=== PATIENT | female | born 1940 | race Caucasian/White ===

== ENCOUNTER → 2016-12-12 | Outpatient (REF) | payer MEDICARE, BC, OTHER ==
[~2016-12-12] MED LIST: ACET-654 PO; ALPH0.156 OU; ASPI1TAB PO; CARV3.12 PO; CARV6.25 PO; ENTR1TAB PO; FURO1TAB15 PO; FURO40TA2 PO; GLIM1TAB PO; GLIM2TA PO; GUAI20TA PO; GUAI400T6 PO; INSULANT SC; K-TA10TA2 PO; LASI40TA PO; LEVA250T PO; LEVO137T2 PO; METF1000 PO; MILKSUS PO; PARO5TAB PO; POTA10CA PO; SENN1TAB2 PO; SENN8.6T7 PO; SIMV40TA2 PO; SPIR25TA2 PO; TRAD5TAB PO; VITA-121 PO; VITMTA PO; [UNRECOGNIZED DRUG - CODE] PO
[2016-12-12 18:44] LABS: ALBUMIN 3.1 GM/DL (3.2-5.2); ALBUMIN/GLOBULIN RATIO 0.89 (1.00-1.93); BILIRUBIN,TOTAL 1.9 MG/DL (0.2-1.0); CALCIUM LEVEL 9.8 MG/DL (8.8-10.2); CREATININE FOR GFR 2.15 MG/DL (0.55-1.02); GLOMERULAR FILTRATION RATE 23.7 (>39); TOTAL PROTEIN 6.6 GM/DL (6.4-8.2)
[2016-12-12 18:49] LABS: POTASSIUM SERUM 5.2 MEQ/L (3.5-5.1)
== END ==
LOC: M LAB REF 16:42
PROVIDERS: ATTEND Family Medicine
DX: I50.32 Chronic diastolic (congestive) heart failure (principal); R60.0 Localized edema; I10 Essential (primary) hypertension

== ENCOUNTER 2016-12-25 15:04 | Inpatient (IN) | payer MEDICARE, BC, OTHER ==
[~2016-12-25] VITALS: Ht 160 cm; Wt 43.9 kg
--- NOTE | 2016-12-25 16:17 | REP ---
CT BRAIN WITHOUT CONTRAST: 12/25/2016. Clinical history: Altered level of consciousness. Comparison MRI brain 07/30/2009. Findings: The noncontrast brain with soft tissue and bone windows reviewed for each slice level show ventricles midline and symmetric. There are heterogeneous low attenuation white matter changes about the frontal horns of each ventricles, subcortical regions and deep white matter in both hemispheres representing chronic small vessel ischemic changes. Atrophy is noted, mild to moderate throughout and age appropriate. There is no vascular territory infarct, intracranial hemorrhage, mass, mass effect or edema. Brainstem unremarkable. Cerebellum shows diffuse atrophy without mass. Basal cisterns are intact. Mastoids and visualized sinuses were clear. There are atherosclerotic calcifications in the carotid siphons. The skull base and calvarium are without fracture or focal lesion. Impression: 1. Chronic small vessel white matter ischemic changes noted bilaterally without acute infarct, hemorrhage, edema or mass. 2. Some atrophy, age appropriate and no acute finding. 3. Posterior fossa, skull base, calvarium, sinuses and mastoids visualized intact. Signed by Tomy Aguillon MD 12/25/2016 07:38 P
--- NOTE | 2016-12-25 16:23 | REP ---
Portable chest x-ray: AP semi-erect view. History: CVA, greater than 4.5 hours. Comparison chest x-ray November 16, 2016. Findings: Marked cardiomegaly is again observed. A multilead pacemaker remains in place in the right heart via the left side. There is fissural thickening in the minor fissure. Pulmonary vasculature is cephalized and somewhat congested. No free pleural effusion is seen. Today's view is exposed at a lesser inspiratory level. Impression: Marked cardiomegaly. Pulmonary vascular congestion. Fissural thickening consistent with CHF. Relatively low inspiratory level. Pacemaker in place. Signed by Bennie Muñoz MD 12/25/2016 04:48 P
[2016-12-25 16:41] LABS: AMPHETAMINES LEVEL URINE NEGATIVE (NEGATIVE); BENZODIAZEPINES URINE NEGATIVE (NEGATIVE); COCAINE METABOLITE URINE NEGATIVE (NEGATIVE); CONTROL LINE INT CTR LINE PRESENT; METHADONE URINE NEGATIVE (NEGATIVE); OPIATES URINE NEGATIVE (NEGATIVE); TRICYCLIC ANTIDEPRESS URINE NEGATIVE (NEGATIVE)
[2016-12-25 16:46] LABS: BASO # 0.1 K/mm3 (0.0-0.2); BASO % 1.4 % (0.0-1.0); EOS % 0.5 % (0.0-3.0); LARGE UNSTAINED CELL # 0.2 K/mm3 (0.0-0.4); LARGE UNSTAINED CELL % 3.4 % (0.0-4.0); LYMPH # 0.7 K/mm3 (1.5-4.5); MEAN CORPUSCULAR HEMOGLOBIN 29.9 pg (27.0-33.0); MEAN CORPUSCULAR VOLUME 93.5 fl (80.0-96.0); MONO # 0.5 K/mm3 (0.0-0.8); MONO % 8.2 % (0.0-5.0); NEUTROPHILS # 5.2 K/mm3 (1.8-7.7); NEUTROPHILS % 79.5 % (36.0-66.0); PLATELET COUNT, AUTOMATED 115 k/mm3 (150-450); RED CELL DISTRIBUTION WIDTH 21.2 % (11.5-14.5); WHITE BLOOD COUNT 6.5 K/mm3 (4.0-10.0)
[2016-12-25 17:02] LABS: ALBUMIN 3.3 GM/DL (3.2-5.2); ALBUMIN/GLOBULIN RATIO 0.87 (1.00-1.93); ALKALINE PHOSPHATASE 212 U/L (45-117); ALT/SGPT 38 U/L (12-78); ANION GAP 13 MEQ/L (8-16); AST/SGOT 46 U/L (15-37); BILIRUBIN,DIRECT 1.1 MG/DL (0.0-0.2); BILIRUBIN,TOTAL 1.9 MG/DL (0.2-1.0); BLOOD UREA NITROGEN 52 MG/DL (7-18); CALCIUM LEVEL 9.5 MG/DL (8.8-10.2); CARBON DIOXIDE LEVEL 24 MEQ/L (21-32); CHLORIDE LEVEL 100 MEQ/L (98-107); CREATININE FOR GFR 1.91 MG/DL (0.55-1.02); GLOMERULAR FILTRATION RATE 27.2 (>39); GLUCOSE, FASTING 203 MG/DL (83-110); SODIUM LEVEL 137 MEQ/L (136-145); TOTAL PROTEIN 7.1 GM/DL (6.4-8.2)
[2016-12-25] MEDS ORDERED: FUROSEMIDE 20 MG/2 ML VIAL (J1940) As Ordered ONE (17:28)
[2016-12-25 17:41] LABS: POTASSIUM SERUM 6.5 MEQ/L (3.5-5.1)
[2016-12-25] MEDS ORDERED: GLUCAGON FOR INJ 1 MG VIAL (J1610) SC PRN (19:00)
[2016-12-25] MEDS ORDERED: PARoxetine 10MG TABLET PO PRN (19:00)
[2016-12-25] MEDS ORDERED: guaiFENesin 200 MG TAB PO PRN (19:00)
[2016-12-25] MEDS ORDERED: GLUCOSE 4 GM CHEW TABLET PO PRN (19:00)
[2016-12-25] MEDS ORDERED: FURO40TA2 PO (19:12)
[2016-12-25] MEDS ORDERED: TRAD5TAB PO (19:15)
[2016-12-25] MEDS ORDERED: SPIR25TA2 PO (19:15)
[2016-12-25] MEDS ORDERED: INSULANT SC (19:18)
[2016-12-25 20:05] LABS: INR 1.85
[2016-12-25] MEDS: BRIMONIDINE 0.15% OPHTH SOLN 5 ML OU SCH (21:00)
--- NOTE | 2016-12-25 21:58 | EDDOCDS ---
Physician Documentation [facility] Name: Yamini Yen Age: 76 yrs Sex: Female : 1940 Arrival Date: 12/25/2016 Time: 15:04 Bed 8 Private MD: Sujit Bhagat MD Disposition: 12/25/16 17:58 Hospitalization ordered by Denilson Butts for Inpatient Admission. Preliminary diagnosis are Acute combined systolic (congestive) and diastolic (congestive) heart failure, Hyperkalemia. - Bed requested for PCU. - Status is Inpatient Admission. ko2 - Condition is Stable. - Problem is an acute exacerbation. - Symptoms are unchanged. Historical: - Allergies: No known drug Allergies; - Home Meds: 1. furosemide 40 mg Oral tab 1 tab 2 times per day 2. acetaminophen 325 mg Oral cap every 4 hours for pain as needed 3. alphagan eye drops ou twice a day 4. aspirin 81 mg Oral chew once daily 5. aspirin 81 mg Oral tab once daily 6. brimonidine ophthalmic 1 drop each eye twice a day 7. carvedilol 3.125 mg oral tab 1 tab 2 times per day 8. carvedilol 3.125 mg oral tab 2 times per day 9. glimepiride 1 mg Oral tab 1 tab nightly 10. glimepiride 2 mg Oral tab 1 tab once daily 11. guaifenesin 400 mg Oral tab 1 tab twice a day 12. guaifenesin 400 mg Oral tab as needed for cough twice a day 13. Lantus 100 unit/mL Sub-Q soln 10 units daily 14. Lasix 80 mg Oral tab 2 times per day 15. levothyroxine 137 mcg Oral tab 1 tab once daily 16. levothyroxine 137 mcg Oral tab once daily 17. Milk of Magnesia 400 mg/5 mL Oral susp 30 mL once daily prn 18. Milk of Magnesia Oral as needed for constipation 19. multivitamin Oral tab 1 tab daily 20. multivitamin Oral tab daily 21. oxygen 2L/min at bedtime and PRN 22. Paroxetine HCl 5 mg Oral at bedtime as needed for tremors 23. potassium chloride 40 meq Oral TbTQ once daily 24. Potassium Chloride Oral 4 caps once daily 25. senna 8.6 mg oral tab twice a day as needed 26. Senna Plus 8.6-50 mg oral tab 1 tabs twice a day 27. simvastatin 40 mg Oral tab 1 tab nightly 28. Tradjenta 5 mg oral tab once daily 29. Tylenol 325 mg Oral tab as needed 30. Vitamin D Oral 1000 unit daily 31. Vitamin D3 1,000 unit oral tab daily - PMHx: Anemia; Anxiety; ASHD; Cardiomyopathy; CHF; Chronic kidney disease; Diabetes - IDDM: uncontrolled; Hypertension; Hypothyroidism; metabolic encaphalopathy; CO; pleural effusion; tricuspid valve insufficiency; - PSHx: PACEMAKER 10/05; valve replacements; CABG; pacermaker/defibrillator; Hysterectomy; - Social history: Smoking status: Patient states former smoker of tobacco. No barriers to communication noted, The patient speaks fluent Korean. - Family history: Not pertinent. - : The pt / caregiver states he / she is not on anticoagulants. Home medication list is obtained from [employer] import data. - Exposure Risk Screening:: None identified. Vital Signs: 12/25 15:01 BP 151 / 69 (auto/); bcj 15:01 Pulse 72 MON; Pulse Ox 100% ; bcj 15:06 BP 110 / 85; Pulse 108; Resp 20 S; Pulse Ox 74% ; Weight 47.17 kg / 103.99 lbs (R); gr2 Height 5 ft. 3 in. (160.02 cm) (R); Pain 6/10; 15:21 BP 127 / 88 (auto/); bcj 15:22 Pulse 80 MON; Pulse Ox 92% ; bcj 15:23 Temp 97.8(TE); Pulse Ox 100% on 2.0 lpm NC; lr2 15:36 BP 121 / 83 (auto/); bcj 15:36 Pulse 76 MON; Pulse Ox 98% ; bcj 15:51 BP 127 / 71 (auto/); bcj 15:51 Pulse 76 MON; Pulse Ox 98% ; bcj 16:06 BP 117 / 83 (auto/); bcj 16:06 Pulse 72 MON; Pulse Ox 97% ; bcj 16:21 BP 123 / 82 (auto/); bcj 16:21 Pulse 74 MON; bcj 16:36 BP 121 / 69 (auto/); bcj 16:36 Pulse 72 MON; bcj 16:51 BP 121 / 74 (auto/); bcj 16:51 Pulse 72 MON; bcj 17:21 BP 102 / 64 (auto/); bcj 17:21 Pulse 78 MON; bcj 17:36 BP 114 / 77 (auto/); bcj 17:36 Pulse 74 MON; bcj 20:51 BP 121 / 82; Pulse 70; Resp 18; Temp 97.6; Pulse Ox 97% ; Pain 0/10; ko2 15:06 Body Mass Index 18.42 (47.17 kg, 160.02 cm) gr2 15:06 TEMP NEEDS TO BE TAKEN gr2 MDM: 15:42 Pack Master/Pulse Ox/q 15 min VS ordered. ke 15:42 Accucheck ordered. ke 15:42 IV Saline Lock ordered. ke 15:42 Oxygen at 4L/Min NC or Home dosage ordered. ke 15:42 Rhythm Strip to chart ordered. ke 15:42 Straight cath ordered. ke 15:43 Acetaminophen Level Ordered. EDMS 15:43 CBC with Diff Ordered. EDMS 15:43 Cardiac Injury Profile Ordered. EDMS 15:43 Drug Eval Toxicology ED Only Ordered. EDMS 15:43 Liver Profile Ordered. EDMS 15:43 MED Profile Ordered. EDMS 15:43 Salicylate Level Ordered. EDMS 15:43 Thyroid Stimulating Hormone Ordered. EDMS 15:43 Troponin Ordered. EDMS 15:43 Urinalysis Ordered. EDMS 15:43 Urine Culture Ordered. EDMS 15:44 Chest, 1 View Ordered. EDMS 15:44 CT Head Without Contrast Ordered. EDMS 15:44 ECG WITH READING ER PHYS+CARDIAG ordered. EDMS 17:01 CBC with Diff Reviewed. ke 17:01 Urinalysis Reviewed. ke 17:01 Drug Eval Toxicology ED Only Reviewed. ke 17:01 CT Head Without Contrast Reviewed. ke 17:12 Chest, 1 View Reviewed. ke 17:13 Furosemide 60 mg IVP once ordered. ke 17:14 BNP Ordered. EDMS 17:51 Acetaminophen Level Reviewed. ke 17:51 Cardiac Injury Profile Reviewed. ke 17:51 Liver Profile Reviewed. ke 17:51 MED Profile Reviewed. ke 17:51 Salicylate Level Reviewed. ke 17:51 Thyroid Stimulating Hormone Reviewed. ke 17:51 Troponin Reviewed. ke 17:54 BED REQUEST+ADM ordered. EDMS 18:48 POTASSIUM LEVEL Ordered. EDMS 18:56 PROTHROMBIN TIME PROFILE\E\INR Ordered. EDMS 19:20 ARTERIAL BLOOD GAS Ordered. EDMS 19:24 BLOOD CULTURES Ordered. EDMS 19:25 BLOOD CULTURES Ordered. EDMS 19:25 LIVER US Ordered. EDMS 19:30 RENAL PROFILE Ordered. EDMS 19:31 COMPLETE BLOOD COUNT Ordered. EDMS 19:31 COMPLETE COMPHRENSIVE METABOLI Ordered. EDMS 19:42 CARDIAC MARKER PANEL Ordered. EDMS 19:48 CARDIAC MARKER PANEL Ordered. EDMS 19:48 CARDIAC MARKER PANEL Ordered. EDMS 19:48 AMMONIA Ordered. EDMS 19:50 CONSISTENT CARBOHYDRATES ordered. EDMS 19:54 ELECTROCARDIOGRAM ADULT ordered. EDMS 20:04 FREE T4 Ordered. EDMS 20:10 Admission / Observation Status ordered. EDMS 20:16 AMMONIA Ordered. EDMS 20:38 Financial registration complete. gjb 20:52 PREALBUMIN Ordered. EDMS 20:53 MAGNESIUM LEVEL Ordered. EDMS 21:01 [facility] Payment Agreement was scanned into [employer] and attached to record. gjb Administered Medications: 17:39 Drug: Furosemide 60 mg [furosemide 10 mg/mL injection solution (6 mL)] Route: IVP; bcj Site: right forearm; Signatures: Dispatcher [employer] Angelika Mathias, RN RN kcs Akbar Lane, DOOR TO DOOR FUNDRAISING COLLECTOR DOOR TO DOOR FUNDRAISING COLLECTOR Rosana Dunham RN RN ko2 Keo Alonso, BOLIVAR LEAD REFINER Comfort Chairez Bruce RN bcj The chart was reviewed and I authenticate all verbal orders and agree with the evaluation and treatment provided.Corrections: (The following items were deleted from the chart) 19:47 19:43 CARDIAC MARKER PANEL ordered. EDMS EDMS 19:48 19:25 BLOOD CULTURES ordered. EDMS EDMS 19:48 19:25 BLOOD CULTURES ordered. EDMS EDMS 19:48 19:25 BLOOD CULTURES ordered. EDMS EDMS 20:04 18:56 FREE T4 ordered. EDMS EDMS 20:50 20:21 PREALBUMIN ordered. EDMS EDMS 20:52 19:54 MAGNESIUM LEVEL ordered. EDMS EDMS Attachments: 21:01 [facility] Payment Agreement gjb MTDD
--- NOTE | 2016-12-25 21:58 | EDDOCDS ---
Nurse's Notes [facility] Name: Yamini Yen Age: 76 yrs Sex: Female : 1940 Arrival Date: 12/25/2016 Time: 15:04 Bed 8 Private MD: Sujit Bhagat MD Diagnosis: Acute combined systolic (congestive) and diastolic (congestive) heart failure;Hyperkalemia Presentation: 12/25 15:19 Presenting complaint: states: patient discharged from the hospital on kcs 11/19/2016 - end stage renal, CHF - a couple of days ago she injured her back and since has been confused and anxious. did not sleep all night - moaned alot. Adult Sepsis Screening: Patient has new or worsening altered mentation (1 point). Patient has a respiratory rate of greater than or equal to 22 (1 point). Systolic blood pressure is greater than 100. Patient has a qSOFA score of 2. Patient has cough and/or SOB- Positive Sepsis Screen. Suicide/Homicide risk assessment- the patient denies having any suicidal and/or homicidal ideations and does not present with any other emotional, behavioral or mental health complaints. 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 Transition of care: patient was not received from another setting of care. Red Flag criteria, patient assessed and taken directly to a bed. 15:19 Acuity: RICH Level 3 kcs 15:19 Method Of Arrival: Wheelchair kcs Triage Assessment: 15:29 General: Appears ill, slender, well developed, well groomed, Behavior is cooperative, kcs flat. Pain: Denies pain. The patient is triaged at the bedside. See Assessment in Nurses Notes section of ED record. Neurological: Level of Consciousness is awake, alert. Respiratory: Airway is patent Respiratory effort is even, unlabored, Respiratory pattern is regular, symmetrical. Derm: Skin is intact, is healthy with good turgor, Skin is dry, Skin is pale. Historical: - Allergies: No known drug Allergies; - Home Meds: 1. furosemide 40 mg Oral tab 1 tab 2 times per day 2. acetaminophen 325 mg Oral cap every 4 hours for pain as needed 3. alphagan eye drops ou twice a day 4. aspirin 81 mg Oral chew once daily 5. aspirin 81 mg Oral tab once daily 6. brimonidine ophthalmic 1 drop each eye twice a day 7. carvedilol 3.125 mg oral tab 1 tab 2 times per day 8. carvedilol 3.125 mg oral tab 2 times per day 9. glimepiride 1 mg Oral tab 1 tab nightly 10. glimepiride 2 mg Oral tab 1 tab once daily 11. guaifenesin 400 mg Oral tab 1 tab twice a day 12. guaifenesin 400 mg Oral tab as needed for cough twice a day 13. Lantus 100 unit/mL Sub-Q soln 10 units daily 14. Lasix 80 mg Oral tab 2 times per day 15. levothyroxine 137 mcg Oral tab 1 tab once daily 16. levothyroxine 137 mcg Oral tab once daily 17. Milk of Magnesia 400 mg/5 mL Oral susp 30 mL once daily prn 18. Milk of Magnesia Oral as needed for constipation 19. multivitamin Oral tab 1 tab daily 20. multivitamin Oral tab daily 21. oxygen 2L/min at bedtime and PRN 22. Paroxetine HCl 5 mg Oral at bedtime as needed for tremors 23. potassium chloride 40 meq Oral TbTQ once daily 24. Potassium Chloride Oral 4 caps once daily 25. senna 8.6 mg oral tab twice a day as needed 26. Senna Plus 8.6-50 mg oral tab 1 tabs twice a day 27. simvastatin 40 mg Oral tab 1 tab nightly 28. Tradjenta 5 mg oral tab once daily 29. Tylenol 325 mg Oral tab as needed 30. Vitamin D Oral 1000 unit daily 31. Vitamin D3 1,000 unit oral tab daily - PMHx: Anemia; Anxiety; ASHD; Cardiomyopathy; CHF; Chronic kidney disease; Diabetes - IDDM: uncontrolled; Hypertension; Hypothyroidism; metabolic encaphalopathy; AL; pleural effusion; tricuspid valve insufficiency; - PSHx: PACEMAKER 10/05; valve replacements; CABG; pacermaker/defibrillator; Hysterectomy; - Social history: Smoking status: Patient states former smoker of tobacco. No barriers to communication noted, The patient speaks fluent Ukrainian. - Family history: Not pertinent. - : The pt / caregiver states he / she is not on anticoagulants. Home medication list is obtained from [employer] import data. - Exposure Risk Screening:: None identified. Screenin:01 Screening information is obtained from family members. Fall risk: At risk due to gait bcj disturbance, The following interventions are performed due to a positive Fall Risk Screen: Fall Risk is added to Special Handling on the patient Summary Screen. A Fall Risk Bracelet was applied to the patient. Side Rails are placed in the up position. A Call Jordan is given with instruction to call for help when getting out of bed. Fall Alert bracelet is placed on the patient. Assistance ADL's: Requires assistance with medication administration, assistance is provided by family members. Abuse/DV Screen: The patient / caregiver reports he/she is: not in a situation that causes fear, pain or injury. Nutritional screening: No deficits noted. home support is adequate. 21:44 Advance Directives: Currently, there is a health care proxy. ko2 Assessment: 18:23 General: Appears in no apparent distress, comfortable, Behavior is cooperative. Pain: bcj Denies pain. Neurological: Level of Consciousness is awake, alert. Cardiovascular: Rhythm is sinus tachycardia. Respiratory: Airway is patent Respiratory effort is even, unlabored, Respiratory pattern is regular. GI: No deficits noted. Derm: Skin is pale. 19:30 General: Appears ill, Behavior is cooperative. Pain: Denies pain. Neurological: Level ko2 of Consciousness is lethargic. Cardiovascular: Heart tones S1 S2 present Rhythm is ventricular pacer. Respiratory: Airway is patent Respiratory effort is even, unlabored, Respiratory pattern is regular. Derm: Skin is pale. 20:30 General: Appears in no apparent distress, ill, Behavior is cooperative. Pain: Denies ko2 pain. Neurological: Level of Consciousness is awake, lethargic. Respiratory: Airway is patent Respiratory effort is even, unlabored. Derm: Skin is pale. 21:49 General: Appears in no apparent distress, Behavior is cooperative. Pain: Denies pain. ko2 Neurological: Level of Consciousness is lethargic. Respiratory: Airway is patent. Derm: Skin is pale. Vital Signs: 15:01 BP 151 / 69 (auto/); bcj 15:01 Pulse 72 MON; Pulse Ox 100% ; bcj 15:06 BP 110 / 85; Pulse 108; Resp 20 S; Pulse Ox 74% ; Weight 47.17 kg (R); Height 5 ft. 3 gr2 in. (160.02 cm) (R); Pain 6/10; 15:21 BP 127 / 88 (auto/); bcj 15:22 Pulse 80 MON; Pulse Ox 92% ; bcj 15:23 Temp 97.8(TE); Pulse Ox 100% on 2.0 lpm NC; lr2 15:36 BP 121 / 83 (auto/); bcj 15:36 Pulse 76 MON; Pulse Ox 98% ; bcj 15:51 BP 127 / 71 (auto/); bcj 15:51 Pulse 76 MON; Pulse Ox 98% ; bcj 16:06 BP 117 / 83 (auto/); bcj 16:06 Pulse 72 MON; Pulse Ox 97% ; bcj 16:21 BP 123 / 82 (auto/); bcj 16:21 Pulse 74 MON; bcj 16:36 BP 121 / 69 (auto/); bcj 16:36 Pulse 72 MON; bcj 16:51 BP 121 / 74 (auto/); bcj 16:51 Pulse 72 MON; bcj 17:21 BP 102 / 64 (auto/); bcj 17:21 Pulse 78 MON; bcj 17:36 BP 114 / 77 (auto/); bcj 17:36 Pulse 74 MON; bcj 20:51 BP 121 / 82; Pulse 70; Resp 18; Temp 97.6; Pulse Ox 97% ; Pain 0/10; ko2 15:06 Body Mass Index 18.42 (47.17 kg, 160.02 cm) gr2 15:06 TEMP NEEDS TO BE TAKEN gr2 Vitals: 15:06 Log In Time: December 25, 2016 at 15:06. RN notified that patient meets Red Flag gr2 criteria. 18:23 Refer to monitor trend for complete vital signs trends. [facility] ED Course: 15:01 No apparent distress. Resting quietly. Awaiting bed assignment. [facility] 15:01 The patient / caregiver is instructed regarding the plan of care and ED course. j 15:01 IV is intact. bcj 15:06 Patient visited by Mark Roberts. gr2 15:06 Sujit Bhagat is Private Physician. gr2 15:06 Patient moved to Waiting gr2 15:15 Patient visited by Mark Roberts. gr2 15:15 Patient moved to Pre RCE gr2 15:16 Patient moved to 8 bcj 15:22 Triage Initiated kcs 15:23 Accompanied by Family Member, Patient has correct armband on for positive lr2 identification. Placed in gown. Bed in low position. Call light in reach. Side rails up X2. business economist on. Pulse ox on. NIBP on. 15:24 Patient visited by Temi Lan. lr2 15:[address] F[facility]. ke 15:[address] Akbar Lane FNP. ke 15:[address] Akbar Lane FNP. ke 15:31 O2 via nasal cannula \T\ 2L/min. kcs 15:[address] jmb 16:05 Patient moved to 8 srm 16:06 Patient visited by Hannah Perales PCA. ct3 16:06 EKG done. (by ED staff). Reviewed by Akbar CHRISTIANSON. ct3 16:19 CT Head Without Contrast Returned. EDMS 16:28 Acetaminophen Level Sent. jmb 16:28 CBC with Diff Sent. jmb 16:28 Cardiac Injury Profile Sent. jmb 16:28 Liver Profile Sent. jmb 16:28 MED Profile Sent. jmb 16:28 Salicylate Level Sent. jmb 16:28 Thyroid Stimulating Hormone Sent. jmb 16:28 Troponin Sent. jmb 16:28 Inserted saline lock: 20 gauge in right forearm and blood collected. The patient jmb tolerated the procedure well. 16:31 [address] visited by Akbar Lane FNP. ke 17:02 [address] visited by Akbar Lane FNP. ke 17:02 Chest, 1 View Returned. EDMS 17:25 BNP Sent. bcj 17:[address] by Akbar Lane FNP. ke 17:50 Notified nurse practitioner of K+ of 6.5 reported to Martine CHRISTIANSON, non hemolyzed kpj specimen. 17:[address]bar Lane FNP. ke 17:58 Denilson Butts is Hospitalizing Provider. ke 18:27 Patient visited by Musa Max, RN. bcj 19:06 Rosana Saini,RN is Primary Nurse. ko2 19:30 Patient visited by Rosana Saini,URI. ko2 20:04 CT Head Without Contrast Returned. EDMS 21:01 [facility] [place] Agreement was scanned into [employer] and attached to record. gjb 21:42 Patient moved to Ultrasound dmg 21:44 No procedures done that require assistance. ko2 21:56 Patient moved to 8 dmg Administered Medications: 17:39 Drug: Furosemide 60 mg [furosemide 10 mg/mL injection solution (6 mL)] Route: IVP; bcj Site: right forearm; Output: 18:40 Stool: 1 (Formed Stool) ; Total: 0.00ml. lr2 Order Results: Lab Order: Acetaminophen Level; SPEC'M 12/25/16 16:25 Test: ACETAMINOPHEN LEVEL; Value: 5.4; Range: 10.0-30.0; Abnormal: Below low normal; Units: UG/ML; Status: F Lab Order: CBC with Diff; SPEC'M 12/25/16 16:25 Test: WHITE BLOOD COUNT; Value: 6.5; Range: 4.0-10.0; Units: K/mm3; Status: F Test: RED BLOOD COUNT; Value: 4.90; Range: 4.00-5.40; Units: M/mm3; Status: F Test: HEMOGLOBIN; Value: 14.7; Range: 12.0-16.0; Units: g/dl; Status: F Test: HEMATOCRIT; Value: 45.8; Range: 36.0-47.0; Units: %; Status: F Test: MEAN CORPUSCULAR VOLUME; Value: 93.5; Range: 80.0-96.0; Units: fl; Status: F Test: MEAN CORPUSCULAR HEMOGLOBIN; Value: 29.9; Range: 27.0-33.0; Units: pg; Status: F Test: MEAN CORPUSCULAR HGB CONC; Value: 32.0; Range: 32.0-36.5; Units: g/dl; Status: F Test: RED CELL DISTRIBUTION WIDTH; Value: 21.2; Range: 11.5-14.5; Abnormal: Above high normal; Units: %; Status: F Test: PLATELET COUNT, AUTOMATED; Value: 115; Range: 150-450; Abnormal: Below low normal; Units: k/mm3; Status: F Test: NEUTROPHILS %; Value: 79.5; Range: 36.0-66.0; Abnormal: Above high normal; Units: %; Status: F Test: LYMPH %; Value: 7.0; Range: 24.0-44.0; Abnormal: Below low normal; Units: %; Status: F Test: MONO %; Value: 8.2; Range: 0.0-5.0; Abnormal: Above high normal; Units: %; Status: F Test: EOS %; Value: 0.5; Range: 0.0-3.0; Units: %; Status: F Test: BASO %; Value: 1.4; Range: 0.0-1.0; Abnormal: Above high normal; Units: %; Status: F Test: LARGE UNSTAINED CELL %; Value: 3.4; Range: 0.0-4.0; Units: %; Status: F Test: NEUTROPHILS #; Value: 5.2; Range: 1.8-7.7; Units: K/mm3; Status: F Test: LYMPH #; Value: 0.7; Range: 1.5-4.5; Abnormal: Below low normal; Units: K/mm3; Status: F Test: MONO #; Value: 0.5; Range: 0.0-0.8; Units: K/mm3; Status: F Test: EOS #; Value: 0.0; Range: 0.0-0.50; Units: K/mm3; Status: F Test: BASO #; Value: 0.1; Range: 0.0-0.2; Units: K/mm3; Status: F Test: LARGE UNSTAINED CELL #; Value: 0.2; Range: 0.0-0.4; Units: K/mm3; Status: F Lab Order: Cardiac Injury Profile; SPEC'M 12/25/16 16:25 Test: CPK CREATINE PHOSPHOKINASE; Value: 135; Range: 26-192; Units: U/L; Status: F Test: CK-MB VALUE MASS; Value: 8.1; Range: 0.0-3.6; Abnormal: Above high normal; Units: NG/ML; Status: F Test: MB/CK RELATIVE INDEX; Value: 6.00; Range: < OR =4; Abnormal: Above high normal; Status: F Test Note: ; DIAGNOSIS CRITERIA MMB ng/ml Relative Index (RI) NON-AMI < or = 5 N/A PUGH ZONE > 5 < or = 4 AMI > 5 > 4 Lab Order: Drug Eval Toxicology ED Only; SPEC'M 12/25/16 16:20 Test: AMPHETAMINES LEVEL URINE; Value: NEGATIVE; Range: NEGATIVE; Status: F Test: BARBITURATES URINE; Value: NEGATIVE; Range: NEGATIVE; Status: F Test: BENZODIAZEPINES URINE; Value: NEGATIVE; Range: NEGATIVE; Status: F Test: CANNABINOIDS URINE; Value: NEGATIVE; Range: NEGATIVE; Status: F Test: COCAINE METABOLITE URINE; Value: NEGATIVE; Range: NEGATIVE; Status: F Test: METHADONE URINE; Value: NEGATIVE; Range: NEGATIVE; Status: F Test: OPIATES URINE; Value: NEGATIVE; Range: NEGATIVE; Status: F Test: TRICYCLIC ANTIDEPRESS URINE; Value: NEGATIVE; Range: NEGATIVE; Status: F Test Note: ; ALL PRESUMPTIVE POSITIVE FINDINGS ARE UNCONFIRMED NORMAL VALUES THRESHOLD IN NG/ML AMPHETAMINES 1000 METHAMPHETAMINES 1000 BARBITURATES 300 BENZODIAZEPINES 300 CANNABINOIDS (THC) 50 COCAINE METABOLITE 300 METHADONE 300 OPIATES 300 PHENCYCLIDINE 25 TRICYCLIC ANTIDEPRESSANTS 1000 RESULTS ARE FOR MEDICAL PURPOSES ONLY. ALL URINE SPECIMENS WILL BE SAVED FOR 3 DAYS. IF CONFIRMATION OF A PRESUMPTIVE POSTIVE SCREEN RESULT IS DESIRED, CALL CHEMISTRY ([phone]) AND REQUEST URINE TO BE SENT TO REFERENCE LAB. FOR A LIST OF CLOSELY RELATED COMPOUNDS PLEASE CALL THE LAB. Lab Order: Liver Profile; SPEC'M 12/25/16 16:25 Test: AST/SGOT; Value: 46; Range: 15-37; Abnormal: Above high normal; Units: U/L; Status: F Test: ALT/SGPT; Value: 38; Range: 12-78; Units: U/L; Status: F Test: ALKALINE PHOSPHATASE; Value: 212; Range: 45-117; Abnormal: Above high normal; Units: U/L; Status: F Test: BILIRUBIN,TOTAL; Value: 1.9; Range: 0.2-1.0; Abnormal: Above high normal; Units: MG/DL; Status: F Test: BILIRUBIN,DIRECT; Value: 1.1; Range: 0.0-0.2; Abnormal: Above high normal; Units: MG/DL; Status: F Test: TOTAL PROTEIN; Value: 7.1; Range: 6.4-8.2; Units: GM/DL; Status: F Test: ALBUMIN; Value: 3.3; Range: 3.2-5.2; Units: GM/DL; Status: F Test: ALBUMIN/GLOBULIN RATIO; Value: 0.87; Range: 1.00-1.93; Abnormal: Below low normal; Status: F Lab Order: MED Profile; SPEC'12/25/16 16:25 Test: GLUCOSE, FASTING; Value: 203; Range: 83-110; Abnormal: Above high normal; Units: MG/DL; Status: F Test: BLOOD UREA NITROGEN; Value: 52; Range: 7-18; Abnormal: Above high normal; Units: MG/DL; Status: F Test: CREATININE FOR GFR; Value: 1.91; Range: 0.55-1.02; Abnormal: Above high normal; Units: MG/DL; Status: F Test: GLOMERULAR FILTRATION RATE; Value: 27.2; Range: >39; Abnormal: Below low normal; Status: F Test: SODIUM LEVEL; Value: 137; Range: 136-145; Units: MEQ/L; Status: F Test: POTASSIUM SERUM; Value: 6.5; Range: 3.5-5.1; Abnormal: Above upper panic limits; Units: MEQ/L; Status: F Test: CHLORIDE LEVEL; Value: 100; Range: 98-107; Units: MEQ/L; Status: F Test: CARBON DIOXIDE LEVEL; Value: 24; Range: 21-32; Units: MEQ/L; Status: F Test: ANION GAP; Value: 13; Range: 8-16; Units: MEQ/L; Status: F Test: CALCIUM LEVEL; Value: 9.5; Range: 8.8-10.2; Units: MG/DL; Status: F Test Note: ; Units are mL/min/1.73 m2 Chronic Kidney Disease Staging per NKF: Stage I & II GFR >=60 Normal to Mildly Decreased Stage III GFR 30-59 Moderately Decreased Stage IV GFR 15-29 Severely Decreased Stage V GFR <15 Very Little GFR Left ESRD GFR <15 on ASSISTANT BANQUET MANAGER Lab Order: Salicylate Level; SPEC'12/25/16 16:25 Test: SALICYLATE LEVEL; Value: < 1.7; Range: 5.0-30.0; Abnormal: Below low normal; Units: MG/DL; Status: F Lab Order: Thyroid Stimulating Hormone; SPEC'12/25/16 16:25 Test: THYROID STIMULATING HORMONE; Value: 21.000; Range: 0.358-3.740; Abnormal: Above high normal; Units: uIU/ML; Status: F Lab Order: Troponin; SPEC'M 12/25/16 16:25 Test: TROPONIN I; Value: 0.04; Range: < 0.10; Units: NG/ML; Status: F Test Note: ; Troponin I Reference Interval for Siemens Dayhoit LOCI: 99th Percentile= 0.00-0.045 ng/ml Risk Stratification: <= 0.10 ng/ml Decreased Risk for Adverse Clinical Events. 0.10-1.50 ng/ml Increased Risk for Adverse Clinical Events. Evaluation of additional criterion and/or repeat testing in 2-6 hours is suggested to rule out myocardial damage. >= 1.50 ng/ml Indicative of Myocardial Injury. Lab Order: Urinalysis; SPEC'M 12/25/16 16:20 Test: APPEARANCE, URINE; Value: HAZY; Range: CLEAR; Status: F Test: COLOR, URINE; Value: RAO; Range: YELLOW; Status: F Test: PH,URINE; Value: 5.0; Range: 5.0-9.0; Units: UNITS; Status: F Test: SPECIFIC GRAVITY URINE AUTO; Value: 1.017; Range: 1.002-1.035; Status: F Test: PROTEIN, URINE AUTO; Value: 1+; Range: NEGATIVE; Abnormal: Above high normal; Units: mg/dL; Status: F Test: GLUCOSE, URINE (UA) AUTO; Value: NEGATIVE; Range: NEGATIVE; Units: mg/dL; Status: F Test: KETONE, URINE AUTO; Value: NEGATIVE; Range: NEGATIVE; Units: mg/dL; Status: F Test: UROBILINOGEN, URINE AUTO; Value: 0.2; Range: 0.0-2.0; Units: mg/dL; Status: F Test: BILIRUBIN, URINE AUTO; Value: NEGATIVE; Range: NEGATIVE; Status: F Test: NITRITE, URINE AUTO; Value: NEGATIVE; Range: NEGATIVE; Status: F Test: LEUKOCYTE ESTERASE, URINE AUTO; Value: NEGATIVE; Range: NEGATIVE; Status: F Test: BLOOD, URINE BLOOD; Value: NEGATIVE; Range: NEGATIVE; Status: F Test: WBC, URINE AUTO; Value: 7; Range: 0-3; Abnormal: Above high normal; Units: /HPF; Status: F Test: RBC, URINE AUTO; Value: 1; Range: 0-3; Units: /HPF; Status: F Test: BACTERIA, URINE AUTO; Value: 1+; Range: NEGATIVE; Abnormal: Above high normal; Status: F Test: SQUAMOUS EPITHELIAL CELL UR AU; Value: 0; Range: 0-6; Units: /HPF; Status: F Test: MUCUS, URINE; Value: SMALL; Range: NEGATIVE; Status: F Test: HYALINE CAST, URINE AUTO; Value: 36; Range: 0-1; Units: /LPF; Status: F Lab Order: BNP; [facility] 12/25/16 16:25 Test: BRAIN NATRIURETIC PEPTIDE; Value: 3980; Range: <100; Abnormal: Above high normal; Units: PG/ML; Status: F Lab Order: POTASSIUM LEVEL; [facility] 12/25/16 19:12 Test: POTASSIUM SERUM; Value: 5.8; Range: 3.5-5.1; Abnormal: Above high normal; Units: MEQ/L; Status: F Test Note: ; This specimen has an elevated potassium level but there is NO visible hemolysis noted.\T\ PLEASE NOTE ON THIS SPECIMEN IF IT IS HEMOLYZED OR NOT Lab Order: PROTHROMBIN TIME PROFILE\E\INR; [facility] 12/25/16 19:11 Test: PROTHROMBIN TIME; Value: 21.4; Range: 12.3-14.5; Abnormal: Above high normal; Units: SECONDS; Status: F Test: INR; Value: 1.85; Status: F Test Note: ; THERAPUTIC HUMAN INR VALUES INDICATIONS NORMAL RANGES PROPHYLAXIS/TREATMENT OF: VENOUS THROMBOSIS 2.0-3.0 PULMONARY EMBOLISM 2.0-3.0 PREVENTION OF SYSTEMIC EMBOLISM FROM: TISSUE HEART VALVES 2.0-3.0 ACUTE MYOCARDIAL INFARCTION 2.0-3.0 VALVULAR HEART DISEASE 2.0-3.0 ATRIAL FIBRILLATION 2.0-3.0 MECHANICAL VALVES(HIGH RISK) 2.5-3.5 RECURRENT MYOCARDIAL INFARCTION 2.5-3.5 Lab Order: CARDIAC MARKER PANEL; [facility] 12/25/16 19:28 Test: CPK CREATINE PHOSPHOKINASE; Value: 115; Range: 26-192; Units: U/L; Status: F Test: CK-MB VALUE MASS; Value: 7.6; Range: 0.0-3.6; Abnormal: Above high normal; Units: NG/ML; Status: F Test: MB/CK RELATIVE INDEX; Value: 6.60; Range: < OR =4; Abnormal: Above high normal; Status: F Test: TROPONIN I; Value: 0.05; Range: < 0.10; Abnormal: Delta; Units: NG/ML; Status: F Test Note: ; DIAGNOSIS CRITERIA MMB ng/ml Relative Index (RI) NON-AMI < or = 5 N/A PUGH ZONE > 5 < or = 4 AMI > 5 > 4 Lab Order: FREE T4; SPEC'M 12/25/16 16:25 Test: FREE T4; Range: 0.76-1.46; Units: NG/DL; Status: I Radiology Order: CT Head Without Contrast Test: CT Head Without Contrast REASON FOR EXAMINATION: altered loc; CT BRAIN WITHOUT CONTRAST: 12/25/2016.; ; Clinical history: Altered level of consciousness.; ; Comparison MRI brain 07/30/2009.; ; Findings: The noncontrast brain with soft tissue and bone windows reviewed for; each slice level show ventricles midline and symmetric. There are heterogeneous; low attenuation white matter changes about the frontal horns of each ventricles,; subcortical regions and deep white matter in both hemispheres representing; chronic small vessel ischemic changes. Atrophy is noted, mild to moderate; throughout and age appropriate. There is no vascular territory infarct,; intracranial hemorrhage, mass, mass effect or edema. Brainstem unremarkable.; Cerebellum shows diffuse atrophy without mass. Basal cisterns are intact.; Mastoids and visualized sinuses were clear. There are atherosclerotic; calcifications in the carotid siphons. The skull base and calvarium are without; fracture or focal lesion.; ; Impression:; ; 1. Chronic small vessel white matter ischemic changes noted bilaterally without; acute infarct, hemorrhage, edema or mass.; ; 2. Some atrophy, age appropriate and no acute finding.; ; 3. Posterior fossa, skull base, calvarium, sinuses and mastoids visualized; intact.; ; ; Signed by; Tomy Aguillon MD 12/25/2016 07:38 P; Radiology Order: Chest, 1 View Test: Chest, 1 View REASON FOR EXAMINATION: CVA >4.5hrs; Portable chest x-ray: AP semi-erect view.; ; History: CVA, greater than 4.5 hours.; ; Comparison chest x-ray November 16, 2016.; ; Findings: Marked cardiomegaly is again observed. A multilead pacemaker remains; in place in the right heart via the left side. There is fissural thickening in; the minor fissure. Pulmonary vasculature is cephalized and somewhat congested.; No free pleural effusion is seen. Today's view is exposed at a lesser; inspiratory level.; ; Impression:; ; Marked cardiomegaly. Pulmonary vascular congestion. Fissural thickening; consistent with CHF. Relatively low inspiratory level. Pacemaker in place.; ; ; Signed by; Bennie Muñoz MD 12/25/2016 04:48 P; Outcome: 17:58 Decision to Hospitalize by Provider. ke 21:18 Discharge Assessment: Patient awake, alert and oriented x 3. No cognitive and/or ko2 functional deficits noted. Patient verbalized understanding of disposition instructions. patient administered narcotics - no. The following High Risk Discharge criteria are identified: None. Admitted to PCU accompanied by nurse, accompanied by tech, family with patient, via stretcher, on monitor, with chart. Condition: stable. CT Study completed. Admission hand-off: Report Faxed Fax receipt verified by Annie Pastor RN PCU. Property :Personal belongings accompany Pt. 21:57 Patient left the ED. ko2 Signatures: Dispatcher [employer] EDMS Angelika Barrientos RN Catherine Costa, RN Musa Baig, RN Sarah Johnson, RN RN Leigh Woo [facility] [address], PHARMACEUTICAL ENGINEER PHARMACEUTICAL ENGINEER ke Hannah Perales, DIE MAKER STAMPING DIE MAKER STAMPING ct3 Mark Roberts gr2 Mendez Melo RN RN jmb Ogden, Kari, RN RN ko2 Beck, Gabriela gjb Ross, Laura lr2 MTDD
[2016-12-25 22:00] VITALS: BP 116/61
[2016-12-25] MEDS ORDERED: HumuLIN R (REGULAR) INSULIN (NovoLIN R) **100U/ML** PER UNIT IV ONE (22:00)
[2016-12-25] MEDS ORDERED: CALCIUM GLUCONATE 1,000 MG in D5W MINI-BAG PLUS 100 ML IV ONE (22:00)
[2016-12-25 22:11] LABS: FREE T4 1.75 NG/DL (0.76-1.46)
[2016-12-25 22:27] LABS: ABG BASE EXCESS 0.7 (-2.0-2.0); ABG HCO3 24.3 MEQ/L (22.0-26.0); ABG PARTIAL PRESSURE CO2 35.8 mmHg (35.0-45.0); ABG PARTIAL PRESSURE O2 80.9 mmHg (75.0-100.0); ABG STANDARD HCO3 25.1 MEQ/L (22.0-26.0); ABG TOTAL CO2 25.4 MEQ/L (23.0-31.0)
[2016-12-25] MEDS: LACTULOSE 20 GM/30 ML SYRUP UD PO SCH (22:43)
[2016-12-25] MEDS: CARVedilol 3.125 MG TAB PO SCH (22:43)
[2016-12-25] MEDS: SIMVASTATIN 40 MG TAB PO SCH (22:44)
[2016-12-25] MEDS ORDERED: SLF 3 ML SYR IV PRN (22:45)
[2016-12-25 23:55] VITALS: BP 111/60
[2016-12-26] VITALS (7 sets, daily range): BP systolic 90–133; BP diastolic 55–76
[2016-12-26] MEDS: FUROSEMIDE 100 MG/10 ML VIAL (J1940) IV SCH ×3 (00:39→16:08)
[2016-12-26 05:39] LABS: MEAN CORPUSCULAR HEMOGLOBIN 29.6 pg (27.0-33.0); MEAN CORPUSCULAR HGB CONC 32.1 g/dl (32.0-36.5); MEAN CORPUSCULAR VOLUME 92.4 fl (80.0-96.0); RED CELL DISTRIBUTION WIDTH 21.2 % (11.5-14.5); WHITE BLOOD COUNT 7.7 K/mm3 (4.0-10.0)
[2016-12-26] MEDS: LACTULOSE 20 GM/30 ML SYRUP UD PO SCH ×3 (05:45→22:54)
[2016-12-26] MEDS: LEVOTHYROXINE 0.15 MG TAB (150 MCG) PO SCH (05:45)
[2016-12-26] MEDS: SLF 3 ML SYR IV SCH ×3 (05:45→22:54)
[2016-12-26 06:02] LABS: ALBUMIN 3.3 GM/DL (3.2-5.2); ALBUMIN/GLOBULIN RATIO 0.92 (1.00-1.93); CALCIUM LEVEL 9.8 MG/DL (8.8-10.2); CREATININE FOR GFR 1.75 MG/DL (0.55-1.02); GLOMERULAR FILTRATION RATE 30.1 (>39); MAGNESIUM LEVEL 2.1 MG/DL (1.8-2.4); POTASSIUM SERUM 4.6 MEQ/L (3.5-5.1); TOTAL PROTEIN 6.9 GM/DL (6.4-8.2)
[2016-12-26] MEDS: DEXTROSE 50% 50 ML SYRINGE IV PRN (06:38)
[2016-12-26] MEDS: HumaLOG INSULIN (NovoLOG) PER UNIT SC SCH ×4 (07:20→21:00)
[2016-12-26] MEDS: CARVedilol 3.125 MG TAB PO SCH ×2 (07:29→22:54)
[2016-12-26] MEDS: VITAMIN D 1,000 INTERNATIONAL UNITS TABLET PO SCH (07:29)
[2016-12-26] MEDS: ASPIRIN 81 MG ENTERIC TAB PO SCH (07:29)
[2016-12-26] MEDS: BRIMONIDINE 0.15% OPHTH SOLN 5 ML OU SCH ×2 (07:30→21:00)
--- NOTE | 2016-12-26 09:22 | REP ---
RIGHT UPPER QUADRANT SONOGRAPHY: HISTORY: Abdominal pain, elevated transaminase enzymes, question cirrhosis. Comparison right upper quadrant sonography November 04, 2016 showed cholelithiasis and sludge in addition to ascites, right pleural effusion and the right renal atrophy. TODAY'S SONOGRAPHIC FINDINGS: Scanning through right upper quadrant of the abdomen demonstrates marked wall thickening of the gallbladder measuring up to 1.3 cm in thickness. There is intramural edema in the gallbladder wall. There is evidence of a gallstone although this is less well seen than on the comparison study. There is some acoustic shadowing. Common bile duct is normal measuring 0.4 cm in greatest diameter. No focal hepatic lesion is seen. A small quantity of ascites is seen. Limited views of the pancreas show no abnormality. Exam quality is inhibited in general by patient motion and labored breathing. The right kidney measures 9.7 x 3.7 x 4.1 cm. Renal cortical parenchyma is somewhat echogenic consistent with medical renal disease. No hydronephrosis seen. IMPRESSION: Findings consistent with cholecystitis. There is marked gallbladder wall thickening. Cholelithiasis. Normal CBD. Mild ascites. Signed by Bennie Muñoz MD 12/26/2016 12:30 P
[2016-12-26 09:45] LABS: ABG DEVICE NASAL CANN; ABG HCO3 22.7 MEQ/L (22.0-26.0); ABG PARTIAL PRESSURE O2 92.9 mmHg (75.0-100.0); ABG STANDARD HCO3 23.6 MEQ/L (22.0-26.0); ABG TOTAL CO2 23.8 MEQ/L (23.0-31.0)
[2016-12-26] MEDS ORDERED: VANCOMYCIN HCL 1,000 MG, VIAL MATE ADAPTER 1 EACH in D5W 250 ML IV SCH (10:45)
[2016-12-26 11:57] LABS: ALBUMIN 3.1 GM/DL (3.2-5.2); CALCIUM LEVEL 10.1 MG/DL (8.8-10.2); CREATININE FOR GFR 2.06 MG/DL (0.55-1.02); GLOMERULAR FILTRATION RATE 24.9 (>39); PHOSPHORUS LEVEL 5.2 MG/DL (2.5-4.9)
[2016-12-26 11:59] LABS: POTASSIUM SERUM 5.2 MEQ/L (3.5-5.1)
[2016-12-26] MEDS ORDERED: CEFEPIME HCL 2 GM in D5W MINI-BAG PLUS 50 ML IV SCH (12:00)
[2016-12-26] MEDS ORDERED: VANCOMYCIN HCL 750 MG, VIAL MATE ADAPTER 1 EACH in D5W 250 ML IV ONE (13:00)
[2016-12-26 13:36] LABS: ALBUMIN/GLOBULIN RATIO 0.89 (1.00-1.93); BILIRUBIN,DIRECT 1.1 MG/DL (0.0-0.2); BILIRUBIN,TOTAL 2.1 MG/DL (0.2-1.0); TOTAL PROTEIN 6.6 GM/DL (6.4-8.2)
--- NOTE | 2016-12-26 13:43 | PHACANCOPD ---
PHARMACY VANCOMYCIN DOSING Pt Demographics Demographics Patient Age:76 , Weight:46.100 , Gender: female Adjusted Body Weight Date: 12/26/16, Adjusted Body Weight: Kg Events Past 24 Hours Events Past 24 Hours: YES: Pending Diagnostics Vancomycin Vancomycin indication: Empiric mrsa coverage Vancomycin Target Ranges: 15-20 mcg/ml Vancomycin Load Y/N: Yes Load Dose Date Time Vancomycin Load Dose: 750mg Date: 12/26/16 Time: 1300 Vancomycin Dose Date: 12/26/16. Current Vancomycin Dose: [500mg IV Q24H] Intermittent Dosing?: No Labs Labs Item Value Date Time White Blood Count 7.7 K/mm3 12/26/16 0521 White Blood Count 6.5 K/mm3 12/25/16 1625 Creatinine 2.06 MG/DL H 12/26/16 1128 Creatinine 1.75 MG/DL H 12/26/16 0521 Blood Urea Nitrogen 61 MG/DL H 12/26/16 1128 Blood Urea Nitrogen 55 MG/DL H 12/26/16 0521 Micro Microbiology 12/25/16 Blood Culture, Received Pending 12/25/16 Blood Culture, Received Pending 12/25/16 Urine Culture, Received Pending Creatinine Clearance Date:12/26/16. Estimated Creatinine Clearance: ~[19 ml/min]. Assessment and Plan Maintaining Current Dose?: Yes Reason for dose change: No Dose Change Pharmacist Note Pharmacist Note Date: 12/26/16. Pharmacist note: Day #1 empiric meropenem/vancomycin initiated with a 750mg loading dose, followed by a maintenance regimen of 500mg IV Q24H for empiric mrsa coverage - aiming for a goal trough of 15-20 mcg/ml. WBC is currently WNL, and patient is afebrile. Scr was elevated on admit - baseline scr is ~ 1.7. Blood and urine cultures are pending. We will continue to monitor the patient's renal function and schedule a level/make dose adjustments accordingly. RO[facility] Dec 26, 2016 13:43
--- NOTE | 2016-12-26 13:48 | IPN ---
DATE: 12/26/2016 SUBJECTIVE: This is a 76-year-old female who is seen and examined at bedside. Overnight she was admitted for altered mental status. This morning, she continues to be lethargic. Temperature was low this morning and required Michael Hugger. Currently no one is available at bedside from her family. Previously her DO NOT RESUSCITATE/DO NOT INTUBATE was rescinded in July 2016, however, apparently there is a new Medical orders for life sustaining treatment (MOLST) form with DO NOT RESUSCITATE signed but the form is currently not available to us. OBJECTIVE: Vital signs: Blood pressure 116/63, heart rate 66, temperature 93.1 improved to 95.2, pulse ox 98% on 2 liters nasal cannula, respiration rate 16. Intake and output over the last 24 hours 220, 280. She is approximately 110 net negative. General: Patient is lying in bed lethargic, more so today compared to yesterday. Very hard of hearing. Required both verbal and painful stimuli to wake up. Knows her name but did not answer when asked further questions about orientation. Patient was responsive to verbal commands. Upper dentures in place, lower portion with patient's own teeth. No thrush or lesions appreciated. HEENT: Normocephalic, atraumatic. Moist oral mucosa. Pupils equal and reactive to light but somewhat slow. Neck supple. Neck vein is by the jaw. Chest: Symmetric chest rise, no accessory muscle use. Breath sounds are diminished bilateral lung bases. Heart: Regular rate and rhythm. Left chest with pacemaker defibrillator. Abdomen: Soft, nontender, nondistended. Bowel sounds present. No guarding or rebound. Extremities with 2+ pitting bilateral lower extremity pedal pulses but distant due to edematous change. LABORATORY DATA: WBC 7.7, hemoglobin 14.4, hematocrit 44.8, platelets 112 decreased from yesterday 115. Sodium 141, potassium 4.6 improved from yesterday 6.5, chloride 104, carbon dioxide 25, BUN 55, creatinine 1.75 improved from yesterday at 1.91. Glucose 32 but after 1 amp of D50 with orange juice, she did increase to 148. Coagulations ordered last night. PT 21.4, INR 1.85. Blood culture pending. Urine culture pending. Total bilirubin 2. AST 42, ALT 34, alkaline phosphatase 192. Ammonia level 72. Cardiac marker negative. Prealbumin 15.7. IMPRESSION/PLAN: This patient is a 76-year-old female with extensive past medical history including systolic/diastolic heart failure, ejection fraction (EF) of 10-15%, coronary artery disease (CAD) post coronary artery bypass graft (CABG), chronic kidney disease (CKD) who presented with altered mental status. 1. Metabolic encephalopathy. Possible causes include hepatic encephalopathy, infection, cardiac or neurologic. CT on admission was unrevealing. She finally had one bowel movement this morning. Ammonia level is 72 which is increased compared to when she first presented with admission. Her total bilirubin is increasing. The patient will be started on broad spectrum antibiotic coverage for possible infectious etiology which could contribute to an underlying infection, vancomycin and cefepime. Continue to monitor her pressure closely as she is currently being diuresed for her acute congestive heart failure (CHF) exacerbation. Recheck ABG. Her ABG performed last night was unrevealing. 2. Hyperkalemia. Patient is status post calcium gluconate, insulin. Her potassium level is now within normal range. 3. Congestive heart failure exacerbation, systolic and diastolic, decompensated. She so far is negative 410 of urine output. Continue IV diuresis at this time. Monitor renal function and pressure closely. 4. Type 2 diabetes with hypoglycemia. Her fingerstick this morning was 32, contributing to her worsening mentation. Patient is on insulin sliding scale and carbohydrate diet. 5. Coronary artery disease (CAD) status post coronary artery bypass graft (CABG ) on aspirin, beta kelechi and statin. 6. Hypothyroidism. Her home dose levothyroxine 137 is now increased to 150. Her TSH on admission was 22. 7. Vitamin D deficiency. Continue supplementation. 8. Acute on chronic kidney disease. Renal function appears to be improving this morning. On diuresis as mentioned above. 9. Elevated INR. She is not on anticoagulation, yet her INR is 1.8. Likely has underlying cirrhosis. 10. Deep venous thrombosis prophylaxis, Sequential compression devices (SCD) and thromboembolic deterrent stockings (TEDS). No pharmacological intervention secondary to elevated INR. My preceptor for this patient encounter was Dr. Hai Barth. The preceptor was physically present in the building during the encounter and was fully available. As needed, all aspects of the patient interview, examination, medical decision making process, and medical care plan development were reviewed and approved by the preceptor. The preceptor is aware and concurs with the plan as stated in the body of this note and will attest to such by his/her cosignature. CONNOR
[2016-12-26] MEDS ORDERED: D5W MINI IV SCH ×2 (14:00→15:00)
[2016-12-26] MEDS ORDERED: MEROPENEM IV SCH ×2 (14:00→15:00)
--- NOTE | 2016-12-26 14:31 | HPE ---
DATE OF ADMISSION: 12/25/2016 PRIMARY CARE PROVIDER: Dr. Sujit Bhagat CASTING MACHINE OPERATOR: Shea Amin MD CHIEF COMPLAINT: Altered mental status. HISTORY OF PRESENT ILLNESS: Ms. Yen is a 76-year-old female with diastolic systolic heart failure, sick sinus syndrome, status post pacemaker was brought in by family today with complaint of confusion. History is somewhat difficult to obtain as the patient is currently confused and her son, who is currently at bedside, does not live with her and unable to offer reliable history. The patient states that the reason she presented to the hospital was because of back pain. 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 Since then, her son states that she has had difficulty with sleeping, mostly moaning and groaning at night. The patient herself reports shortness of breath but unable to describe the nature of this shortness of breath. Unable to tell if it is worse or better with positional change. No chest pain, palpitations, fevers, or chills. The rest of her history is again difficult to obtain due to her altered mental status. Of note, the patient was recently admitted last month. At that time, was for acute renal failure secondary to overdiuresis. Prior to admission was on Lasix 80 twice a day but because of renal failure from overdiuresis, this was decreased. She also has been on potassium chloride and Spironolactone with decreased Lasix dose. In the emergency department, was given Lasix IV 60 mg times one. PAST MEDICAL HISTORY: Obtained from previous admissions showed: Severe systolic diastolic dysfunction, ejection fraction (EF) of 10-15% from echocardiogram 2016. Sick sinus syndrome, status post pacemaker. Pulmonary hypertension with systolic ventricular pressure back in June 2016 showed pressure in the high 40s. Valvular heart disease with severe tricuspid regurgitation. Coronary artery disease (CAD) with prior myocardial infarction ([place]). Type 2 diabetes. Mitral and aortic valve replacement and repair. Endocarditis 2006. Hyperlipidemia. Chronic anemia. Hypothyroidism. Glaucoma. Chronic malnutrition. Night terrors. Oxygen dependent as needed. Hyperlipidemia. Type 2 diabetes. Vitamin D deficiency. Anxiety. Constipation. PAST SURGICAL HISTORY: Pacemaker defibrillator placement. Mitral and aortic valve replacement. Coronary artery bypass graft (CABG). ALLERGIES: No known drug allergies. HOME MEDICATIONS: - Tylenol 325 mg by mouth daily as needed - aspirin 81 mg by mouth daily - Alphagan one drop OU twice a day - Coreg 3.125 mg by mouth twice a day - vitamin D 1000 units by mouth daily - Lasix 40 mg by mouth twice a day (dose somewhat unclear; it was mentioned that she was on daily as well) - Glimepiride 2 mg by mouth daily - Mucinex 200 mg by mouth twice a day as needed - Lantus 10 units subcutaneous daily - Synthroid 137 mcg by mouth daily - Tradjenta 5 mg by mouth daily - milk of magnesia 30 mL as needed - multivitamin - Zocor 40 mg nightly - spironolactone 25 mg by mouth daily FAMILY HISTORY: Noncontributory due to advanced age. SOCIAL HISTORY: The patient is an ex-smoker. Used to smoke a pack a day for 20 years. No alcohol or drug use. Currently lives at home with her and daughter. No recent travel. 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 No known history of exposure to tuberculosis or asbestos. No pets at home. REVIEW OF SYSTEMS: Unobtainable due to altered mental status. PHYSICAL EXAMINATION: VITAL SIGNS: Blood pressure 110/85, heart rate 108, respiration rate 20. Pulse oximetry initially 74 on room air but increased to 100% on 2 liters nasal cannula. Body mass index (BMI) is 18. GENERAL: The patient is lying in bed. Appears uncomfortable but no acute respiratory or psychiatric distress. She is alert, awake, oriented to person, place, but not time. Thinks the year is 1975, but knows the president is Sergei. Son at bedside. HEENT: Normocephalic, atraumatic. Moist oral mucosa. Extraocular movement intact. Neck supple. Trachea midline. Jugular venous distention (JVD) by the jaw line. CHEST: Symmetric chest rise. No accessory muscle use. Breath sounds were diminished bilateral lung bases with dullness to percussion. Occasional crackles. Palpable pacemaker AICD defibrillator present in left chest. ABDOMEN: Soft but tender to palpation with no guarding. No rebound. No peritoneal sign. Was significantly tender on the right upper quadrant. EXTREMITIES: 2+ pitting edema extending pretibially. No sacral edema. NEUROLOGICAL: As mentioned above. Babinski negative. Positive for asterixis. LABORATORY DATA: WBC 6.5, hemoglobin 14.7, hematocrit 45.8. MCV 93.5, platelets 115. She has had lower platelets before in the 90s range. Sodium 137, potassium 6.5, chloride 100, carbon dioxide 24, BUN 52, creatinine 9.91. Baseline creatinine around 1.7, 1.8. Glucose 203. Calcium 9.5, total bilirubin 1.9, direct bilirubin 1.1. AST 46, ALT 38, alkaline phosphatase 212. CK 135. Troponin, first set is negative. TSH 21. BNP 3980. CT head showed chronic small vessel white matter ischemic changes bilateral without acute infarct, hemorrhage, edema, or mass. Some atrophy, age related, appropriate. No acute findings. Chest x-ray with marked cardiomegaly. Pulmonary vascular congestion. Fissural thickening consistent with CHF. Pacemaker in place. Urine toxicology was negative. Urine showed 1+ protein, WBC 7, 1+ bacteria. EKG showed ventricular paced rhythm 89. T wave appears to be more peaked compared to previous EKG. IMPRESSION: Ms. Yen is a 76-year-old female with history of systolic diastolic heart failure presented with altered mental status. 1. Metabolic encephalopathy. Etiology unclear. Could be secondary to congestive heart failure versus hepatic encephalopathy versus infectious etiology. She has a history of an elevated ammonia level in the past. Will check ammonia level at this time and start lactulose. Check blood culture. Repeat cardiac marker to rule out for other causes such as CAD that could contribute to her encephalopathy. Continue to monitor closely. Unfortunately, the patient cannot have an MRI should her condition continue to deteriorate as she has a pacemaker, automatic implantable cardioverter-defibrillator (AICD). 2. Hyperkalemia. Admission potassium 6.5. Likely secondary to ingestion of potassium and also spironolactone use. Has already received Lasix times one 60 mg IV in the ED. Repeat lab ordered now. Have added calcium gluconate and regular insulin. She also will be started on lactulose for hepatic encephalopathy. Repeat EKG in the morning and repeat labs tonight. 3. Acute on chronic systolic diastolic heart failure, decompensated. Ejection fraction August 2016 was 10-15%. Her decompensation was likely secondary to medication adjustment. For now, continue Lasix 60 mg every 8 hours. She does have moderate pulmonary hypertension and will need to monitor her condition closely to prevent over-diuresis. 4. Moderate pulmonary hypertension. Plan as mentioned above. 5. Hypothyroidism with elevated TSH. Check free T4. Will increase Synthroid dose from 137 to 150. 6. Acute respiratory failure with hypoxia. She was 74% on room air on admission. This is likely to be secondary to decompensation of CHF. Hopefully this will improve with diuresis. Continue supplement of oxygen. 7. Transaminitis. Etiology unclear. It appears that she has had long standing problems. She also had some vague upper abdominal pain. Will check liver profile , liver ultrasound to rule out for underlying cirrhosis. Have added coagulation study to re-evaluate liver function. She does not have a reported history of liver disease that her family is aware of. 8. Chronic kidney disease, stage IV. The patient will be receiving diuresis as mentioned above. 9. Mitral and aortic valve dysfunction, status post replacement. 10. Hyperlipidemia. Continue Zocor 40 mg nightly. However, will need to monitor as she does have transaminitis. 11. Chronic anemia. Hemoglobin, hematocrit currently within normal range. She has a history of transfusion in the past. 12. Protein calorie malnutrition. BMI of 18. Check pre-albumin. 13. Type 2 diabetes. Continue insulin sliding scale. 14. History of coronary artery disease. Continue aspirin 81 mg daily, statin, and Coreg twice a day. 15. Night terrors. Continue as needed Paxil. 16. Deep venous thrombosis (DVT) prophylaxis. Sequential compression devices (SCDs), thromboembolism deterrents (TEDs). Pending coagulation study before starting her on pharmacological intervention to evaluate for possible underlying cirrhosis based on her thrombocytopenia and transaminitis. DISPOSITION: Due to the patient's acute condition, expect her stay to be greater than 2 midnights. My preceptor for this patient encounter was Dr. Denilson Butts MD. The preceptor was physically present in the building during the encounter and was fully available. As needed, all aspects of the patient interview, examination, medical decision making process, and medical care plan development were reviewed and approved by the preceptor. The preceptor is aware and concurs with the plan as stated in the body of this note and will attest to such by his/her cosignature. cc: Dr. Sujit RYAN
--- NOTE | 2016-12-26 15:35 | CR ---
DATE OF CONSULTATION: 12/26/2016 REASON FOR CONSULTATION: Abnormal ultrasound of gallbladder and elevated liver function tests. 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 She has stated that she has pain with any movement. She has some shortness of breath but it is hard to know if this is baseline for her. Her previous admission showed significant thickening of the gallbladder wall with ascites, probably from right-sided heart failure. I am asked to see her after she underwent a repeat ultrasound of the liver for elevated liver function tests which revealed increasing thickness of the gallbladder. She has not had any fevers or chills. No nausea or vomiting. Her alkaline phosphatase has been elevated since last July 2016. Her bilirubin has also been elevated since last August 2016. She has been afebrile during her admissions. Her alanine aminotransferase (ALT) is normal and her aspartate aminotransferase (AST) is slightly elevated. PAST MEDICAL HISTORY: Her past medical history is significant for: 1. History of severe diastolic/systolic heart failure. 2. Sick sinus syndrome. 3. History of pacemaker. 4. History of ejection fraction 10% to 15%. 5. History of severe tricuspid regurgitation. 6. History of coronary artery disease with prior myocardial infarction. 7. History of type 2 diabetes mellitus. 8. History of mitral and aortic valve replacement and repair. 9. History of endocarditis. 10. History of hyperlipidemia. 11. History of chronic anemia. 12. History of hypothyroidism. 13. History of chronic glaucoma. 14. History of chronic malnutrition. 15. History of night terrors. 16. History of oxygen dependent respiratory failure. 17. History of hyperlipidemia. 18. History of vitamin D deficiency. 19. History of anxiety. 20. History of pulmonary hypertension. 21. History of constipation. MEDICATIONS ON ADMISSION: Include: Tylenol, aspirin, Alphagan, Coreg, vitamin D, Lasix, glimepiride, Mucinex, insulin, Synthroid, Tradjenta, milk of magnesia, multivitamin, Zocor, spironolactone. PHYSICAL EXAMINATION: Reveals a cachectic, confused individual who is slow to move in bed. She is alert and oriented. HEENT: Unremarkable. She has significant jugular venous distention (JVD). LUNGS: Reveal crackles bilaterally with diminished bases bilaterally. HEART: Regular with multiple irregular beats and mechanical sounds. ABDOMEN: Soft, nondistended, nontender. I am not appreciating any right upper quadrant tenderness or pain. IMPRESSION AND PLAN: 1. Abnormal liver function tests. The patient has had a chronic elevation of her liver function test for some time now, most likely secondary to her right-sided heart failure/hepatic congestion. I anticipate this is ongoing and persistent. She has had ascites and continues to have some ascites suggesting this right heart failure/hepatic congestion is relatively severe. I do not feel that the liver function tests (LFTs) are elevated secondary to her gallbladder. 2. Abnormal ultrasound of the gallbladder. Previous ultrasound was reviewed and this one, and indeed previously she had significant thickening of her gallbladder wall with even gallbladder wall edema seen on the gallbladder ultrasound last admission. This one is more impressive showing more edema and the question is once again whether this is secondary to hepatic congestion or cholecystitis. Without elevated white count and without tenderness at this time, it seems less likely that this is an acute cholecystitis process. However, I do feel that if she starts to have an elevating white count or fever that it is reasonable to proceed with a hepatobiliary iminodiacetic acid (HIDA) scan. If the HIDA scan shows nonvisualization of the gallbladder then a percutaneous cholecystostomy tube is reasonable. However, she is not an operative candidate, once again not a surgical candidate given all of her comorbidities and in general would not tolerate operative intervention. 3. Pain. The patient's chest wall pain seems to be musculoskeletal in etiology and I do not feel that this is referred pain secondary to her gallbladder. It is most likely musculoskeletal and we will see how she does over the ensuing 24-48 hours. Once again, if she has improvement of her pain, discomfort, she does not have an elevated white count or fever then I would hold off on proceeding with a HIDA scan, mostly because at this point I feel that with the amount of edema that she has in the liver as well as the gallbladder area, she may have some difficulty filling this gallbladder itself and with a poor oral intake also would contribute to a false positive. Thank you for this consulation. I will continue following the patient with you.
[2016-12-26] MEDS: MEROPENEM INJ 500 MG in D5W MINI-BAG PLUS 100 ML IV SCH (16:08)
--- NOTE | 2016-12-26 20:43 | ECGEPIP ---
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
[2016-12-26] MEDS: SIMVASTATIN 40 MG TAB PO SCH (22:54)
[2016-12-27] MEDS: MEROPENEM INJ 500 MG in D5W MINI-BAG PLUS 100 ML IV SCH ×2 (03:28→14:55)
[2016-12-27 03:57] VITALS: BP 105/76
[2016-12-27] MEDS: LACTULOSE 20 GM/30 ML SYRUP UD PO SCH ×3 (06:07→22:01)
[2016-12-27] MEDS: SLF 3 ML SYR IV SCH ×3 (06:07→22:01)
[2016-12-27] MEDS: LEVOTHYROXINE 0.15 MG TAB (150 MCG) PO SCH (06:07)
[2016-12-27 06:10] LABS: MEAN CORPUSCULAR HEMOGLOBIN 29.8 pg (27.0-33.0); MEAN CORPUSCULAR HGB CONC 31.7 g/dl (32.0-36.5); MEAN CORPUSCULAR VOLUME 93.9 fl (80.0-96.0); RED CELL DISTRIBUTION WIDTH 20.2 % (11.5-14.5); WHITE BLOOD COUNT 4.5 K/mm3 (4.0-10.0)
[2016-12-27 06:22] LABS: ALBUMIN 3.2 GM/DL (3.2-5.2); ALBUMIN/GLOBULIN RATIO 0.97 (1.00-1.93); BILIRUBIN,TOTAL 2.3 MG/DL (0.2-1.0); CALCIUM LEVEL 9.8 MG/DL (8.8-10.2); CREATININE FOR GFR 2.27 MG/DL (0.55-1.02); GLOMERULAR FILTRATION RATE 22.3 (>39); MAGNESIUM LEVEL 2.3 MG/DL (1.8-2.4); POTASSIUM SERUM 5.1 MEQ/L (3.5-5.1); TOTAL PROTEIN 6.5 GM/DL (6.4-8.2)
[2016-12-27] MEDS: HumaLOG INSULIN (NovoLOG) PER UNIT SC SCH ×4 (07:30→21:00)
[2016-12-27 07:45] VITALS: BP 100/66
[2016-12-27] MEDS: FUROSEMIDE 100 MG/10 ML VIAL (J1940) IV SCH ×3 (08:53→16:24)
[2016-12-27] MEDS: ASPIRIN 81 MG ENTERIC TAB PO SCH (08:53)
[2016-12-27] MEDS: VITAMIN D 1,000 INTERNATIONAL UNITS TABLET PO SCH (08:53)
[2016-12-27] MEDS: CARVedilol 3.125 MG TAB PO SCH ×2 (08:54→21:00)
[2016-12-27] MEDS: BRIMONIDINE 0.15% OPHTH SOLN 5 ML OU SCH ×2 (11:47→22:01)
[2016-12-27 12:00] VITALS: BP 107/57
[2016-12-27] MEDS: VANCOMYCIN HCL 500 MG in D5W MINI-BAG PLUS 100 ML IV SCH (13:19)
[2016-12-27 16:00] VITALS: BP 126/67
--- NOTE | 2016-12-27 19:14 | IPN ---
DATE: 12/27/2016 SUBJECTIVE: This is a 76-year-old female who is seen and examined at bedside. Yesterday she was evaluated by general surgery due to abnormal ultrasound findings of cholecystitis. She had a lot of bowel movements after given lactulose and per nursing staff, she became more awake and alert. OBJECTIVE: VITAL SIGNS: Blood pressure 100/66, heart rate 93, temperature 96.5, pulse oximetry 96% on two liters nasal cannula. Respiratory rate 24. GENERAL: The patient was lying in bed, comfortable, no acute distress. She is no longer lethargic as she was yesterday. Alert, awake, oriented to person, place. Had difficulty recalling time but knows her age and knows the President. HEENT: Normocephalic, atraumatic. Moist oral mucosa. Upper denture in place. Lower portion with patient's own teeth. NECK: Supple. Trachea midline. Neck veins still distended by the jaw line. CHEST: Symmetric chest rise. No accessory muscle use. Breath sounds were still diminished with crackles in lung bases. HEART: Regular rate and rhythm. S1, S2 present. Left chest with palpable pacemaker and defibrillator. ABDOMEN: Soft, nontender, nondistended. Bowel sounds present. No guarding, no rebound. EXTREMITIES: Still 2+ pitting edema. Also pitting edema in her sacral region. LABORATORY DATA: WBC 4.5, hemoglobin 13.8, hematocrit 43.6, platelets 105. Sodium 139, potassium 5.1, chloride 102, carbon dioxide 24, BUN 62, creatinine 2.27, glucose 85, calcium 9.8, magnesium 2.3, total bilirubin 2.3, AST 46, ALT 40, alkaline phosphatase 187, ammonia level 36. MICROBIOLOGY: Blood culture is negative after 24 hours. Urine culture shows no growth. Ultrasound reports cholecystitis, marked gallbladder wall thickening, cholelithiasis, normal common bile duct, mild ascites. IMPRESSION AND PLAN: Ms. Yen is a 76-year-old female admitted for altered mental status. 1. Metabolic encephalopathy, likely secondary to a combination of hepatic encephalopathy from hepatic congestion, congestive heart failure (CHF) exacerbation, and/or infectious etiology. Her mentation is significantly improved today compared to yesterday. Per documentation, she has had a lot of bowel movements. Yesterday she was empirically started on antibiotic coverage, day two , with meropenem and vancomycin, for possible infectious etiology contributing to her symptoms. 2. Possible cholecystitis on ultrasound. Was evaluated by general surgery. At this time, she is without any other evidence of infection aside from her abnormal ultrasound finding. Therefore, it is recommended that should she have any symptoms suggestive of infection, she will likely benefit from a HIDA scan. She does have an extensive comorbidity including very weak heart with ejection fraction (EF) of 10% to 15%. Greatly appreciate Dr. Reza's assistance. 3. Hyperkalemia, resolved. She is status post calcium gluconate insulin administration, receiving Lasix. 4. Congestive heart failure, systolic, diastolic, ejection fraction of 10% to 15%, decompensated. Overall, she continues to appear in volume overload. She has not made significant urine output since admission. Will continue with diuresis at this time. 5. Type 2 diabetes. Continue insulin sliding scale and carbohydrate diet. No longer has episodes of hypoglycemia. 6. Acute kidney injury on chronic kidney disease. Likely secondary to cardio-renal with decompensated CHF. Her renal function shows some mild worsening today compared to yesterday. Could be due to hypoperfusion as she has not made significant urine output. Has received a total of five doses of Lasix so far since admission. Monitor for now. Repeat labs in the morning. 7. Hypothyroidism. Continue current dose levothyroxine 150 mcg daily. 8. Vitamin D deficiency. Continue supplementation. 9. Supratherapeutic international normalized ratio (INR). Likely secondary to underlying liver disease. 10. Deep venous thrombosis (DVT) prophylaxis. Sequential compression devices (SCDs), thromboembolism deterrent stockings (TEDs). No pharmacological intervention secondary to supratherapeutic INR. 11. Code status: Attempt to discuss Medical Orders for Life-Sustaining Treatment (MOLST) form today with the patient and . The patient initially stated that she wants to be DO NOT RESUSCITATE (DNR)/DO NOT INTUBATE (DNI), but wanted to wait until her came in. However, upon meeting up with the patient and her at a later time, they both stated that filling out the form was "a moot point" and requested that we do not discuss further with them regarding the MOLST form at this time, but will consider it at a later time. My preceptor for this patient encounter was Dr. Hai Barth. The preceptor was physically present in the building during the encounter and was fully available as needed. All aspects of the patient interview, examination, medical decision making process, and medical care plan development were reviewed and approved by the preceptor. The preceptor is aware and concurs with the plan as stated in the body of this note and will attest to such by his/her co-signature. [place]
[2016-12-27 20:00] VITALS: BP 114/70
[2016-12-27] MEDS: SIMVASTATIN 40 MG TAB PO SCH (22:00)
--- NOTE | 2016-12-27 22:58 | EDDOCDS ---
Nurse's Notes [facility] Name: Yamini Yen Age: 76 yrs Sex: Female : 1940 Arrival Date: 12/25/2016 Time: 15:04 Bed 8 Private MD: Sujit Bhagat MD Diagnosis: Acute combined systolic (congestive) and diastolic (congestive) heart failure;Hyperkalemia Presentation: 12/25 15:19 Presenting complaint: states: patient discharged from the hospital on kcs 11/19/2016 - end stage renal, CHF - a couple of days ago she injured her back and since has been confused and anxious. did not sleep all night - moaned alot. Adult Sepsis Screening: Patient has new or worsening altered mentation (1 point). Patient has a respiratory rate of greater than or equal to 22 (1 point). Systolic blood pressure is greater than 100. Patient has a qSOFA score of 2. Patient has cough and/or SOB- Positive Sepsis Screen. Suicide/Homicide risk assessment- the patient denies having any suicidal and/or homicidal ideations and does not present with any other emotional, behavioral or mental health complaints. Status: Patient is not a insurance customer service specialist or dependent. Transition of care: patient was not received from another setting of care. Red Flag criteria, patient assessed and taken directly to a bed. 15:19 Acuity: RICH Level 3 kcs 15:19 Method Of Arrival: Wheelchair kcs Triage Assessment: 15:29 General: Appears ill, slender, well developed, well groomed, Behavior is cooperative, kcs flat. Pain: Denies pain. The patient is triaged at the bedside. See Assessment in Nurses Notes section of ED record. Neurological: Level of Consciousness is awake, alert. Respiratory: Airway is patent Respiratory effort is even, unlabored, Respiratory pattern is regular, symmetrical. Derm: Skin is intact, is healthy with good turgor, Skin is dry, Skin is pale. Historical: - Allergies: No known drug Allergies; - Home Meds: 1. furosemide 40 mg Oral tab 1 tab 2 times per day 2. acetaminophen 325 mg Oral cap every 4 hours for pain as needed 3. alphagan eye drops ou twice a day 4. aspirin 81 mg Oral chew once daily 5. aspirin 81 mg Oral tab once daily 6. brimonidine ophthalmic 1 drop each eye twice a day 7. carvedilol 3.125 mg oral tab 1 tab 2 times per day 8. carvedilol 3.125 mg oral tab 2 times per day 9. glimepiride 1 mg Oral tab 1 tab nightly 10. glimepiride 2 mg Oral tab 1 tab once daily 11. guaifenesin 400 mg Oral tab 1 tab twice a day 12. guaifenesin 400 mg Oral tab as needed for cough twice a day 13. Lantus 100 unit/mL Sub-Q soln 10 units daily 14. Lasix 80 mg Oral tab 2 times per day 15. levothyroxine 137 mcg Oral tab 1 tab once daily 16. levothyroxine 137 mcg Oral tab once daily 17. Milk of Magnesia 400 mg/5 mL Oral susp 30 mL once daily prn 18. Milk of Magnesia Oral as needed for constipation 19. multivitamin Oral tab 1 tab daily 20. multivitamin Oral tab daily 21. oxygen 2L/min at bedtime and PRN 22. Paroxetine HCl 5 mg Oral at bedtime as needed for tremors 23. potassium chloride 40 meq Oral TbTQ once daily 24. Potassium Chloride Oral 4 caps once daily 25. senna 8.6 mg oral tab twice a day as needed 26. Senna Plus 8.6-50 mg oral tab 1 tabs twice a day 27. simvastatin 40 mg Oral tab 1 tab nightly 28. Tradjenta 5 mg oral tab once daily 29. Tylenol 325 mg Oral tab as needed 30. Vitamin D Oral 1000 unit daily 31. Vitamin D3 1,000 unit oral tab daily - PMHx: Anemia; Anxiety; ASHD; Cardiomyopathy; CHF; Chronic kidney disease; Diabetes - IDDM: uncontrolled; Hypertension; Hypothyroidism; metabolic encaphalopathy; MO; pleural effusion; tricuspid valve insufficiency; - PSHx: PACEMAKER 10/05; valve replacements; CABG; pacermaker/defibrillator; Hysterectomy; - Social history: Smoking status: Patient states former smoker of tobacco. No barriers to communication noted, The patient speaks fluent Frisian. - Family history: Not pertinent. - : The pt / caregiver states he / she is not on anticoagulants. Home medication list is obtained from [employer] import data. - Exposure Risk Screening:: None identified. Screenin:01 Screening information is obtained from family members. Fall risk: At risk due to gait bcj disturbance, The following interventions are performed due to a positive Fall Risk Screen: Fall Risk is added to Special Handling on the patient Summary Screen. A Fall Risk Bracelet was applied to the patient. Side Rails are placed in the up position. A Call Jordan is given with instruction to call for help when getting out of bed. Fall Alert bracelet is placed on the patient. Assistance ADL's: Requires assistance with medication administration, assistance is provided by family members. Abuse/DV Screen: The patient / caregiver reports he/she is: not in a situation that causes fear, pain or injury. Nutritional screening: No deficits noted. home support is adequate. 21:44 Advance Directives: Currently, there is a health care proxy. ko2 Assessment: 18:23 General: Appears in no apparent distress, comfortable, Behavior is cooperative. Pain: bcj Denies pain. Neurological: Level of Consciousness is awake, alert. Cardiovascular: Rhythm is sinus tachycardia. Respiratory: Airway is patent Respiratory effort is even, unlabored, Respiratory pattern is regular. GI: No deficits noted. Derm: Skin is pale. 19:30 General: Appears ill, Behavior is cooperative. Pain: Denies pain. Neurological: Level ko2 of Consciousness is lethargic. Cardiovascular: Heart tones S1 S2 present Rhythm is ventricular pacer. Respiratory: Airway is patent Respiratory effort is even, unlabored, Respiratory pattern is regular. Derm: Skin is pale. 20:30 General: Appears in no apparent distress, ill, Behavior is cooperative. Pain: Denies ko2 pain. Neurological: Level of Consciousness is awake, lethargic. Respiratory: Airway is patent Respiratory effort is even, unlabored. Derm: Skin is pale. 21:49 General: Appears in no apparent distress, Behavior is cooperative. Pain: Denies pain. ko2 Neurological: Level of Consciousness is lethargic. Respiratory: Airway is patent. Derm: Skin is pale. Vital Signs: 15:01 BP 151 / 69 (auto/); bcj 15:01 Pulse 72 MON; Pulse Ox 100% ; bcj 15:06 BP 110 / 85; Pulse 108; Resp 20 S; Pulse Ox 74% ; Weight 47.17 kg (R); Height 5 ft. 3 gr2 in. (160.02 cm) (R); Pain 6/10; 15:21 BP 127 / 88 (auto/); bcj 15:22 Pulse 80 MON; Pulse Ox 92% ; bcj 15:23 Temp 97.8(TE); Pulse Ox 100% on 2.0 lpm NC; lr2 15:36 BP 121 / 83 (auto/); bcj 15:36 Pulse 76 MON; Pulse Ox 98% ; bcj 15:51 BP 127 / 71 (auto/); bcj 15:51 Pulse 76 MON; Pulse Ox 98% ; bcj 16:06 BP 117 / 83 (auto/); bcj 16:06 Pulse 72 MON; Pulse Ox 97% ; bcj 16:21 BP 123 / 82 (auto/); bcj 16:21 Pulse 74 MON; bcj 16:36 BP 121 / 69 (auto/); bcj 16:36 Pulse 72 MON; bcj 16:51 BP 121 / 74 (auto/); bcj 16:51 Pulse 72 MON; bcj 17:21 BP 102 / 64 (auto/); bcj 17:21 Pulse 78 MON; bcj 17:36 BP 114 / 77 (auto/); bcj 17:36 Pulse 74 MON; bcj 20:51 BP 121 / 82; Pulse 70; Resp 18; Temp 97.6; Pulse Ox 97% ; Pain 0/10; ko2 15:06 Body Mass Index 18.42 (47.17 kg, 160.02 cm) gr2 15:06 TEMP NEEDS TO BE TAKEN gr2 Vitals: 15:06 Log In Time: December 25, 2016 at 15:06. RN notified that patient meets Red Flag gr2 criteria. 18:23 Refer to monitor trend for complete vital signs trends. [facility] ED Course: 15:01 No apparent distress. Resting quietly. Awaiting bed assignment. [facility] 15:01 The patient / caregiver is instructed regarding the plan of care and ED course. j 15:01 IV is intact. bcj 15:06 Patient visited by Mark Roberts. gr2 15:06 Sujit Bhaagt is Private Physician. gr2 15:06 Patient moved to Waiting gr2 15:15 Patient visited by Mark Roberts. gr2 15:15 Patient moved to Pre RCE gr2 15:16 Patient moved to 8 bcj 15:22 Triage Initiated kcs 15:23 Accompanied by Family Member, Patient has correct armband on for positive lr2 identification. Placed in gown. Bed in low position. Call light in reach. Side rails up X2. lunchroom monitor on. Pulse ox on. NIBP on. 15:24 Patient visited by Temi Lan. lr2 15:[address] F[facility]. ke 15:[address] Akbar Lane FNP. ke 15:[address] Akbar Lane FNP. ke 15:31 O2 via nasal cannula \T\ 2L/min. kcs 15:[address] jmb 16:05 Patient moved to 8 srm 16:06 Patient visited by Hannah Perales PCA. ct3 16:06 EKG done. (by ED staff). Reviewed by Akbar CHRISTIANSON. ct3 16:19 CT Head Without Contrast Returned. EDMS 16:28 Acetaminophen Level Sent. jmb 16:28 CBC with Diff Sent. jmb 16:28 Cardiac Injury Profile Sent. jmb 16:28 Liver Profile Sent. jmb 16:28 MED Profile Sent. jmb 16:28 Salicylate Level Sent. jmb 16:28 Thyroid Stimulating Hormone Sent. jmb 16:28 Troponin Sent. jmb 16:28 Inserted saline lock: 20 gauge in right forearm and blood collected. The patient jmb tolerated the procedure well. 16:[address] by Akbar Lane FNP. ke 17:[address] by Akbar Lane FNP. ke 17:02 Chest, 1 View Returned. EDMS 17:25 BNP Sent. bcj 17:[address] by Akbar Lane FNP. ke 17:50 Notified nurse practitioner of K+ of 6.5 reported to Martine CHRISTIANSON, non hemolyzed kpj specimen. 17:[address] Akbar Lane FNP. ke 17:58 Denilson Butts is Hospitalizing Provider. ke 18:27 Patient visited by Musa Max, RN. bcj 19:06 Rosana Saini,RN is Primary Nurse. ko2 19:30 Patient visited by Rosana Saini,URI. ko2 20:04 CT Head Without Contrast Returned. EDMS 21:01 [facility] [place] [facility] [place] was [place] into [employer] and attached to record. gjb 21:42 Patient moved to Ultrasound dmg 21:44 No procedures done that require assistance. ko2 21:56 Patient moved to 8 dmg 01/31 11:34 T-Sheet-- Draft Copy was scanned into [employer] and attached to record. 11:34 ECG/EKG was scanned into [employer] and attached to record. Administered Medications: 12/25 17:39 Drug: Furosemide 60 mg [furosemide 10 mg/mL injection solution (6 mL)] Route: IVP; bcj Site: right forearm; Output: 18:40 Stool: 1 (Formed Stool) ; Total: 0.00ml. lr2 Order Results: Lab Order: Acetaminophen Level; SPEC'M 12/25/16 16:25 Test: ACETAMINOPHEN LEVEL; Value: 5.4; Range: 10.0-30.0; Abnormal: Below low normal; Units: UG/ML; Status: F Lab Order: CBC with Diff; SPEC'M 12/25/16 16:25 Test: WHITE BLOOD COUNT; Value: 6.5; Range: 4.0-10.0; Units: K/mm3; Status: F Test: RED BLOOD COUNT; Value: 4.90; Range: 4.00-5.40; Units: M/mm3; Status: F Test: HEMOGLOBIN; Value: 14.7; Range: 12.0-16.0; Units: g/dl; Status: F Test: HEMATOCRIT; Value: 45.8; Range: 36.0-47.0; Units: %; Status: F Test: MEAN CORPUSCULAR VOLUME; Value: 93.5; Range: 80.0-96.0; Units: fl; Status: F Test: MEAN CORPUSCULAR HEMOGLOBIN; Value: 29.9; Range: 27.0-33.0; Units: pg; Status: F Test: MEAN CORPUSCULAR HGB CONC; Value: 32.0; Range: 32.0-36.5; Units: g/dl; Status: F Test: RED CELL DISTRIBUTION WIDTH; Value: 21.2; Range: 11.5-14.5; Abnormal: Above high normal; Units: %; Status: F Test: PLATELET COUNT, AUTOMATED; Value: 115; Range: 150-450; Abnormal: Below low normal; Units: k/mm3; Status: F Test: NEUTROPHILS %; Value: 79.5; Range: 36.0-66.0; Abnormal: Above high normal; Units: %; Status: F Test: LYMPH %; Value: 7.0; Range: 24.0-44.0; Abnormal: Below low normal; Units: %; Status: F Test: MONO %; Value: 8.2; Range: 0.0-5.0; Abnormal: Above high normal; Units: %; Status: F Test: EOS %; Value: 0.5; Range: 0.0-3.0; Units: %; Status: F Test: BASO %; Value: 1.4; Range: 0.0-1.0; Abnormal: Above high normal; Units: %; Status: F Test: LARGE UNSTAINED CELL %; Value: 3.4; Range: 0.0-4.0; Units: %; Status: F Test: NEUTROPHILS #; Value: 5.2; Range: 1.8-7.7; Units: K/mm3; Status: F Test: LYMPH #; Value: 0.7; Range: 1.5-4.5; Abnormal: Below low normal; Units: K/mm3; Status: F Test: MONO #; Value: 0.5; Range: 0.0-0.8; Units: K/mm3; Status: F Test: EOS #; Value: 0.0; Range: 0.0-0.50; Units: K/mm3; Status: F Test: BASO #; Value: 0.1; Range: 0.0-0.2; Units: K/mm3; Status: F Test: LARGE UNSTAINED CELL #; Value: 0.2; Range: 0.0-0.4; Units: K/mm3; Status: F Lab Order: Cardiac Injury Profile; SPEC'M 12/25/16 16:25 Test: CPK CREATINE PHOSPHOKINASE; Value: 135; Range: 26-192; Units: U/L; Status: F Test: CK-MB VALUE MASS; Value: 8.1; Range: 0.0-3.6; Abnormal: Above high normal; Units: NG/ML; Status: F Test: MB/CK RELATIVE INDEX; Value: 6.00; Range: < OR =4; Abnormal: Above high normal; Status: F Test Note: ; DIAGNOSIS CRITERIA MMB ng/ml Relative Index (RI) NON-AMI < or = 5 N/A PUGH ZONE > 5 < or = 4 AMI > 5 > 4 Lab Order: Drug Eval Toxicology ED Only; SPEC'M 12/25/16 16:20 Test: AMPHETAMINES LEVEL URINE; Value: NEGATIVE; Range: NEGATIVE; Status: F Test: BARBITURATES URINE; Value: NEGATIVE; Range: NEGATIVE; Status: F Test: BENZODIAZEPINES URINE; Value: NEGATIVE; Range: NEGATIVE; Status: F Test: CANNABINOIDS URINE; Value: NEGATIVE; Range: NEGATIVE; Status: F Test: COCAINE METABOLITE URINE; Value: NEGATIVE; Range: NEGATIVE; Status: F Test: METHADONE URINE; Value: NEGATIVE; Range: NEGATIVE; Status: F Test: OPIATES URINE; Value: NEGATIVE; Range: NEGATIVE; Status: F Test: TRICYCLIC ANTIDEPRESS URINE; Value: NEGATIVE; Range: NEGATIVE; Status: F Test Note: ; ALL PRESUMPTIVE POSITIVE FINDINGS ARE UNCONFIRMED NORMAL VALUES THRESHOLD IN NG/ML AMPHETAMINES 1000 METHAMPHETAMINES 1000 BARBITURATES 300 BENZODIAZEPINES 300 CANNABINOIDS (THC) 50 COCAINE METABOLITE 300 METHADONE 300 OPIATES 300 PHENCYCLIDINE 25 TRICYCLIC ANTIDEPRESSANTS 1000 RESULTS ARE FOR MEDICAL PURPOSES ONLY. ALL URINE SPECIMENS WILL BE SAVED FOR 3 DAYS. IF CONFIRMATION OF A PRESUMPTIVE POSTIVE SCREEN RESULT IS DESIRED, CALL CHEMISTRY ([phone]) AND REQUEST URINE TO BE SENT TO REFERENCE LAB. FOR A LIST OF CLOSELY RELATED COMPOUNDS PLEASE CALL THE LAB. Lab Order: Liver Profile; SPEC'M 12/25/16 16:25 Test: AST/SGOT; Value: 46; Range: 15-37; Abnormal: Above high normal; Units: U/L; Status: F Test: ALT/SGPT; Value: 38; Range: 12-78; Units: U/L; Status: F Test: ALKALINE PHOSPHATASE; Value: 212; Range: 45-117; Abnormal: Above high normal; Units: U/L; Status: F Test: BILIRUBIN,TOTAL; Value: 1.9; Range: 0.2-1.0; Abnormal: Above high normal; Units: MG/DL; Status: F Test: BILIRUBIN,DIRECT; Value: 1.1; Range: 0.0-0.2; Abnormal: Above high normal; Units: MG/DL; Status: F Test: TOTAL PROTEIN; Value: 7.1; Range: 6.4-8.2; Units: GM/DL; Status: F Test: ALBUMIN; Value: 3.3; Range: 3.2-5.2; Units: GM/DL; Status: F Test: ALBUMIN/GLOBULIN RATIO; Value: 0.87; Range: 1.00-1.93; Abnormal: Below low normal; Status: F Lab Order: MED Profile; SPEC'M 12/25/16 16:25 Test: GLUCOSE, FASTING; Value: 203; Range: 83-110; Abnormal: Above high normal; Units: MG/DL; Status: F Test: BLOOD UREA NITROGEN; Value: 52; Range: 7-18; Abnormal: Above high normal; Units: MG/DL; Status: F Test: CREATININE FOR GFR; Value: 1.91; Range: 0.55-1.02; Abnormal: Above high normal; Units: MG/DL; Status: F Test: GLOMERULAR FILTRATION RATE; Value: 27.2; Range: >39; Abnormal: Below low normal; Status: F Test: SODIUM LEVEL; Value: 137; Range: 136-145; Units: MEQ/L; Status: F Test: POTASSIUM SERUM; Value: 6.5; Range: 3.5-5.1; Abnormal: Above upper panic limits; Units: MEQ/L; Status: F Test: CHLORIDE LEVEL; Value: 100; Range: 98-107; Units: MEQ/L; Status: F Test: CARBON DIOXIDE LEVEL; Value: 24; Range: 21-32; Units: MEQ/L; Status: F Test: ANION GAP; Value: 13; Range: 8-16; Units: MEQ/L; Status: F Test: CALCIUM LEVEL; Value: 9.5; Range: 8.8-10.2; Units: MG/DL; Status: F Test Note: ; Units are mL/min/1.73 m2 Chronic Kidney Disease Staging per NKF: Stage I & II GFR >=60 Normal to Mildly Decreased Stage III GFR 30-59 Moderately Decreased Stage IV GFR 15-29 Severely Decreased Stage V GFR <15 Very Little GFR Left ESRD GFR <15 on JUICE SCALEMAN Lab Order: Salicylate Level; SPEC'M 12/25/16 16:25 Test: SALICYLATE LEVEL; Value: < 1.7; Range: 5.0-30.0; Abnormal: Below low normal; Units: MG/DL; Status: F Lab Order: Thyroid Stimulating Hormone; SPEC'M 12/25/16 16:25 Test: THYROID STIMULATING HORMONE; Value: 21.000; Range: 0.358-3.740; Abnormal: Above high normal; Units: uIU/ML; Status: F Lab Order: Troponin; SPEC'M 12/25/16 16:25 Test: TROPONIN I; Value: 0.04; Range: < 0.10; Units: NG/ML; Status: F Test Note: ; Troponin I Reference Interval for Siemens AppUpper - ASO LOCI: 99th Percentile= 0.00-0.045 ng/ml Risk Stratification: <= 0.10 ng/ml Decreased Risk for Adverse Clinical Events. 0.10-1.50 ng/ml Increased Risk for Adverse Clinical Events. Evaluation of additional criterion and/or repeat testing in 2-6 hours is suggested to rule out myocardial damage. >= 1.50 ng/ml Indicative of Myocardial Injury. Lab Order: Urinalysis; SPEC'M 12/25/16 16:20 Test: APPEARANCE, URINE; Value: HAZY; Range: CLEAR; Status: F Test: COLOR, URINE; Value: RAO; Range: YELLOW; Status: F Test: PH,URINE; Value: 5.0; Range: 5.0-9.0; Units: UNITS; Status: F Test: SPECIFIC GRAVITY URINE AUTO; Value: 1.017; Range: 1.002-1.035; Status: F Test: PROTEIN, URINE AUTO; Value: 1+; Range: NEGATIVE; Abnormal: Above high normal; Units: mg/dL; Status: F Test: GLUCOSE, URINE (UA) AUTO; Value: NEGATIVE; Range: NEGATIVE; Units: mg/dL; Status: F Test: KETONE, URINE AUTO; Value: NEGATIVE; Range: NEGATIVE; Units: mg/dL; Status: F Test: UROBILINOGEN, URINE AUTO; Value: 0.2; Range: 0.0-2.0; Units: mg/dL; Status: F Test: BILIRUBIN, URINE AUTO; Value: NEGATIVE; Range: NEGATIVE; Status: F Test: NITRITE, URINE AUTO; Value: NEGATIVE; Range: NEGATIVE; Status: F Test: LEUKOCYTE ESTERASE, URINE AUTO; Value: NEGATIVE; Range: NEGATIVE; Status: F Test: BLOOD, URINE BLOOD; Value: NEGATIVE; Range: NEGATIVE; Status: F Test: WBC, URINE AUTO; Value: 7; Range: 0-3; Abnormal: Above high normal; Units: /HPF; Status: F Test: RBC, URINE AUTO; Value: 1; Range: 0-3; Units: /HPF; Status: F Test: BACTERIA, URINE AUTO; Value: 1+; Range: NEGATIVE; Abnormal: Above high normal; Status: F Test: SQUAMOUS EPITHELIAL CELL UR AU; Value: 0; Range: 0-6; Units: /HPF; Status: F Test: MUCUS, URINE; Value: SMALL; Range: NEGATIVE; Status: F Test: HYALINE CAST, URINE AUTO; Value: 36; Range: 0-1; Units: /LPF; Status: F Lab Order: BNP; [facility] 12/25/16 16:25 Test: BRAIN NATRIURETIC PEPTIDE; Value: 3980; Range: <100; Abnormal: Above high normal; Units: PG/ML; Status: F Lab Order: POTASSIUM LEVEL; [facility] 12/25/16 19:12 Test: POTASSIUM SERUM; Value: 5.8; Range: 3.5-5.1; Abnormal: Above high normal; Units: MEQ/L; Status: F Test Note: ; This specimen has an elevated potassium level but there is NO visible hemolysis noted.\T\ PLEASE NOTE ON THIS SPECIMEN IF IT IS HEMOLYZED OR NOT Lab Order: PROTHROMBIN TIME PROFILE\E\INR; [facility] 12/25/16 19:11 Test: PROTHROMBIN TIME; Value: 21.4; Range: 12.3-14.5; Abnormal: Above high normal; Units: SECONDS; Status: F Test: INR; Value: 1.85; Status: F Test Note: ; THERAPUTIC HUMAN INR VALUES INDICATIONS NORMAL RANGES PROPHYLAXIS/TREATMENT OF: VENOUS THROMBOSIS 2.0-3.0 PULMONARY EMBOLISM 2.0-3.0 PREVENTION OF SYSTEMIC EMBOLISM FROM: TISSUE HEART VALVES 2.0-3.0 ACUTE MYOCARDIAL INFARCTION 2.0-3.0 VALVULAR HEART DISEASE 2.0-3.0 ATRIAL FIBRILLATION 2.0-3.0 MECHANICAL VALVES(HIGH RISK) 2.5-3.5 RECURRENT MYOCARDIAL INFARCTION 2.5-3.5 Lab Order: CARDIAC MARKER PANEL; [facility] 12/25/16 19:28 Test: CPK CREATINE PHOSPHOKINASE; Value: 115; Range: 26-192; Units: U/L; Status: F Test: CK-MB VALUE MASS; Value: 7.6; Range: 0.0-3.6; Abnormal: Above high normal; Units: NG/ML; Status: F Test: MB/CK RELATIVE INDEX; Value: 6.60; Range: < OR =4; Abnormal: Above high normal; Status: F Test: TROPONIN I; Value: 0.05; Range: < 0.10; Abnormal: Delta; Units: NG/ML; Status: F Test Note: ; DIAGNOSIS CRITERIA MMB ng/ml Relative Index (RI) NON-AMI < or = 5 N/A PUGH ZONE > 5 < or = 4 AMI > 5 > 4 Lab Order: FREE T4; SPEC'M 12/25/16 16:25 Test: FREE T4; Range: 0.76-1.46; Units: NG/DL; Status: I Radiology Order: CT Head Without Contrast Test: CT Head Without Contrast REASON FOR EXAMINATION: altered loc; CT BRAIN WITHOUT CONTRAST: 12/25/2016.; ; Clinical history: Altered level of consciousness.; ; Comparison MRI brain 07/30/2009.; ; Findings: The noncontrast brain with soft tissue and bone windows reviewed for; each slice level show ventricles midline and symmetric. There are heterogeneous; low attenuation white matter changes about the frontal horns of each ventricles,; subcortical regions and deep white matter in both hemispheres representing; chronic small vessel ischemic changes. Atrophy is noted, mild to moderate; throughout and age appropriate. There is no vascular territory infarct,; intracranial hemorrhage, mass, mass effect or edema. Brainstem unremarkable.; Cerebellum shows diffuse atrophy without mass. Basal cisterns are intact.; Mastoids and visualized sinuses were clear. There are atherosclerotic; calcifications in the carotid siphons. The skull base and calvarium are without; fracture or focal lesion.; ; Impression:; ; 1. Chronic small vessel white matter ischemic changes noted bilaterally without; acute infarct, hemorrhage, edema or mass.; ; 2. Some atrophy, age appropriate and no acute finding.; ; 3. Posterior fossa, skull base, calvarium, sinuses and mastoids visualized; intact.; ; ; Signed by; Tomy Aguillon MD 12/25/2016 07:38 P; Radiology Order: Chest, 1 View Test: Chest, 1 View REASON FOR EXAMINATION: CVA >4.5hrs; Portable chest x-ray: AP semi-erect view.; ; History: CVA, greater than 4.5 hours.; ; Comparison chest x-ray November 16, 2016.; ; Findings: Marked cardiomegaly is again observed. A multilead pacemaker remains; in place in the right heart via the left side. There is fissural thickening in; the minor fissure. Pulmonary vasculature is cephalized and somewhat congested.; No free pleural effusion is seen. Today's view is exposed at a lesser; inspiratory level.; ; Impression:; ; Marked cardiomegaly. Pulmonary vascular congestion. Fissural thickening; consistent with CHF. Relatively low inspiratory level. Pacemaker in place.; ; ; Signed by; Bennie Muñoz MD 12/25/2016 04:48 P; Outcome: 17:58 Decision to Hospitalize by Provider. ke 21:18 Discharge Assessment: Patient awake, alert and oriented x 3. No cognitive and/or ko2 functional deficits noted. Patient verbalized understanding of disposition instructions. patient administered narcotics - no. The following High Risk Discharge criteria are identified: None. Admitted to PCU accompanied by nurse, accompanied by tech, family with patient, via stretcher, on monitor, with chart. Condition: stable. CT Study completed. Admission hand-off: Report Faxed Fax receipt verified by Annie Pastor RN PCU. Property :Personal belongings accompany Pt. 21:57 Patient left the ED. ko2 Signatures: Dispatcher [employer] EDMS Angelika Barrientos RN RN kcs Jobson, Karen, RN RN kpj Johnson, Bruce RN Sarah Johnson RN RN srm Gunn, Deanne dm Mallorie River, Reg Reg gb Akbar Lane, TAPE MAKING MACHINE OPERATOR TAPE MAKING MACHINE OPERATOR ke Perales, Hannah, ENGAGEMENT EXECUTIVE ENGAGEMENT EXECUTIVE ct3 Mark Roberts gr2 Mendez Melo RN RN jmb Ogden, Kari, RN RN ko2 Beck, Gabriela gjb Ross, Laura lr2 Chart Complete MTDD
--- NOTE | 2016-12-27 22:58 | EDDOCDS ---
Physician Documentation [facility] Name: Yamini Yen Age: 76 yrs Sex: Female : 1940 Arrival Date: 12/25/2016 Time: 15:04 Bed 8 Private MD: Sujit Bhagat MD Disposition: 12/25/16 17:58 Hospitalization ordered by Denilson Butts for Inpatient Admission. Preliminary diagnosis are Acute combined systolic (congestive) and diastolic (congestive) heart failure, Hyperkalemia. - Bed requested for PCU. - Status is Inpatient Admission. ko2 - Condition is Stable. - Problem is an acute exacerbation. - Symptoms are unchanged. Historical: - Allergies: No known drug Allergies; - Home Meds: 1. furosemide 40 mg Oral tab 1 tab 2 times per day 2. acetaminophen 325 mg Oral cap every 4 hours for pain as needed 3. alphagan eye drops ou twice a day 4. aspirin 81 mg Oral chew once daily 5. aspirin 81 mg Oral tab once daily 6. brimonidine ophthalmic 1 drop each eye twice a day 7. carvedilol 3.125 mg oral tab 1 tab 2 times per day 8. carvedilol 3.125 mg oral tab 2 times per day 9. glimepiride 1 mg Oral tab 1 tab nightly 10. glimepiride 2 mg Oral tab 1 tab once daily 11. guaifenesin 400 mg Oral tab 1 tab twice a day 12. guaifenesin 400 mg Oral tab as needed for cough twice a day 13. Lantus 100 unit/mL Sub-Q soln 10 units daily 14. Lasix 80 mg Oral tab 2 times per day 15. levothyroxine 137 mcg Oral tab 1 tab once daily 16. levothyroxine 137 mcg Oral tab once daily 17. Milk of Magnesia 400 mg/5 mL Oral susp 30 mL once daily prn 18. Milk of Magnesia Oral as needed for constipation 19. multivitamin Oral tab 1 tab daily 20. multivitamin Oral tab daily 21. oxygen 2L/min at bedtime and PRN 22. Paroxetine HCl 5 mg Oral at bedtime as needed for tremors 23. potassium chloride 40 meq Oral TbTQ once daily 24. Potassium Chloride Oral 4 caps once daily 25. senna 8.6 mg oral tab twice a day as needed 26. Senna Plus 8.6-50 mg oral tab 1 tabs twice a day 27. simvastatin 40 mg Oral tab 1 tab nightly 28. Tradjenta 5 mg oral tab once daily 29. Tylenol 325 mg Oral tab as needed 30. Vitamin D Oral 1000 unit daily 31. Vitamin D3 1,000 unit oral tab daily - PMHx: Anemia; Anxiety; ASHD; Cardiomyopathy; CHF; Chronic kidney disease; Diabetes - IDDM: uncontrolled; Hypertension; Hypothyroidism; metabolic encaphalopathy; AK; pleural effusion; tricuspid valve insufficiency; - PSHx: PACEMAKER 10/05; valve replacements; CABG; pacermaker/defibrillator; Hysterectomy; - Social history: Smoking status: Patient states former smoker of tobacco. No barriers to communication noted, The patient speaks fluent Lao. - Family history: Not pertinent. - : The pt / caregiver states he / she is not on anticoagulants. Home medication list is obtained from [employer] import data. - Exposure Risk Screening:: None identified. Vital Signs: 12/25 15:01 BP 151 / 69 (auto/); bcj 15:01 Pulse 72 MON; Pulse Ox 100% ; bcj 15:06 BP 110 / 85; Pulse 108; Resp 20 S; Pulse Ox 74% ; Weight 47.17 kg / 103.99 lbs (R); gr2 Height 5 ft. 3 in. (160.02 cm) (R); Pain 6/10; 15:21 BP 127 / 88 (auto/); bcj 15:22 Pulse 80 MON; Pulse Ox 92% ; bcj 15:23 Temp 97.8(TE); Pulse Ox 100% on 2.0 lpm NC; lr2 15:36 BP 121 / 83 (auto/); bcj 15:36 Pulse 76 MON; Pulse Ox 98% ; bcj 15:51 BP 127 / 71 (auto/); bcj 15:51 Pulse 76 MON; Pulse Ox 98% ; bcj 16:06 BP 117 / 83 (auto/); bcj 16:06 Pulse 72 MON; Pulse Ox 97% ; bcj 16:21 BP 123 / 82 (auto/); bcj 16:21 Pulse 74 MON; bcj 16:36 BP 121 / 69 (auto/); bcj 16:36 Pulse 72 MON; bcj 16:51 BP 121 / 74 (auto/); bcj 16:51 Pulse 72 MON; bcj 17:21 BP 102 / 64 (auto/); bcj 17:21 Pulse 78 MON; bcj 17:36 BP 114 / 77 (auto/); bcj 17:36 Pulse 74 MON; bcj 20:51 BP 121 / 82; Pulse 70; Resp 18; Temp 97.6; Pulse Ox 97% ; Pain 0/10; ko2 15:06 Body Mass Index 18.42 (47.17 kg, 160.02 cm) gr2 15:06 TEMP NEEDS TO BE TAKEN gr2 MDM: 15:42 Lens Grinder/Pulse Ox/q 15 min VS ordered. ke 15:42 Accucheck ordered. ke 15:42 IV Saline Lock ordered. ke 15:42 Oxygen at 4L/Min NC or Home dosage ordered. ke 15:42 Rhythm Strip to chart ordered. ke 15:42 Straight cath ordered. ke 15:43 Acetaminophen Level Ordered. EDMS 15:43 CBC with Diff Ordered. EDMS 15:43 Cardiac Injury Profile Ordered. EDMS 15:43 Drug Eval Toxicology ED Only Ordered. EDMS 15:43 Liver Profile Ordered. EDMS 15:43 MED Profile Ordered. EDMS 15:43 Salicylate Level Ordered. EDMS 15:43 Thyroid Stimulating Hormone Ordered. EDMS 15:43 Troponin Ordered. EDMS 15:43 Urinalysis Ordered. EDMS 15:43 Urine Culture Ordered. EDMS 15:44 Chest, 1 View Ordered. EDMS 15:44 CT Head Without Contrast Ordered. EDMS 15:44 ECG WITH READING ER PHYS+CARDIAG ordered. EDMS 17:01 CBC with Diff Reviewed. ke 17:01 Urinalysis Reviewed. ke 17:01 Drug Eval Toxicology ED Only Reviewed. ke 17:01 CT Head Without Contrast Reviewed. ke 17:12 Chest, 1 View Reviewed. ke 17:13 Furosemide 60 mg IVP once ordered. ke 17:14 BNP Ordered. EDMS 17:51 Acetaminophen Level Reviewed. ke 17:51 Cardiac Injury Profile Reviewed. ke 17:51 Liver Profile Reviewed. ke 17:51 MED Profile Reviewed. ke 17:51 Salicylate Level Reviewed. ke 17:51 Thyroid Stimulating Hormone Reviewed. ke 17:51 Troponin Reviewed. ke 17:54 BED REQUEST+ADM ordered. EDMS 18:48 POTASSIUM LEVEL Ordered. EDMS 18:56 PROTHROMBIN TIME PROFILE\E\INR Ordered. EDMS 19:20 ARTERIAL BLOOD GAS Ordered. EDMS 19:24 BLOOD CULTURES Ordered. EDMS 19:25 BLOOD CULTURES Ordered. EDMS 19:25 LIVER US Ordered. EDMS 19:30 RENAL PROFILE Ordered. EDMS 19:31 COMPLETE BLOOD COUNT Ordered. EDMS 19:31 COMPLETE COMPHRENSIVE METABOLI Ordered. EDMS 19:42 CARDIAC MARKER PANEL Ordered. EDMS 19:48 CARDIAC MARKER PANEL Ordered. EDMS 19:48 CARDIAC MARKER PANEL Ordered. EDMS 19:48 AMMONIA Ordered. EDMS 19:50 CONSISTENT CARBOHYDRATES ordered. EDMS 19:54 ELECTROCARDIOGRAM ADULT ordered. EDMS 20:04 FREE T4 Ordered. EDMS 20:10 Admission / Observation Status ordered. EDMS 20:16 AMMONIA Ordered. EDMS 20:38 Financial registration complete. gjb 20:52 PREALBUMIN Ordered. EDMS 20:53 MAGNESIUM LEVEL Ordered. EDMS 21:01 [facility] Payment Agreement was scanned into [employer] and attached to record. [facility] 12/26 11:34 T-Sheet-- Draft Copy was scanned into [employer] and attached to record. gb 11:34 ECG/EKG was scanned into [employer] and attached to record. gb Administered Medications: 12/25 17:39 Drug: Furosemide 60 mg [furosemide 10 mg/mL injection solution (6 mL)] Route: IVP; bcj Site: right forearm; Signatures: Dispatcher [employer] Angelika Mathias, RN RN Mallorie Gibbons, Reg Reg Akbar Kenny, ELECTRICAL APPLIANCE SERVICER ELECTRICAL APPLIANCE SERVICER Rosana Dunham RN RN ko2 Keo Alonso, BOLIVAR DEMOLITION HAMMER OPERATOR Comfort Chairez Bruce RN bcj The chart was reviewed and I authenticate all verbal orders and agree with the evaluation and treatment provided.Corrections: (The following items were deleted from the chart) 19:47 19:43 CARDIAC MARKER PANEL ordered. EDMS EDMS 19:48 19:25 BLOOD CULTURES ordered. EDMS EDMS 19:48 19:25 BLOOD CULTURES ordered. EDMS EDMS 19:48 19:25 BLOOD CULTURES ordered. EDMS EDMS 20:04 18:56 FREE T4 ordered. EDMS EDMS 20:50 20:21 PREALBUMIN ordered. EDMS EDMS 20:52 19:54 MAGNESIUM LEVEL ordered. EDMS EDMS Attachments: 21:01 [facility] Payment Agreement [facility] 12/26 11:34 T-Sheet-- Draft Copy gb 11:34 ECG/EKG gb Chart Complete MTDD
--- NOTE | 2016-12-27 22:58 | EDDOCDS ---
Physician Documentation [facility] Name: Yamini Yen Age: 76 yrs Sex: Female : 1940 Arrival Date: 12/25/2016 Time: 15:04 Bed 8 Private MD: Sujit Bhagat MD Disposition: 12/25/16 17:58 Hospitalization ordered by Denilson Butts for Inpatient Admission. Preliminary diagnosis are Acute combined systolic (congestive) and diastolic (congestive) heart failure, Hyperkalemia. - Bed requested for PCU. - Status is Inpatient Admission. ko2 - Condition is Stable. - Problem is an acute exacerbation. - Symptoms are unchanged. Historical: - Allergies: No known drug Allergies; - Home Meds: 1. furosemide 40 mg Oral tab 1 tab 2 times per day 2. acetaminophen 325 mg Oral cap every 4 hours for pain as needed 3. alphagan eye drops ou twice a day 4. aspirin 81 mg Oral chew once daily 5. aspirin 81 mg Oral tab once daily 6. brimonidine ophthalmic 1 drop each eye twice a day 7. carvedilol 3.125 mg oral tab 1 tab 2 times per day 8. carvedilol 3.125 mg oral tab 2 times per day 9. glimepiride 1 mg Oral tab 1 tab nightly 10. glimepiride 2 mg Oral tab 1 tab once daily 11. guaifenesin 400 mg Oral tab 1 tab twice a day 12. guaifenesin 400 mg Oral tab as needed for cough twice a day 13. Lantus 100 unit/mL Sub-Q soln 10 units daily 14. Lasix 80 mg Oral tab 2 times per day 15. levothyroxine 137 mcg Oral tab 1 tab once daily 16. levothyroxine 137 mcg Oral tab once daily 17. Milk of Magnesia 400 mg/5 mL Oral susp 30 mL once daily prn 18. Milk of Magnesia Oral as needed for constipation 19. multivitamin Oral tab 1 tab daily 20. multivitamin Oral tab daily 21. oxygen 2L/min at bedtime and PRN 22. Paroxetine HCl 5 mg Oral at bedtime as needed for tremors 23. potassium chloride 40 meq Oral TbTQ once daily 24. Potassium Chloride Oral 4 caps once daily 25. senna 8.6 mg oral tab twice a day as needed 26. Senna Plus 8.6-50 mg oral tab 1 tabs twice a day 27. simvastatin 40 mg Oral tab 1 tab nightly 28. Tradjenta 5 mg oral tab once daily 29. Tylenol 325 mg Oral tab as needed 30. Vitamin D Oral 1000 unit daily 31. Vitamin D3 1,000 unit oral tab daily - PMHx: Anemia; Anxiety; ASHD; Cardiomyopathy; CHF; Chronic kidney disease; Diabetes - IDDM: uncontrolled; Hypertension; Hypothyroidism; metabolic encaphalopathy; NM; pleural effusion; tricuspid valve insufficiency; - PSHx: PACEMAKER 10/05; valve replacements; CABG; pacermaker/defibrillator; Hysterectomy; - Social history: Smoking status: Patient states former smoker of tobacco. No barriers to communication noted, The patient speaks fluent Sami. - Family history: Not pertinent. - : The pt / caregiver states he / she is not on anticoagulants. Home medication list is obtained from [employer] import data. - Exposure Risk Screening:: None identified. Vital Signs: 12/25 15:01 BP 151 / 69 (auto/); bcj 15:01 Pulse 72 MON; Pulse Ox 100% ; bcj 15:06 BP 110 / 85; Pulse 108; Resp 20 S; Pulse Ox 74% ; Weight 47.17 kg / 103.99 lbs (R); gr2 Height 5 ft. 3 in. (160.02 cm) (R); Pain 6/10; 15:21 BP 127 / 88 (auto/); bcj 15:22 Pulse 80 MON; Pulse Ox 92% ; bcj 15:23 Temp 97.8(TE); Pulse Ox 100% on 2.0 lpm NC; lr2 15:36 BP 121 / 83 (auto/); bcj 15:36 Pulse 76 MON; Pulse Ox 98% ; bcj 15:51 BP 127 / 71 (auto/); bcj 15:51 Pulse 76 MON; Pulse Ox 98% ; bcj 16:06 BP 117 / 83 (auto/); bcj 16:06 Pulse 72 MON; Pulse Ox 97% ; bcj 16:21 BP 123 / 82 (auto/); bcj 16:21 Pulse 74 MON; bcj 16:36 BP 121 / 69 (auto/); bcj 16:36 Pulse 72 MON; bcj 16:51 BP 121 / 74 (auto/); bcj 16:51 Pulse 72 MON; bcj 17:21 BP 102 / 64 (auto/); bcj 17:21 Pulse 78 MON; bcj 17:36 BP 114 / 77 (auto/); bcj 17:36 Pulse 74 MON; bcj 20:51 BP 121 / 82; Pulse 70; Resp 18; Temp 97.6; Pulse Ox 97% ; Pain 0/10; ko2 15:06 Body Mass Index 18.42 (47.17 kg, 160.02 cm) gr2 15:06 TEMP NEEDS TO BE TAKEN gr2 MDM: 15:42 Fiscal Technician/Pulse Ox/q 15 min VS ordered. ke 15:42 Accucheck ordered. ke 15:42 IV Saline Lock ordered. ke 15:42 Oxygen at 4L/Min NC or Home dosage ordered. ke 15:42 Rhythm Strip to chart ordered. ke 15:42 Straight cath ordered. ke 15:43 Acetaminophen Level Ordered. EDMS 15:43 CBC with Diff Ordered. EDMS 15:43 Cardiac Injury Profile Ordered. EDMS 15:43 Drug Eval Toxicology ED Only Ordered. EDMS 15:43 Liver Profile Ordered. EDMS 15:43 MED Profile Ordered. EDMS 15:43 Salicylate Level Ordered. EDMS 15:43 Thyroid Stimulating Hormone Ordered. EDMS 15:43 Troponin Ordered. EDMS 15:43 Urinalysis Ordered. EDMS 15:43 Urine Culture Ordered. EDMS 15:44 Chest, 1 View Ordered. EDMS 15:44 CT Head Without Contrast Ordered. EDMS 15:44 ECG WITH READING ER PHYS+CARDIAG ordered. EDMS 17:01 CBC with Diff Reviewed. ke 17:01 Urinalysis Reviewed. ke 17:01 Drug Eval Toxicology ED Only Reviewed. ke 17:01 CT Head Without Contrast Reviewed. ke 17:12 Chest, 1 View Reviewed. ke 17:13 Furosemide 60 mg IVP once ordered. ke 17:14 BNP Ordered. EDMS 17:51 Acetaminophen Level Reviewed. ke 17:51 Cardiac Injury Profile Reviewed. ke 17:51 Liver Profile Reviewed. ke 17:51 MED Profile Reviewed. ke 17:51 Salicylate Level Reviewed. ke 17:51 Thyroid Stimulating Hormone Reviewed. ke 17:51 Troponin Reviewed. ke 17:54 BED REQUEST+ADM ordered. EDMS 18:48 POTASSIUM LEVEL Ordered. EDMS 18:56 PROTHROMBIN TIME PROFILE\E\INR Ordered. EDMS 19:20 ARTERIAL BLOOD GAS Ordered. EDMS 19:24 BLOOD CULTURES Ordered. EDMS 19:25 BLOOD CULTURES Ordered. EDMS 19:25 LIVER US Ordered. EDMS 19:30 RENAL PROFILE Ordered. EDMS 19:31 COMPLETE BLOOD COUNT Ordered. EDMS 19:31 COMPLETE COMPHRENSIVE METABOLI Ordered. EDMS 19:42 CARDIAC MARKER PANEL Ordered. EDMS 19:48 CARDIAC MARKER PANEL Ordered. EDMS 19:48 CARDIAC MARKER PANEL Ordered. EDMS 19:48 AMMONIA Ordered. EDMS 19:50 CONSISTENT CARBOHYDRATES ordered. EDMS 19:54 ELECTROCARDIOGRAM ADULT ordered. EDMS 20:04 FREE T4 Ordered. EDMS 20:10 Admission / Observation Status ordered. EDMS 20:16 AMMONIA Ordered. EDMS 20:38 Financial registration complete. gjb 20:52 PREALBUMIN Ordered. EDMS 20:53 MAGNESIUM LEVEL Ordered. EDMS 21:01 [facility] [place] Agreement was scanned into [employer] and attached to record. [facility] 12/26 11:34 T-Sheet-- Draft Copy was scanned into [employer] and attached to record. gb 11:34 ECG/EKG was scanned into [employer] and attached to record. gb Administered Medications: 12/25 17:39 Drug: Furosemide 60 mg [furosemide 10 mg/mL injection solution (6 mL)] Route: IVP; bcj Site: right forearm; Signatures: Dispatcher [employer] Angelika Mathias, RN RN Mallorie Gibbons, Reg Reg Akbar Kenny, LEAD WAREHOUSE ASSOCIATE LEAD WAREHOUSE ASSOCIATE Rosana Dunham RN RN ko2 Keo Alonso, BOLIVAR WEB OFFSET PRESS FEEDER Comfort Chairez Bruce RN bcj The chart was reviewed and I authenticate all verbal orders and agree with the evaluation and treatment provided.Corrections: (The following items were deleted from the chart) 19:47 19:43 CARDIAC MARKER PANEL ordered. EDMS EDMS 19:48 19:25 BLOOD CULTURES ordered. EDMS EDMS 19:48 19:25 BLOOD CULTURES ordered. EDMS EDMS 19:48 19:25 BLOOD CULTURES ordered. EDMS EDMS 20:04 18:56 FREE T4 ordered. EDMS EDMS 20:50 20:21 PREALBUMIN ordered. EDMS EDMS 20:52 19:54 MAGNESIUM LEVEL ordered. EDMS EDMS Attachments: 21:01 [facility] [place] Agreement [facility] 12/26 11:34 T-Sheet-- Draft Copy gb 11:34 ECG/EKG gb Chart Complete MTDD
--- NOTE | 2016-12-27 23:02 | ECGEPIP ---
Stationary ECG Study [facility] Test Date: 2016-12-26 Pat Name: EAN MONTEMAYOR Department: Room: [place] [address] Gender: F Urban Sociologist: JOEL : 1940 Requested By: DEBBI Royal Order Number: [id number] Reading MD: Ellie Matthews Measurements Intervals [place] Rate: 65 P: 171 HI: 240 QRS: -72 QRSD: 184 T: 104 QT: 530 QTc: 554 Interpretive Statements ELECTRONIC ATRIAL PACEMAKER ELECTRONIC VENTRICULAR PACEMAKER ABNORMAL RHYTHM ECG SINCE 12/25/16 SINUS TACHYCARDIA NO LONGER PRESENT Electronically Signed On 12-27-2016 23:01:55 EST by Ellie Matthews
[2016-12-27 23:59] VITALS: BP 136/87
[2016-12-28] MEDS: FUROSEMIDE 100 MG/10 ML VIAL (J1940) IV SCH ×4 (00:21→23:44)
[2016-12-28] MEDS: MEROPENEM INJ 500 MG in D5W MINI-BAG PLUS 100 ML IV SCH ×2 (03:10→15:36)
[2016-12-28 04:00] VITALS: BP 127/90
[2016-12-28] MEDS: LEVOTHYROXINE 0.15 MG TAB (150 MCG) PO SCH (05:08)
[2016-12-28] MEDS: SLF 3 ML SYR IV SCH ×3 (05:08→21:00)
[2016-12-28] MEDS: LACTULOSE 20 GM/30 ML SYRUP UD PO SCH ×2 (05:08→20:55)
[2016-12-28 06:08] LABS: MEAN CORPUSCULAR HEMOGLOBIN 30.2 pg (27.0-33.0); MEAN CORPUSCULAR HGB CONC 32.1 g/dl (32.0-36.5); RED CELL DISTRIBUTION WIDTH 20.2 % (11.5-14.5); WHITE BLOOD COUNT 5.3 K/mm3 (4.0-10.0)
[2016-12-28 06:23] LABS: ALBUMIN 2.9 GM/DL (3.2-5.2); ALBUMIN/GLOBULIN RATIO 0.78 (1.00-1.93); CALCIUM LEVEL 9.4 MG/DL (8.8-10.2); CREATININE FOR GFR 2.35 MG/DL (0.55-1.02); GLOMERULAR FILTRATION RATE 21.4 (>39); MAGNESIUM LEVEL 2.5 MG/DL (1.8-2.4); POTASSIUM SERUM 4.7 MEQ/L (3.5-5.1); TOTAL PROTEIN 6.6 GM/DL (6.4-8.2)
[2016-12-28 07:30] VITALS: BP 127/68
[2016-12-28] MEDS: HumaLOG INSULIN (NovoLOG) PER UNIT SC SCH ×4 (07:56→20:55)
[2016-12-28] MEDS: VITAMIN D 1,000 INTERNATIONAL UNITS TABLET PO SCH (07:56)
[2016-12-28] MEDS: ASPIRIN 81 MG ENTERIC TAB PO SCH (07:56)
[2016-12-28] MEDS: BRIMONIDINE 0.15% OPHTH SOLN 5 ML OU SCH ×2 (07:57→21:00)
[2016-12-28] MEDS: CARVedilol 3.125 MG TAB PO SCH ×2 (07:58→20:54)
[2016-12-28 12:00] VITALS: BP 115/79
--- NOTE | 2016-12-28 13:23 | REP ---
CHEST, SINGLE VIEW: Single AP portable view of the chest is performed and compared to prior study of 12/25/2016. Once again, there is significant cardiomegaly, unchanged. The mediastinal silhouette is unchanged. There are multiple sternal wires and mediastinal clips present. There is a left pacemaker again noted. Vascular congestion is unchanged as are diffuse right sided interstitial infiltrates. Increased atelectasis/infiltrate is seen in the left base with probable small left pleural effusion. IMPRESSION: Increased atelectasis/infiltrate left base with small left effusion. Otherwise no change. Signed by Paresh Vora MD 12/28/2016 02:35 P
--- NOTE | 2016-12-28 13:39 | PHACANCOPD ---
PHARMACY VANCOMYCIN DOSING Pt Demographics Demographics Patient Age:76 , Weight:48.000 , Gender: female Adjusted Body Weight Date: 12/26/16, Adjusted Body Weight: Kg Events Past 24 Hours Events Past 24 Hours: NO: Change in CrCl, Dialysis, Diuretic Therapy, Elevation in WBC, Fever, Other, Pending Diagnostics, Pending Procedures Vancomycin Vancomycin indication: Empiric mrsa coverage Vancomycin Target Ranges: 15-20 mcg/ml Vancomycin Load Y/N: Yes Load Dose Date Time Vancomycin Load Dose: 750mg Date: 12/26/16 Time: 1300 Vancomycin Dose Date: 12/26/16. Current Vancomycin Dose: [500mg IV Q24H] Intermittent Dosing?: No Labs Labs Item Value Date Time Creatinine 2.27 MG/DL H 12/27/16 0543 Creatinine 2.35 MG/DL H 12/28/16 0535 Creatinine 2.06 MG/DL H 12/26/16 1128 Creatinine 1.75 MG/DL H 12/26/16 0521 Micro Microbiology 12/25/16 Blood Culture - Preliminary, Resulted No Growth after 48 hours. All Specime... 12/25/16 Blood Culture - Preliminary, Resulted No Growth after 48 hours. All Specime... 12/25/16 Urine Culture - Final, Complete Creatinine Clearance Date:12/26/16. Estimated Creatinine Clearance: ~[19 ml/min]. Pending Labs 12/30/16 @ 1200 Assessment and Plan Maintaining Current Dose?: Yes Reason for dose change: No Dose Change Pharmacist Note Pharmacist Note Date: 12/28/16. Pharmacist note: Trough was 13.4 after 2 doses of Vanco. Continue current dosing and repeat trough in 2 days. SCr has increased slightly , but at this time is not significant enough to suspect nephrotoxicty from Vanco. Continue to monitor renal function and adjust dose as needed. Date: 12/26/16. Pharmacist note: Day #1 empiric meropenem/vancomycin initiated with a 750mg loading dose, followed by a maintenance regimen of 500mg IV Q24H for empiric mrsa coverage - aiming for a goal trough of 15-20 mcg/ml. WBC is currently WNL, and patient is afebrile. Scr was elevated on admit - baseline scr is ~ 1.7. Blood and urine cultures are pending. We will continue to monitor the patient's renal function and schedule a level/make dose adjustments accordingly. DILMA HERNANDEZ PHARMACY Dec 28, 2016 13:39
[2016-12-28] MEDS: VANCOMYCIN HCL 500 MG in D5W MINI-BAG PLUS 100 ML IV SCH (13:41)
[2016-12-28] MEDS: NITROGLYCERIN 2% OINT 1 GM *U/D* PKT TOP SCH ×3 (13:41→23:44)
--- NOTE | 2016-12-28 14:58 | IPN ---
DATE: 12/28/2016 SUBJECTIVE: This is a 76-year-old female seen in PCU room. She continues to have a lot of bowel movements while on Lactulose. Per nursing staff, has not made a lot of urine output. Mentation continues to be the same as yesterday. Denies any chest pain , fevers, chills, nausea, vomiting. She is somewhat unclear about her shortness of breath, as one time she will deny having any shortness of breath and the next will be stating that she thinks her shortness of breath is the same as yesterday. OBJECTIVE: VITAL SIGNS: Blood pressure 127/68, heart rate 78, temperature 95.5, respiration rate 20, pulse oximetry 100% on 2 liters nasal cannula. Intake and output the last 24 hours: 1300 and 1175. She is positive 325 since admission. GENERAL: The patient is lying in bed comfortable. No acute distress. She is alert, awake, oriented to person. Difficulty recalling the year, thinking it is 1969, which is what she stated when she first got admitted. HEENT: Normocephalic, atraumatic. Moist oral mucosa. Upper dentures in place. Lower with own teeth. NECK: Supple. Trachea midline. CHEST: Symmetric chest rise. No accessory muscle use. Breath sounds more diminished today with crackles in the lung bases. HEART: Irregular. Could not appreciate any murmurs or rubs. It is not tachycardic. Left chest with palpable pacemaker defibrillator. ABDOMEN: Soft, nontender, nondistended. Bowel sounds present. No guarding. No rebound. EXTREMITIES: 1 to 2+ pitting edema. She does have presacral edema. LABORATORY DATA: WBC 5.7, hemoglobin 12.9, hematocrit 40.3, platelets 113. Sodium 136, potassium 4.7, chloride 101, carbon dioxide 20, BUN 68, creatinine 2.35, glucose 141, calcium 9.4, magnesium 2.5, total bilirubin 2, AST 51, ALT 40 , alkaline phosphatase 197. Ammonia level is 30. Blood cultures negative after 48 hours. Direct total bilirubin 2.0, improved from yesterday 2.3. IMPRESSION/PLAN: Ms. Yen is a 76-year-old female who presented with altered mental status and found to have congestive heart failure (CHF) exacerbation. 1. CHF exacerbation, systolic and diastolic, decompensated. Echo from August 2016 showed ejection fraction of 10 to 15%. According to her urine output, she in fact is net positive rather than net negative, however, she is making expected amount of bowel movements at approximately ten bowel movements documented in the last 24 hours. Currently is being diuresed with 60 Lasix every 8 hours. However, her renal function appears to be worsening each day. We have consulted nephrology, Dr. Wood, for further assistance. 2. Acute kidney injury on chronic kidney disease. The patient's baseline creatinine is stage IV. Because of her worsening renal function today, consult nephrology, as mentioned above for further assistance regarding this. 3. Metabolic encephalopathy. Her mentation continues to improve with lactulose. She was also empirically started on meropenem, vancomycin due to concern that infectious etiology was contributing to her symptoms. Day three of meropenem and vancomycin. 4. Abnormal ultrasound of the liver. Report from ultrasound shows possible cholecystitis. Was evaluated by general surgery. She continues to be asymptomatic with this and we will continue to monitor for now. 5. Hyperkalemia, resolved. 6. Type 2 diabetes, continue insulin sliding scale and carbohydrate diet. 7. Hypothyroidism. Continue levothyroxine. 8. Vitamin D deficiency. Continue supplementation. 9. Supratherapeutic INR secondary to underlying liver disease. 10. Underweight. Body Mass Index (BMI) less than 18 secondary to her chronic underlying disease. Encourage oral intake. 11. Deep vein thrombosis (DVT) prophylaxis. Sequential compression device (SCD ) and TEDs. Her INR is supratherapeutic. No pharmacological intervention at this time due to supratherapeutic INR. The patient currently lives at home with her and disabled daughter and will likely require assistance regarding home care. We have consulted patient and family services (PFS). CODE STATUS: DO NOT RESUSCITATE, DO NOT INTUBATE. I have both independently examined this patient as well as reviewed the dictated note. I have discussed in detail with the resident the findings and plan of treatment as documented in the residents note. I will continue to follow the patient and offer further guidance to the patients care as necessary during this hospital stay. CONNOR
[2016-12-28 15:50] VITALS: BP 116/76
--- NOTE | 2016-12-28 18:41 | ECGEPIP ---
Stationary ECG Study [facility] Test Date: 2016-12-28 Pat Name: EAN MONTEMAYOR Department: Room: [place] [address] Gender: F Senior Software Engineer: VERNELL : 1940 Requested By: VERNON Urban Order Number: [id number] Reading MD: Ellie Matthews Measurements Intervals [place] Rate: 85 P: VT: 0 QRS: -67 QRSD: 147 T: 74 QT: 435 QTc: 519 Interpretive Statements SINUS RHYTHM VENTRICULAR PACING SIMILAR 12/26/16 Electronically Signed On 12-28-2016 18:41:27 EST by Ellie Matthews
--- NOTE | 2016-12-28 19:29 | CR.PDOC ---
[facility] Consultation Consultation DATE OF ADMISSION: 12/25/2016 DATE OF CONSULTATION: 12/28/2016 ATTENDING PHYSICIAN: Dr. Hai Barth CONSULTING PHYSICIAN: Dr. Gerald Borges REASON FOR CONSULTATION: Worsening renal function HISTORY OF PRESENT ILLNESS: Ms. Yen is a 76-year-old female with past medical history significant for systolic heart failure, valvular disease, coronary artery disease status post CABG, diabetes, hyperlipidemia, hypothyroidism, chronic anemia, vitamin D deficiency, anxiety, pulmonary hypertension, sick sinus syndrome status post pacemaker who presented to the hospital with altered mentation. She does not appear to be quite at baseline today, but reports that she came to the hospital because she was feeling weak. She also reports shortness of breath, and decreased oral intake. She denies any chest pain, chest pressure, palpitations, lightheadedness, dizziness, nausea, vomiting, diarrhea, abdominal pain, fever, chills. She denies any NSAID use. On admission, she was found to have hyperkalemia with a potassium of 6.5, creatinine 1.91, BUN 52, brain natriuretic peptide of 3980. She was admitted into the hospital with CHF exacerbation and placed on IV Lasix. Her electrolytes have improved, however due to worsening renal function, nephrology consult was requested. PAST MEDICAL HISTORY: 1. Systolic and diastolic heart failure, with EF of 10-15% in August 2016. 2. Coronary artery disease (CAD) with prior myocardial infarction ([place]). 3. Sick sinus syndrome, status post pacemaker. 4. Severe tricuspid regurgitation. 5. Pulmonary hypertension. 6. Type 2 diabetes. 7. Hyperlipidemia. 8. Chronic anemia. 9. Hypothyroidism. 10. History of endocarditis in 2006. 11. Vitamin D deficiency. 12. History of anxiety. 13. History of glaucoma. 14. Chronic malnutrition. PAST SURGICAL HISTORY: 1. Pacemaker/defibrillator placement. 2. Mitral and aortic valve replacement. 3. Coronary artery bypass graft (CABG). ALLERGIES: No known drug allergies HOME MEDICATIONS: Please see below. FAMILY HISTORY: No known family history of anyone with end-stage renal disease, requiring hemodialysis. SOCIAL HISTORY: She is a former smoker, quit in 1989. No alcohol or illicit drug use. She lives with her and daughter. REVIEW OF SYSTEMS: CONSTITUTIONAL: No fevers, chills, night sweats. She does admit to poor oral intake and decreased appetite. HEENT: No headache, lightheadedness or dizziness. No acute changes to vision or hearing. CARDIOVASCULAR: No chest pain, chest pressure or palpitations. She denies orthopnea and paroxysmal nocturnal dyspnea. Positive for shortness of breath with minimal exertion. RESPIRATORY: Positive shortness of breath. No cough. No hemoptysis. GENITOURINARY: No change in urinary frequency. No dysuria or hematuria. MUSCULOSKELETAL: No unusual muscle or joint pains. GASTROINTESTINAL: No nausea, vomiting, diarrhea, constipation, abdominal pain. No hematochezia or melena. SKIN: No unusual rashes or skin lesions. NEUROLOGICAL: No syncope. No paresthesias. ENDOCRINE: Positive history of diabetes. No thyroid disorder. HEMATOLOGIC: No excessive bleeding or bruising. PHYSICAL EXAMINATION: VITAL SIGNS: Temperature 96.0, pulse 69, respiratory rate 22, blood pressure 116 /76, pulse ox 99% on 2 L nasal cannula, height 160.02 cm, weight 48 kg. GENERAL: Patient is alert and oriented 3. She does not appear to be in any acute distress. She does get short of breath with minimal exertion including conversation. HEENT: Normocephalic, atraumatic. Extraocular muscles are intact. Pupils are equally round and reactive to light. No scleral icterus. Dry mucosa. NECK: Supple. Positive for jugular venous distention. No thyromegaly. No cervical lymphadenopathy. HEART: Normal S1, S2. Regular rate and rhythm. Positive for systolic ejection murmur and presence of parasternal heave. LUNGS: Diminished breath sounds with crackles on left. No rhonchi or wheezing appreciated. ABDOMEN: Soft. Nontender, nondistended. Bowel sounds are present. No rebound, guarding or rigidity. EXTREMITIES: +1 lower extremity edema. Positive pedal pulses bilaterally. SKIN: Warm and dry. Good skin turgor. No rashes noted. NEUROLOGIC: No focal deficits. Cranial nerves II through XII are grossly intact. Motor and sensation intact. Asterixis could not be adequately assessed as patient would not keep her arms up. LABORATORY DATA: 12/28/16 05:35 Red Blood Count 4.28, Mean Corpuscular Volume 94.0, Mean Corpuscular Hemoglobin 30.2, Mean Corpuscular Hemoglobin Concent 32.1, Red Cell Distribution Width 20.2 H, Calcium Level 9.4, Aspartate Amino Transf (AST/SGOT) 51H, Alanine Aminotransferase (ALT/SGPT) 40, Alkaline Phosphatase 197H, Total Bilirubin 2.0H , Total Protein 6.6, Albumin 2.9L, Albumin/Globulin Ratio 0.78L, Ammonia 30, Anion Gap 15, Glomerular Filtration Rate 21.4L, Magnesium Level 2.5H Urine toxicology on 12/25 was negative. Urine showed 1+ protein, WBC 7, 1+ bacteria. MICROBIOLOGY: Urine culture shows no growth. Blood cultures show no growth thus far. IMAGING: Head CT on 12/25 revealed chronic small vessel white matter ischemic changes without acute infarct, hemorrhage, edema, or mass. Some age related atrophy, no acute findings. Chest x-ray on 12/25 revealed marked cardiomegaly, pulmonary vascular congestion , fissural thickening consistent with CHF. Pacemaker in place. Liver Ultrasound on 12/25 revealed and is consistent with cholecystitis, gallbladder wall thickening, cholelithiasis, mild ascites. Chest x-ray on 12/28 shows increased atelectasis/infiltrate of the left base with small left effusion, otherwise no change. ASSESSMENT/PLAN: Ms. Yne is a 76-year-old female with past medical history significant for severe systolic heart failure, valvular disease, coronary artery disease status post CABG, diabetes, hyperlipidemia, hypothyroidism, chronic anemia, vitamin D deficiency, anxiety, pulmonary hypertension, sick sinus syndrome status post pacemaker who presented to the hospital with altered mentation found to be in CHF exacerbation with worsening renal function. 1. Acute on chronic renal failure, secondary to CHF exacerbation. Creatinine has been trending up, as she was admitted with a creatinine of 1.9 and it is currently 2.35. Volume status is not well compensated and she still having significant shortness of breath. Therefore, we will not decrease her dose of Lasix at this time. We will monitor her renal function for another 24 hours. If creatinine continues to trend upwards, we will consider decreasing her Lasix tomorrow. Continue to monitor intake and output. Continue with fluid restriction. Avoid nephrotoxic medications. Electrolytes are stable. We will obtain a repeat echocardiogram as the last one in August 2016 revealed an ejection fraction of 10-15%. She has severe systolic and diastolic dysfunction and we would like to see where her heart function is at this time. 2. Acute respiratory failure, secondary to volume overload. She continues to be on supplemental oxygen. Hopefully her respiratory status will improve with further diuresis. 3. Encephalopathy, unclear if this is metabolic versus hepatic verses infectious. We will defer to primary team for further management. Manual level was slightly elevated on admission, however it has normalized. Head CT did not show any acute abnormality. 4. Findings of cholecystitis on liver ultrasound. Patient was evaluated by surgery. She is on antibiotics. 5. History of coronary artery disease, valvular dysfunction and pulmonary hypertension. Continue cardiac meds. Will obtain repeat echocardiogram. 6. History of chronic anemia. Hemoglobin is currently stable at 12.9. No intervention needed at this time. 7. Type 2 diabetes. Insulin sliding scale per protocol. Thank you for the consultation and allowing us to participate in the care of Ms. Yen. We will continue to follow along with you. Allergies Coded Allergies: No Known Allergies (Verified Allergy, Unknown, 11/09/03) Home Medications Scheduled Aspirin (Aspirin 81) 81 Mg Tab 81 MG PO DAILY (Reported) Brimonidine Tartrate 0.15% (Alphagan P) 0.15 % Yvette 1 DROP OU BID (Reported) Carvedilol (Carvedilol) 3.125 Mg Tab 3.125 MG PO BID (Reported) Cholecalciferol (Vitamin D-3) 1,000 Unit Tab 1,000 UNIT PO DAILY (Reported) Furosemide (Furosemide) 40 Mg Tab 40 MG PO BID (Reported) TAKE MORNING AND MID AFTERNOON Glimepiride (Amaryl) 2 Mg Tab 2 MG PO DAILY (Reported) Insulin Glargine (Lantus) 1 Units/0.01 Ml Susp 10 UNITS SC DAILY (Reported) Levothyroxine Sodium (Synthroid) 137 Mcg Tab 137 MCG PO DAILY (Reported) Linagliptin Base (Tradjenta) 5 Mg Tab 5 MG PO DAILY (Reported) Multivitamins *[facility] STOCKED* (Thera M Plus *[facility] STOCKED*) 1 Tab Tab 1 TAB PO DAILY (Reported) Simvastatin - High Dose (Simvastatin) 40 Mg Tab 40 MG PO QHS (Reported) Spironolactone (Spironolactone) 25 Mg Tab 25 MG PO DAILY (Reported) Scheduled PRN Acetaminophen (Acetaminophen) 325 Mg Tab 325 MG PO PRN PAIN (Reported) Guaifenesin (Coughtab) 200 Mg Tab 200 MG PO BID PRN PRN COUGH (Reported) Milk Of Magnesia (Milk of Magnesia) 1,200 Mg/15 Ml Magda 30 ML PO DAILY PRN PRN CONSTIPATION (Reported) GME ATTESTATION GME ATTESTATION My preceptor for this patient encounter was physically present in the building during the encounter and was fully available. As needed, all aspects of the patient interview, examination, medical decision making process, and medical care plan development were reviewed and approved by the preceptor. Preceptor is aware and concurs with the plan as stated in the body of this note and will attest to such by his/her cosignature. ATTENDING NOTE Nephrology: Pt was examined along with the resident during rounds today AM. Decompensated CHF,Hepatic encephalopathy and worsening renal function. Cont Diuresis with Lasix 60 mg IV Q 8hr now. Repeat CXR showed persistent pulm congestion and interstitial infiltrates. Repeat Echo ordered to eval LVEF. I shall re-evaluate the patient in AM for escalation of diuretic regimen if needed. QUOC CLAIRE DO Dec 28, 2016 19:29 GERALD BORGES MD Dec 28, 2016 22:34 QUOC CLAIRE DO Dec 28, 2016 19:29 GERALD BORGES MD Dec 28, 2016 22:34
[2016-12-28 20:00] VITALS: BP 147/71
[2016-12-28] MEDS: SIMVASTATIN 40 MG TAB PO SCH (20:54)
[2016-12-28 23:59] VITALS: BP 114/66
[2016-12-29] VITALS (8 sets, daily range): BP systolic 102–134; BP diastolic 55–77
[2016-12-29] MEDS: NITROGLYCERIN 2% OINT 1 GM *U/D* PKT TOP SCH ×5 (00:10→23:56)
[2016-12-29] MEDS: MEROPENEM INJ 500 MG in D5W MINI-BAG PLUS 100 ML IV SCH ×2 (02:10→15:58)
[2016-12-29] MEDS: LEVOTHYROXINE 0.15 MG TAB (150 MCG) PO SCH (05:43)
[2016-12-29] MEDS: SLF 3 ML SYR IV SCH ×3 (05:44→20:59)
[2016-12-29 05:47] LABS: MEAN CORPUSCULAR HEMOGLOBIN 30.3 pg (27.0-33.0); MEAN CORPUSCULAR HGB CONC 32.4 g/dl (32.0-36.5); MEAN CORPUSCULAR VOLUME 93.6 fl (80.0-96.0); RED CELL DISTRIBUTION WIDTH 20.2 % (11.5-14.5); WHITE BLOOD COUNT 5.9 K/mm3 (4.0-10.0)
[2016-12-29 06:00] LABS: ALBUMIN 2.9 GM/DL (3.2-5.2); ALBUMIN/GLOBULIN RATIO 0.97 (1.00-1.93); CALCIUM LEVEL 8.9 MG/DL (8.8-10.2); CREATININE FOR GFR 1.98 MG/DL (0.55-1.02); GLOMERULAR FILTRATION RATE 26.1 (>39); MAGNESIUM LEVEL 2.2 MG/DL (1.8-2.4); POTASSIUM SERUM 3.8 MEQ/L (3.5-5.1); TOTAL PROTEIN 5.9 GM/DL (6.4-8.2)
[2016-12-29] MEDS: HumaLOG INSULIN (NovoLOG) PER UNIT SC SCH ×4 (07:30→20:59)
[2016-12-29] MEDS: BRIMONIDINE 0.15% OPHTH SOLN 5 ML OU SCH ×2 (08:06→20:59)
[2016-12-29] MEDS: LACTULOSE 20 GM/30 ML SYRUP UD PO SCH ×2 (08:06→20:58)
[2016-12-29] MEDS: FUROSEMIDE 100 MG/10 ML VIAL (J1940) IV SCH ×3 (08:07→23:57)
[2016-12-29] MEDS: ASPIRIN 81 MG ENTERIC TAB PO SCH (08:08)
[2016-12-29] MEDS: VITAMIN D 1,000 INTERNATIONAL UNITS TABLET PO SCH (08:08)
[2016-12-29] MEDS: CARVedilol 3.125 MG TAB PO SCH ×2 (08:09→21:00)
[2016-12-29] MEDS: rifAXIMin 550 MG TAB (XIFAXAN) PO SCH ×2 (10:18→20:59)
[2016-12-29] MEDS ORDERED: metOLazone 5 MG TAB PO ONE (11:30)
--- NOTE | 2016-12-29 11:41 | IPNPDOC ---
Date Seen The patient was seen on 12/29/16. Progress Note DATE OF ENCOUNTER: 12/29/2016 SUBJECTIVE: Ms. Yen was seen this morning at bedside. She reports that she does continue to have some shortness of breath. She is on 2 L supplemental oxygen. No chest pain, palpitations. No nausea, vomiting, diarrhea, abdominal pain. No fevers or chills. No headache or dizziness. She has had a total output of 1425 mL with a positive balance of 25 mL in the previous 24 hours. Ammonia slightly elevated this morning. OBJECTIVE: Vital Signs Date Time Temp Pulse Resp B/P Pulse Ox O2 Delivery O2 Flow Rate FiO2 12/29/16 08:09 77 121/68 12/29/16 07:35 95.5 20 96 Nasal Cannula 2.0 I&O- Last 24 Hours up to 6 AM 12/29/16 06:00 Intake Total 1510 ml Output Total 1775 ml Balance -265 ml GENERAL: Alert and oriented 3, no acute distress. Cachectic appearing. HEENT: Normocephalic, atraumatic. Extraocular muscles are intact. NECK: Supple. Positive for jugular venous distention. No thyromegaly. HEART: Normal S1, S2. Regular rate and rhythm. Positive for systolic ejection murmur and presence of parasternal heave. LUNGS: Diminished breath sounds with crackles on left. No rhonchi or wheezing appreciated. ABDOMEN: Soft. Nontender, nondistended. Bowel sounds are present. No rebound, guarding or rigidity. EXTREMITIES: She has upper extremity edema bilaterally, specifically elbow region. Positive for presacral edema and trace lower extremity edema. Positive pedal pulses bilaterally. SKIN: Warm and dry. Good skin turgor. No rashes noted. NEUROLOGIC: No focal deficits. Motor and sensation intact. LABORATORY DATA: 12/29/16 05:17 Calcium Level 8.9, Aspartate Amino Transf (AST/SGOT) 76 H, Alanine Aminotransferase (ALT/SGPT) 57, Alkaline Phosphatase 220 H, Total Bilirubin 2.0 H, Total Protein 5.9 L, Albumin 2.9 L MICROBIOLOGY: Urine culture shows no growth. Blood cultures show no growth thus far. IMAGING: Head CT on 12/25 revealed chronic small vessel white matter ischemic changes without acute infarct, hemorrhage, edema, or mass. Some age related atrophy, no acute findings. Chest x-ray on 12/25 revealed marked cardiomegaly, pulmonary vascular congestion , fissural thickening consistent with CHF. Pacemaker in place. Liver Ultrasound on 12/25 revealed and is consistent with cholecystitis, gallbladder wall thickening, cholelithiasis, mild ascites. Chest x-ray on 12/28 shows increased atelectasis/infiltrate of the left base with small left effusion, otherwise no change. ASSESSMENT/PLAN: Ms. Yen is a 76-year-old female with past medical history significant for severe systolic heart failure, valvular disease, coronary artery disease status post CABG, diabetes, hyperlipidemia, hypothyroidism, chronic anemia, vitamin D deficiency, anxiety, pulmonary hypertension, sick sinus syndrome status post pacemaker who presented to the hospital with altered mentation found to be in CHF exacerbation with worsening renal function. 1. Acute on chronic renal failure, secondary to CHF exacerbation. Creatinine has improved. However, volume status is not yet compensated and she still having significant shortness of breath. We will keep her on 60 mg of IV Lasix every 8 hours. In addition, one dose of metolazone will be added to help facilitate further diuresis. Continue to monitor intake and output. Continue with fluid restriction. Avoid nephrotoxic medications. Electrolytes are stable. Repeat echocardiogram is pending. Last one in August 2016 revealed an ejection fraction of 10-15%. 2. Acute respiratory failure, secondary to volume overload. She continues to be on supplemental oxygen. Hopefully her respiratory status will improve with further diuresis. 3. Encephalopathy, unclear if this is metabolic versus hepatic. Ammonia level was slightly elevated this morning. She is currently on lactulose. Rifaximin has also been added to her regimen. 4. Findings of cholecystitis on liver ultrasound. Patient was evaluated by surgery and this is thought to be mainly edema. No surgical intervention at this time. She is on antibiotics, that being vancomycin and meropenem. Monitor for toxicity. 5. History of coronary artery disease, valvular dysfunction and pulmonary hypertension. Continue cardiac meds. Repeat echocardiogram pending. 6. History of chronic anemia. Hemoglobin is currently stable at 12.7. No intervention needed at this time. GME ATTESTATION GME ATTESTATION My preceptor for this patient encounter was physically present in the building during the encounter and was fully available. As needed, all aspects of the patient interview, examination, medical decision making process, and medical care plan development were reviewed and approved by the preceptor. Preceptor is aware and concurs with the plan as stated in the body of this note and will attest to such by his/her cosignature. ATTENDING NOTE Nephrology: Pt was examined in the AM. Inadequate response to high dose diuretics. Add metolazone for sequential nephron blockage. Pt might need inotropic support if renal function doesn't improve. QUOC CLAIRE DO Dec 29, 2016 11:41 GERALD BORGES MD Dec 31, 2016 22:01
[2016-12-29] MEDS: VANCOMYCIN HCL 500 MG in D5W MINI-BAG PLUS 100 ML IV SCH (13:42)
[2016-12-29] MEDS: SIMVASTATIN 40 MG TAB PO SCH (20:59)
--- NOTE | 2016-12-29 21:29 | IPN ---
DATE: 12/29/2016 SUBJECTIVE: This is a 76-year-old female who was seen and examined at bedside. Yesterday, she was started on nitrobid. This morning, the patient denies any chest pain, nausea, vomiting, fevers, chills. States that she had a good night of sleep but still very sleepy. Had breakfast. OBJECTIVE: VITAL SIGNS: Blood pressure 121/68, heart rate 77, temperature 95.5, respiration rate 20, pulse oximetry 96% on 2 liters cannula. Intake and output in the last 24 hours 1450 in and 1425 out. Four bowel movements documented. She is net negative 85 since admission. GENERAL: The patient is sitting in bed comfortable, no acute distress; however, she does doze off easily to sleep. Appears easily winded. HEENT: Normocephalic, atraumatic. Very moist oral mucosa. Extraocular movements intact. NECK: Supple. Trachea midline. Neck veins still distended. HEART: Regular sounding. Not tachycardic. Normal S1, S2. She has left palpable AICD pacemaker and defibrillator. Positive for rub. LUNGS: Diminished bilateral lung hermosillo with crackles. ABDOMEN: Soft, nontender, nondistended. Bowel sounds present. No guarding. No rebound. EXTREMITIES: Some improvement in her edema today compared to yesterday; however , persistent. LABORATORY DATA: WBC 5.9, hemoglobin 12.7, hematocrit 39.3, platelets 96. Sodium 139, potassium 3.8, chloride 101, carbon dioxide 26, BUN 66, creatinine 1.93, improved from yesterday 2.35. Glucose 64, total bilirubin 2, AST 76, ALT 57, alkaline phosphatase 220. Ammonia level 39. Vancomycin level 13.4. Effusion in left lung base. IMPRESSION/PLAN: Ms. Yen is a 76-year-old female who presented with altered mental status and congestive heart failure (CHF) exacerbation. Found to have worsening renal function. 1. CHF exacerbation, systolic and diastolic, decompensated. The patient has an echo pending at this time. She still appears clinically volume overload; however, because of her worsening renal function, we had asked nephrology for further assistance. Greatly appreciate Dr. Wood's assistance. She is currently on Lasix every 8 hours, metolazone has been ordered by nephrology team. 2. Metabolic encephalopathy. Her mentation fluctuates but significantly improved compared to admission. Her ammonia level appears to be worsened today. She also appears to be more lethargic. She likely has hepatic encephalopathy combined with congestion due to underlying liver disease. Her INR was supratherapeutic, 1.8, and platelets are low, suggestive of cirrhosis. Based on her lab work, she could have underlying autoimmune condition contributing to underlying cirrhosis. We will check AMA. 2. Abnormal liver ultrasound. Was evaluated by Dr. Reza. At this time, it is recommended to continue to monitor the patient and might benefit from HIDA scan if she develops infectious symptomatology. Her abdominal examination continues to be benign and white count is normal. The patient's had declined offer for further intervention regarding this at this time. 3. Hyperkalemia, resolved. 4. Type 2 diabetes. Continue insulin sliding scale and carbohydrate diet. She had some episodes of hypoglycemia last night, as low as 59, this morning 64. Has not needed a lot of insulin since admission. This is probably secondary to her poor appetite and oral intake secondary to her encephalopathy. 5. Hypothyroidism. Continue levothyroxine. 6. Vitamin D deficiency. She is on supplementation. 7. Supratherapeutic INR secondary to likely underlying liver cirrhosis. 8. Underweight, Body Mass Index (BMI) is less than 18 secondary to malnutrition status. 9. Abnormal liver function tests with supratherapeutic INR. We will check AMA to rule out for possible causes contributing to underlying cirrhosis. 10. Acute kidney injury on chronic kidney disease. Secondary to hypoperfusion from increased volume status. 11. Deep vein thrombosis (DVT) prophylaxis. Sequential compression device (SCD ) and thromboembolic compression stockings (TEDS). No pharmacological intervention secondary to INR supratherapeutic. I have both independently examined this patient as well as reviewed the dictated note. I have discussed in detail with the resident the findings and plan of treatment as documented in the residents note. I will continue to follow the patient and offer further guidance to the patients care as necessary during this hospital stay. CONNOR
[2016-12-30 03:30] VITALS: BP 104/61
[2016-12-30] MEDS: MEROPENEM INJ 500 MG in D5W MINI-BAG PLUS 100 ML IV SCH ×2 (03:41→17:26)
[2016-12-30 05:53] LABS: MEAN CORPUSCULAR HGB CONC 31.7 g/dl (32.0-36.5); MEAN CORPUSCULAR VOLUME 94.7 fl (80.0-96.0); RED CELL DISTRIBUTION WIDTH 20.4 % (11.5-14.5); WHITE BLOOD COUNT 5.7 K/mm3 (4.0-10.0)
[2016-12-30 06:05] LABS: ALBUMIN/GLOBULIN RATIO 0.83 (1.00-1.93); BILIRUBIN,TOTAL 1.8 MG/DL (0.2-1.0); CALCIUM LEVEL 9.1 MG/DL (8.8-10.2); CREATININE FOR GFR 2.04 MG/DL (0.55-1.02); GLOMERULAR FILTRATION RATE 25.2 (>39); MAGNESIUM LEVEL 2.2 MG/DL (1.8-2.4); POTASSIUM SERUM 3.8 MEQ/L (3.5-5.1); TOTAL PROTEIN 6.6 GM/DL (6.4-8.2)
[2016-12-30] MEDS: NITROGLYCERIN 2% OINT 1 GM *U/D* PKT TOP SCH ×3 (06:22→17:32)
[2016-12-30] MEDS: LEVOTHYROXINE 0.15 MG TAB (150 MCG) PO SCH (06:30)
[2016-12-30] MEDS: SLF 3 ML SYR IV SCH ×3 (06:31→21:08)
--- NOTE | 2016-12-30 07:36 | ECHO ---
DATE OF PROCEDURE: 12/29/2016 REFERRING PROVIDER: Dr. Wood REASON FOR ECHOCARDIOGRAM: Heart failure, unspecified. 2D MEASUREMENTS: IVS - 0.6 cm LV - 5.7 cm LVPW - 0.8 cm LA - 4.9 cm Aorta - 2.8 cm IVC - 2.6 cm DOPPLER MEASUREMENTS: Peak velocity across the aortic valve - 1.4 m/s Peak velocity across the LVOT - 0.35 m/s Mitral E - 1.2 Maximum tricuspid valve velocity - 3.2 m/s 2D COMMENTS: 1. Dilated left ventricle with diffuse hypokinesis and a severely depressed global left ventricular systolic function. The estimated LVEF is 10 to 15%. There was severe diffuse hypokinesis and the asia-septum was dyskinetic. 2. Mildly dilated left atrium. The right atrium also was dilated as well as the right ventricle. The right ventricle free wall may be mildly hypokinetic. 3. Possible tiny patent foramen ovale/PFO noted across the atrial septum by color Doppler in limited views. 4. Normal aortic root. 5. No pericardial effusion seen. Pleural effusion was noted. 6. Mildly calcified aortic valve with normal leaflet excursion. Bioprosthetic valve noted in the mitral valve position with normal leaflet motion. Normal tricuspid valve and pulmonic valve. The proximal pulmonary branches appear to be mildly enlarged. 7. The inferior vena cava was dilated, central venous pressure is most likely elevated. DOPPLER: It detects trace aortic regurgitation, moderate mitral regurgitation, severe tricuspid regurgitation, and mild pulmonic regurgitation. The calculated pulmonary artery systolic pressure varies between 50 to 60 mmHg. Assessment of the left ventricular diastolic function was limited. IMPRESSION: 1. Severe global left ventricular systolic dysfunction with diffuse hypokinesis and a dyskinetic inferior septum. Not mentioned above, mild spontaneous echocontrast was noted in the LV in some views. 2. Aortic valve sclerosis with trace aortic regurgitation. 3. 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 There was moderate mitral annulus calcification. 4. Severe tricuspid regurgitation with moderately severe pulmonary hypertension and dilated right heart chambers. 5. There are features consistent with elevated central venous pressure. 6. Pacemaker wire artifact noted in the right heart chambers. Echogenic structures noted on the pacemaker leads from unclear etiology. 7. This was compared the last echocardiogram on 08/28/2016, no remarkable changes. [facility]
[2016-12-30 08:00] VITALS: BP 106/59
[2016-12-30] MEDS: FUROSEMIDE 100 MG/10 ML VIAL (J1940) IV SCH (08:00)
[2016-12-30] MEDS: rifAXIMin 550 MG TAB (XIFAXAN) PO SCH ×2 (08:05→21:07)
[2016-12-30] MEDS: VITAMIN D 1,000 INTERNATIONAL UNITS TABLET PO SCH (08:05)
[2016-12-30] MEDS: LACTULOSE 20 GM/30 ML SYRUP UD PO SCH ×2 (08:05→21:07)
[2016-12-30] MEDS: ASPIRIN 81 MG ENTERIC TAB PO SCH (08:05)
[2016-12-30] MEDS: HumaLOG INSULIN (NovoLOG) PER UNIT SC SCH ×4 (08:06→21:07)
[2016-12-30] MEDS: CARVedilol 3.125 MG TAB PO SCH ×2 (08:06→20:08)
[2016-12-30] MEDS: BRIMONIDINE 0.15% OPHTH SOLN 5 ML OU SCH ×2 (08:06→21:08)
[2016-12-30] MEDS ORDERED: DOBUTamine HCL 500,000 MCG in APPROPRIATE DILUENT 1 EA IV SCH (10:30)
[2016-12-30] MEDS: FUROSEMIDE injection 250 MG in D5W 225 ML IV SCH (11:45)
--- NOTE | 2016-12-30 11:59 | IPNPDOC ---
Date Seen The patient was seen on 12/30/16. Progress Note DATE OF ENCOUNTER: 12/30/2016 SUBJECTIVE: Ms. Yen was seen this morning at bedside. She reports that she had some shortness of breath overnight. She remains on supplemental oxygen. Otherwise, no acute complaints this morning. No chest pain, palpitations. No nausea, vomiting, diarrhea, abdominal pain. No fevers or chills. No headache or dizziness. She has had a total output of 1450 mL with a negative balance of 370mL in the previous 24 hours. Appetite is good. OBJECTIVE: Vital Signs Date Time Temp Pulse Resp B/P Pulse Ox O2 Delivery O2 Flow Rate FiO2 12/30/16 08:06 70 103/58 12/30/16 08:00 96.7 22 99 Nasal Cannula 2.0 I&O- Last 24 Hours up to 6 AM 12/30/16 06:00 Intake Total 1020 ml Output Total 1050 ml Balance -30 ml GENERAL: Alert and oriented 3, no acute distress. Cachectic appearing. HEENT: Normocephalic, atraumatic. Extraocular muscles are intact. Moist mucosa. NECK: Supple. Positive for jugular venous distention. No thyromegaly. HEART: Normal S1, S2. Regular rate and rhythm. Positive for systolic ejection murmur. LUNGS: Diminished breath sounds with bilateral crackles. No rhonchi or wheezing appreciated. ABDOMEN: Soft. Nontender, nondistended. Bowel sounds are present. No rebound, guarding or rigidity. EXTREMITIES: She has upper extremity edema bilaterally, specifically elbow region. Positive for presacral edema and trace lower extremity edema. Positive pedal pulses bilaterally. SKIN: Warm and dry. Good skin turgor. No rashes noted. NEUROLOGIC: No focal deficits. Motor and sensation intact. LABORATORY DATA: 12/30/16 04:59 IMAGING: Head CT on 12/25 revealed chronic small vessel white matter ischemic changes without acute infarct, hemorrhage, edema, or mass. Some age related atrophy, no acute findings. Chest x-ray on 12/25 revealed marked cardiomegaly, pulmonary vascular congestion , fissural thickening consistent with CHF. Pacemaker in place. Liver Ultrasound on 12/25 revealed and is consistent with cholecystitis, gallbladder wall thickening, cholelithiasis, mild ascites. Chest x-ray on 12/28 shows increased atelectasis/infiltrate of the left base with small left effusion, otherwise no change. ASSESSMENT/PLAN: Ms. Yen is a 76-year-old female with past medical history significant for severe systolic heart failure, valvular disease, coronary artery disease status post CABG, diabetes, hyperlipidemia, hypothyroidism, chronic anemia, vitamin D deficiency, anxiety, pulmonary hypertension, sick sinus syndrome status post pacemaker who presented to the hospital with altered mentation found to be in CHF exacerbation with worsening renal function. 1. Acute on chronic renal failure, secondary to CHF exacerbation/volume overload. Creatinine is essentially unchanged. However, volume status is not yet compensated and she still having significant shortness of breath. She was on 60 mg of IV Lasix every 8 hours which is being discontinued. We are initiating her on Lasix drip at a rate of 10mls/hr. She is also being initiated on dobutamine 2.5mcg/kg/min to help with improving her cardiac output. Continue to monitor intake and output. Continue with fluid restriction. Avoid nephrotoxic medications. Electrolytes are stable. Repeat echocardiogram revealed severely depressed ejection fraction of 10-15%, trace aortic regurgitation, moderate mitral regurgitation, severe tricuspid regurgitation, and mild pulmonic regurgitation, moderately severe pulmonary hypertension. This was not significantly changed from the echocardiogram in August 2016. 2. Acute respiratory failure, secondary to volume overload. She continues to be on supplemental oxygen. Hopefully her respiratory status will improve with further diuresis. 3. Encephalopathy, unclear if this is metabolic versus hepatic. This has improved. Ammonia level was slightly elevated yesterday. She is currently on lactulose and rifaximin. 4. Findings of cholecystitis on liver ultrasound. No surgical intervention at this time. She is on antibiotics, that being vancomycin and meropenem. Monitor for toxicity. 5. History of coronary artery disease, valvular dysfunction and pulmonary hypertension. Continue cardiac meds. 6. Thrombocytopenia, likely from liver disease. No signs of active bleeding. GME ATTESTATION GME ATTESTATION My preceptor for this patient encounter was physically present in the building during the encounter and was fully available. As needed, all aspects of the patient interview, examination, medical decision making process, and medical care plan development were reviewed and approved by the preceptor. Preceptor is aware and concurs with the plan as stated in the body of this note and will attest to such by his/her cosignature. QUOC CLAIRE, Dec 30, 2016 11:59
[2016-12-30 12:00] VITALS: BP 128/67
[2016-12-30] MEDS: VANCOMYCIN HCL 500 MG in D5W MINI-BAG PLUS 100 ML IV SCH (13:05)
[2016-12-30 16:00] VITALS: BP 130/71
[2016-12-30] MEDS ORDERED: MORPHINE 2 MG/ML 1ML SYRINGE IV ONE (17:30)
[2016-12-30 19:46] VITALS: BP 134/81
[2016-12-30] MEDS: SIMVASTATIN 40 MG TAB PO SCH (21:07)
[2016-12-30 23:59] VITALS: BP 125/60
--- NOTE | 2016-12-31 02:24 | IPN ---
DATE OF SERVICE: 12/30/2016 SUBJECTIVE: This is a 76-year-old female who was seen and examined at bedside. Overnight, she had no reported acute events. Yesterday, she was started on Xifaxan and metolazone to help with mentation and also with urine output. This morning, thought that her breathing was a lot better; however, upon reevaluation in the afternoon reported her breathing was worse. No chest pain, palpitations, fevers, chills, nausea, vomiting. Her bowel movements are adequate; however, she is on lactulose. OBJECTIVE: VITAL SIGNS: Blood pressure 106/59, heart rate 70, temperature 96.7, respiration rate 20, pulse oximetry 99% on 2 liters nasal cannula. Intake and output 24 hours was 1080 and 1450. She is net negative as of this morning was only 350 since admission. GENERAL: Patient was sitting in chair eating breakfast comfortable, no acute distress. She is alert, awake, oriented times three, which is an improvement as she had difficulty recalling the year in the past. Very thin appearing. at bedside. HEENT: Normocephalic, atraumatic. Moist oral mucosa. NECK: Supple. Trachea midline. Neck vein is still distended. HEART: Regular sounding. S1, S2 normal. LUNGS: Breath sounds were diminished in the lung bases with crackles. There is dullness to percussion up to 1/3 of the diaphragm. ABDOMEN: Soft, nontender, nondistended. Bowel sounds present. No guarding. No rebound. EXTREMITIES: Positive for pedal and sacral edema not significantly changed. Pedal pulses present bilaterally. NEUROLOGICAL: Mentation is a lot improved compared to prior visit. LABORATORY DATA: WBC 5.7, hemoglobin 13, hematocrit 41.2, platelets 101. Sodium 135, potassium 3.8, chloride 96, carbon dioxide 26, BUN 69, creatinine 2.04, glucose 154, magnesium 2.2, total bilirubin 1.8, AST 62, ALT 63, alkaline phosphatase 250. Blood cultures negative after 5 days. No new imaging. Echocardiogram from yesterday showed ejection fraction (EF) of 10-15%, severe diffuse hypokinesis and anterior septum dyskinetic, aortic valve sclerosis with trace aortic regurgitation, bioprosthetic mitral valve with moderate mitral regurgitation, dilated atrium, severe tricuspid regurgitation with moderate severe pulmonary hypertension, dilated right heart chamber, elevated CVP, pacemaker artifact. No remarkable changes compared to 09/10. Pulmonary artery systolic pressure 50-60 mmHg. IMPRESSION AND PLAN: Ms. Yen is a pleasant 76-year-old female with history of systolic, diastolic congestive heart failure, who presented with altered mental status now found to have persistent worsening renal function. 1. CHF exacerbation, systolic, diastolic, decompensated, ejection fraction (EF) of 10-15%. She still continues to be volume overload despite metolazone and intravenous (IV) Lasix schedule. Case was discussed with Dr. Amin today. Currently, there is plan for Lasix drip and dobutamine drip. Greatly appreciate Dr. Amin's assistance. The patient later tonight reported worsening shortness of breath despite after started on Lasix drip and had 400 mL of urine output. The patient and family requested that she be given either morphine or something to help with her breathing. We discussed at length with both the patient and family that the risk of giving any sedating medication including morphine and Xanax will be respiratory depression worsening her hypotension and might even speed her demise; however, they are aware of the risks and would like to have the patient given one time medication to see if it will make her breathing more comfortable. Will continue to monitor her closely. 2. Metabolic encephalopathy. Mentation is improving compared to admission. Will continue lactulose and Xifaxan. 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 She likely will have accumulation of ammonia level due to liver problems. 3. Abnormal liver ultrasound. Was evaluated by Dr. Reza. At this time, it is recommended that the patient be monitored for now. Due to her severe underlying heart disease, patient would not be able to tolerate any sort of procedure. Also per patient's family request, no intervention at this time. The patient will be continued with meropenem. Currently on day five of antibiotics. Will likely require two more days' worth of antibiotics for this. We will discontinue vancomycin today. 4. Hyperkalemia, resolved. 5. Acute kidney injury on chronic kidney disease. Secondary to hypoperfusion from increased volume status. 6. Type 2 diabetes. Continue insulin sliding scale and carbohydrate consistent diet. Her fingersticks have been more reasonable in the last 24 hours now that her appetite has increased. 7. Hypothyroidism. Continue levothyroxine. Dose was increased due to elevated TSH on admission. 8. Vitamin D deficiency. Continue vitamin D supplementation. 9. Supratherapeutic INR likely secondary to underlying liver cirrhosis. Have also ordered for AMA to evaluate further cause for liver cirrhosis. 10. Underweight. Body mass index (BMI) is less than 18 due to malnutrition. Encourage oral intake. 11. Deep vein thrombosis (DVT) prophylaxis. Sequential compression devices (SCDs) and thromboembolic compression stockings (TEDs). No pharmacological intervention secondary to supratherapeutic INR secondary to her underlying liver disease. Patient's condition remains guarded at this time. I have both independently examined this patient as well as reviewed the dictated note. I have discussed in detail with the resident the findings and plan of treatment as documented in the residents note. I will continue to follow the patient and offer further guidance to the patients care as necessary during this hospital stay. CONNOR
[2016-12-31] MEDS: SLF 3 ML SYR IV SCH ×3 (04:24→22:14)
[2016-12-31] MEDS: MEROPENEM INJ 500 MG in D5W MINI-BAG PLUS 100 ML IV SCH ×2 (04:24→16:27)
[2016-12-31 04:35] VITALS: BP 133/63
[2016-12-31 05:28] LABS: MEAN CORPUSCULAR HEMOGLOBIN 30.2 pg (27.0-33.0); MEAN CORPUSCULAR HGB CONC 32.5 g/dl (32.0-36.5); RED CELL DISTRIBUTION WIDTH 21.1 % (11.5-14.5); WHITE BLOOD COUNT 5.7 K/mm3 (4.0-10.0)
[2016-12-31 05:32] LABS: ALBUMIN/GLOBULIN RATIO 0.84 (1.00-1.93); BILIRUBIN,TOTAL 1.3 MG/DL (0.2-1.0); CREATININE FOR GFR 1.47 MG/DL (0.55-1.02); GLOMERULAR FILTRATION RATE 36.8 (>39)
[2016-12-31 05:49] LABS: ALBUMIN 2.1 GM/DL (3.2-5.2); CALCIUM LEVEL 6.8 MG/DL (8.8-10.2); TOTAL PROTEIN 4.6 GM/DL (6.4-8.2)
[2016-12-31 05:50] LABS: POTASSIUM SERUM 2.5 MEQ/L (3.5-5.1)
[2016-12-31] MEDS ORDERED: POTASSIUM CHLORIDE 10 MEQ SR TABLET PO ONE ×2 (06:00→06:15)
[2016-12-31] MEDS: NITROGLYCERIN 2% OINT 1 GM *U/D* PKT TOP SCH ×4 (06:19→17:57)
[2016-12-31] MEDS: KCL 10MEQ IN 100ML SWI (KRUN) 10 MEQ in APPROPRIATE DILUENT 1 EA IV SCH ×4 (06:26→08:02)
[2016-12-31] MEDS: LEVOTHYROXINE 0.15 MG TAB (150 MCG) PO SCH (06:26)
[2016-12-31 08:00] VITALS: BP 138/74
[2016-12-31] MEDS: LACTULOSE 20 GM/30 ML SYRUP UD PO SCH ×2 (08:01→22:13)
[2016-12-31] MEDS: BRIMONIDINE 0.15% OPHTH SOLN 5 ML OU SCH ×2 (08:02→22:14)
[2016-12-31] MEDS: HumaLOG INSULIN (NovoLOG) PER UNIT SC SCH ×4 (08:02→22:07)
[2016-12-31] MEDS: VITAMIN D 1,000 INTERNATIONAL UNITS TABLET PO SCH (08:03)
[2016-12-31] MEDS: ASPIRIN 81 MG ENTERIC TAB PO SCH (08:03)
[2016-12-31] MEDS: CARVedilol 3.125 MG TAB PO SCH ×2 (08:03→22:13)
[2016-12-31] MEDS: rifAXIMin 550 MG TAB (XIFAXAN) PO SCH ×2 (08:03→22:12)
[2016-12-31] MEDS: POTASSIUM CHLORIDE 10 MEQ SR TABLET PO SCH ×3 (08:03→22:13)
--- NOTE | 2016-12-31 09:38 | IPN ---
DATE: 12/31/2016 Ms. Yen says that she is feeling a little bit confused this morning. She is not complaining of any pain or any abdominal pain. No chest pain. She is not feeling particularly short of breath. She is eating breakfast when I arrive. She has had good diuresis with the use of dobutamine and Lasix drips. Temperature 96.3, pulse 73, respiratory rate 22, blood pressure 138/74 and 94% on 2 liters nasal cannula. Fluid status is -1 liter yesterday and is -1800 upon my evaluation with the nurse this morning. 4 bowel movements yesterday. She is awake, appropriately interactive, remembers me. Answering questions appropriately. Following commands. Mucous membranes are moist. Neck supple. Breathing is symmetrically diminished. Heart is distant sounding, normal S1, S2. It is paced on the monitor. Abdomen is soft, nontender to deep palpation. White cell count 5.7, hemoglobin 11.9, and platelets of 86. Sodium 140, potassium 2.5 (replacement has been ordered), BUN 58, creatinine 1.47. Total bilirubin 1.3. Alkaline phosphatase 181. Blood cultures from the 30th are negative after 5 days. ASSESSMENT: This is a 76-year-old with decompensated systolic and diastolic congestive heart failure on dobutamine and Lasix drip who had presented with metabolic encephalopathy related to cirrhosis. PLAN: 1. Patient has congestive heart failure exacerbation with systolic and diastolic dysfunction. Discussed this case in person with Dr. Amin yesterday and he had started a dobutamine and Lasix drip with good effect. The patient had been uncomfortable with her breathing yesterday. We did start morphine with increasing comfort. 2. Patient's metabolic encephalopathy has improved from presentation, but is waxing and waning. 3. Patient has possible cholecystitis. We are pursuing treatment with antibiotics in the form of meropenem currently. She has at least 2 more full days of meropenem and will continue to monitor. There is no role for an intervention at this point. The family has declined any surgical procedure if one was offered anyway. 4. Patient has hypokalemia, which is being replenished. 5. Patient has type 2 diabetes. 6. Patient has hypothyroidism. 7. Patient has vitamin D deficiency. 8. Patient has protein calorie malnutrition. 9. Patient has mechanical deep vein thrombosis (DVT) prophylaxis.
--- NOTE | 2016-12-31 11:48 | IPN ---
DATE: 12/31/2016 Mrs. Yen is seen this morning on her bedside. She was admitted with congestive heart failure and has known history of cardiorenal syndrome with severe left ventricular systolic dysfunction and chronic kidney disease. She has been decompensated and being treated with IV Lasix. However, did not diurese very well on December 29, 2016. Yesterday we had started IV Lasix drip and dobutamine drip. I she diuresed very well since yesterday. This morning's labs showed a potassium level of 2.5. The patient has been given some potassium supplement by the hospitalist already. She is feeling better today and reports that she had good breakfast. She also slept well. She denies any nausea or vomiting. However, did have some discomfort after taking potassium supplement. Her dyspnea has improved and she denies any chest pain. On physical exam, the patient is awake and alert and sitting in the bed with head end elevated at about 45 degrees. Temperature is 96.3 degrees Fahrenheit, heart rate 73 per minute and respiratory rate 22 per minute. Blood pressure 138/74 mmHg and oxygen saturation 94% on 2 liters oxygen. Intake and output records from yesterday showed total intake 1008 and output 2075. Her head is atraumatic. Ears, nose and throat are unremarkable. Neck is supple and neck veins are markedly distended. She has no thyroid enlargement and trachea is midline. Heart: Sounds are regular with a systolic murmur grade 2/6. There is no pericardial friction rub audible. Lungs have bilateral rales and no wheezing. Abdomen: Soft and nontender and without a palpable organomegaly. Mild ascites is present. Bowel sounds are normal. Extremities have no cyanosis or clubbing. There is edema on her arms and minimal edema on the leg feels. Neurologically she is awake, alert and oriented times three. She has no focal neurological deficit. Today's labs show sodium 140, potassium 2.5, chloride 102, CO2 25, BUN 58 and creatinine 1.47. Glucose 225 and calcium 6.8. Total protein is 6.4 and albumin 2.1. Hemoglobin is 11.9 and hematocrit 36.5. PROBLEMS: 1. Acute on chronic systolic congestive heart failure. Patient has severe cardiomyopathy with known ejection fraction of about 10 to 15%. She has responded well to intravenous dobutamine and Lasix drips. We will continue the same for next 24 hours and aim for a negative fluid balance of about 1.5 liters. I am going to cut down her oral fluid restriction to 1200 per day. She has been doing well and her intake in fact has been less than 1500. 2. Severe hypokalemia: This is related to decreased oral intake and aggressive diuresis. The patient has received one dose of 40 mEq by mouth and two doses of intravenous 10 mEq each. We will continue with potassium supplement of 20 mEq three times a day through the day and her electrolytes will be checked again later today and then tomorrow morning. 3. Acute renal failure superimposed on chronic kidney disease: This is cardiorenal syndrome and her acute renal failure is related to decompensated congestive heart failure. She is responding to diuretics and kidney function has started improving. She has no uremic symptoms and reports good appetite this morning. We will continue to monitor her kidney function closely. 4. Anemia: Her anemia is chronic and stable and does not need any intervention at this point.
[2016-12-31] MEDS: FUROSEMIDE injection 250 MG in D5W 225 ML IV SCH (11:49)
[2016-12-31 12:00] VITALS: BP 133/79
[2016-12-31 16:00] VITALS: BP 122/66
[2016-12-31 18:34] LABS: CALCIUM LEVEL 9.1 MG/DL (8.8-10.2); CREATININE FOR GFR 1.64 MG/DL (0.55-1.02); GLOMERULAR FILTRATION RATE 32.4 (>39); POTASSIUM SERUM 3.5 MEQ/L (3.5-5.1)
[2016-12-31 20:40] VITALS: BP 133/79
[2016-12-31] MEDS: SIMVASTATIN 40 MG TAB PO SCH (22:13)
[2017-01-01] VITALS (7 sets, daily range): BP systolic 102–137; BP diastolic 52–87
[2017-01-01] MEDS: NITROGLYCERIN 2% OINT 1 GM *U/D* PKT TOP SCH ×4 (00:16→17:23)
[2017-01-01] MEDS: MEROPENEM INJ 500 MG in D5W MINI-BAG PLUS 100 ML IV SCH ×2 (03:30→15:34)
[2017-01-01 05:31] LABS: MEAN CORPUSCULAR HEMOGLOBIN 30.4 pg (27.0-33.0); MEAN CORPUSCULAR HGB CONC 32.8 g/dl (32.0-36.5); MEAN CORPUSCULAR VOLUME 92.7 fl (80.0-96.0); WHITE BLOOD COUNT 6.2 K/mm3 (4.0-10.0)
[2017-01-01 05:38] LABS: ALBUMIN 2.8 GM/DL (3.2-5.2); ALBUMIN/GLOBULIN RATIO 0.8 (1.00-1.93); CALCIUM LEVEL 8.8 MG/DL (8.8-10.2); CREATININE FOR GFR 1.65 MG/DL (0.55-1.02); GLOMERULAR FILTRATION RATE 32.2 (>39); PHOSPHORUS LEVEL 3.1 MG/DL (2.5-4.9); POTASSIUM SERUM 3.3 MEQ/L (3.5-5.1); TOTAL PROTEIN 6.3 GM/DL (6.4-8.2)
[2017-01-01 05:54] LABS: BILIRUBIN,TOTAL 2.3 MG/DL (0.2-1.0)
[2017-01-01] MEDS: LEVOTHYROXINE 0.15 MG TAB (150 MCG) PO SCH (06:34)
[2017-01-01] MEDS: SLF 3 ML SYR IV SCH ×3 (06:34→20:45)
[2017-01-01] MEDS ORDERED: POTASSIUM CHLORIDE 10 MEQ SR TABLET PO ONE (06:45)
[2017-01-01] MEDS: HumaLOG INSULIN (NovoLOG) PER UNIT SC SCH ×4 (07:52→21:00)
[2017-01-01] MEDS: CARVedilol 3.125 MG TAB PO SCH ×2 (08:54→20:44)
[2017-01-01] MEDS: rifAXIMin 550 MG TAB (XIFAXAN) PO SCH ×2 (08:55→20:43)
[2017-01-01] MEDS: LACTULOSE 20 GM/30 ML SYRUP UD PO SCH ×2 (08:55→20:44)
[2017-01-01] MEDS: VITAMIN D 1,000 INTERNATIONAL UNITS TABLET PO SCH (08:55)
[2017-01-01] MEDS: ASPIRIN 81 MG ENTERIC TAB PO SCH (08:55)
[2017-01-01] MEDS: POTASSIUM CHLORIDE 10 MEQ SR TABLET PO SCH ×3 (08:56→20:43)
[2017-01-01] MEDS: BRIMONIDINE 0.15% OPHTH SOLN 5 ML OU SCH ×2 (08:56→20:44)
[2017-01-01] MEDS: FUROSEMIDE injection 250 MG in D5W 225 ML IV SCH (12:08)
--- NOTE | 2017-01-01 13:04 | IPN ---
DATE OF SERVICE: 01/01/2017 SUBJECTIVE: The patient was seen and examined at the bedside today in the morning. She continues to be on intravenous (IV) dopamine and Lasix infusion. She was sitting in the sofa today. She feels better as compared with yesterday. She had a significant urine output with the Lasix drip, and she is in negative fluid balance at this time. Her renal function is stable as compared with yesterday. REVIEW OF SYSTEMS: The patient continues to be lethargic and sleepy. She denies any fevers, chills, rigors, headache, or chest pain. She still reports persistent mild shortness of breath. She denies any nausea or vomiting, and she reports a decreased appetite. She denies any muscle aches and pains or muscle cramps. Rest of review of systems is negative. OBJECTIVE: VITAL SIGNS: Temperature is 95 degrees Fahrenheit, blood pressure is 114/60, pulse is 69, respiratory rate of 18, saturating 95% on nasal cannula at 2 liters per minute. INTAKE AND OUTPUT: The patient's urine output is 4225 mL yesterday and 1675 mL so far today. She is almost 3 liters negative yesterday and 1.4 liters negative so far today. Weight in the bed scale is 46 kg. PHYSICAL EXAMINATION: GENERAL: The patient is awake, alert, oriented times two, and she is slightly sleepy and drowsy. HEAD AND NECK EXAMINATION: Extraocular muscles intact. Mucous membranes are moist. Pupils equally round and reactive to light. Neck is supple. There is mildly elevated jugular venous distention (JVD). CARDIOVASCULAR: S1, S2, regular rate. She has grade 2/6 systolic murmur. LUNGS: The patient has decreased breath sounds at the bases and mild inspiratory crackles at the bases. ABDOMEN: Soft. Positive bowel sounds. Nontender. Mild ascites. The patient has presacral edema. EXTREMITIES: No clubbing or cyanosis. She has trace edema on the bilateral lower extremities and 1+ edema on the bilateral upper extremities. CENTRAL NERVOUS SYSTEM (SECURITY SYSTEM ANALYST): The patient has positive asterixis, but otherwise she is able to move all four extremities. PSYCHIATRIC: Normal mood and affect. LABORATORY REVIEW: CBC showed a WBC 6.2, hemoglobin 12.5, platelets are 86. BMP showed sodium 132, potassium 3.3, chloride 86, bicarbonate 34, BUN 62, creatinine is 1.6, calcium is 8.8, total bilirubin is 2.3, albumin is 2.8. CURRENT MEDICATIONS: The patient's current medications were all reviewed by me. She continues to be on Lasix 10 mg per hour intravenous (IV) infusion, and she is on dobutamine infusion, as well. She is also on meropenem 500 mg IV every 12 hours. There is no other change in the medications at this time. ASSESSMENT: A 76-year-old female with past medical history of severe systolic congestive heart failure with left ventricle ejection fraction between 10% to 15%, history of cardiorenal syndrome admitted this time with acute and decompensated congestive heart failure, fluid overload, and acute renal failure. PLAN: 1. Acute and chronic systolic congestive heart failure. As mentioned above, the patient's ejection fraction is around 15%. She was started on dobutamine infusion, and she is being diuresed with Lasix at this time. She has significant urine output. However, the patient still has presacral edema, edema in the upper extremities, and trace lower extremity edema. I will continue the Lasix drip today up until 6 p.m. tonight. At that time, dobutamine and Lasix will be stopped. 2. Severe hypokalemia. Hypokalemia is secondary to excessive diuresis. The patient was given potassium 40 mEq by mouth today in the morning, and she continues to be on potassium chloride 20 mEq by mouth three times a day, as well. 3. Acute kidney injury superimposed on chronic kidney disease. The patient has acute kidney injury secondary to cardiorenal syndrome. Continue the aggressive diuresis at this time. Creatinine continues to be stable at 1.6 with a glomerular filtration rate (GFR) of around 32. 4. Metabolic alkalosis. Metabolic alkalosis is secondary to aggressive diuresis and relative intravascular volume depletion. Continue diuresis today up until 6 p.m. Alkalosis would improve after stopping the diuretics. 5. Hepatic encephalopathy. The patient's ammonia level is not acceptable. She is refusing lactulose. Continue the rifaximine at this time. The patient was encouraged to take lactulose, as well. The rest of the management is as per primary team.
--- NOTE | 2017-01-01 19:46 | IPN ---
DATE: 01/01/2017 Ms. Yen is somewhat more awake and interactive this morning. She is not complaining of pain but apparently had been experiencing some discomfort in bed, according to the nursing staff. Still feels weak and tired. Temperature is 95.6, pulse 72, respiratory rate 18, blood pressure 111/64, 97% on 2 liters. Input and output notable for negative fluid balance of -3246. Weight is 46 kg. She is small, thin-appearing. Mucous membranes are intact. The neck is thin, supple. Breathing is symmetrically diminished. Heart is distant sounding. Normal S1, S2. Abdomen is soft, doughy. White cell count is 6.2, hemoglobin 12.5, and platelets of 86. Sodium is 132, potassium 3.3, chloride 86, bicarbonate 34, BUN 62, creatinine 1.65, alkaline phosphatase 250. ASSESSMENT: This is a 76-year-old with decompensated systolic and diastolic congestive heart failure (CHF) on dobutamine and Lasix drip, who presented with metabolic encephalopathy related to cirrhosis and possibly complicated by decompensated heart failure. 2. The patient has congestive heart failure (CHF) exacerbation with systolic and diastolic dysfunction. The patient is having improving diuresis with the use of dobutamine and Lasix. Did discuss this case in person with Dr. Amin yesterday. Continuing with monitoring her fluid and managing her fluid, being guided by the nephrology team. 3. The patient has metabolic encephalopathy, which is waxing and waning. Appears to be somewhat improved at this point. The patient is being treated for possible cystitis and was seen during this hospitalization by Dr. Reza. Continuing with meropenem at this point. The family has declined any surgical procedure if one was offered. 4. The patient has hypokalemia, which was replenished. 5. The patient has type 2 diabetes. 6. The patient has hypothyroidism. 7. The patient has vitamin D deficiency. 8. The patient has protein calorie malnutrition. 9. The patient is on deep vein thrombosis (DVT) prophylaxis and does not like to wear the thromboembolic compression stockings (TEDS) or sequential compression device (SCD).
[2017-01-01] MEDS: SIMVASTATIN 40 MG TAB PO SCH (20:44)
[2017-01-02] MEDS: NITROGLYCERIN 2% OINT 1 GM *U/D* PKT TOP SCH ×5 (01:00→23:56)
[2017-01-02] MEDS: MEROPENEM INJ 500 MG in D5W MINI-BAG PLUS 100 ML IV SCH ×2 (03:03→15:12)
[2017-01-02 04:00] VITALS: BP 98/55
[2017-01-02] MEDS: LEVOTHYROXINE 0.15 MG TAB (150 MCG) PO SCH (06:18)
[2017-01-02] MEDS: SLF 3 ML SYR IV SCH ×3 (06:19→20:49)
[2017-01-02] MEDS: HumaLOG INSULIN (NovoLOG) PER UNIT SC SCH ×4 (06:54→20:46)
--- NOTE | 2017-01-02 07:58 | IPNPDOC ---
Assessment/Plan Date Seen The patient was seen on 01/02/17. Problems Problems: (1) Systolic and diastolic CHF, chronic Status: Chronic Problem Specific Plan: Consult Specialist, Monitor Clinically, Repeat Labs Problem Text: Dobutamine drip discontinued. Lasix drip discontinued. Appears grossly compensated today. Discuss further with nephrology, assistance appreciated. (2) Cholecystitis Status: Acute Response to Treatment: Improving, Progressing Discussed With: Pet Feeder, Patient Problem Specific Plan: Consult Specialist, Monitor Clinically Problem Text: Continue with meropenem. No pain, fevers or leukocytosis. Patient refused choly tube as per documentation. Continue to follow as per surgery, assistance appreciated. (3) Valvular disease Status: Chronic Problem Text: Severe TR. Bio-prosthetic mitral valve. (4) CAD (coronary artery disease) Status: Chronic Discussed With: Patient Problem Specific Plan: Monitor Clinically Problem Text: S/P CO as per documentation. (5) Metabolic encephalopathy Status: Resolved Discussed With: Patient Problem Specific Plan: Monitor Clinically (6) Hypokalemia Status: Resolved Problem Specific Plan: Repeat Labs (7) Hypothyroidism Status: Chronic Discussed With: Patient Problem Specific Plan: Monitor Clinically (8) Glaucoma Status: Chronic (9) Type 2 diabetes mellitus Status: Chronic Discussed With: Patient Problem Specific Plan: Monitor Clinically, Repeat Labs (10) Dyslipidemia Status: Chronic Discussed With: Patient (11) Sick sinus syndrome Status: Chronic Problem Text: s/p PPM (12) Protein calorie malnutrition Status: Chronic Plan / VTE VTE Prophylaxis Ordered?: Yes (mechanical prophylaxis) Plan / Urinary Catheter Reason for insertion/continuin: Critical Pt monitoring Plan Diet: Continue Current Activity: Continue Current Diagnostics: Repeat Labs in AM Subjective Review of Systems CC/HPI The patient is a 76-year-old female admitted with a reason for visit of Hyperkalemia. General: Reports: Malaise, Denies: Chills, Fatigue, Night Sweats, Normal Appetite, Other Symptoms, ROS Unobtainable Constitutional: Reports: Malaise, Denies: Chills, Fatigue, Fever, Lethargy, Night Sweats, Other, Weakness, Weight Loss Eyes: Denies: Conjunctivae inflammation, Eyelid inflammation, Other, Pain, Redness, Vision change ENT: Denies: Dysphagia, Ear Pain, Epistaxis, Head Aches, Other Symptoms, Post Nasal Drip, Sinus Congestion, Sore Throat Skin: Denies: Breakdown, Bruising, Dry, Itching, Jaundice, Lesions, Nail Changes, Other, Rash Pulmonary: Denies: Cough, Dyspnea, Other Symptoms, Pleuritic Chest Pain Cardiovascular: Denies: Chest Pain, Edema, Lt Headedness, Orthopnea, Other Symptoms, Palpitations, Paroxysmal Noc. Dyspnea Gastrointestinal: Denies: Abdominal Pain, Constipation, Diarrhea, Hematochezia , Melena, Nausea, Other Symptoms, Vomiting Objective Physical Examination General Exam: Positive: Alert, Cooperative, No Acute Distress Eye Exam: Positive: Conjunctiva & lids normal, EOMI, PERRLA ENT Exam: Positive: Atraumatic Neck Exam: Positive: Supple Chest Exam: Positive: Clear to auscultation, Normal air movement Heart Exam: Positive: Murmurs, Rate Normal, Regular Rhythm Telemetry: Positive: No significant arrhythmia Abdomen Exam: Positive: Normal bowel sounds, Soft, Negative: Tenderness Extremity Exam: Positive: Edema Vital Signs/I&O Vital Signs Date Time Temp Pulse Resp B/P Pulse Ox O2 Delivery O2 Flow Rate FiO2 01/02/17 05:38 101/68 01/02/17 04:00 95.7 71 18 93 Nasal Cannula 2.0 I&O- Last 24 Hours up to 6 AM 01/02/17 05:59 Intake Total 1808.8 ml Output Total 3350 ml Balance -1541.2 ml Laboratory Data Labs 24H Laboratory Tests 2 01/01/17 11:50: Bedside Glucose (Misc Panel) 270H 01/01/17 16:59: Bedside Glucose (Misc Panel) 261H 01/02/17 06:32: Bedside Glucose (Misc Panel) 89 FSBS Laboratory Tests Test 01/01/17 11:50 01/01/17 16:59 01/02/17 06:32 Range/Units Bedside Glucose (Misc Panel) 270 261 89 83-110 MG/DL Microbiology Microbiology 12/25/16 Blood Culture - Final, Complete NO GROWTH AFTER 5 DAYS 12/25/16 Blood Culture - Final, Complete NO GROWTH AFTER 5 DAYS 12/25/16 Urine Culture - Final, Complete PRIYA TOVAR MD Jan 02, 2017 07:58
[2017-01-02 08:00] VITALS: BP 104/54
[2017-01-02] MEDS: LACTULOSE 20 GM/30 ML SYRUP UD PO SCH ×2 (09:13→20:47)
[2017-01-02] MEDS: ASPIRIN 81 MG ENTERIC TAB PO SCH (09:14)
[2017-01-02] MEDS: rifAXIMin 550 MG TAB (XIFAXAN) PO SCH ×2 (09:14→20:47)
[2017-01-02] MEDS: CARVedilol 3.125 MG TAB PO SCH ×3 (09:14→20:48)
[2017-01-02] MEDS: POTASSIUM CHLORIDE 10 MEQ SR TABLET PO SCH ×2 (09:14→20:47)
[2017-01-02] MEDS: VITAMIN D 1,000 INTERNATIONAL UNITS TABLET PO SCH (09:14)
[2017-01-02] MEDS: BRIMONIDINE 0.15% OPHTH SOLN 5 ML OU SCH ×2 (09:15→20:49)
[2017-01-02 10:50] LABS: ALBUMIN 3.3 GM/DL (3.2-5.2); CALCIUM LEVEL 9.7 MG/DL (8.8-10.2); CREATININE FOR GFR 1.83 MG/DL (0.55-1.02); GLOMERULAR FILTRATION RATE 28.6 (>39); MAGNESIUM LEVEL 2.1 MG/DL (1.8-2.4); PHOSPHORUS LEVEL 3.4 MG/DL (2.5-4.9); POTASSIUM SERUM 4.8 MEQ/L (3.5-5.1)
[2017-01-02 12:00] VITALS: BP 117/79
[2017-01-02] MEDS: TORSEMIDE (DEMADEX) 50 MG PER 1/2 TAB PO SCH ×2 (12:03→17:10)
[2017-01-02] MEDS: metOLazone 2.5 MG TAB PO SCH (12:04)
--- NOTE | 2017-01-02 12:16 | IPN ---
DATE: 01/02/2017 SUBJECTIVE: Patient was seen and examined at bedside. Today morning, she was actually sitting on the sofa. Today she feels better. She ate her breakfast and her neurological status is also better as compared with yesterday. Patient's dobutamine and Lasix tip was clogged last night. Her creatinine is slightly worse today as compared with yesterday. REVIEW OF SYSTEMS: Patient denies any fevers, chills, rigors, headache, nausea, vomiting. She denies any chest pain but she does report some shortness of breath. She is on nasal cannula. She denies any nausea, vomiting. She reports better appetite today. She is having loose stools because of lactulose. Rest of review of system is negative. OBJECTIVE: Vital signs: Temperature 95.2 degrees Fahrenheit, blood pressure 104/54, pulse 79, respiratory rate of 18, saturating 92% on nasal cannula at 2 liters per minute. Intake and output: Patient's urine output was 4.4 liters yesterday, 200 mL so far today since overnight. Weight on the bed scale is 45.3 kg. PHYSICAL EXAMINATION: General: Patient is awake, alert, oriented times two, sitting on the sofa today. Head and neck exam: Extraocular muscles intact. Mucous membranes are moist. Pupils equally round and reactive to light. Neck is supple. There is mildly elevated jugular venous distention (JVD). Cardiovascular: S1, S2, regular rate. Grade 2/6 systolic murmur. Respiratory: Patient has slightly decreased breath sounds at the bases, left worse than right and mild inspiratory crackles of the bases on deep inspiration. Abdomen: Soft, positive bowel sounds, nontender. Mild amount of ascites. She has positive presacral edema. Extremities: No clubbing, cyanosis. She has trace edema of the bilateral lower extremities and 1+ edema in the bilateral upper extremities. Central nervous system: She does not have asterixis today and she has 5/5 power in all four extremities. Psych: Patient has a depressed mood. LAB REVIEW: CBC showed WBC 6.2, hemoglobin 12.5. BMP showed sodium 134, potassium 4.8, chloride 89, bicarbonate 37. BUN 58, creatinine 1.8 which is slightly worse than yesterday. It was 1.65 yesterday. Calcium is 9.7, Phosphorus 3.4. Magnesium is 2.1. CURRENT MEDICATIONS: Patient's current medications were all reviewed by me. Her Lasix and dobutamine drip is on hold. She continues to be on IV meropenem. Her potassium has been changed to 20 mEq twice daily and she has been started on torsemide 50 mg by mouth twice daily and metolazone 1.25 mg by mouth daily. ASSESSMENT: 76-year-old female with past medical history of severe systolic congestive heart failure with left ventricular ejection fraction between 10-15%, history of cardiorenal syndrome, admitted this time with acute decompensated congestive heart failure, fluid overload and acute renal failure along with metabolic encephalopathy. PLAN: 1. Acute on chronic systolic congestive heart failure. Patient was diuresed for 2 days with IV dobutamine and IV Lasix. Since she almost 3 kg negative, her diuretics were held yesterday. I am going to start her on oral torsemide 50 mg by mouth twice daily and metolazone 1.25 mg by mouth daily. Diuretic dose will be adjusted according to her response to the oral diuretics by tomorrow. Continue to monitor daily intake and output. 2. Hypokalemia. Hypokalemia is significantly better today since her IV diuretics have been held. Now I am going to decrease her oral potassium dose to 20 mEq by mouth twice daily. 3. Acute kidney injury superimposed on chronic kidney disease. Patient's creatinine has been fluctuating between 1.6 and 1.8. Her acute kidney injury is secondary to cardiorenal syndrome. Continue the oral diuretics at this time. Her renal function is acceptable at this time. 4. Metabolic alkalosis. Metabolic alkalosis is secondary to aggressive diuretics. IV diuretics have been held. Hopefully her bicarbonate level will improve. 5. Hepatic encephalopathy. Continue current dose of lactulose and rifaximin. Her neurological status is better today as compared with yesterday. MTDD
--- NOTE | 2017-01-02 13:28 | REP ---
PORTABLE CHEST, ONE VIEW: HISTORY: Shortness of breath. COMPARISON: 12/28/2016 Patchy infiltrates are present in the lower lobes and right upper lobe, unchanged compared to the previous study. The cardiac silhouette is enlarged. The pulmonary vasculature is prominent. A cardiac pacemaker is present. IMPRESSION: Bilateral lower lobe and right upper lobe infiltrates, unchanged compared to the previous study. Signed by Justin Sanders MD 01/02/2017 01:59 P
[2017-01-02 16:15] VITALS: BP 110/67
--- NOTE | 2017-01-02 16:15 | ECGEPIP ---
Stationary ECG Study [facility] Test Date: 2017-01-02 Pat Name: EAN MONTEMAYOR Department: Room: [place] [address] Gender: F Analysis Manager: : 1940 Requested By: PRIYA Linares Order Number: [id number] Reading MD: Georgette Ambrocio Measurements Intervals [place] Rate: 79 P: 66 VA: 234 QRS: -60 QRSD: 175 T: 99 QT: 445 QTc: 511 Interpretive Statements ELECTRONIC VENTRICULAR PACEMAKER nsr fIRST dEGREE BLOCK ABNORMAL RHYTHM ECG STABLE C/W 12/28/16 Electronically Signed On 01-02-2017 16:15:00 EST by Georgette Ambrocio
[2017-01-02 20:00] VITALS: BP 123/71
[2017-01-02] MEDS: SIMVASTATIN 40 MG TAB PO SCH (20:47)
[2017-01-02 23:59] VITALS: BP 98/58
[2017-01-03] MEDS: MEROPENEM INJ 500 MG in D5W MINI-BAG PLUS 100 ML IV SCH ×2 (02:24→14:12)
[2017-01-03 04:00] VITALS: BP 110/68
[2017-01-03 04:56] VITALS: BP 100/65
[2017-01-03] MEDS: NITROGLYCERIN 2% OINT 1 GM *U/D* PKT TOP SCH ×3 (04:56→17:57)
[2017-01-03] MEDS: LEVOTHYROXINE 0.15 MG TAB (150 MCG) PO SCH (05:02)
[2017-01-03] MEDS: SLF 3 ML SYR IV SCH ×3 (05:02→21:01)
[2017-01-03 05:27] LABS: MEAN CORPUSCULAR HEMOGLOBIN 30.2 pg (27.0-33.0); MEAN CORPUSCULAR HGB CONC 32.6 g/dl (32.0-36.5); MEAN CORPUSCULAR VOLUME 92.7 fl (80.0-96.0); RED CELL DISTRIBUTION WIDTH 20.4 % (11.5-14.5); WHITE BLOOD COUNT 5.5 K/mm3 (4.0-10.0)
[2017-01-03 05:49] LABS: CALCIUM LEVEL 9.4 MG/DL (8.8-10.2); CREATININE FOR GFR 1.98 MG/DL (0.55-1.02); GLOMERULAR FILTRATION RATE 26.1 (>39); POTASSIUM SERUM 4.7 MEQ/L (3.5-5.1)
[2017-01-03 07:11] LABS: MAGNESIUM LEVEL 2.1 MG/DL (1.8-2.4)
[2017-01-03] MEDS: HumaLOG INSULIN (NovoLOG) PER UNIT SC SCH ×4 (07:30→20:55)
[2017-01-03 08:00] VITALS: BP 103/64
--- NOTE | 2017-01-03 08:06 | IPNPDOC ---
Subjective Subjective Date Seen The patient was seen on 01/03/17. CC/HPI The patient is a 76-year-old female admitted with a reason for visit of Hyperkalemia. Events since last encounter Long runs of symptomatic NSVT yesterday afternoon. Electrolytes within normal limits. Vital signs stable. General: Denies: Chills, Fatigue, Malaise, Night Sweats, Normal Appetite, Other Symptoms, ROS Unobtainable Constitutional: Denies: Chills, Fatigue, Fever, Lethargy, Malaise, Night Sweats , Other, Weakness, Weight Loss Eyes: Denies: Conjunctivae inflammation, Eyelid inflammation, Other, Pain, Redness, Vision change ENT: Denies: Dysphagia, Ear Pain, Epistaxis, Head Aches, Other Symptoms, Post Nasal Drip, Sinus Congestion, Sore Throat Skin: Denies: Breakdown, Bruising, Dry, Itching, Jaundice, Lesions, Nail Changes, Other, Rash Pulmonary: Denies: Cough, Dyspnea, Other Symptoms, Pleuritic Chest Pain Cardiovascular: Denies: Chest Pain, Edema, Lt Headedness, Orthopnea, Other Symptoms, Palpitations, Paroxysmal Noc. Dyspnea Gastrointestinal: Denies: Abdominal Pain, Constipation, Diarrhea, Hematochezia , Melena, Nausea, Other Symptoms, Vomiting Objective Physical Examination General Exam: Positive: Alert, Cooperative, No Acute Distress Eye Exam: Positive: Conjunctiva & lids normal, EOMI, PERRLA ENT Exam: Positive: Atraumatic Neck Exam: Positive: Supple Chest Exam: Positive: Clear to auscultation, Normal air movement Heart Exam: Positive: Murmurs, Rate Normal, Regular Rhythm Telemetry: Positive: No significant arrhythmia Abdomen Exam: Positive: Normal bowel sounds, Soft, Negative: Tenderness Extremity Exam: Positive: Edema Assessment /Plan Problems Problems: (1) Systolic and diastolic CHF, chronic Status: Chronic Problem Specific Plan: Consult Specialist, Monitor Clinically, Repeat Labs Problem Text: Dobutamine drip discontinued. Lasix drip discontinued. Appears grossly compensated today. Discuss further with nephrology, assistance appreciated. Severe systolic failure LVEF 10-15%. AICD/PPM in place. (2) Cholecystitis Status: Acute Response to Treatment: Improving, Progressing Discussed With: Chemical Economist, Patient Problem Specific Plan: Consult Specialist, Monitor Clinically Problem Text: Continue with meropenem. No pain, fevers or leukocytosis. Patient refused choly tube as per documentation. Continue to follow as per surgery, assistance appreciated. 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 (4) CAD (coronary artery disease) Status: Chronic Discussed With: Patient Problem Specific Plan: Monitor Clinically Problem Text: S/P UT with PCI as per documentation. (5) Metabolic encephalopathy Status: Resolved Discussed With: Patient Problem Specific Plan: Monitor Clinically (6) Hypokalemia Status: Resolved Problem Specific Plan: Repeat Labs (7) Hypothyroidism Status: Chronic Discussed With: Patient Problem Specific Plan: Monitor Clinically (8) Glaucoma Status: Chronic (9) Type 2 diabetes mellitus Status: Chronic Discussed With: Patient Problem Specific Plan: Monitor Clinically, Repeat Labs (10) Dyslipidemia Status: Chronic Discussed With: Patient (11) Sick sinus syndrome Status: Chronic Problem Text: s/p PPM (12) Protein calorie malnutrition Status: Chronic Plan/VTE VTE Prophylaxis Ordered?: Yes (mechanical prophylaxis) Plan/Urinary Catheter Reason for insertion/continuin: Critical Pt monitoring Plan Diet: Continue Current Activity: Continue Current Diagnostics: Repeat Labs in AM Anticipated Discharge: Home, Home With Services Advance Directives: DNR VS, I&O, 24H, Fishbone Vital Signs/I&O VS/I&O Vital Sign - Last 24 Hours 01/02/17 01/02/17 01/02/17 01/02/17 08:45 12:00 12:06 13:09 Temp 97.0 Pulse 89 96 Resp 22 B/P 117/79 104/66 142/88 Pulse Ox 95 O2 Delivery Nasal Cannula Nasal Cannula O2 Flow Rate 2.0 2.0 01/02/17 01/02/17 01/02/17 01/02/17 16:15 19:14 20:00 20:00 Temp 97.3 95.3 Pulse 70 82 Resp 16 22 B/P 110/67 104/56 123/71 Pulse Ox 100 100 O2 Delivery Non-Rebreather Nasal Cannula Nasal Cannula O2 Flow Rate 15.0 2.0 2.0 01/02/17 01/02/17 01/02/17 01/03/17 20:48 23:56 23:59 04:00 Temp 95.5 95.4 Pulse 83 64 60 Resp 20 18 B/P 123/71 98/58 98/58 110/68 Pulse Ox 94 95 O2 Delivery Nasal Cannula Nasal Cannula O2 Flow Rate 2.0 2.0 01/03/17 01/03/17 01/03/17 01/03/17 04:00 04:56 04:56 07:45 B/P 100/65 100/65 O2 Delivery Nasal Cannula Nasal Cannula O2 Flow Rate 2.0 2.0 I&O- Last 24 Hours up to 6 AM 01/03/17 05:59 Intake Total 1480 ml Output Total 900 ml Balance 580 ml Laboratory Data 24H LABS Laboratory Tests 2 01/02/17 10:21: Albumin 3.3, Blood Urea Nitrogen 58H, Creatinine 1.83H, Sodium Level 134L, Potassium Level 4.8#, Chloride Level 89L, Carbon Dioxide Level 37H, Anion Gap 8 , Calcium Level 9.7, Glomerular Filtration Rate 28.6L, Magnesium Level 2.1, Phosphorus Level 3.4 01/02/17 11:52: Bedside Glucose (Misc Panel) 334H 01/02/17 12:57: Creatine Kinase MB 2.7, Creatine Kinase MB Relative Index 3.69, Total Creatine Kinase 73, Troponin I 0.03 01/02/17 16:46: Bedside Glucose (Misc Panel) 386H 01/02/17 20:41: Bedside Glucose (Misc Panel) 176H 01/03/17 04:47: Anion Gap 10, Blood Urea Nitrogen 69H, Creatinine 1.98H, Sodium Level 134L, Potassium Level 4.7, Chloride Level 91L, Carbon Dioxide Level 33H, Calcium Level 9.4, Glomerular Filtration Rate 26.1L, Magnesium Level 2.1 CBC/BMP Laboratory Tests 01/02/17 10:21 Anion Gap 8 01/03/17 04:47 Calcium Level 9.4, Red Blood Count 4.43, Mean Corpuscular Volume 92.7, Mean Corpuscular Hemoglobin 30.2, Mean Corpuscular Hemoglobin Concent 32.6, Red Cell Distribution Width 20.4 H FSBS Laboratory Tests Test 01/02/17 11:52 01/02/17 16:46 01/02/17 20:41 Range/Units Bedside Glucose (Misc Panel) 334 386 176 83-110 MG/DL Microbiology Microbiology 12/25/16 Blood Culture - Final, Complete NO GROWTH AFTER 5 DAYS 12/25/16 Blood Culture - Final, Complete NO GROWTH AFTER 5 DAYS 12/25/16 Urine Culture - Final, Complete PRIYA TOVAR MD Jan 03, 2017 08:06
[2017-01-03] MEDS: rifAXIMin 550 MG TAB (XIFAXAN) PO SCH ×2 (08:29→21:00)
[2017-01-03] MEDS: POTASSIUM CHLORIDE 10 MEQ SR TABLET PO SCH ×2 (08:29→21:01)
[2017-01-03] MEDS: VITAMIN D 1,000 INTERNATIONAL UNITS TABLET PO SCH (08:29)
[2017-01-03] MEDS: LACTULOSE 20 GM/30 ML SYRUP UD PO SCH ×2 (08:29→21:00)
[2017-01-03] MEDS: TORSEMIDE (DEMADEX) 50 MG PER 1/2 TAB PO SCH (08:29)
[2017-01-03] MEDS: ASPIRIN 81 MG ENTERIC TAB PO SCH (08:29)
[2017-01-03] MEDS: CARVedilol 3.125 MG TAB PO SCH ×2 (08:30→21:01)
[2017-01-03] MEDS: BRIMONIDINE 0.15% OPHTH SOLN 5 ML OU SCH ×2 (08:31→21:00)
[2017-01-03] MEDS: metOLazone 2.5 MG TAB PO SCH (08:31)
--- NOTE | 2017-01-03 11:06 | IPN ---
DATE: 01/03/2017 SUBJECTIVE: Patient was seen and examined at the bedside today in the morning. She is wearing nasal cannula. She report that her shortness of breath is better at this time. Patient was switched to oral diuretics yesterday. She did not have significant urine output with the oral diuretics. Last 24 hour events were noted. Patient also was noted to have some beats of nonsustained ventricular tachycardia (V-tach). Cardiology evaluation is pending at this time. REVIEW OF SYSTEM: Patient denies any fever, chills, rigors, headache, nausea, vomiting. She denies any chest pain. She does report some shortness of breath, but she is stable on nasal cannula. She reports poor appetite. She denies any nausea, vomiting, pain in abdomen or constipation. Rest of review of system is negative. OBJECTIVE: Vital signs: Temperature 95.2 degrees Fahrenheit, blood pressure 104/54, pulse 79, respiratory rate of 18, saturating 92% on nasal cannula at 2 liters per minute. Intake and output: Patient's urine output was 4.4 liters yesterday, 200 mL so far today since overnight. Weight on the bed scale is 45.3 kg. OBJECTIVE: Vital signs: Temperature is 96.5 degrees Fahrenheit. Blood pressure is 103/64. Pulse is 70. Respiratory rate of 20. Saturating 96% on nasal cannula at 2 liters per minute. Intake and output: Urine output recorded is 900 mL yesterday, 625 mL so far today since overnight. Weight on the bed scale is 45.1 kg, which is stable for the last 3 days. PHYSICAL EXAMINATION: General: Patient is awake, alert, oriented times three, laying in the bed, no apparent distress. Head and neck exam: Extraocular muscles intact. Mucous membranes are moist. Pupils equally round and reactive to light. Neck is supple. There is mildly elevated jugular venous distention (JVD) and engorged neck veins. Cardiovascular: S1, S2. Grade 2/6 systolic murmur. Respiratory: Slightly decreased breath sounds at the bases and mild crepitations on deep inspiration at the bases as well. Abdomen is soft. Positive bowel sounds. Nontender. No ascites. She does have presacral edema. Extremities: No clubbing or cyanosis. She has trace edema on the bilateral lower extremities and trace edema on the bilateral upper extremities, especially in the elbow regions. Central nervous system (LINDERMAN MACHINE OPERATOR): No asterixis at this time. Power is 5/5 in all extremities. Psychiatric: Patient has a depressed mood. LABORATORY REVIEW: CBC showed WBC 5.5, hemoglobin is 13.4, platelets are 96. BMP showed sodium 134, potassium 4.7, chloride 91, bicarbonate 33, BUN 69, creatinine 1.98. Calcium is 9.4. Magnesium is 2.1. CURRENT MEDICATIONS: Patient's medications were all reviewed by me. She continues to be on intravenous (IV) meropenem. Her torsemide has been stopped. She has been started on Bumex 2 mg by mouth twice a day, and she continues to be on metolazone 1.25 mg by mouth daily. Rest of the medications are same as yesterday. ASSESSMENT: 76-year-old female with past medical history of severe systolic congestive heart failure with left ventricular ejection fraction between 10-15%, history of cardiorenal syndrome, admitted this time with acute decompensated congestive heart failure, fluid overload and acute renal failure along with metabolic encephalopathy. PLAN: 1. Acute on chronic systolic congestive heart failure. Patient was diuresed with IV Lasix and IV dobutamine for 2 days. She was switched on oral diuretics yesterday. She did not have very good response to oral torsemide 50 mg by mouth twice a day. I am going to switch her to oral Bumex 2 mg by mouth twice a day for better oral absorption. I will continue the metolazone 1.25 mg by mouth daily as well. If patient does not have a good diuretic response, the metolazone will be increased to 2.5 mg by mouth daily. Continue to monitor daily weight, intake and output. 2. Hyponatremia. Hyponatremia secondary to congestive heart failure (CHF) and volume overload. Sodium is improving to 134 today. Continue the current dose of diuretics at this time. 3. Acute kidney injury superimposed on chronic kidney disease. Patient's acute kidney injury is secondary to cardiorenal syndrome. Her creatinine is fluctuating between 1.6 and 1.9. Continue the diuretics at this time. 4. Metabolic alkalosis. Metabolic alkalosis is secondary to aggressive diuresis and relative intravascular volume depletion. Her serum bicarbonate improved to 33 today. Continue to monitor for now. 5. Hepatic encephalopathy. Continue current dose of lactulose and rifaximin. The plan of care was discussed with the hospitalist team.
[2017-01-03 12:00] VITALS: BP 105/59
[2017-01-03 16:00] VITALS: BP 99/55
[2017-01-03] MEDS: BUMETANIDE 1 MG TAB PO SCH (17:57)
[2017-01-03 19:21] VITALS: BP 115/79
[2017-01-03] MEDS: SIMVASTATIN 40 MG TAB PO SCH (21:00)
[2017-01-04] VITALS (8 sets, daily range): BP systolic 96–126; BP diastolic 57–64
[2017-01-04] MEDS: MEROPENEM INJ 500 MG in D5W MINI-BAG PLUS 100 ML IV SCH (02:50)
[2017-01-04] MEDS: NITROGLYCERIN 2% OINT 1 GM *U/D* PKT TOP SCH ×4 (05:02→17:58)
[2017-01-04 05:28] LABS: MEAN CORPUSCULAR HEMOGLOBIN 30.4 pg (27.0-33.0); MEAN CORPUSCULAR HGB CONC 32.3 g/dl (32.0-36.5); MEAN CORPUSCULAR VOLUME 94.3 fl (80.0-96.0); RED CELL DISTRIBUTION WIDTH 20.1 % (11.5-14.5); WHITE BLOOD COUNT 4.6 K/mm3 (4.0-10.0)
[2017-01-04 05:38] LABS: CALCIUM LEVEL 9.1 MG/DL (8.8-10.2); CREATININE FOR GFR 2.19 MG/DL (0.55-1.02); GLOMERULAR FILTRATION RATE 23.2 (>39); POTASSIUM SERUM 4.5 MEQ/L (3.5-5.1)
[2017-01-04] MEDS: LEVOTHYROXINE 0.15 MG TAB (150 MCG) PO SCH (05:44)
[2017-01-04] MEDS: SLF 3 ML SYR IV SCH ×3 (05:44→22:54)
[2017-01-04] MEDS: rifAXIMin 550 MG TAB (XIFAXAN) PO SCH ×2 (07:50→21:43)
[2017-01-04] MEDS: ASPIRIN 81 MG ENTERIC TAB PO SCH (07:50)
[2017-01-04] MEDS: POTASSIUM CHLORIDE 10 MEQ SR TABLET PO SCH ×2 (07:50→21:25)
[2017-01-04] MEDS: LACTULOSE 20 GM/30 ML SYRUP UD PO SCH ×2 (07:50→21:25)
[2017-01-04] MEDS: CARVedilol 3.125 MG TAB PO SCH ×2 (07:52→21:00)
[2017-01-04] MEDS: VITAMIN D 1,000 INTERNATIONAL UNITS TABLET PO SCH (07:53)
[2017-01-04] MEDS: HumaLOG INSULIN (NovoLOG) PER UNIT SC SCH ×4 (07:53→21:48)
[2017-01-04] MEDS: metOLazone 2.5 MG TAB PO SCH (07:53)
[2017-01-04] MEDS: BUMETANIDE 1 MG TAB PO SCH ×2 (07:54→17:40)
[2017-01-04] MEDS: BRIMONIDINE 0.15% OPHTH SOLN 5 ML OU SCH ×2 (07:54→21:33)
[2017-01-04] MEDS ORDERED: metOLazone 2.5 MG TAB PO ONE (11:00)
--- NOTE | 2017-01-04 11:25 | IPN ---
DATE OF VISIT: 01/04/2017 SUBJECTIVE: The patient was seen and examined at the bedside today in the morning. She did respond better to Bumex tablets orally yesterday. She has made about 800 mL of urine so far since overnight. She does report her shortness of breath is better but she continues to be on nasal cannula at this time. However, her renal function and her sodium levels are slightly worse as compared with yesterday. REVIEW OF SYSTEMS: The patient denies any fever, chills, rigors, headache, nausea, vomiting or chest pain. She does report mild shortness of breath and she still is on nasal cannula. At this time she denies any abdominal pain, constipation, or diarrhea. She continues to have a Rene catheter as well. The rest of the review of systems is negative. OBJECTIVE: VITAL SIGNS: Temperature 95.6 degrees Fahrenheit, blood pressure 104/57, pulse 65, respiratory rate of 20, saturating 97% on nasal cannula at 2 liters per minute. Intake and output of urine: Urine output is 1575 mL yesterday, 875 mL so far today since overnight. She was 665 mL negative yesterday, 215 mL negative so far today since overnight. Weight on the bed scale is 46.2 kg. PHYSICAL EXAMINATION: GENERAL: The patient is awake, alert and oriented times three, laying in the bed, no apparent distress. HEAD/NECK: Extraocular muscles intact. Moist mucous membranes. Pupils equal, round, reactive to light. Neck is supple. There is engorgement of the neck veins and mildly elevated jugular venous distention (JVD). CARDIOVASCULAR: S1, S2, grade 2/6 ejective systolic murmur. RESPIRATORY: Decreased breath sounds at the bases and mild crepitations bilaterally on deep inspiration. ABDOMEN: Soft, positive bowel sounds, nontender, no ascites, no organomegaly. She does have presacral edema. EXTREMITIES: No clubbing or cyanosis. She has trace edema of the bilateral lower extremities and trace edema of the bilateral upper extremities as well, especially around the elbows. CENTRAL NERVOUS SYSTEMS (HOUSING ASSISTANT): No asterixis, power is 5/5 in all extremities. LAB REVIEW: CBC showed a WBC of 4.6, hemoglobin 13, platelets 100. BMP showed sodium 133, potassium 4.5, chloride 89, bicarbonate 35, BUN 72, creatinine 2.1, calcium 9.1. CURRENT MEDICATIONS: The patient's medications are all reviewed by me. - She continues to be on intravenous (IV) meropenem. - Her torsemide was stopped yesterday. - She has been started on Bumex 2 mg by mouth twice a day. - Her dose of metolazone has been increased to 2.5 mg by mouth daily starting today. ASSESSMENT: This is a 76-year-old female with past medical history of severe systolic congestive heart failure with left ventricular ejection fraction between 10-15%, history of cardiorenal syndrome admitted this time with acute decompensated congestive heart failure, fluid overload, and acute renal failure along with metabolic encephalopathy. PLAN: 1. Acute on chronic systolic congestive heart failure. The patient was diuresed for two days with intravenous (IV) Lasix and dobutamine. Her fluid status is improving. She was on oral torsemide and she was not responding well. She was switched to oral Bumex yesterday for better absorption. Her urine output did improve; however, I want her to make at least 2 liters of urine every day. I am going to increase her metolazone dose to 2.5 mg by mouth daily. 2. Hyponatremia. Hyponatremia is secondary to severe congestive heart failure and fluid overload. Sodium is 133 today. I am going to increase her diuretic dose as mentioned above. 3. Metabolic alkalosis. Metabolic alkalosis is secondary to excessive diuresis and relative intravascular volume depletion. The patient's bicarbonate continues to be around 33-35 and bicarbonate keeps on going up, then I would have to switch her to oral acetazolamide. 4. Acute kidney injury superimposed on chronic kidney disease. The patient's creatinine is slightly worse today. It is secondary to cardiorenal syndrome. The diuretic dose has been increased. I am hopeful that her creatinine would improve to her baseline of around 1.7 to 1.9. 5. Metabolic encephalopathy. Continue lactulose and rifaximine. Her mental status is significantly better at this time. The plan of care was discussed with the hospitalist team, Dr. Brown.
--- NOTE | 2017-01-04 11:37 | IPNPDOC ---
Subjective General Date Seen The patient was seen on 01/04/17. Subjective Chief Complaint/HPI The patient is a 76-year-old female admitted with a reason for visit of Hyperkalemia. General: Reports: Malaise, Denies: Chills, Fatigue, Night Sweats, Normal Appetite, Other Symptoms, ROS Unobtainable Constitutional: Reports: Malaise, Denies: Chills, Fatigue, Fever, Lethargy, Night Sweats, Other, Weakness, Weight Loss Eyes: Denies: Conjunctivae inflammation, Eyelid inflammation, Other, Pain, Redness, Vision change ENT: Denies: Dysphagia, Ear Pain, Epistaxis, Head Aches, Other Symptoms, Post Nasal Drip, Sinus Congestion, Sore Throat Skin: Denies: Breakdown, Bruising, Dry, Itching, Jaundice, Lesions, Nail Changes, Other, Rash Pulmonary: Denies: Cough, Dyspnea, Other Symptoms, Pleuritic Chest Pain Cardiovascular: Denies: Chest Pain, Edema, Lt Headedness, Orthopnea, Other Symptoms, Palpitations, Paroxysmal Noc. Dyspnea Gastrointestinal: Denies: Abdominal Pain, Constipation, Diarrhea, Hematochezia , Melena, Nausea, Other Symptoms, Vomiting Objective Physical Examination General Exam: Positive: Alert, Cooperative, No Acute Distress Eye Exam: Positive: Conjunctiva & lids normal, EOMI, PERRLA ENT Exam: Positive: Atraumatic Neck Exam: Positive: Supple Chest Exam: Positive: Clear to auscultation, Normal air movement Heart Exam: Positive: Murmurs, Rate Normal, Regular Rhythm Telemetry: Positive: No significant arrhythmia Abdomen Exam: Positive: Normal bowel sounds, Soft, Negative: Tenderness Extremity Exam: Positive: Edema Assessment /Plan Problems Problems: (1) Systolic and diastolic CHF, chronic Status: Chronic Problem Specific Plan: Consult Specialist, Monitor Clinically, Repeat Labs Problem Text: Appears grossly compensated today. Discussed further with nephrology, assistance appreciated. Severe systolic failure LVEF 10-15%. AICD/PPM in place. Continue Bumex and Metolazone. (2) Cholecystitis Status: Acute Response to Treatment: Improving, Progressing Discussed With: Shoe Stitcher Odd, Patient Problem Specific Plan: Consult Specialist, Monitor Clinically Problem Text: Completed 10 days of Meropenem. Discontinue today. No pain, fevers or leukocytosis. Patient refused choly tube. Continue to follow as per surgery, assistance appreciated. 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 (4) CAD (coronary artery disease) Status: Chronic Discussed With: Patient Problem Specific Plan: Monitor Clinically Problem Text: S/P [place] with PCI as per documentation. (5) Metabolic encephalopathy Status: Resolved Discussed With: Patient Problem Specific Plan: Monitor Clinically (6) Hypokalemia Status: Resolved Problem Specific Plan: Repeat Labs (7) Hypothyroidism Status: Chronic Discussed With: Patient Problem Specific Plan: Monitor Clinically (8) Glaucoma Status: Chronic (9) Type 2 diabetes mellitus Status: Chronic Discussed With: Patient Problem Specific Plan: Monitor Clinically, Repeat Labs (10) Dyslipidemia Status: Chronic Discussed With: Patient (11) Sick sinus syndrome Status: Chronic Problem Text: s/p PPM (12) Protein calorie malnutrition Status: Chronic (13) Depression Status: Chronic Discussed With: Patient Problem Specific Plan: Monitor Clinically Problem Text: Continue paxil. Plan/VTE VTE Prophylaxis Ordered?: Yes (mechanical prophylaxis) Plan/Urinary Catheter Reason for insertion/continuin: Critical Pt monitoring Plan Diet: Continue Current Activity: Continue Current Diagnostics: Repeat Labs in AM Anticipated Discharge: Home, Home With Services Advance Directives: DNR VS, I&O, 24H, [place] Vital Signs/I&O Vital Signs Date Time Temp Pulse Resp B/P Pulse Ox O2 Delivery O2 Flow Rate FiO2 01/04/17 07:52 65 104/67 01/04/17 07:30 95.6 22 97 Nasal Cannula 2.0 I&O- Last 24 Hours up to 6 AM 01/04/17 05:59 Intake Total 1230 ml Output Total 1975 ml Balance -745 ml Laboratory Data 24H LABS Laboratory Tests 2 01/03/17 11:52: Bedside Glucose (Misc Panel) 286H 01/03/17 17:02: Bedside Glucose (Misc Panel) 181H 01/04/17 04:35: Anion Gap 9, Blood Urea Nitrogen 72H, Creatinine 2.19H, Sodium Level 133L, Potassium Level 4.5, Chloride Level 89L, Carbon Dioxide Level 35H, Calcium Level 9.1, Glomerular Filtration Rate 23.2L CBC/BMP Laboratory Tests 01/04/17 04:35 Calcium Level 9.1 01/04/17 04:36 Red Blood Count 4.26, Mean Corpuscular Volume 94.3, Mean Corpuscular Hemoglobin 30.4, Mean Corpuscular Hemoglobin Concent 32.3, Red Cell Distribution Width 20.1 H Microbiology Microbiology 12/25/16 Blood Culture - Final, Complete NO GROWTH AFTER 5 DAYS 12/25/16 Blood Culture - Final, Complete NO GROWTH AFTER 5 DAYS 12/25/16 Urine Culture - Final, Complete PRIYA TOVAR MD Jan 04, 2017 11:37
[2017-01-04] MEDS: SIMVASTATIN 40 MG TAB PO SCH (21:24)
[2017-01-04] MEDS: DEXTROSE 50% 50 ML SYRINGE IV PRN (21:52)
[2017-01-05] VITALS (7 sets, daily range): BP systolic 90–131; BP diastolic 53–66
[2017-01-05] MEDS: NITROGLYCERIN 2% OINT 1 GM *U/D* PKT TOP SCH ×4 (00:25→18:00)
[2017-01-05 06:10] LABS: MEAN CORPUSCULAR HEMOGLOBIN 30.3 pg (27.0-33.0); MEAN CORPUSCULAR HGB CONC 32.6 g/dl (32.0-36.5); RED CELL DISTRIBUTION WIDTH 20.3 % (11.5-14.5); WHITE BLOOD COUNT 4.7 K/mm3 (4.0-10.0)
[2017-01-05 06:18] LABS: CALCIUM LEVEL 9.4 MG/DL (8.8-10.2); CREATININE FOR GFR 1.81 MG/DL (0.55-1.02); GLOMERULAR FILTRATION RATE 28.9 (>39); POTASSIUM SERUM 3.6 MEQ/L (3.5-5.1)
[2017-01-05] MEDS: LEVOTHYROXINE 0.15 MG TAB (150 MCG) PO SCH (06:36)
[2017-01-05] MEDS: SLF 3 ML SYR IV SCH ×3 (06:36→20:43)
--- NOTE | 2017-01-05 08:41 | IPNPDOC ---
Subjective General Date Seen The patient was seen on 01/05/17. Subjective Chief Complaint/HPI The patient is a 76-year-old female admitted with a reason for visit of Hyperkalemia. General: Reports: Fatigue, Denies: Chills, Malaise, Night Sweats, Normal Appetite, Other Symptoms, ROS Unobtainable Constitutional: Reports: Fatigue, Denies: Chills, Fever, Lethargy, Malaise, Night Sweats, Other, Weakness, Weight Loss Eyes: Denies: Conjunctivae inflammation, Eyelid inflammation, Other, Pain, Redness, Vision change ENT: Denies: Dysphagia, Ear Pain, Epistaxis, Head Aches, Other Symptoms, Post Nasal Drip, Sinus Congestion, Sore Throat Skin: Denies: Breakdown, Bruising, Dry, Itching, Jaundice, Lesions, Nail Changes, Other, Rash Pulmonary: Denies: Cough, Dyspnea, Other Symptoms, Pleuritic Chest Pain Cardiovascular: Denies: Chest Pain, Edema, Lt Headedness, Orthopnea, Other Symptoms, Palpitations, Paroxysmal Noc. Dyspnea Gastrointestinal: Denies: Abdominal Pain, Constipation, Diarrhea, Hematochezia , Melena, Nausea, Other Symptoms, Vomiting Objective Physical Examination General Exam: Positive: Alert, Cooperative, No Acute Distress Eye Exam: Positive: Conjunctiva & lids normal, EOMI, PERRLA ENT Exam: Positive: Atraumatic Neck Exam: Positive: Supple Chest Exam: Positive: Clear to auscultation, Normal air movement Heart Exam: Positive: Murmurs, Rate Normal, Regular Rhythm Telemetry: Positive: No significant arrhythmia Abdomen Exam: Positive: Normal bowel sounds, Soft, Negative: Tenderness Extremity Exam: Positive: Edema Assessment /Plan Problems Problems: (1) Systolic and diastolic CHF, chronic Status: Chronic Problem Specific Plan: Consult Specialist, Monitor Clinically, Repeat Labs Problem Text: Appears grossly compensated today. Good output over last 24 hours. Follow as per nephrology, assistance appreciated. Severe systolic failure LVEF 10-15%. AICD/PPM in place. Currently receiving Bumex and Metolazone. (2) Cholecystitis Status: Acute Response to Treatment: Improving, Progressing Discussed With: Commercial Plumber, Patient Problem Specific Plan: Consult Specialist, Monitor Clinically Problem Text: Completed 10 days of Meropenem. No pain, fevers or leukocytosis. Patient refused choly tube. Continue to follow as per surgery, assistance appreciated. 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 (4) CAD (coronary artery disease) Status: Chronic Discussed With: Patient Problem Specific Plan: Monitor Clinically Problem Text: S/P [place] with PCI as per documentation. (5) Metabolic encephalopathy Status: Resolved Discussed With: Patient Problem Specific Plan: Monitor Clinically (6) Hypokalemia Status: Resolved Problem Specific Plan: Repeat Labs (7) Hypothyroidism Status: Chronic Discussed With: Patient Problem Specific Plan: Monitor Clinically (8) Glaucoma Status: Chronic (9) Type 2 diabetes mellitus Status: Chronic Discussed With: Patient Problem Specific Plan: Monitor Clinically, Repeat Labs (10) Dyslipidemia Status: Chronic Discussed With: Patient (11) Sick sinus syndrome Status: Chronic Problem Text: s/p PPM (12) Protein calorie malnutrition Status: Chronic (13) Depression Status: Chronic Discussed With: Patient Problem Specific Plan: Monitor Clinically Problem Text: Continue paxil. Plan/VTE VTE Prophylaxis Ordered?: Yes (mechanical prophylaxis) Plan/Urinary Catheter Reason for insertion/continuin: Critical Pt monitoring (Discuss with nephrology to discontinue, with trial of void.) Plan Diet: Continue Current Activity: Continue Current Diagnostics: Repeat Labs in AM Anticipated Discharge: Home, Home With Services Advance Directives: DNR VS, I&O, 24H, [place] Vital Signs/I&O Vital Signs Date Time Temp Pulse Resp B/P Pulse Ox O2 Delivery O2 Flow Rate FiO2 01/05/17 08:00 96.6 64 18 118/56 95 Nasal Cannula 2.0 I&O- Last 24 Hours up to 6 AM 01/05/17 06:00 Intake Total 840 ml Output Total 2425 ml Balance -1585 ml Laboratory Data 24H LABS Laboratory Tests 2 01/04/17 11:51: Bedside Glucose (Misc Panel) 286H 01/04/17 17:03: Bedside Glucose (Misc Panel) 231H 01/04/17 21:30: Bedside Glucose (Misc Panel) 54L 01/04/17 21:36: Bedside Glucose (Misc Panel) 51L 01/04/17 22:04: Bedside Glucose Confirm (Misc) 301H 01/04/17 22:44: Bedside Glucose (Misc Panel) 115H 01/05/17 05:25: Anion Gap 13, Blood Urea Nitrogen 67H, Creatinine 1.81H, Sodium Level 137, Potassium Level 3.6, Chloride Level 87L, Carbon Dioxide Level 37H, Calcium Level 9.4, Glomerular Filtration Rate 28.9L CBC/BMP Laboratory Tests 01/05/17 05:25 Calcium Level 9.4, Red Blood Count 4.12, Mean Corpuscular Volume 93.0, Mean Corpuscular Hemoglobin 30.3, Mean Corpuscular Hemoglobin Concent 32.6, Red Cell Distribution Width 20.3 H PRIYA TOVAR MD Jan 05, 2017 08:41
[2017-01-05] MEDS: ASPIRIN 81 MG ENTERIC TAB PO SCH (08:50)
[2017-01-05] MEDS: HumaLOG INSULIN (NovoLOG) PER UNIT SC SCH ×4 (08:50→21:00)
[2017-01-05] MEDS: LACTULOSE 20 GM/30 ML SYRUP UD PO SCH ×2 (08:50→21:00)
[2017-01-05] MEDS: POTASSIUM CHLORIDE 10 MEQ SR TABLET PO SCH ×2 (08:50→20:42)
[2017-01-05] MEDS: rifAXIMin 550 MG TAB (XIFAXAN) PO SCH ×2 (08:50→20:42)
[2017-01-05] MEDS: BUMETANIDE 1 MG TAB PO SCH ×2 (08:50→17:32)
[2017-01-05] MEDS: VITAMIN D 1,000 INTERNATIONAL UNITS TABLET PO SCH (08:51)
[2017-01-05] MEDS: CARVedilol 3.125 MG TAB PO SCH ×2 (08:51→20:43)
[2017-01-05] MEDS: BRIMONIDINE 0.15% OPHTH SOLN 5 ML OU SCH ×2 (08:51→20:44)
[2017-01-05] MEDS: metOLazone 2.5 MG TAB PO SCH (08:51)
--- NOTE | 2017-01-05 13:34 | IPN ---
DATE: 01/05/2017 SUBJECTIVE: The patient was seen and examined at the bedside today in the morning. She was sitting in the bed. She feels better today. Her dose of metolazone was increased yesterday. The patient had significant urine output with that and her electrolytes and creatinine also responded well to the diuretic dose. REVIEW OF SYSTEMS: The patient denies any fever, chills, rigors, headache, nausea, vomiting or chest pain. She does report improvement in the shortness of breath and she reports that she probably does not need oxygen at this time. She still reports decreased appetite, but she denies any nausea or vomiting and she has about one to two loose bowel movements a day because of the lactulose that she is on. The rest of review of systems is negative. OBJECTIVE: VITAL SIGNS: Temperature 96.6 degrees Fahrenheit, blood pressure 118/56, pulse is 64, respiratory rate of 18, saturating 95% on nasal cannula. Intake and output of urine: Urine output recorded as 2.6 liter yesterday and 1 liter so far today since overnight. She is 1.5 liter negative yesterday and 700 mL negative so far today. Weight on the bed scale is 44.5 kg today. PHYSICAL EXAMINATION: GENERAL: The patient is awake, alert and oriented times three. She does seem a little drowsy, but she was answering appropriately to my questions. HEAD/NECK EXAM: Extraocular muscles intact. Mucous membranes are moist. Pupils equal, round, reactive to light. Neck is supple. Neck veins are still engorged and there is very minimally elevated jugular venous distention (JVD) at this time. CARDIOVASCULAR: S1, S2, grade 2/6 ejection systolic murmur. RESPIRATORY: Mildly decreased breath sounds at the bases and she has a very minimal amount of crepitations bilaterally on deep inspiration. ABDOMEN: Soft, positive bowel sounds, nontender. No ascites. No organomegaly. Her presacral edema is also significantly better. She still has an indwelling Rene catheter. EXTREMITIES: No clubbing or cyanosis. The patient has trace edema of the bilateral lower extremities and trace edema of the bilateral upper extremities around the elbows. CENTRAL NERVOUS SYSTEMS (CHOCOLATE COATER): No asterixis at this time. Power is 5/5 in all extremities. LAB REVIEW: CBC showed a WBC of 4.7, hemoglobin 12.5, platelets of 98. BMP showed sodium 137, potassium 3.6, chloride 87, bicarbonate 37, BUN 67, creatinine 1.8. GFR is around 29. Calcium is 9.4. CURRENT MEDICATIONS: The patient's medications are all reviewed by me. Her meropenem has been stopped. She continues to be on Bumex 2 mg by mouth twice a day and her metolazone dose was increased to 2.5 mg by mouth daily yesterday. ASSESSMENT: This is a 76-year-old female with past medical history of severe systolic congestive heart failure with left ventricular ejection fraction between 10-15%, history of cardiorenal syndrome admitted this time with decompensated congestive heart failure, fluid overload, and metabolic encephalopathy. PLAN: 1. Acute on chronic systolic congestive heart failure. The patient was aggressively diuresed initially with intravenous Lasix and dobutamine. Now she is being diuresed with oral dobutamine and metalozone. She is responding well to the current combination of oral diuretics. She is also 1.5 liters negative on this regimen. I will continue the current regimen at this time. However, on discharge, the patient will need to go home on Bumex 2 mg by mouth twice a day and metolazone 2.5 mg by mouth on alternate days. 2. Hyponatremia. Hyponatremia was secondary to severe congestive heart failure and fluid overload. Her sodium improved to 137 by increasing the diuretics dose. Continue the current diuretic at this time. 3. Acute kidney injury superimposed on chronic kidney disease. The patient's creatinine improved to 1.8 today, which is around her baseline. She has baseline early chronic kidney disease stage IV and her reason for chronic kidney disease is cardiorenal syndrome. Continue the diuretics at this time. 4. Metabolic alkalosis. Metabolic alkalosis is secondary to aggressive diuresis, but we have to continue her diuretics because she has severe congestive heart failure (CHF). Continue to monitor for now. 5. Metabolic encephalopathy. Continue current dose of lactulose and rifaximin. Her mental status is significantly improving. The plan of care was discussed with the hospitalist team, Dr. Justin Brown. I am going to have the Rene catheter discontinued and intake and output will be monitored every eight hours from now.
[2017-01-05] MEDS: SIMVASTATIN 40 MG TAB PO SCH (20:43)
[2017-01-06 04:00] VITALS: BP 105/65
[2017-01-06] MEDS: NITROGLYCERIN 2% OINT 1 GM *U/D* PKT TOP SCH ×5 (05:00→23:59)
[2017-01-06] MEDS: LEVOTHYROXINE 0.15 MG TAB (150 MCG) PO SCH (05:32)
[2017-01-06] MEDS: SLF 3 ML SYR IV SCH ×3 (05:33→21:28)
[2017-01-06 05:47] LABS: CALCIUM LEVEL 9.4 MG/DL (8.8-10.2); CREATININE FOR GFR 1.7 MG/DL (0.55-1.02); GLOMERULAR FILTRATION RATE 31.1 (>39); POTASSIUM SERUM 3.4 MEQ/L (3.5-5.1)
[2017-01-06 06:14] LABS: MEAN CORPUSCULAR HEMOGLOBIN 30.4 pg (27.0-33.0); MEAN CORPUSCULAR HGB CONC 32.2 g/dl (32.0-36.5); MEAN CORPUSCULAR VOLUME 94.3 fl (80.0-96.0); RED CELL DISTRIBUTION WIDTH 19.9 % (11.5-14.5)
[2017-01-06 07:30] VITALS: BP 101/62
[2017-01-06] MEDS: LACTULOSE 20 GM/30 ML SYRUP UD PO SCH ×2 (08:13→21:00)
[2017-01-06] MEDS: CARVedilol 3.125 MG TAB PO SCH ×3 (08:13→21:27)
[2017-01-06] MEDS: VITAMIN D 1,000 INTERNATIONAL UNITS TABLET PO SCH (08:27)
[2017-01-06] MEDS: rifAXIMin 550 MG TAB (XIFAXAN) PO SCH ×2 (08:27→21:27)
[2017-01-06] MEDS: metOLazone 2.5 MG TAB PO SCH (08:27)
[2017-01-06] MEDS: BUMETANIDE 1 MG TAB PO SCH ×2 (08:27→17:27)
[2017-01-06] MEDS: HumaLOG INSULIN (NovoLOG) PER UNIT SC SCH ×4 (08:27→21:00)
[2017-01-06] MEDS: ASPIRIN 81 MG ENTERIC TAB PO SCH (08:27)
[2017-01-06] MEDS: BRIMONIDINE 0.15% OPHTH SOLN 5 ML OU SCH ×2 (08:28→21:28)
[2017-01-06] MEDS: POTASSIUM CHLORIDE 10 MEQ SR TABLET PO SCH ×2 (08:28→21:27)
--- NOTE | 2017-01-06 08:34 | IPNPDOC ---
Subjective General Date Seen The patient was seen on 01/06/17. Subjective Chief Complaint/HPI The patient is a 76-year-old female admitted with a reason for visit of Hyperkalemia. General: Denies: Chills, Fatigue, Malaise, Night Sweats, Normal Appetite, Other Symptoms, ROS Unobtainable Constitutional: Denies: Chills, Fatigue, Fever, Lethargy, Malaise, Night Sweats , Other, Weakness, Weight Loss Eyes: Denies: Conjunctivae inflammation, Eyelid inflammation, Other, Pain, Redness, Vision change ENT: Denies: Dysphagia, Ear Pain, Epistaxis, Head Aches, Other Symptoms, Post Nasal Drip, Sinus Congestion, Sore Throat Skin: Denies: Breakdown, Bruising, Dry, Itching, Jaundice, Lesions, Nail Changes, Other, Rash Pulmonary: Denies: Cough, Dyspnea, Other Symptoms, Pleuritic Chest Pain Cardiovascular: Denies: Chest Pain, Edema, Lt Headedness, Orthopnea, Other Symptoms, Palpitations, Paroxysmal Noc. Dyspnea Gastrointestinal: Denies: Abdominal Pain, Constipation, Diarrhea, Hematochezia , Melena, Nausea, Other Symptoms, Vomiting Genitourinary: Denies: Dysuria, Frequency, Hematuria, Incontinence, Other Symptoms, Retention Objective Physical Examination General Exam: Positive: Alert, Cooperative, No Acute Distress Eye Exam: Positive: Conjunctiva & lids normal, EOMI, PERRLA ENT Exam: Positive: Atraumatic Neck Exam: Positive: Supple Chest Exam: Positive: Clear to auscultation, Normal air movement Heart Exam: Positive: Murmurs, Rate Normal, Regular Rhythm Telemetry: Positive: Bradycardia, No significant arrhythmia Abdomen Exam: Positive: Normal bowel sounds, Soft, Negative: Tenderness Assessment /Plan Problems Problems: (1) Systolic and diastolic CHF, chronic Status: Chronic Problem Specific Plan: Consult Specialist, Monitor Clinically, Repeat Labs Problem Text: Grossly compensated. Good output over last 24 hours. Follow as per nephrology, assistance appreciated. Severe systolic failure LVEF 10-15%. AICD/PPM in place. Currently receiving Bumex and Metolazone. Cardiology consultation pending. (2) Cholecystitis Status: Acute Response to Treatment: Improving, Progressing Discussed With: Film Touch Up Inspector, Patient Problem Specific Plan: Consult Specialist, Monitor Clinically Problem Text: Completed 10 days of Meropenem. No pain, fevers or leukocytosis. Patient refused choly tube. Continue to follow as per surgery, assistance appreciated. 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 (4) CAD (coronary artery disease) Status: Chronic Discussed With: Patient Problem Specific Plan: Monitor Clinically Problem Text: S/P [place] with PCI as per documentation. (5) Metabolic encephalopathy Status: Resolved Discussed With: Patient Problem Specific Plan: Monitor Clinically (6) Hypokalemia Status: Resolved Problem Specific Plan: Repeat Labs (7) Hypothyroidism Status: Chronic Discussed With: Patient Problem Specific Plan: Monitor Clinically (8) Glaucoma Status: Chronic (9) Type 2 diabetes mellitus Status: Chronic Discussed With: Patient Problem Specific Plan: Monitor Clinically, Repeat Labs (10) Dyslipidemia Status: Chronic Discussed With: Patient (11) Sick sinus syndrome Status: Chronic Problem Text: s/p PPM (12) Protein calorie malnutrition Status: Chronic (13) Depression Status: Chronic Discussed With: Patient Problem Specific Plan: Monitor Clinically Problem Text: Continue paxil. Plan/VTE VTE Prophylaxis Ordered?: Yes (mechanical prophylaxis) Plan/Urinary Catheter Urinary Catheter: D/C Rene (Completed trial of voiding.) Plan Diet: Continue Current Activity: Continue Current Pt and Family Services: Home Care Diagnostics: Repeat Labs in AM Anticipated Discharge: Home, Home With Services Advance Directives: DNR VS, I&O, 24H, [place] Vital Signs/I&O Vital Signs Date Time Temp Pulse Resp B/P Pulse Ox O2 Delivery O2 Flow Rate FiO2 01/06/17 08:13 80 101/62 01/06/17 07:30 95.0 18 96 Room Air 01/06/17 04:00 2.0 I&O- Last 24 Hours up to 6 AM 01/06/17 06:00 Intake Total 800 ml Output Total 2250 ml Balance -1450 ml Laboratory Data 24H LABS Laboratory Tests 2 01/05/17 08:55: Bedside Glucose (Misc Panel) 290H 01/05/17 16:29: Bedside Glucose (Misc Panel) 228H 01/05/17 20:13: Bedside Glucose (Misc Panel) 133H 01/06/17 04:35: Anion Gap 9, Blood Urea Nitrogen 72H, Creatinine 1.70H, Sodium Level 135L, Potassium Level 3.4L, Chloride Level 89L, Carbon Dioxide Level 37H, Calcium Level 9.4, Glomerular Filtration Rate 31.1L CBC/BMP Laboratory Tests 01/06/17 04:35 Calcium Level 9.4, Red Blood Count 4.33, Mean Corpuscular Volume 94.3, Mean Corpuscular Hemoglobin 30.4, Mean Corpuscular Hemoglobin Concent 32.2, Red Cell Distribution Width 19.9 H PRIYA TOVAR MD Jan 06, 2017 08:34
[2017-01-06 11:35] VITALS: BP 111/66
[2017-01-06 16:00] VITALS: BP 106/64
[2017-01-06 20:00] VITALS: BP 125/59
[2017-01-06] MEDS: SIMVASTATIN 40 MG TAB PO SCH (21:27)
[2017-01-06 23:59] VITALS: BP 102/52
[2017-01-07 04:00] VITALS: BP 110/61
[2017-01-07 05:20] LABS: MEAN CORPUSCULAR HGB CONC 31.9 g/dl (32.0-36.5); MEAN CORPUSCULAR VOLUME 94.2 fl (80.0-96.0); RED CELL DISTRIBUTION WIDTH 19.7 % (11.5-14.5); WHITE BLOOD COUNT 4.8 K/mm3 (4.0-10.0)
[2017-01-07] MEDS: LEVOTHYROXINE 0.15 MG TAB (150 MCG) PO SCH (05:27)
[2017-01-07] MEDS: NITROGLYCERIN 2% OINT 1 GM *U/D* PKT TOP SCH ×4 (05:28→23:55)
[2017-01-07] MEDS: SLF 3 ML SYR IV SCH ×3 (05:28→21:35)
[2017-01-07 05:34] LABS: CALCIUM LEVEL 9.3 MG/DL (8.8-10.2); CREATININE FOR GFR 1.97 MG/DL (0.55-1.02); GLOMERULAR FILTRATION RATE 26.2 (>39); POTASSIUM SERUM 3.5 MEQ/L (3.5-5.1)
[2017-01-07] MEDS: HumaLOG INSULIN (NovoLOG) PER UNIT SC SCH ×4 (07:37→21:00)
[2017-01-07 08:00] VITALS: BP 108/62
--- NOTE | 2017-01-07 08:04 | IPN ---
DATE: 01/06/2017 SUBJECTIVE: The patient was seen and examined at the bedside today in the morning. Her was also present at the bedside. Patient feels better. She continues to have around 2 liter of urine output a day. Her renal function is slowly getting better, and her volume status is well optimized at this time. REVIEW OF SYSTEM: Patient denies any fever, chills, rigors, headache, nausea, vomiting or chest pain. She does report that her shortness of breath is better and she probably does not need oxygen at this time. She denies any nausea or vomiting. She does report decreased appetite and she has been refusing to take lactulose, but she reports that she has been having bowel movements every day. The rest of review of system is negative. OBJECTIVE: VITAL SIGNS: Temperature 95 degrees Fahrenheit, blood pressure is 101/62, pulse is 80, respiratory rate of 18, saturating 96% on room air. INTAKE AND OUTPUT: Urine output recorded as 1825 mL yesterday, 600 mL so far today since overnight. Weight on the bed scale is 43.3 kg. PHYSICAL EXAMINATION: GENERAL: Patient is awake, alert, oriented times three. Slightly slow to respond but otherwise, she is able to communicate. She is sitting in the bed. No apparent distress. HEAD AND NECK EXAMINATION: Extraocular muscles intact. Mucous membranes are moist. Pupils equal, round, reactive to light. Neck is supple. Engorged neck veins but very mildly elevated jugular venous distention (JVD). CARDIOVASCULAR: S1, S2. Grade 2/6 ejection systolic murmur. RESPIRATORY: Decreased breath sounds at the bases with very mild crepitations on deep inspiration. ABDOMEN: Is soft, positive bowel sounds, nontender. No ascites. No organomegaly. Her Rene catheter has been removed. EXTREMITIES: No clubbing or cyanosis. She has trace edema of the bilateral lower extremities and trace edema of the bilateral upper extremities as well. CENTRAL NERVOUS SYSTEMS (TELESALES ADVISOR): No asterixis. Power is 5/5 in all extremities. LABORATORY REVIEW: CBC showed a WBC 5, hemoglobin 13.2, platelets are 118. BMP showed sodium 135, potassium 3.4, chloride 89, bicarbonate 37, BUN 72, creatinine is 1.7, which is better than yesterday, it is was 1.8 yesterday. Calcium is 9.4. CURRENT MEDICATIONS: Patient's medications are all reviewed by me. There is no change in the medications today as compared with yesterday. ASSESSMENT: 76-year-old female with past medical history of severe systolic congestive heart failure, left ventricular ejection fraction (LVEF) around 10-15%, history of cardiorenal syndrome, admitted this time with decompensated congestive heart failure, fluid overload and metabolic encephalopathy. PLAN: 1. Acute on chronic systolic congestive heart failure. Patient did have a very good response to intravenous (IV) diuretics and oral diuretics. She continues to be on Bumex 2 mg by mouth twice a day and metolazone 2 mg by mouth daily. However, once the patient is discharged, she should be on Bumex 2 mg by mouth twice a day and metolazone 2.5 mg by mouth on alternate days. 2. Hyponatremia. Hyponatremia is secondary to decompensated congestive heart failure and fluid overload. Her sodium is fluctuating between 135-137, which is acceptable at this time. 3. Hypokalemia. Patient's potassium is 3.4 today. She is already on potassium chloride 20 mEq by mouth twice a day. I am going to give her an additional of potassium at this time. 4. Acute kidney injury superimposed on chronic kidney disease. Patient's baseline creatinine is around 1.7 to 1.8. Her creatinine has improved to 1.7 now, which is her baseline. Her chronic kidney disease and recurrent bouts of acute kidney injury (TERESE) are secondary to cardiorenal syndrome because of very low ejection fraction. Continue aggressive diuresis at this time. 5. Metabolic alkalosis. Patient's serum bicarbonate level is between 35-37. It is secondary to diuresis at this time. Acceptable level of bicarbonate at this time because patient needs diuresis because of severe congestive heart failure. 6. Metabolic encephalopathy. Continue to encourage oral lactulose intake and continue rifaximin. Her mental status is improving at this time. The plan of care was discussed with the hospitalist team, Dr. Justin Brown.
[2017-01-07] MEDS: LACTULOSE 20 GM/30 ML SYRUP UD PO SCH ×2 (09:28→21:35)
[2017-01-07] MEDS: BUMETANIDE 1 MG TAB PO SCH ×2 (09:29→17:03)
[2017-01-07] MEDS: ASPIRIN 81 MG ENTERIC TAB PO SCH (09:29)
[2017-01-07] MEDS: VITAMIN D 1,000 INTERNATIONAL UNITS TABLET PO SCH (09:29)
[2017-01-07] MEDS: rifAXIMin 550 MG TAB (XIFAXAN) PO SCH ×2 (09:29→21:35)
[2017-01-07] MEDS: CARVedilol 3.125 MG TAB PO SCH ×2 (09:29→21:35)
[2017-01-07] MEDS: POTASSIUM CHLORIDE 10 MEQ SR TABLET PO SCH ×2 (09:30→21:35)
[2017-01-07] MEDS: BRIMONIDINE 0.15% OPHTH SOLN 5 ML OU SCH ×2 (09:30→21:34)
[2017-01-07 12:00] VITALS: BP 113/65
[2017-01-07 16:00] VITALS: BP 94/51
[2017-01-07 19:15] VITALS: BP 111/57
[2017-01-07] MEDS: SIMVASTATIN 40 MG TAB PO SCH (21:35)
[2017-01-07 23:59] VITALS: BP 100/57
--- NOTE | 2017-01-08 02:11 | IPN ---
DATE: 01/07/2017 SUBJECTIVE: The patient was seen and examined at the bedside today in the morning. She was actually sitting on the sofa. She feels much better. Her volume status is well-optimized; however, her creatinine is slightly worse today from 1.7 to 1.9, which I think is secondary to aggressive diuresis. REVIEW OF SYSTEMS: Patient denies any fever, chills, rigors, or chest pain. Her shortness of breath is significantly better. Her oxygen has been stopped now. She denies any nausea or vomiting, pain in the abdomen, constipation, or diarrhea. The rest of review of systems are negative. OBJECTIVE: VITAL SIGNS: Temperature is 95.6 degrees Fahrenheit, blood pressure is 108/62, pulse is 70, respiratory rate of 18, saturating 97% on room air. Intake and output: Urine output recorded as 2.4 liters yesterday, 1400 mL so far today since overnight. GENERAL: Patient is awake, alert, oriented times three, sitting on the sofa, in no apparent distress. HEAD AND NECK EXAMINATION: Extraocular muscles intact. Pupils equally round and reactive to light. Mucous membranes are moist. Neck is supple. She has slightly engorged neck veins, but there is no jugular venous distention (JVD) at this time. CARDIOVASCULAR: S1, S2. Grade 2/6 ejection systolic murmur. RESPIRATORY: Clear to auscultation bilaterally. Bilateral equal air entry. No rales or rhonchi. ABDOMEN: Is soft, positive bowel sounds, nontender. No ascites. No organomegaly. EXTREMITIES: No clubbing or cyanosis, and no edema of the bilateral lower extremities. CENTRAL NERVOUS SYSTEMS: No focal neurological deficit. Power is 5/5 in all extremities. LABORATORY REVIEW: CBC showed a WBC 4.8, hemoglobin 12.6, platelets of 138. BMP showed sodium 135, potassium 3.5, chloride 88, bicarbonate 37, BUN is 80, creatinine is 1.97, calcium is 9.3. CURRENT MEDICATIONS: Patient's medications were all reviewed by me. She continues to be on Bumex 2 mg by mouth twice a day. I will change her metolazone to 2.5 mg by mouth every 48 hours. ASSESSMENT: 76-year-old female with past medical history of severe systolic congestive heart failure, left ventricular ejection fraction around 10-15%, history of cardiorenal syndrome, admitted this time with decompensated congestive heart failure, acute kidney injury, fluid overload and metabolic encephalopathy. PLAN: 1. [id number] systolic congestive heart failure. Patient's volume status has been well-optimized. She should be discharged home on Bumex 2 mg by mouth twice a day and metolazone 2.5 mg by mouth every 48 hours. 2. Hyponatremia. Hyponatremia is secondary to decompensated congestive heart failure and fluid overload. Patient's sodium stayed stable between 135-137. I will continue to diurese the patient at this time with the above mentioned dose of metolazone and Bumex. 3. Hypokalemia. Patient's potassium is 3.5 today. She continues to be on potassium chloride 20 mEq by mouth twice a day. Continue current dose. 4. Acute kidney injury superimposed on chronic kidney disease. Patient's creatinine continues to fluctuate between 1.7 to 1.8, which is her baseline. Continue current dose of diuretics. Acute kidney injury secondary to cardiorenal syndrome. 5. Metabolic alkalosis. Patient's bicarbonate is stable at 37. It is secondary to aggressive diuresis. Continue to monitor for now. 6. Metabolic encephalopathy. Patient's mental status is a lot better. Continue lactulose for at least 1-2 loose bowel movements per day and continue rifaximin 550 mg by mouth twice a day. The plan of care was discussed with the hospitalist team, Dr. Justin Brown. Patient is well-optimized today from nephrology standpoint. If her labs and volume status stays stable by tomorrow morning, then she should be discharged home and follow with nephrology service within 1-2 weeks after discharge.
[2017-01-08 04:45] VITALS: BP 97/57
[2017-01-08] MEDS: NITROGLYCERIN 2% OINT 1 GM *U/D* PKT TOP SCH (05:12)
[2017-01-08] MEDS: SLF 3 ML SYR IV SCH (05:27)
[2017-01-08] MEDS: LEVOTHYROXINE 0.15 MG TAB (150 MCG) PO SCH (05:27)
[2017-01-08 05:51] LABS: CREATININE FOR GFR 1.99 MG/DL (0.55-1.02); GLOMERULAR FILTRATION RATE 25.9 (>39)
[2017-01-08 06:12] LABS: MEAN CORPUSCULAR HEMOGLOBIN 30.5 pg (27.0-33.0); MEAN CORPUSCULAR VOLUME 94.3 fl (80.0-96.0); WHITE BLOOD COUNT 5.5 K/mm3 (4.0-10.0)
[2017-01-08 06:13] LABS: MEAN CORPUSCULAR HGB CONC 32.3 g/dl (32.0-36.5)
[2017-01-08] MEDS ORDERED: POTASSIUM CHLORIDE 10 MEQ SR TABLET PO ONE (07:00)
[2017-01-08 08:00] VITALS: BP 89/57
[2017-01-08] MEDS ORDERED: BUME1TA PO (08:11)
[2017-01-08] MEDS ORDERED: METO25TA PO (08:11)
[2017-01-08] MEDS ORDERED: POTA10CA PO ×2 (08:11→10:01)
[2017-01-08] MEDS ORDERED: LACT20EL PO (08:12)
[2017-01-08] MEDS ORDERED: XIFA550T PO (08:12)
[2017-01-08] MEDS ORDERED: POTASSIUM CHLORIDE 10 MEQ SR TABLET PO SCH ×2 (09:00→16:00)
[2017-01-08] MEDS: ASPIRIN 81 MG ENTERIC TAB PO SCH (10:02)
[2017-01-08] MEDS: BUMETANIDE 1 MG TAB PO SCH (10:02)
[2017-01-08] MEDS: rifAXIMin 550 MG TAB (XIFAXAN) PO SCH (10:02)
[2017-01-08 10:03] VITALS: BP 89/57
[2017-01-08] MEDS: HumaLOG INSULIN (NovoLOG) PER UNIT SC SCH (10:03)
[2017-01-08] MEDS: CARVedilol 3.125 MG TAB PO SCH (10:03)
[2017-01-08] MEDS: VITAMIN D 1,000 INTERNATIONAL UNITS TABLET PO SCH (10:03)
[2017-01-08] MEDS: LACTULOSE 20 GM/30 ML SYRUP UD PO SCH (10:03)
[2017-01-08] MEDS: BRIMONIDINE 0.15% OPHTH SOLN 5 ML OU SCH (10:04)
--- NOTE | 2017-01-08 13:19 | IPN ---
DATE: 01/08/2017 Mrs. Yen is seen this morning on her bedside. Her is present in the room. The patient reports that she was excited through the night about going home and could not sleep well. She is feeling much better today and reports that she ate everything on her breakfast tray. She denies any nausea or vomiting. Her dyspnea and peripheral edema has completely resolved. She is able to ambulate without any difficulty in the room. PHYSICAL EXAMINATION: VITAL SIGNS: Temperature is 96.2 degrees Fahrenheit, heart rate 57 per minute and respiratory rate 20 per minute. Blood pressure 89/57 mmHg and oxygen saturation 93% on room air. She weighed 43.9 kg today. Her head is atraumatic. Eyes, ears, nose and throat are unremarkable. Pupils are equal and reactive to light and sclera is anicteric. She has no oral thrush or ulcers. Neck veins are still about 5-6 cm above sternal angle. There is no thyroid enlargement. Heart sounds are regular with systolic murmur, grade 2/6. Lungs clear bilaterally. Abdomen is soft and nontender and without hepatosplenomegaly. Bowel sounds are normal. Skin has no rash or ulcers. Neurologically, she is awake, alert and oriented times three. Today's labs show WBC count 5.5, hemoglobin 13.2 and hematocrit 40.9. Platelets 147. Sodium 136 and potassium 3.0. BUN is 78 and creatinine 1.99. Chloride is 88 and CO2 40. Magnesium level is 2.0 today. PROBLEMS: 1. Acute on chronic congestive heart failure. The patient has known severe systolic congestive heart failure and was admitted with decompensated acute congestive heart failure. Her volume status has improved immensely and she is very close to her dry weight. We will continue with current diuretics, Bumex 2 mg twice a day and metolazone 2.5 mg every 48 hours. 2. Hypokalemia. This is diuretic induced and her potassium is being replaced. She will be given an extra dose of 20 mEq this morning and her regular dose is being increased to 20 mEq three times a day. She will follow up in the office and 1 week and get her electrolytes rechecked. 3. Hyponatremia. Her hyponatremia has improved and sodium level is 135, which is stable. Does not need any further intervention. 4. Acute renal failure superimposed on chronic kidney disease. Her kidney function is slightly worse than baseline and is likely to level off as her congestive heart failure has now improved. 5. Metabolic alkalosis. This is chronic and related to aggressive diuretic use. Her metolazone dose has already been decreased and her alkalosis is likely to gradually improve. No intervention is indicated at this point. 6. Metabolic encephalopathy. Related to acute renal failure and congestive heart failure. She is now back to her baseline mentation. She is able to ambulate and having normal conversation. DISPOSITION: From a renal standpoint, Mrs. Yen can be discharged to home today. She will follow up with Dr. Wood in 1 week.
[2017-01-09] MEDS ORDERED: metOLazone 2.5 MG TAB PO SCH (09:00)
--- NOTE | 2017-01-17 14:23 | DS.PDOC ---
Discharge Summary General Date of Admission Dec 25, 2016 at 20:08 Date of Discharge Jan 08, 2017 at 12:00 Primary Care Physician: Sujit Bhagat MD Specialist/Consultants Involve: Shea Amin MD Specialist/Consultants Involve CARDIOLOGY, DR. [facility], Dr. Reza Discharge Summary PROCEDURES PERFORMED DURING STAY: [None.] COMPLICATIONS/CHIEF COMPLAINT: Hyperkalemia ADMISSION DIAGNOSES: 1. Severe systolic failure (10-15%) s/p AICD/PPM 2. SSS, s/p AICD/PPM 3. Pulmonary hypertension 4. Valvular heart disease - Mitral and Aortic replacement and repair 5. CAD/DC/CABG 6. DM 7. hyperlipidemia 8. chronic anemia 9. hypothyroidism 10. Glaucoma 11. Anxiety 12. Malnutrition 13. Hyperkalemia 14. Altered mental status 15. Decompensated heart failure DISCHARGE DIAGNOSES: 1. Severe systolic failure (10-15%) s/p AICD/PPM 2. SSS, s/p AICD/PPM 3. Pulmonary hypertension 4. Valvular heart disease - Mitral and Aortic replacement and repair 5. CAD/DC/CABG 6. DM 7. hyperlipidemia 8. chronic anemia 9. hypothyroidism 10. Glaucoma 11. Anxiety 12. Malnutrition 13. Hyperkalemia 14. Metabolic encephalopathy 15. Decompensated heart failure - systolic and diastolic dysfunction 16. Cholecystitis - completed adequate course antimicrobial 17. Acute on chronic kidney disease 18. Electrolyte abnormalities 19. Acid/base disturbance HISTORY OF PRESENT ILLNESS: Patient is a 76-year-old female presenting for altered mental status. HOSPITAL COURSE: Patient was admitted for altered mental status, noted to have elevated ammonia level, transaminitis and respiratory distress. Differential on admission included hepatic vs infectious encephalopathy. Also found to be hyperkalemic. Patient also noted to be in respiratory distress, requiring supplemental oxygen, deemed to be secondary to decompensated heart failure. She was also found to have cholecystitis, but was not a surgical candidate. Her cholecystitis was treated with antibiotics, with further evaluation by general surgery. Nephrology was consulted to address her fluid overload. Maintaining euvolemia was difficult, but eventually accomplished with bumex and metolazone. Patient ultimately discharged home in stable condition with guarded prognosis, and instructions as indicated. DISCHARGE MEDICATIONS: Please see below. ALLERGIES: Please see below. PHYSICAL EXAMINATION ON DISCHARGE: VITAL SIGNS: Please see below. GENERAL: NAD, elderly, frail HEENT: NC/AT, EOMI, PERRL NECK: supple CARDIOVASCULAR EXAMINATION: +S1S2, RRR, systolic murmur RESPIRATORY EXAMINATION: CTA B/L ABDOMINAL EXAMINATION: soft, NT, +BS EXTREMITIES: no edema SKIN: no rashes NEUROLOGICAL EXAMINATION: no gross focal deficits PSYCHIATRIC EXAMINATION: AAOx3 LABORATORY DATA: Please see below. DISCHARGE CONDITION: Stable, guarded prognosis DISPOSITION: Discharge home with services. ACTIVITY: As tolerated. DIET: 2 gram sodium, carb consistent, low fat low cholesterol DISCHARGE PLAN AND INSTRUCTIONS: 1. Follow up nephrology as scheduled. 2. Follow up primary care provider as scheduled. 3. Follow up cardiology as scheduled. TIME SPENT ON DISCHARGE: Greater than 30 minutes. Medications Scheduled Aspirin (Aspirin 81) 81 Mg Tab 81 MG PO DAILY Brimonidine Tartrate 0.15% (Alphagan P) 0.15 % Yvette 1 DROP OU BID Bumetanide (Bumetanide) 1 Mg Tab 2 MG PO BID@,17 Carvedilol (Carvedilol) 3.125 Mg Tab 3.125 MG PO BID Cholecalciferol (Vitamin D-3) 1,000 Unit Tab 1,000 UNIT PO DAILY Glimepiride (Amaryl) 2 Mg Tab 2 MG PO DAILY Insulin Glargine (Lantus) 1 Units/0.01 Ml Susp 10 UNITS SC DAILY Lactulose (Lactulose) 10 Gm/15 Ml Yvette 30 ML PO BID Levothyroxine Sodium (Synthroid) 137 Mcg Tab 137 MCG PO DAILY Linagliptin Base (Tradjenta) 5 Mg Tab 5 MG PO DAILY Metolazone (Metolazone) 2.5 Mg Tab 2.5 MG PO Q48H Multivitamins *[facility] STOCKED* (Thera M Plus *[facility] STOCKED*) 1 Tab Tab 1 TAB PO DAILY Potassium Chloride (Klor-Con M10) 10 Meq Tabcr 20 MEQ PO TID Rifaximin (Xifaxan) 550 Mg Tab 550 MG PO BID Simvastatin - High Dose (Simvastatin) 40 Mg Tab 40 MG PO QHS Scheduled PRN Acetaminophen (Acetaminophen) 325 Mg Tab 325 MG PO PRN PAIN Guaifenesin (Coughtab) 200 Mg Tab 200 MG PO BID PRN PRN COUGH Milk Of Magnesia (Milk of Magnesia) 1,200 Mg/15 Ml Magda 30 ML PO DAILY PRN PRN CONSTIPATION Allergies Coded Allergies: No Known Allergies (Verified Allergy, Unknown, 11/09/03) PRIYA TOVAR MD Jan 17, 2017 14:23
== END 2017-01-08 12:00 | disposition home health service (06) | DRG 70 ==
LOC: M ED 15:04 → M ED INP 20:08 → M PCU 22:00 → M ED INP 01-08 06:44 → M PCU 01-08 06:45
PROVIDERS: ADMIT Internal Medicine; ATTEND Internal Medicine
DX: G93.41 Metabolic encephalopathy (principal); I50.43 Acute on chronic combined systolic (congestive) and diastolic (congestive) heart failure; J96.01 Acute respiratory failure with hypoxia; K81.0 Acute cholecystitis; Z68.1 Body mass index [BMI] 19.9 or less, adult; E46 Unspecified protein-calorie malnutrition; N17.9 Acute kidney failure, unspecified; N18.4 Chronic kidney disease, stage 4 (severe); E87.1 Hypo-osmolality and hyponatremia; E87.3 Alkalosis; Z66 Do not resuscitate; E78.5 Hyperlipidemia, unspecified; I27.2 Other secondary pulmonary hypertension; E11.649 Type 2 diabetes mellitus with hypoglycemia without coma; R79.1 Abnormal coagulation profile; I36.1 Nonrheumatic tricuspid (valve) insufficiency; R94.5 Abnormal results of liver function studies; F32.9 Major depressive disorder, single episode, unspecified; K72.90 Hepatic failure, unspecified without coma; I49.5 Sick sinus syndrome; E55.9 Vitamin D deficiency, unspecified; E87.6 Hypokalemia; I25.10 Atherosclerotic heart disease of native coronary artery without angina pectoris; I25.2 Old myocardial infarction; E03.9 Hypothyroidism, unspecified; F41.9 Anxiety disorder, unspecified; D64.9 Anemia, unspecified; H40.9 Unspecified glaucoma; E87.5 Hyperkalemia; Z98.61 Coronary angioplasty status; Z95.2 Presence of prosthetic heart valve; Z95.810 Presence of automatic (implantable) cardiac defibrillator; Z79.82 Long term (current) use of aspirin; Z79.84 Long term (current) use of oral hypoglycemic drugs; Z79.899 Other long term (current) drug therapy; Z87.891 Personal history of nicotine dependence

== ENCOUNTER 2017-01-23 18:17 | Inpatient (IN) | payer MEDICARE, BC, OTHER ==
[~2017-01-23] VITALS: Ht 160 cm; Wt 40.7 kg
[2017-01-23] MEDS: rifAXIMin 550 MG TAB (XIFAXAN) PO SCH (01:41)
[~2017-01-23 18:17] MED LIST changes: +BUME1TA PO; +LACT20EL PO; +METO25TA PO; +XIFA550T PO
[2017-01-23 20:19] LABS: BASO % 0.3 % (0.0-1.0); EOS % 0.2 % (0.0-3.0); LARGE UNSTAINED CELL # 0.1 K/mm3 (0.0-0.4); LARGE UNSTAINED CELL % 1.8 % (0.0-4.0); LYMPH # 0.6 K/mm3 (1.5-4.5); MEAN CORPUSCULAR HEMOGLOBIN 31.3 pg (27.0-33.0); MEAN CORPUSCULAR HGB CONC 33.1 g/dl (32.0-36.5); MEAN CORPUSCULAR VOLUME 94.4 fl (80.0-96.0); MONO # 0.7 K/mm3 (0.0-0.8); MONO % 9.8 % (0.0-5.0); NEUTROPHILS # 5.4 K/mm3 (1.8-7.7); PLATELET COUNT, AUTOMATED 152 k/mm3 (150-450); RED CELL DISTRIBUTION WIDTH 18.1 % (11.5-14.5); WHITE BLOOD COUNT 6.6 K/mm3 (4.0-10.0)
[2017-01-23 20:25] LABS: VENOUS BASE EXCESS -0.9 (-2.0-2.0); VENOUS O2 SATURATION 74.9 % (60.0-80.0); VENOUS PARTIAL PRESSURE CO2 34.9 mmHg (38.0-50.0); VENOUS PARTIAL PRESSURE O2 43.5 mmHg (30.0-50.0); VENOUS STANDARD HCO3 23.1 MEQ/L; VENOUS TOTAL CO2 23.8 MEQ/L (24.0-28.0)
[2017-01-23 20:53] LABS: ALBUMIN 3.1 GM/DL (3.2-5.2); ALBUMIN/GLOBULIN RATIO 0.91 (1.00-1.93); ALKALINE PHOSPHATASE 276 U/L (45-117); ALT/SGPT 63 U/L (12-78); ANION GAP 12 MEQ/L (8-16); AST/SGOT 107 U/L (15-37); BILIRUBIN,DIRECT 1.6 MG/DL (0.0-0.2); BILIRUBIN,TOTAL 2.9 MG/DL (0.2-1.0); BLOOD UREA NITROGEN 75 MG/DL (7-18); CALCIUM LEVEL 8.9 MG/DL (8.8-10.2); CARBON DIOXIDE LEVEL 25 MEQ/L (21-32); CHLORIDE LEVEL 94 MEQ/L (98-107); CREATININE FOR GFR 2.95 MG/DL (0.55-1.02); GLOMERULAR FILTRATION RATE 16.5 (>39); GLUCOSE, FASTING 159 MG/DL (83-110); SODIUM LEVEL 131 MEQ/L (136-145); TOTAL PROTEIN 6.5 GM/DL (6.4-8.2)
[2017-01-23] MEDS ORDERED: SIMVASTATIN 40 MG TAB PO SCH (21:00)
[2017-01-23] MEDS: BRIMONIDINE 0.15% OPHTH SOLN 5 ML OU SCH (21:00)
--- NOTE | 2017-01-23 21:00 | REPUSA ---
CT of the head Clinical history: altered mental status. Comparison: 12/25/2016. Protocol: Multiple axial CT images obtained with 5 mm slice thickness were obtained through the head without administration of contrast. Findings: The ventricles and sulci are symmetric but prominent in size bilaterally. There are periven tricular areas of low attenuation throughout the deep white matter. There is no evidence of acute hem orrhage or infarct. There is no midline shift, mass effect, or extra-axial fluid collection. The osse ous structures are unremarkable. The visualized paranasal sinuses and mastoid air cells are clear. Impression: No acute hemorrhage or infarct. Findings are consistent with mild age-related atrophy and chronic small vessel ischemic disease.
[2017-01-23 21:03] LABS: POTASSIUM SERUM 6.6 MEQ/L (3.5-5.1)
[2017-01-23] MEDS ORDERED: ALBUTEROL SULFATE 2.5 MG/0.5 ML INH NEB SOLN INH ONE (21:45)
[2017-01-23] MEDS ORDERED: NS 500 ML IV ONE (22:00)
[2017-01-23] MEDS ORDERED: BUME2TAB PO (22:31)
[2017-01-23] MEDS ORDERED: LACT20EL PO (22:31)
[2017-01-23] MEDS ORDERED: METO25TA PO (22:31)
[2017-01-23] MEDS ORDERED: XIFA550T PO (22:31)
[2017-01-23] MEDS ORDERED: POTA10CA PO (22:31)
[2017-01-24] VITALS (7 sets, daily range): BP systolic 82–158; BP diastolic 49–98
[2017-01-24] MEDS: LACTULOSE 20 GM/30 ML SYRUP UD PO SCH ×3 (01:30→20:46)
[2017-01-24 01:37] LABS: CREATININE FOR GFR 3.16 MG/DL (0.55-1.02); GLOMERULAR FILTRATION RATE 15.2 (>39)
[2017-01-24 01:38] LABS: POTASSIUM SERUM 6.8 MEQ/L (3.5-5.1)
[2017-01-24] MEDS ORDERED: CALCIUM GLUCONATE 1,000 MG in D5W MINI-BAG PLUS 100 ML IV ONE (02:00)
[2017-01-24] MEDS ORDERED: GLUCAGON FOR INJ 1 MG VIAL (J1610) SC PRN (03:00)
[2017-01-24] MEDS ORDERED: DEXTROSE 50% 50 ML SYRINGE IV PRN (03:00)
[2017-01-24] MEDS ORDERED: GLUCOSE 4 GM CHEW TABLET PO PRN (03:00)
--- NOTE | 2017-01-24 03:07 | HPEPDOC ---
General Date of Admission Jan 23, 2017 at 22:30 Primary Care Physician: Sujit Bhagat MD Attending Physician: BRENDA BUSH DO Chief Complaint The patient is a 76-year-old female admitted with a reason for visit of Metabolic Encephalopathy. History of Present Illness This is a 76-year-old female with a past medical history significant for systolic heart failure, sick sinus syndrome status post AICD, pulmonary hypertension, valvular heart disease status post mitral and aortic valve replacement, coronary artery disease and diabetes. She presents to the emergency department today with her son and grandson. They report her having altered mental status which had onset today. The patient was baseline 2 days ago. Her grandson reports that she was talking, ambulating, and was going to the grocery store. One day prior to admission, she was increasingly lethargic. This morning, she had decreased mental status, did not get out of bed. She did not sleep well over the previous night, was restless throughout the night. She drank 1 drink of ensure today and had not eaten since. She did eat a light meal the previous day. At this time, patient denies any fevers, shortness of breath, chest pain, abdominal pain, dysuria. The patient was evaluated in the emergency department. Her laboratory studies showed hyperkalemia, hyponatremia, lactic acidosis, hyperammonemia, and poor kidney function. Nephrology, Dr. Amin, was notified on the patient. He discussed stabilizing the patient today and nephrology will be consulted and will round on patient in the morning. Home Medications Scheduled Aspirin (Aspirin 81) 81 Mg Tab 81 MG PO DAILY (Reported) Brimonidine Tartrate 0.15% (Alphagan P) 0.15 % Yvette 1 DROP OU BID (Reported) Bumetanide (Bumetanide) 2 Mg Tab 2 MG PO DAILY (Reported) Carvedilol (Carvedilol) 3.125 Mg Tab 3.125 MG PO BID (Reported) Cholecalciferol (Vitamin D-3) 1,000 Unit Tab 1,000 UNIT PO DAILY (Reported) Glimepiride (Amaryl) 2 Mg Tab 2 MG PO DAILY (Reported) Lactulose (Lactulose) 10 Gm/15 Ml Yvette 30 GM PO DAILY (Reported) Levothyroxine Sodium (Synthroid) 137 Mcg Tab 137 MCG PO DAILY (Reported) Linagliptin Base (Tradjenta) 5 Mg Tab 5 MG PO DAILY (Reported) Metolazone (Metolazone) 2.5 Mg Tab 2.5 MG PO Q2D (Reported) Multivitamins *[facility] STOCKED* (Thera M Plus *[facility] STOCKED*) 1 Tab Tab 1 TAB PO DAILY (Reported) Potassium Chloride (Klor-Con M10) 10 Meq Tabcr 20 MEQ PO TID (Reported) Rifaximin (Xifaxan) 550 Mg Tab 550 MG PO BID (Reported) Simvastatin - High Dose (Simvastatin) 40 Mg Tab 40 MG PO QHS (Reported) Scheduled PRN Acetaminophen (Acetaminophen) 325 Mg Tab 650 MG PO Q4H PRN PRN PAIN (Reported) Guaifenesin (Coughtab) 200 Mg Tab 400 MG PO BID PRN PRN COUGH (Reported) Milk Of Magnesia (Milk of Magnesia) 1,200 Mg/15 Ml Magda 30 ML PO DAILY PRN PRN CONSTIPATION (Reported) Allergies Coded Allergies: No Known Allergies (Verified , 11/09/03) Past Medical History Medical History Severe systolic heart failure (EF 10-15%) status post AICD/PPM Sick sinus syndrome Pulmonary hypertension Valvular heart disease status post mitral and aortic valve replacement Coronary artery disease status post CABG Diabetes mellitus Hyperlipidemia Chronic anemia Hypothyroidism Glaucoma Anxiety Malnutrition Hyperkalemia metabolic encephalopathy Acute on chronic kidney disease Surgical History AICD Mitral and aortic valve replacement CABG Hysterectomy Family History Mother with coronary artery disease Social History * Smoker: former Smoker (20 pack year history) Alcohol: denies Drugs: denies Recent Travel/Sick Contacts: Denies: Recent travel Lives at home with her and daughter. No recent travels. 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 No pets at home. Review of Symptoms Constitutional: Denies: Chills, Fever, Night Sweats ENT: Denies: Head Aches Pulmonary: Denies: Cough, Dyspnea Cardiovascular: Denies: Chest Pain, Lt Headedness, Orthopnea, Palpitations, Paroxysmal Noc. Dyspnea Gastrointestinal: Denies: Abdominal Pain, Diarrhea, Hematochezia, Nausea, Vomiting Genitourinary: Denies: Dysuria, Frequency, Hematuria, Incontinence, Retention Other systems Review of systems limited secondary to lethargy and current mental status Physical Examination General Exam: Positive: Cooperative, Negative: Alert (patient was somnolent), No Acute Distress Chest Exam: Positive: Clear to auscultation, Normal air movement Heart Exam: Positive: Normal S1, Normal S2, Rate Normal, Regular Rhythm Abdomen Exam: Positive: Normal bowel sounds, Soft, Negative: Hepatospenomegaly, Tenderness Extremity Exam: Positive: Normal pulses, Negative: Clubbing, Cyanosis, Edema Skin Exam: Positive: Other skin issue (skin was warm and dry, numerous bruising appreciated on the upper extremities) Vital Signs Blood pressure 108/63 Heart rate 72 Respirations 16 93% on room air Laboratory Data Labs 24H Laboratory Tests 2 01/23/17 20:05: Acetaminophen Level < 2.0L, Aspartate Amino Transf (AST/SGOT) 107H, Alanine Aminotransferase (ALT/SGPT) 63, Alkaline Phosphatase 276H, Total Bilirubin 2.9H , Direct Bilirubin 1.6H, Albumin 3.1L, Albumin/Globulin Ratio 0.91L, Ammonia 75H , Anion Gap 12, White Blood Count 6.6, Red Blood Count 4.69, Hemoglobin 14.7, Hematocrit 44.3, Mean Corpuscular Volume 94.4, Mean Corpuscular Hemoglobin 31.3 , Mean Corpuscular Hemoglobin Concent 33.1, Red Cell Distribution Width 18.1H, Platelet Count 152, Neutrophils (%) (Auto) 81.0H, Lymphocytes (%) (Auto) 7.0L, Monocytes (%) (Auto) 9.8H, Eosinophils (%) (Auto) 0.2, Basophils (%) (Auto) 0.3 , Neutrophils # (Auto) 5.4, Lymphocytes # (Auto) 0.6L, Monocytes # (Auto) 0.7, Eosinophils # (Auto) 0.0, Basophils # (Auto) 0.0, Blood Gas Bicarbonate Standard 23.1, Calcium Level 8.9, Creatine Kinase MB 2.0, Creatine Kinase MB Relative Index 2.59, Ethyl Alcohol Level < 0.003, Glomerular Filtration Rate 16.5L, Lactic Acid (Sepsis) 4.7*H, Large Unclassified Cells # 0.1, Large Unclassified Cells % 1.8, Thyroid Stimulating Hormone (TSH) 12.300H, Total Creatine Kinase 77, Total Protein 6.5, Troponin I 0.05, Venous Blood Base Excess -0.9, Venous Blood pH 7.431H, Venous Blood Partial Pressure CO2 34.9L, Venous Blood Partial Pressure O2 43.5, Venous Blood Total Carbon Dioxide 23.8L, Venous Blood HCO3 22.7L, Venous Blood Oxygen Saturation 74.9 01/23/17 20:12: Bedside Glucose (Misc Panel) 157H 01/23/17 21:47: Urine Amorphous Sediment SMALLH, Urine Appearance CLOUDYH, Urine Color RAO, Urine pH 5.0, Urine Specific [place] 1.012, Urine Protein 1+H, Urine Glucose (UA ) NEGATIVE, Urine Ketones NEGATIVE, Urine Urobilinogen 0.2, Urine Bilirubin NEGATIVE, Urine Leukocyte Esterase 1+H, Urine Bacteria (Auto) 1+H, Urine Blood NEGATIVE, Urine Calcium Carbonate Cryst(Auto) , Urine Calcium Oxalate Cryst ( Auto) , Urine Calcium Phosphate Darya (Auto) , Urine Cellular Casts , Urine Cystine Crystals , Urine Granular Casts (Auto) , Urine Hyaline Casts (Auto) 6, Urine Leucine Crystals , Urine Mucus (Auto) SMALL, Urine Nitrite NEGATIVE, Urine Oval Fat Bodies (Auto) , Urine RBC (Auto) 2, Urine Renal Epithelial Cells , Urine Sperm (Auto) , Urine Squamous Epithelial Cells 7, Urine Transitional Epithelial Cells , Urine Trichomonas (Auto) , Urine Triple Phosphate Cryst (Auto ) , Urine Tyrosine Crystals , Urine Uric Acid Crystals (Auto) , Urine WBC (Auto ) 13H, Urine Waxy Casts (Auto) , Urine Yeast-Like Cells (Auto) CBC/BMP Laboratory Tests 01/23/17 20:05 Red Blood Count 4.69, Mean Corpuscular Volume 94.4, Mean Corpuscular Hemoglobin 31.3, Mean Corpuscular Hemoglobin Concent 33.1, Red Cell Distribution Width 18.1 H, Neutrophils (%) (Auto) 81.0 H, Lymphocytes (%) (Auto) 7.0 L, Monocytes ( %) (Auto) 9.8 H, Eosinophils (%) (Auto) 0.2, Basophils (%) (Auto) 0.3, Neutrophils # (Auto) 5.4, Lymphocytes # (Auto) 0.6 L, Monocytes # (Auto) 0.7, Eosinophils # (Auto) 0.0, Basophils # (Auto) 0.0 Microbiology Microbiology 01/23/17 Blood Culture, Received Pending 01/23/17 Urine Culture, Received Pending RAD Interpretation STUDY: Head CT Rad Actions: Report Reviewed RAD Interpretation: Other Result Comments: (A head CT was performed on 01/23 which showed no acute hemorrhage or infarct. Findings were consistent with mild age-related atrophy and chronic small vessel ischemic disease) Problems (1) Metabolic encephalopathy Status: Acute Problem Text: Secondary to hyperammonemia vs uremia. Case was discussed with nephrology. We will stabilize her overnight and nephrology will evaluate her tomorrow morning. At this time, patient was given bolus of normal saline. We will continue to monitor her electrolyte levels. When I evaluated her, patient was lethargic, although she did answer questions appropriately. We will continue to monitor her mental status. (2) Hyperkalemia Status: Acute Problem Text: We will continue to trend her potassium levels. Patient given calcium gluconate. (3) Hyperammonemia Status: Acute Problem Text: We will continue Lactulose at this time. (4) Hypernatremia Status: Acute Problem Text: 500 mL bolus of normal saline administered in the emergency department. We will monitor her sodium levels closely as to prevent osmotic demyelination syndrome. Recommended correction: 6-8 mEq/liter in 24 hour period. (5) Lactic acidosis Status: Acute Problem Text: We will continue to monitor the patient's lactic acid levels. Blood cx were ordered. (6) Type 2 diabetes mellitus Status: Chronic Problem Text: Home Diabetic regimen held at this time. Patient was started on sliding scale (7) CAD (coronary artery disease) Status: Chronic Problem Text: Continue patient on aspirin 81 mg daily. Blood pressure medications held as patient was having low blood pressure in the ER. Plan / VTE VTE Prophylaxis Ordered?: Yes GME ATTESTATION GME ATTESTATION My preceptor for this patient encounter was physically present in the building during the encounter and was fully available. As needed, all aspects of the patient interview, examination, medical decision making process, and medical care plan development were reviewed and approved by the preceptor. Preceptor is aware and concurs with the plan as stated in the body of this note and will attest to such by his/her cosignature. JUSTICE CHURCHILL DO Jan 24, 2017 00:13
[2017-01-24] MEDS ORDERED: SLF 3 ML SYR IV PRN (03:30)
[2017-01-24 05:27] LABS: MEAN CORPUSCULAR HEMOGLOBIN 30.4 pg (27.0-33.0); MEAN CORPUSCULAR HGB CONC 32.6 g/dl (32.0-36.5); MEAN CORPUSCULAR VOLUME 93.2 fl (80.0-96.0); WHITE BLOOD COUNT 7.1 K/mm3 (4.0-10.0)
[2017-01-24 05:41] LABS: ALBUMIN 2.9 GM/DL (3.2-5.2); ALBUMIN/GLOBULIN RATIO 0.78 (1.00-1.93); CALCIUM LEVEL 9.6 MG/DL (8.8-10.2); CREATININE FOR GFR 3.3 MG/DL (0.55-1.02); GLOMERULAR FILTRATION RATE 14.5 (>39); TOTAL PROTEIN 6.6 GM/DL (6.4-8.2)
[2017-01-24 05:44] LABS: POTASSIUM SERUM 6.4 MEQ/L (3.5-5.1)
[2017-01-24] MEDS: LEVOTHYROXINE 0.137 MG TAB (137MCG) PO SCH (06:00)
[2017-01-24] MEDS: SLF 3 ML SYR IV SCH ×3 (06:00→20:55)
[2017-01-24] MEDS: HumaLOG INSULIN (NovoLOG) PER UNIT SC SCH ×4 (07:41→20:57)
--- NOTE | 2017-01-24 09:01 | REP ---
PORTABLE CHEST: AP portable view of the chest is performed and compared to prior studies, most recent of which is 01/02/2017. There is moderate cardiomegaly again noted. There is mild pulmonary venous hypertension and bibasilar fibroatelectatic change. No consolidation seen. Mediastinal silhouette is unchanged. Multiple sternal wires and mediastinal clips are present as well as a left pacemaker. IMPRESSION: Moderate cardiomegaly. Mild chronic findings without evidence of acute infiltrate. Signed by Paresh Vora MD 01/24/2017 05:15 P
[2017-01-24] MEDS: BRIMONIDINE 0.15% OPHTH SOLN 5 ML OU SCH ×2 (10:05→20:55)
[2017-01-24] MEDS: VITAMIN D 1,000 INTERNATIONAL UNITS TABLET PO SCH (10:08)
[2017-01-24] MEDS: ASPIRIN 81 MG ENTERIC TAB PO SCH (10:08)
[2017-01-24] MEDS: rifAXIMin 550 MG TAB (XIFAXAN) PO SCH ×2 (10:08→20:46)
--- NOTE | 2017-01-24 10:45 | ECGEPIP ---
Stationary ECG Study [facility] [place] - ED Test Date: 2017-01-23 Pat Name: EAN MONTEMAYOR Department: Room: [place] [address] Gender: F Lieutenant General: raiza : 1940 Requested By: LAINA Patel Order Number: [id number] Reading MD: Enmanuel Veliz Measurements Intervals [place] Rate: 65 P: 79 IN: 259 QRS: -76 QRSD: 204 T: 86 QT: 496 QTc: 516 Interpretive Statements ELECTRONIC VENTRICULAR PACEMAKER ABNORMAL RHYTHM ECG SIMILAR TO 01/02/17 Electronically Signed On 01-24-2017 10:44:53 EST by Enmanuel Veliz
[2017-01-24] MEDS ORDERED: FUROSEMIDE 100 MG/10 ML VIAL (J1940) IV ONE ×2 (12:00→15:00)
[2017-01-24] MEDS: cefTRIAXone SOD 1 GM in D5W MINI-BAG PLUS 50 ML IV SCH (12:10)
--- NOTE | 2017-01-24 18:08 | IPN ---
DATE: 01/24/2017 SUBJECTIVE: Patient is seen and examined in the room today. Patient's is also present during the encounter. Patient is unable to maintain prolonged alertness and stay awake, unable to assess mentation, patient barely follows commands. OBJECTIVE: VITAL SIGNS: Temperature 97.5, pulse 74, respiration rate 18, blood pressure 118/62, pulse oximetry 98% in room air. GENERAL: Patient is lethargic and unable to stay awake for a long duration, unable to assess mentation. HEENT: Positive jugular venous distention (JVD). Otherwise normocephalic, atraumatic. CARDIOVASCULAR: Positive S1, S2, regular rate. LUNGS: Bilateral crackles. No wheezes appreciated. ABDOMEN: Soft, nontender, nondistended. No suprapubic tenderness. EXTREMITIES: No edema, no sign of cyanosis. LABORATORY DATA: WBC 7.1, hemoglobin 13.8, hematocrit 42.4, platelet count 159. Sodium 133, potassium 6.4, chloride 97, carbon dioxide 25, BUN 83, creatinine 3.3, GFR 14.4, fasting glucose 66, lactic acid 4.1, calcium 9.6, total bilirubin 3, AST 92, ALT 62, alkaline phosphatase 276, total protein 6.6, albumin 2.9. Chest xray shows moderate cardiomegaly, mild chronic findings without evidence of acute infiltrate. ASSESSMENT AND PLAN: 1. Severe hypokalemia. Around the time of admission, patient had a potassium of 6.8. Calcium gluconate was given through intravenous (IV). This only had mild improvement of the potassium level. [employer], Dr. Amin, has been consulted and we appreciate his assistance. 2. Lactic acidosis. Patient has lactic acid level of 5, possibly due to fluid overload. After discussion with Dr. Amin, patient will receive Lasix diuresis. 3. Acute on chronic renal failure secondary to fluid overload. Patient will receive Lasix diuresis. 4. Severe systolic heart failure with ejection fraction (EF) of 10-15% status post automatic implantable cardioverter defibrillator (AICD) and pacemaker. Currently patient has signs of fluid overload with elevated jugular venous distention (JVD). Patient will have diuresis. 5. Sick sinus syndrome with automatic implantable cardioverter defibrillator (AICD)/pacemaker. 6. History of pulmonary hypertension. 7. Valvular heart disease status post mitral aortic valve placement. 8. History of coronary artery disease status post coronary artery bypass graft (CABG). 9. Patient will be on sliding scale and the patient will be on consistent carbohydrate diet if patient can tolerate oral intake. 10. Metabolic encephalopathy, possibly due to electrolyte abnormality versus urinary tract infection (UTI). Patient has a history of a urinary tract infection (UTI) and cultures have grown Escherichia (E) coli, Enterococcus faecalis, and Klebsiella. Empirically patient was started on Rocephin. 11. Urinary tract infection (UTI). On Rocephin. 12. History of hypothyroidism. On Synthroid. 13. Chronic anemia. 14. Hyperlipidemia. 15. Glaucoma. 16. Anxiety. 17. Deep venous thrombosis (DVT) prophylaxis. Patient is on thromboembolism deterrents (TEDs) and sequential compression device.
--- NOTE | 2017-01-24 19:00 | CR ---
DATE OF CONSULTATION: 01/24/2017 REQUESTING PHYSICIAN: Dr. Leslie Brannon DO. REASON FOR CONSULTATION: Altered mentation, hyperkalemia and generalized weakness. HISTORY OF PRESENT ILLNESS: Mrs. Yen is a 76-year-old female who is well known to nephrology service. She has been admitted to [facility] multiple times due to decompensated congestive heart failure, acute and chronic kidney disease and electrolyte abnormalities. She was admitted to [facility] last evening due to metabolic encephalopathy and hyperkalemia. She also had slightly worsening kidney function. A nephrology consultation was requested and the patient is seen this morning. PAST MEDICAL AND SURGICAL HISTORY: Significant for: 1. History of severe systolic congestive heart failure with ejection fraction about 10-15%. 2. History of sick sinus syndrome, status post automatic implantable cardioverter defibrillator (AICD) placement. 3. History of pulmonary hypertension. 4. History of valvular heart disease, status post mitral and aortic valve replacement. 5. History of coronary artery disease. 6. Diabetes. 7. 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 8. Anemia. 9. Hypothyroidism. 10. Hyperlipidemia. 11 Prior history of acute renal failure. Past surgical history is significant for hysterectomy, coronary artery bypass graft (CABG), mitral and aortic valve replacement and AICD placement. MEDICATIONS: Home medications include: - aspirin 81 mg daily - Bumex 2 mg daily - carvedilol 3.125 mg twice a day - vitamin D 1000 units daily - Amaryl 2 mg daily - lactulose 30 grams daily - levothyroxine 137 mcg daily - metolazone 2.5 mg every two days - multivitamin one tablet daily - potassium chloride 20 mEq three times a day - Xifaxan 550 mg twice a day - simvastatin 40 mg daily ALLERGIES: The patient has no known drug allergies. PERSONAL AND SOCIAL HISTORY: The patient is and lives with her family. She does not smoke or drink. FAMILY HISTORY: Is negative for genetic kidney disease. There is no relevant other medical family history. REVIEW OF SYSTEMS: The patient's is present in the room who provided most of the information as the patient herself is still encephalopathic and not able to provide reliable information. She did open her eyes and answer a couple of questions with yes or no. She did not have any fever or chills. She felt very weak yesterday and did not eat much according to her . There is no reported history of nausea, vomiting, diarrhea, rectal bleeding or black-colored stools. She has been just very weak and sleepy. There is no history of fall at home and no history of other trauma. The patient could not provide any further information. PHYSICAL EXAMINATION: GENERAL: Very weak, emaciated lady lying in the bed. VITAL SIGNS: Temperature is 99 degrees Fahrenheit, heart rate 76 per minute and respiratory rate 20 per minute. Blood pressure 96/55 mmHg and oxygen saturation 95% on room air. HEENT: Head is atraumatic. Pupils are equal and reactive to light and sclerae are anicteric. Neck veins are about 12 cm above sternal angle. Neck is supple and without any thyroid enlargement. Ears, nose and throat are unremarkable. CARDIAC: Heart exam reveals a systolic and diastolic murmur. There is no pericardial friction rub. LUNGS: Have diminished breath sounds at bases with few basilar rales. ABDOMEN: Soft and nontender and without a palpable organomegaly. Bowel sounds are normal. EXTREMITIES: Have no cyanosis or clubbing. SKIN: Has no rash or ulcers. NEUROLOGIC: She is arousable but confused and not able to answer any questions appropriately. LABORATORY DATA: WBC count 7.1, hemoglobin 13.8 and hematocrit 42.4. Platelets 159. Potassium was 6.8 last evening and sodium 135. This morning her sodium was 133 and potassium 6.4. BUN 83 and creatinine 3.3. Glucose 66, lactic acid level 4.1 while it was up to 5.0 last evening. AST 92, ALT 62 and alkaline phosphatase 276. Total protein 6.6 and albumin 2.9. IMAGING: Chest x-ray done in the emergency room was reviewed independently. She has significant cardiomegaly and mild chronic changes without any evidence of acute infiltrate or effusion. PROBLEMS: 1. Acute renal failure superimposed on chronic kidney disease. Most likely this is related to decompensated congestive heart failure. At present we will going to try to diurese her and then see how she responds. The patient is not a candidate for dialysis due to her frail condition and multiorgan problems. She has an ejection fraction of only 10-15% and not likely to tolerate dialysis. 2. Acute congestive heart failure superimposed on chronic systolic congestive heart failure. The patient is currently decompensated. We are going to give her Lasix 18 mg intravenously and will monitor urine output for next several hours. I will consider to give her another dose of Lasix later this afternoon if needed. 3. Hyperkalemia most likely related to worsening kidney function with acute renal failure and potassium supplement. Her potassium supplement has already been stopped. We will give her a dose of diuretic and try to diurese her which will as also help with correction of hyperkalemia. She is not eating or drinking much at this time. 4. Metabolic encephalopathy. I do not feel that this is uremic encephalopathy. I suspect that she may have a urinary tract infection leading to encephalopathy. At present, we will start with broad-spectrum antibiotics pending urine culture results. Again, she is not a candidate for dialysis. 5. Hyperkalemia. This is related to acute renal failure and potassium supplement. We are going to diurese her and monitor her electrolytes. I thank you for involving me in the care of Mrs. Yen. I will follow her along with you.
[2017-01-24 21:03] LABS: CALCIUM LEVEL 9.7 MG/DL (8.8-10.2); CREATININE FOR GFR 3.9 MG/DL (0.55-1.02); GLOMERULAR FILTRATION RATE 11.9 (>39)
[2017-01-24 21:12] LABS: POTASSIUM SERUM 6.8 MEQ/L (3.5-5.1)
[2017-01-25] VITALS: BP 100/53
[2017-01-25 04:00] VITALS: BP 102/60
[2017-01-25 05:44] LABS: MEAN CORPUSCULAR HEMOGLOBIN 30.9 pg (27.0-33.0); MEAN CORPUSCULAR HGB CONC 33.1 g/dl (32.0-36.5); MEAN CORPUSCULAR VOLUME 93.6 fl (80.0-96.0); RED CELL DISTRIBUTION WIDTH 17.9 % (11.5-14.5); WHITE BLOOD COUNT 6.8 K/mm3 (4.0-10.0)
[2017-01-25 05:49] LABS: ALBUMIN/GLOBULIN RATIO 0.86 (1.00-1.93); BILIRUBIN,TOTAL 2.1 MG/DL (0.2-1.0); CALCIUM LEVEL 9.4 MG/DL (8.8-10.2); CREATININE FOR GFR 3.93 MG/DL (0.55-1.02); GLOMERULAR FILTRATION RATE 11.8 (>39); TOTAL PROTEIN 6.5 GM/DL (6.4-8.2)
[2017-01-25] MEDS: LEVOTHYROXINE 0.137 MG TAB (137MCG) PO SCH (06:55)
[2017-01-25] MEDS: SLF 3 ML SYR IV SCH ×3 (06:56→21:06)
[2017-01-25] MEDS: rifAXIMin 550 MG TAB (XIFAXAN) PO SCH ×2 (07:54→21:05)
[2017-01-25] MEDS: LACTULOSE 20 GM/30 ML SYRUP UD PO SCH (07:54)
[2017-01-25] MEDS: HumaLOG INSULIN (NovoLOG) PER UNIT SC SCH ×4 (07:55→21:05)
[2017-01-25] MEDS: VITAMIN D 1,000 INTERNATIONAL UNITS TABLET PO SCH (07:55)
[2017-01-25] MEDS: BRIMONIDINE 0.15% OPHTH SOLN 5 ML OU SCH ×2 (07:55→21:06)
[2017-01-25] MEDS: ASPIRIN 81 MG ENTERIC TAB PO SCH (07:55)
[2017-01-25 08:00] VITALS: BP 114/58
[2017-01-25] MEDS ORDERED: FUROSEMIDE injection 250 MG in D5W 225 ML IV SCH (11:00)
[2017-01-25] MEDS: DOBUTamine HCL 500,000 MCG in APPROPRIATE DILUENT 1 EA IV SCH (11:54)
[2017-01-25 12:00] VITALS: BP 110/52
[2017-01-25] MEDS: cefTRIAXone SOD 1 GM in D5W MINI-BAG PLUS 50 ML IV SCH (12:44)
--- NOTE | 2017-01-25 13:22 | IPN ---
DATE: 01/25/2017 Mrs. Yen is seen this morning on her bedside. She is more alert today and was able to answer simple questions. She denies any nausea or vomiting. She remains very weak and still not fully oriented. Yesterday two doses of intravenous Lasix 80 mg were given and she had minimal urine output. She has been incontinent so urine was not recorded. PHYSICAL EXAMINATION: Temperature 95.3 degrees Fahrenheit, heart rate 66 per minute and respiratory rate 22 per minute. Blood pressure 114/58 mmHg and oxygen saturation 93% on room air. Neck veins are still markedly distended. Head is atraumatic. Ears, nose and throat are unremarkable. Neck is supple and without thyroid enlargement. Jugular venous distention (JVD) is at least 10 to 11 cm above sternal angle. Heart sounds are regular with systolic murmur grade 2/6 and no pericardial friction rub. Lungs with diminished breath sounds and bibasilar rales. Abdomen is soft and nontender and without a palpable organomegaly. Extremities without any cyanosis or clubbing. Skin has no rash or ulcers. Neurologically, she is awake, more alert but still not fully oriented. Today's labs show sodium level 131, potassium 6.0, BUN 98 and creatinine 3.93. Glucose 215 and calcium 9.4. A lactic acid level is 4.1. Hemoglobin A1c is 9.2. Total bilirubin 2.1, AST 97 and alkaline phosphatase 250. ALT is 74. Total protein 6.5 and albumin 3.0. PROBLEMS: 1. Acute renal failure superimposed on chronic kidney disease. Most likely related to cardiorenal syndrome as the patient is known to have severely reduced left ventricular systolic function. She is not a dialysis candidate and we will continue our efforts to optimize her cardiac status, which is likely to help with improvement in kidney function. 2. Hyperkalemia. This is again related to acute renal failure superimposed on chronic kidney disease. She is not receiving any potassium supplement. We are going to try to diurese her, which will help with her hyperkalemia. 3. Hyponatremia. This is also related to acute renal failure and congestive heart failure. With diuresis, sodium level is likely to improve. 4. Acute on chronic systolic congestive heart failure. The patient is quite decompensated and has poor cardiac function. The patient is being started on intravenous dobutamine drip and Lasix drip. In the past, this combination has worked for her. We will give it a try and see how she responds. The patient will get a central line placed and also a Rene catheter placed for accurate urine output. 5. Metabolic encephalopathy. Most likely related to urinary tract infection or worsening renal function. She is unfortunately not a suitable candidate for dialysis due to frail condition and poor cardiac function. Her prognosis remains guarded. She is on Rocephin for possible urinary tract infection (UTI), and we will continue to manage her other comorbid conditions. Her mentation is slightly improved today.
--- NOTE | 2017-01-25 15:36 | REP ---
Procedure: PICC line insertion with Gavin The procedure was performed under the direct supervision of Dr. Muñoz. The risks and benefits of the procedure were explained and informed consent was obtained by the health care proxy. The right basilic vein was localized using ultrasound guidance. The skin was prepped and draped in a sterile fashion. 2% lidocaine was used as a local anesthetic. Using ultrasound guidance the basilic vein was cannulated and a 0.018 guidewire was inserted and advanced to the SVC using fluoroscopic guidance. The needle was removed and a 5.5 Moroccan dilator and peel-away sheath was inserted over the guide wire. A 5.5 Moroccan dual lumen catheter was cut to length of 35 cm. The dilator was removed and the catheter was inserted over the guide wire with the tip ending in the SVC. The peel-away sheath was removed and the catheter was flushed with heparinized saline as per Hospital protocol. The catheter was affixed to the skin and a sterile dressing was applied. The the patient tolerated the procedure well and there were no immediate complications. 0.1 minutes of fluoro time was utilized for this procedure. Reviewed by CARLOS Curry 01/25/2017 03:20 PSigned by Bennie Muñoz MD 01/25/2017 03:29 P
[2017-01-25 16:00] VITALS: BP 123/58
[2017-01-25] MEDS: SODIUM CHLORIDE 0.9% INJ 10 ML SYR IV SCH (16:41)
[2017-01-25 19:45] VITALS: BP 120/65
--- NOTE | 2017-01-25 20:10 | IPN ---
DATE: 01/25/2017 SUBJECTIVE: The patient seen in the room multiple times today. The patient continued to have fluctuation of her mentation, sometimes she was answer to some questions and follow commands, and she demonstrated sign of disorientation and there are a few multiple incidents that she has difficulty maintaining alertness and awakeness. I had the chance to talk to the patient's health proxy, her with regard to the medical order of life-sustaining treatment (MOLST) form. The patient stayed DO NOT RESUSCITATE (DNR), DO NOT RESUSCITATE (DNR), however, the patient's proxy wanted the patient to have the capacity to receive antibiotics and use of feeding tube if she needs it. The new MOLST form is updated. OBJECTIVE: VITAL SIGNS: Temperature is 95.3, pulse 66, respirations 22, blood pressure is 114/58, pulse oximetry is 93% on room air. GENERAL: The patient is not alert or awake. The patient is not oriented. HEENT: Positive jugular venous distention (JVD). Otherwise, normocephalic, atraumatic. Extraocular movements grossly intact. CARDIOVASCULAR: Positive S1, S2. Regular rate. LUNGS: Clear to auscultation bilaterally. No wheezes. ABDOMEN: Soft, nontender, nondistended. Bowel sounds present. No rebound. No guarding. EXTREMITIES: No edema. No sign of cyanosis. LABORATORY DATA: WBC 6.8, hemoglobin 13.3, hematocrit 40.1, platelet count is 138. Sodium is 131, potassium 6, chloride 95, carbon dioxide 25, BUN 98, creatinine 3.93. GFR is 11.8. Fasting glucose 215. A1c is 9.2, calcium is 9.4. Total bilirubin is 2.1, AST is 97, ALT is 74, alkaline phosphatase 250. Ammonia level is 16, total protein is 6.5. Albumin 3, free T4 is 1.14. ASSESSMENT AND PLAN: 1. Severe hyperkalemia. The patient had a trial of IV Lasix yesterday, however, unable to show some significant improvement. The patient will start on Lasix drip. Continue to follow with the human resources technician's recommendation. 2. Lactic acidosis. Still has elevated lactic level due to fluid overload. Will attempt more aggressive diuresis today. 3. Acute on chronic renal failure secondary to fluid overload. Diuresis. 4. Metabolic encephalopathy due to electrolyte abnormalities versus elevated ammonia level. The patient had lactulose yesterday. Ammonia level shows significant improvement. This morning ammonia level is returned to baseline, however, the patient still has some altered mental status. Will attempt diuresis today. The patient also may have a possible urinary tract infection. The patient's UA is positive, waiting for urine cultures. In the past, the patient has urinary tract infection (UTI) from E. Coli, Enterococcus faecalis and Klebsiella. The patient is empirically placed on Rocephin. Continue to monitor. 5. Severe systolic heart failure with ejection fraction of 10 to 15%, status post automatic implantable cardioverter-defibrillator (AICD) and pacemaker. The patient is currently fluid overloaded. 6. Sick sinus syndrome with AICD/pacemaker. 7. History of pulmonary hypertension. 8. Valvular heart disease, status post valvular heart disease, status post mitral and aortic valve placement. 9. History of coronary artery disease, status post coronary artery bypass graft (CABG). 10. Diabetes. The patient is on insulin sliding scale. The patient will be on consistent carbohydrate diet if patient can tolerate oral intake. 11. Chronic anemia. 12. Hyperlipidemia. 13. Glaucoma. 14. Anxiety. 15. Deep venous thrombosis (DVT) prophylaxis. On thromboembolism deterrents (TEDs) and sequential compression devices.
[2017-01-26 00:01] VITALS: BP 100/50
[2017-01-26 04:00] VITALS: BP 104/56
[2017-01-26 05:36] LABS: MEAN CORPUSCULAR HEMOGLOBIN 30.4 pg (27.0-33.0); MEAN CORPUSCULAR HGB CONC 32.3 g/dl (32.0-36.5); MEAN CORPUSCULAR VOLUME 94.2 fl (80.0-96.0); RED CELL DISTRIBUTION WIDTH 17.9 % (11.5-14.5); WHITE BLOOD COUNT 7.8 K/mm3 (4.0-10.0)
[2017-01-26 05:57] LABS: ALBUMIN 2.7 GM/DL (3.2-5.2); ALBUMIN/GLOBULIN RATIO 0.82 (1.00-1.93); BILIRUBIN,TOTAL 1.4 MG/DL (0.2-1.0); CALCIUM LEVEL 9.1 MG/DL (8.8-10.2); CREATININE FOR GFR 3.05 MG/DL (0.55-1.02); GLOMERULAR FILTRATION RATE 15.8 (>39)
[2017-01-26] MEDS: SLF 3 ML SYR IV SCH ×3 (06:00→22:11)
[2017-01-26] MEDS: SODIUM CHLORIDE 0.9% INJ 10 ML SYR IV SCH ×2 (06:00→17:21)
[2017-01-26 06:09] LABS: POTASSIUM SERUM 3.2 MEQ/L (3.5-5.1)
[2017-01-26] MEDS: LEVOTHYROXINE 0.137 MG TAB (137MCG) PO SCH (07:10)
[2017-01-26 08:00] VITALS: BP 115/54
[2017-01-26] MEDS: BRIMONIDINE 0.15% OPHTH SOLN 5 ML OU SCH ×2 (09:02→22:11)
[2017-01-26] MEDS: VITAMIN D 1,000 INTERNATIONAL UNITS TABLET PO SCH (09:03)
[2017-01-26] MEDS: POTASSIUM CHLORIDE 10 MEQ SR TABLET PO SCH ×3 (09:03→22:11)
[2017-01-26] MEDS: ASPIRIN 81 MG ENTERIC TAB PO SCH (09:03)
[2017-01-26] MEDS: rifAXIMin 550 MG TAB (XIFAXAN) PO SCH ×2 (09:03→22:10)
[2017-01-26] MEDS: HumaLOG INSULIN (NovoLOG) PER UNIT SC SCH ×4 (09:03→21:00)
[2017-01-26] MEDS ORDERED: BUMETANIDE 1 MG TAB PO ONE (10:30)
[2017-01-26] MEDS ORDERED: metOLazone 2.5 MG TAB PO ONE (10:30)
[2017-01-26] MEDS: cefTRIAXone SOD 1 GM in D5W MINI-BAG PLUS 50 ML IV SCH (11:15)
[2017-01-26] MEDS: DOBUTamine HCL 500,000 MCG in APPROPRIATE DILUENT 1 EA IV SCH (11:16)
[2017-01-26 12:00] VITALS: BP 118/62
[2017-01-26 16:00] VITALS: BP 120/69
--- NOTE | 2017-01-26 18:26 | IPN ---
DATE: 01/26/2017 SUBJECTIVE: The patient is seen and examined in the room today. The patient has continued to show improvement of her alertness and awakeness and orientation. Yesterday the patient was not able to answer question or follow command, and this morning the patient actually knows she is in [facility], followed commands, but she is not fully oriented to the time and not oriented to the month and the year. The patient is able to tolerate oral intake. No overnight events are reported. OBJECTIVE: VITAL SIGNS: Temperature is 96.5, pulse is 62, respirations 18, blood pressure is 115/54, pulse oximetry is 94% on room air. GENERAL: No sign of acute distress. The patient is alert and awake, oriented to the place, not oriented to time and not fully oriented to situation. HEENT: Positive jugular venous distention (JVD). Normocephalic, atraumatic. Extraocular motor grossly intact. CARDIOVASCULAR: Positive S1, S2. Regular rate. LUNGS: Clear to auscultation bilaterally. No wheezes or rhonchi. ABDOMEN: Soft, nontender, nondistended. Bowel sounds present. No rebound, no guarding. EXTREMITIES: No edema, no sign of cyanosis. LABORATORY DATA: WBC is 7.8, hemoglobin 11.4, hematocrit 35.4, platelet count 128. Sodium is 135, potassium 3.2, chloride 91, carbon dioxide 34, BUN 89, creatinine 3.05, GFR is 15.8, fasting glucose 217, calcium 9.1. Total bilirubin is 1.4, AST 124, ALT 93, alkaline phosphatase 245. Total protein 6, albumin 2.7. ASSESSMENT AND PLAN: 1. Severe hyperkalemia. The patient has started on Lasix drip. The patient is continued to be monitored on telemetry. The patient's potassium actually improved from 6 to 3.2. At the time of admission, the patient had a potassium of 6.8. We appreciate Dr. Amin's assistance. 2. Lactic acidosis secondary to fluid overload. Patient is being diuresed with Lasix diuresis. 3. Metabolic encephalopathy secondary to electrolyte abnormalities and elevated ammonia level. With correction of patient's electrolytes, the patient's mentation showed significant improvement, and patient also had lactulose to fix her ammonia level. Yesterday the patient had ammonia of 16 which is within normal range. The patient's mentation continues to improve since admission. 4. Severe systolic heart failure with ejection fraction of 10-15%. The patient has automatic implantable cardioverter defibrillator (AICD)/pacemaker. Currently patient is being treated for her overload. 5. Sick sinus syndrome with AICD/pacemaker. 6. History of pulmonary hypertension. 7. Valvular heart disease status post mitral and aortic valve replacements. 8. History of coronary artery disease status post coronary artery bypass graft (CABG). 9. Diabetes on sliding scale and consistent carbohydrate diet. 10. Chronic anemia. 11. Hyperlipidemia. 12. Gout. 14. Anxiety. 15. Deep venous thrombosis (DVT) prophylaxis. The patient has thromboembolism deterrent stockings (TEDs), sequential compression devices. MTDD
[2017-01-26 20:55] VITALS: BP 122/63
[2017-01-27] VITALS (8 sets, daily range): BP systolic 98–123; BP diastolic 54–79; PULSE 91
--- NOTE | 2017-01-27 01:42 | IPN ---
DATE: 01/26/2017 Mrs. Yen is seen this morning on her bedside. She is much more awake and alert and sitting in the chair at the time of my visit. She has been talking normal and did eat her breakfast. She denies any nausea or vomiting. She has no dyspnea or chest pain. She was put on IV dobutamine drip and IV Lasix drip yesterday with good results and she has at least one liter of urine in the Rene catheter bag. PHYSICAL EXAMINATION: The patient is awake and alert today at about her baseline mentation. Temperature is 96.5 degrees Fahrenheit, heart rate is 62 per minute and respiratory rate 18 per minute. Blood pressure 115/54 mmHg and oxygen saturation 94% on room air. Intake and output records from yesterday showed total intake 1957 and output 2026 mL, though I am not sure if her intake is recorded accurately as yesterday she was not eating or drinking much. Anyway, today she already has more than a liter of urine output. Her neck veins are now only mildly distended while she is sitting upright. Head is atraumatic. Ears, nose and throat are unremarkable. She has no thrush or ulcers. Heart: Sounds are regular with systolic murmur which is unchanged. Lungs have only slightly diminished breath sounds at bases. Abdomen: Soft and nontender and extremities have no cyanosis or clubbing. She has no peripheral edema. Today's labs show WBC count 7.8, hemoglobin 11.4 and hematocrit 35.4. Sodium 135 and potassium 3.2. Chloride 91 and CO2 34. BUN 89 and creatinine 3.05. Glucose 217 and calcium 9.1. Total protein 6.0 and albumin 2.7. PROBLEMS: 1. Acute renal failure superimposed on chronic kidney disease. The patient has improvement in her kidney function with good urine output since yesterday. No uremic symptoms. The patient is not a candidate for dialysis. 2. Acute on chronic systolic congestive heart failure. The patient was quite decompensated and did not respond to IV bolus Lasix doses given. She has responded well to IV dobutamine and IV Lasix drip. She has diuresed pretty good and I am going to stop her IV Lasix drip and continue with dobutamine for another 24 hours. She is being placed on her regular oral diuretic with Bumex 2 mg daily with first dose today and metolazone 1.25 mg daily. She will be given metolazone 2.5 mg first dose today. We will continue to monitor her intake and output and try to keep her in a gentle negative fluid balance. 3. Hypokalemia. Yesterday, she had hyperkalemia related to acute renal failure. Now with good urine output. Her potassium level has already come down. She will be given potassium supplement with 20 mEq three times a day. 4. Anemia. Anemia is only mild and most likely related to her congestive heart failure. At this point, no intervention is indicated. 5. Abnormal LFTs. Most likely these are related to passive hepatic congestion. Her bilirubin was 2.1 yesterday which has come down to 1.4. AST is 124 and ALT 93. Alkaline phosphatase is unchanged at 245. Her ammonia level has come down to 16. We will continue to monitor her and we anticipate further improvement as her hepatic congestion is improving. 6. Metabolic encephalopathy. Most likely related to UTI and acute renal failure. She remains on Rocephin. The patient also had possible hepatic encephalopathy as her ammonia level was elevated. That has also improved now and her mentation has returned to almost baseline.
[2017-01-27] MEDS: SLF 3 ML SYR IV SCH ×3 (05:29→20:39)
[2017-01-27] MEDS: SODIUM CHLORIDE 0.9% INJ 10 ML SYR IV SCH ×2 (05:30→17:12)
[2017-01-27] MEDS: LEVOTHYROXINE 0.137 MG TAB (137MCG) PO SCH (05:30)
[2017-01-27 06:02] LABS: MEAN CORPUSCULAR HGB CONC 32.9 g/dl (32.0-36.5); MEAN CORPUSCULAR VOLUME 94.1 fl (80.0-96.0); RED CELL DISTRIBUTION WIDTH 18.1 % (11.5-14.5); WHITE BLOOD COUNT 5.7 K/mm3 (4.0-10.0)
[2017-01-27 06:24] LABS: ALBUMIN 2.6 GM/DL (3.2-5.2); ALBUMIN/GLOBULIN RATIO 0.72 (1.00-1.93); BILIRUBIN,TOTAL 1.5 MG/DL (0.2-1.0); CALCIUM LEVEL 8.9 MG/DL (8.8-10.2); CREATININE FOR GFR 1.92 MG/DL (0.55-1.02); TOTAL PROTEIN 6.2 GM/DL (6.4-8.2)
[2017-01-27 06:46] LABS: POTASSIUM SERUM 2.9 MEQ/L (3.5-5.1)
[2017-01-27] MEDS: metOLazone 2.5 MG TAB PO SCH (08:52)
[2017-01-27] MEDS: ASPIRIN 81 MG ENTERIC TAB PO SCH (08:52)
[2017-01-27] MEDS: HumaLOG INSULIN (NovoLOG) PER UNIT SC SCH ×4 (08:52→20:39)
[2017-01-27] MEDS: rifAXIMin 550 MG TAB (XIFAXAN) PO SCH ×2 (08:52→20:38)
[2017-01-27] MEDS: BUMETANIDE 1 MG TAB PO SCH (08:53)
[2017-01-27] MEDS: POTASSIUM CHLORIDE 10 MEQ SR TABLET PO SCH ×3 (08:53→20:38)
[2017-01-27] MEDS: VITAMIN D 1,000 INTERNATIONAL UNITS TABLET PO SCH (08:53)
[2017-01-27] MEDS: BRIMONIDINE 0.15% OPHTH SOLN 5 ML OU SCH ×2 (08:54→20:38)
[2017-01-27] MEDS ORDERED: POTASSIUM CHLORIDE 10% LIQ 20 MEQ/15 ML UDC PO ONE (10:00)
[2017-01-27] MEDS: cefTRIAXone SOD 1 GM in D5W MINI-BAG PLUS 50 ML IV SCH (12:38)
--- NOTE | 2017-01-27 20:50 | IPN ---
DATE: 01/27/2017 SUBJECTIVE: The patient is seen and examined in the room today. The patient continues to have increased alertness and awakeness. The patient is also more oriented. The patient knows her name and the name of the hospital. The patient knows this year is 2016 , but she does not remember the month. No overnight events reported. OBJECTIVE: VITAL SIGNS: Temperature is 96.1, pulse is 75, respirations 18, blood pressure 107/58, pulse oximetry 95% on room air. GENERAL: No sign of acute distress. Alert, awake, not fully oriented. HEENT: No more jugular venous distention (JVD). Normocephalic, atraumatic. Extraocular motor grossly intact. CARDIOVASCULAR: Positive S1, S2. Regular rate. LUNGS: Clear to auscultation bilaterally. No wheezes or rhonchi. ABDOMEN: Soft, nontender, nondistended. Bowel sounds present. No rebound, no guarding. EXTREMITIES: No edema, no cyanosis. LABORATORY DATA: WBC is 5.7, hemoglobin 10.4, hemoglobin 31.7, platelet count is 113. Sodium is 135, potassium 2.9, chloride is 88, carbon dioxide 39, BUN 74, creatinine 1.92, GFR is 27, fasting glucose 175, calcium 8.9. Total bilirubin 1.5, AST 85, ALT 81, alkaline phosphatase 259. Total protein 6.2, albumin 2.6. ASSESSMENT AND PLAN: 1. Severe hyperkalemia. The patient was on lasix drip. The patient currently has hypokalemia due to over correction. Lasix drip has been discontinued. The patient has been receiving potassium supplement for the past two days. Appreciate nephrology's assistance. The patient also had mental status change secondary to electrolyte abnormalities and elevated ammonia level. Ammonia level has been corrected with lactulose. Electrolyte abnormalities have been improvement. The patient's mentation continues to improve. 2. Lactic acidosis secondary to fluid overload. The patient's fluid status has been corrected. We appreciate nephrology's assistance. 3. Severe systolic heart failure with an ejection fraction (EF) of 10-15%. The patient has automatic implantable cardioverter defibrillator (AICD)/pacemaker. The patient currently does not show sign of fluid overload. 4. Patient has sick sinus syndrome with AICD/pacemaker. 5. History of pulmonary hypertension. 6. Valvular heart disease, status post mitral and aortic valve replacement. 7. History of coronary artery disease status post coronary artery bypass graft (CABG). 8. Diabetes on sliding scale insulin and consistent carbohydrate diet. 9. Chronic anemia. 10. Hyperlipidemia. 11. Gout. 12. Anxiety. 13. Deep venous thrombosis prophylaxis on thromboembolism deterrent stockings (TEDs), sequential compression devices. MTDD
--- NOTE | 2017-01-27 21:07 | IPN ---
DATE: 01/27/2017 SUBJECTIVE: The patient was seen and examined at the bedside today in the morning. She feels much better. She continues to be on intravenous (IV) dobutamine infusion. Her urine output is significantly better. Her kidney function is also improving. However, she persistently has multiple electrolyte abnormalities at this time. REVIEW OF SYSTEMS: The patient denies any fevers, chills, rigors, headaches, nausea, vomiting. She denies any chest pain. She reports shortness of breath is significantly better. She denies any nausea, vomiting, pain abdomen, constipation, or diarrhea. Rest of review of systems is negative. OBJECTIVE: VITAL SIGNS: Temperature is 95.5, degrees Fahrenheit, blood pressure is 113/59, pulse is 68, respiratory rate of 18, saturating 94% on room air. INTAKE AND OUTPUT: Urine output recorded is 4.7 liters yesterday, 1500 mL so far today since overnight. Weight in the bed scale is 41 kg. PHYSICAL EXAMINATION: GENERAL: The patient is awake, alert, and oriented times three, lying in the bed, in no apparent distress. HEAD/NECK: Extraocular muscles intact. Pupils equal, round, and reactive to light. Mucous membranes are moist. Neck is supple. There is mildly elevated jugular venous distention (JVD). CARDIOVASCULAR: S1, S2. Rhythm is slightly irregular. There is no murmur, rub, or gallop. RESPIRATORY: Chest is clear to auscultation bilaterally, bilateral equal air entry. No rales or rhonchi. ABDOMEN: Soft, positive bowel sounds. Her liver is palpable. Nontender. EXTREMITIES: The patient does have cyanosis of the fingers and toes. She has trace edema of the bilateral lower extremities. CENTRAL NERVOUS SYSTEM (SPECIAL INVESTIGATOR): No focal neurological deficit. Power is 5/5 in all extremities. PSYCHIATRIC: The patient has a depressed mood. SKIN: No rashes or ulcers. LABORATORY DATA: CBC showed a WBC 5.7, hemoglobin 10.4, platelets 113. BMP showed sodium 135, potassium 2.9, chloride 88, bicarbonate 39, BUN 74, creatinine 1.92. Total bilirubin is 1.5, AST 85, ALT 81, alkaline phosphatase 259. Albumin is 2.6. MICROBIOLOGY: Blood cultures are negative so far. Urine culture is negative. CURRENT MEDICATIONS: The patient's medications were all reviewed by me. She continues to be on intravenous (IV) Rocephin and IV dobutamine drip. She is currently on potassium chloride 20 mEq by mouth three times a day. She was given additional dose of potassium 40 mEq by mouth times one dose. There is no other change in the medications at this time. ASSESSMENT: A 76-year-old female with past medical history of chronic kidney disease stage III, admitted this time because of acute renal failure superimposed on chronic kidney disease secondary to acute decompensated congestive heart failure. PLAN: 1. Acute kidney injury superimposed on chronic kidney disease. It is cardiorenal in nature. The patient has been started on dobutamine, changed this morning back to the oral dose of Bumex and metolazone. Continue current dose. 2. Acute on chronic systolic congestive heart failure. The patient has a very low ejection fraction of around 10%. She has been optimized multiple times with IV Lasix and IV dobutamine, but every time she is discharged from the hospital, she comes back after a few weeks. The patient has very little cardiac reserve left. She is not a candidate for transplantation or IV milrinone infusion as outpatient. However, we have been trying hard to optimize her with the medications and keep her out of the hospital. I would continue the current dose of Bumex 2 mg by mouth daily and metolazone 1.25 mg daily. Continue current dose of potassium chloride 20 mEq by mouth three times a day. 3. Hypokalemia. Hypokalemia is secondary to aggressive diuresis. Her potassium is 2.9 today. I would continue the current dose of 20 mEq of potassium three times a day, and I have given her an additional dose of 40 mEq of potassium. 4. Anemia in chronic kidney disease. Hemoglobin is 10.4, acceptable at this time. No need of Aranesp at this time. 5. 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 Her liver function tests (LFTs) are elevated at this time. The patient's encephalopathy and ammonia also improves with improvement in the cardiac function. Continue current dose of rifaximine 550 mg by mouth twice a day for hepatic encephalopathy. The patient can take lactulose as needed to have at least one soft bowel movement a day. 6. Metabolic encephalopathy. It is most likely secondary to decompensation of liver secondary to heart failure. Continue rifaximine. Her ammonia level was 16. The patient's mental status is significantly improved after improvement in the hemodynamic status and cardiac output. The plan of care was discussed with the patient's at the bedside today.
[2017-01-28] VITALS (8 sets, daily range): BP systolic 104–115; BP diastolic 55–64; PULSE 75–79
[2017-01-28] MEDS: SODIUM CHLORIDE 0.9% INJ 10 ML SYR IV SCH ×2 (05:05→17:58)
[2017-01-28] MEDS: LEVOTHYROXINE 0.137 MG TAB (137MCG) PO SCH (05:05)
[2017-01-28] MEDS: SLF 3 ML SYR IV SCH ×3 (05:06→20:44)
[2017-01-28 05:29] LABS: MEAN CORPUSCULAR HEMOGLOBIN 30.9 pg (27.0-33.0); MEAN CORPUSCULAR HGB CONC 33.4 g/dl (32.0-36.5); MEAN CORPUSCULAR VOLUME 92.5 fl (80.0-96.0); RED CELL DISTRIBUTION WIDTH 18.1 % (11.5-14.5); WHITE BLOOD COUNT 5.1 K/mm3 (4.0-10.0)
[2017-01-28 05:56] LABS: ALBUMIN 2.6 GM/DL (3.2-5.2); ALBUMIN/GLOBULIN RATIO 0.81 (1.00-1.93); BILIRUBIN,TOTAL 1.4 MG/DL (0.2-1.0); CALCIUM LEVEL 8.5 MG/DL (8.8-10.2); CREATININE FOR GFR 1.56 MG/DL (0.55-1.02); GLOMERULAR FILTRATION RATE 34.4 (>39); POTASSIUM SERUM 3.2 MEQ/L (3.5-5.1); TOTAL PROTEIN 5.8 GM/DL (6.4-8.2)
[2017-01-28] MEDS: BRIMONIDINE 0.15% OPHTH SOLN 5 ML OU SCH ×2 (08:44→20:44)
[2017-01-28] MEDS: BUMETANIDE 1 MG TAB PO SCH (08:45)
[2017-01-28] MEDS: rifAXIMin 550 MG TAB (XIFAXAN) PO SCH ×2 (08:45→20:43)
[2017-01-28] MEDS: HumaLOG INSULIN (NovoLOG) PER UNIT SC SCH ×4 (08:45→20:49)
[2017-01-28] MEDS: VITAMIN D 1,000 INTERNATIONAL UNITS TABLET PO SCH (08:46)
[2017-01-28] MEDS: metOLazone 2.5 MG TAB PO SCH (08:46)
[2017-01-28] MEDS: ASPIRIN 81 MG ENTERIC TAB PO SCH (08:46)
[2017-01-28] MEDS: POTASSIUM CHLORIDE 10 MEQ SR TABLET PO SCH ×3 (08:46→20:43)
[2017-01-28] MEDS ORDERED: POTASSIUM CHLORIDE 10% LIQ 20 MEQ/15 ML UDC PO ONE (11:00)
[2017-01-28] MEDS: SODIUM CHLORIDE 0.9% INJ 10 ML SYR IV PRN (13:00)
--- NOTE | 2017-01-28 16:39 | IPN ---
DATE: 01/28/2017 SUBJECTIVE: The patient is seen and examined in the room today. The patient continues to have increased orientation. The patient's alertness is also improved. The patient knows the name of the place, her birthday, the month, the year, which she could not answer most of the questions yesterday. After discussing with the patient, the patient understands that her condition is rather complicated. The patient understands that she may need monitoring or environment such as a long term. The patient wished to be placed, however, she discussed the situation with the ; however, the family refused the proposal. He feels that he can take care of the patient and the patient's son, who also requires long term level of care. OBJECTIVE: VITAL SIGNS: Temperature is 98.1, pulse is 81, respirations 18, blood pressure 107/55, pulse oximetry 95% on room air. GENERAL: No sign of acute distress. Alert, awake, not fully oriented. HEENT: Normocephalic, atraumatic. Extraocular motor grossly intact. No jugular venous distention (JVD). CARDIOVASCULAR: Positive S1, S2. Distant heart sounds. LUNGS: Clear to auscultation bilaterally. No wheezes. ABDOMEN: Soft, nontender, nondistended. Bowel sounds present. No rebound, no guarding. EXTREMITIES: No edema. No cyanosis. LABORATORY DATA: WBC is 5.1, hemoglobin 12.3, hemoglobin 36.8, platelet count is 136. Sodium is 135, potassium 3.2, chloride is 86, carbon dioxide 40, BUN 54, creatinine 1.56, GFR is 30.4, fasting glucose 221, calcium 8.5. Total bilirubin 1.4, AST 71, ALT 78, alkaline phosphatase 249. Total protein 5.9, albumin 2.6. ASSESSMENT AND PLAN: 1. Severe hyperkalemia. The patient was on Lasix drip. The patient's high potassium level improved and now nephrology has been assisting and correcting the overcorrection. 2. Lactic acidosis secondary to fluid overload. The patient's fluid status has been corrected. No more jugular venous distention (JVD). Appreciate nephrology's assistance. 3. Severe systolic heart failure with an ejection fraction (EF) of 10-15%. The patient has automatic implantable cardioverter defibrillator (AICD)/pacemaker. No sign of fluid overload at this moment. 4. Altered mental status secondary to multiple contributing factors. The patient with electrolyte correction and fluid status adjustment. The patient's mentation is almost returned to baseline. 5. Sick sinus syndrome with AICD/pacemaker. 6. History of pulmonary hypertension. 7. Valvular heart disease, status post mitral and aortic valve replacement. 8. History of coronary artery disease status post coronary artery bypass graft (CABG). 9. Diabetes on sliding scale and consistent carbohydrate diet. 10. Chronic anemia. 11. Hyperlipidemia. 12. Gout. 13. Anxiety. 14. Chronic deconditioning with multiple severe medical conditions. We will contact social work job titles to assist on disposition. 15. Deep venous thrombosis prophylaxis on thromboembolism deterrent stockings (TEDs), sequential compression devices.
[2017-01-29] VITALS: BP 98/58; PULSE 73
[2017-01-29 04:00] VITALS: BP 92/50; PULSE 76
[2017-01-29] MEDS: LEVOTHYROXINE 0.137 MG TAB (137MCG) PO SCH (05:41)
[2017-01-29] MEDS: SODIUM CHLORIDE 0.9% INJ 10 ML SYR IV SCH ×2 (05:42→17:04)
[2017-01-29] MEDS: SLF 3 ML SYR IV SCH ×3 (05:43→20:36)
[2017-01-29 06:06] LABS: MEAN CORPUSCULAR HEMOGLOBIN 31.4 pg (27.0-33.0); MEAN CORPUSCULAR HGB CONC 33.9 g/dl (32.0-36.5); MEAN CORPUSCULAR VOLUME 92.8 fl (80.0-96.0); RED CELL DISTRIBUTION WIDTH 18.2 % (11.5-14.5); WHITE BLOOD COUNT 5.3 K/mm3 (4.0-10.0)
[2017-01-29 06:30] LABS: ALBUMIN 2.6 GM/DL (3.2-5.2); ALBUMIN/GLOBULIN RATIO 0.84 (1.00-1.93); BILIRUBIN,TOTAL 1.6 MG/DL (0.2-1.0); CALCIUM LEVEL 8.1 MG/DL (8.8-10.2); CREATININE FOR GFR 1.5 MG/DL (0.55-1.02); GLOMERULAR FILTRATION RATE 35.9 (>39); POTASSIUM SERUM 3.8 MEQ/L (3.5-5.1); TOTAL PROTEIN 5.7 GM/DL (6.4-8.2)
[2017-01-29] MEDS: HumaLOG INSULIN (NovoLOG) PER UNIT SC SCH ×4 (07:58→20:35)
[2017-01-29 08:00] VITALS: BP 106/54
[2017-01-29] MEDS: ASPIRIN 81 MG ENTERIC TAB PO SCH (09:59)
[2017-01-29] MEDS: BUMETANIDE 1 MG TAB PO SCH (09:59)
[2017-01-29] MEDS: rifAXIMin 550 MG TAB (XIFAXAN) PO SCH ×2 (09:59→20:35)
[2017-01-29] MEDS: metOLazone 2.5 MG TAB PO SCH (10:00)
[2017-01-29] MEDS: VITAMIN D 1,000 INTERNATIONAL UNITS TABLET PO SCH (10:00)
[2017-01-29] MEDS: POTASSIUM CHLORIDE 10 MEQ SR TABLET PO SCH ×3 (10:00→20:35)
[2017-01-29] MEDS: BRIMONIDINE 0.15% OPHTH SOLN 5 ML OU SCH ×2 (10:00→20:35)
[2017-01-29 11:55] VITALS: BP 115/56
[2017-01-29 15:30] VITALS: BP 120/62
--- NOTE | 2017-01-29 19:21 | IPN ---
DATE: 01/29/2017 SUBJECTIVE: The patient is seen and examined in the room today. The patient's mentation has returned to her baseline. The patient is able to answer the time, location, and the name of the President. Her trend of thought is also intact and rational. The patient did discuss her situation with her . She expressed interest in being placed in a nursing facility; however, the is adamant about bringing her home, and he feels he can provide sufficient care for the patient. I discussed the patient's case with the manufacturing teacher, Dr. Wood. He is satisfied with the patient's recovery; however, he is currently actively adjusting the diuretic. He does not feel the patient is ready to discharge home at this moment OBJECTIVE: VITAL SIGNS: Temperature is 96, pulse 70, respirations 18, blood pressure 106/54. Pulse oximetry 95% on room air. GENERAL: No sign of acute distress. Alert and oriented times three. HEENT: Normocephalic, atraumatic. Extraocular motor grossly intact. No jugular venous distention (JVD). CARDIOVASCULAR: Positive S1, S2. Irregularly irregular. LUNGS: Clear to auscultation bilaterally. No wheezes. ABDOMEN: Soft, nontender, nondistended. Bowel sounds present. No rebound, no guarding. EXTREMITIES: No edema, no cyanosis. LABORATORY DATA: WBC is 5.3, hemoglobin 12.4, hematocrit 36.7, platelet count 147. Sodium is 132, potassium 3.8, chloride 85, carbon dioxide 39, BUN 50, creatinine 1.5, GFR is 35.9, fasting glucose 249. Calcium is 8.1. Total bilirubin is 1.6, AST 59, ALT 67, alkaline phosphatase 264. Total protein 5.7, albumin 2.6. ASSESSMENT AND PLAN: 1. Severe hyperkalemia. The patient was on a Lasix drip at it was discontinued. Currently the patient is on active Lasix dosage adjustment by manufacturing teacher. The patient's potassium level just returned to the normal range. However, the patient's Lasix regimen is not finalized at this moment. 2. Lactic acidosis secondary to fluid overload. No JVD at this moment. The patient's fluid status has been corrected. We appreciate nephrology's assistance. 3. Severe sytolic heart failure with ejection fraction (EF) of 10-15%. The patient has automatic implantable cardioverter defibrillator (AICD) and pacemaker. Currently no sign of fluid overload. 4. Altered mental status secondary to multiple contributing factors. The patient's electrolytes have been corrected. Fluid status is being adjusted. The patient's mentation is back to baseline at this moment. 5. Sick sinus syndrome with AICD/pacemaker. 6. History of pulmonary hypertension. 7. Valvular heart disease status post mitral and aortic valve replacement. 8. History of coronary artery disease status post coronary artery bypass graft (CABG). 9. Diabetes, on sliding scale and consistent carbohydrate diet. The patient's A1c is greater than nine. The patient's diabetes is not well controlled at home. 10. Chronic anemia. 11. Hyperlipidemia. 12. Gout. 13. Anxiety. 14. Chronic deconditioning with multiple, severe medical conditions. The patient will benefit from residential facility; however, the patient could not reach agreement with the patient's . 15. Deep venous thrombosis (DVT) prophylaxis on thromboembolism deterrent stockings (TEDs) and sequential compression devices.
[2017-01-29 20:00] VITALS: BP 109/64
[2017-01-30] VITALS: BP 110/65
[2017-01-30 04:00] VITALS: BP 118/71
[2017-01-30] MEDS: SODIUM CHLORIDE 0.9% INJ 10 ML SYR IV SCH ×2 (05:10→17:22)
[2017-01-30] MEDS: SLF 3 ML SYR IV SCH ×3 (05:10→21:40)
[2017-01-30] MEDS: LEVOTHYROXINE 0.137 MG TAB (137MCG) PO SCH (05:10)
[2017-01-30 05:19] LABS: MEAN CORPUSCULAR HEMOGLOBIN 30.9 pg (27.0-33.0); MEAN CORPUSCULAR HGB CONC 33.3 g/dl (32.0-36.5); MEAN CORPUSCULAR VOLUME 92.9 fl (80.0-96.0); RED CELL DISTRIBUTION WIDTH 18.1 % (11.5-14.5); WHITE BLOOD COUNT 5.6 K/mm3 (4.0-10.0)
[2017-01-30 05:42] LABS: ALBUMIN 2.6 GM/DL (3.2-5.2); ALBUMIN/GLOBULIN RATIO 0.72 (1.00-1.93); BILIRUBIN,TOTAL 1.5 MG/DL (0.2-1.0); CALCIUM LEVEL 8.4 MG/DL (8.8-10.2); CREATININE FOR GFR 1.48 MG/DL (0.55-1.02); GLOMERULAR FILTRATION RATE 36.5 (>39); POTASSIUM SERUM 3.4 MEQ/L (3.5-5.1); TOTAL PROTEIN 6.2 GM/DL (6.4-8.2)
--- NOTE | 2017-01-30 06:30 | IPN ---
DATE OF VISIT: 01/28/2017 SUBJECTIVE: The patient was seen and examined at the bedside this morning. She feels much better. Her shortness of breath is improving. Her mental status is also getting better. Her renal function continues to improve; however, she does have multiple electrolyte abnormalities because of the aggressive diuresis. REVIEW OF SYSTEMS: The patient denies any fever, chills, rigors, headache, nausea or vomiting, chest pain. She does report mild shortness of breath. She denies any pain in the abdomen, constipation or diarrhea. The rest of the review of systems is negative. OBJECTIVE: VITAL SIGNS: Temperature 96.1 degrees Fahrenheit, blood pressure 107/55, pulse 81, respiratory rate of 18, saturating 95% on room air. Intake and output: Urine output recorded as 3.4 liters yesterday, 2.1 liters so far today since overnight. PHYSICAL EXAMINATION: GENERAL: The patient is awake, alert and oriented times three. She is cachectic, laying in bed in no apparent distress. HEAD/NECK: Extraocular muscles intact. Pupils equal, round, reactive to light. Moist mucous membranes. Neck is supple. There is mildly elevated jugular venous distention (JVD). CARDIOVASCULAR: S1, S2. Slightly irregular rhythm. No murmurs, rubs, gallops. RESPIRATORY: Chest is clear to auscultation bilaterally. Bilateral equal air entry. No rales or rhonchi. ABDOMEN: Soft, positive bowel sounds. Liver is nontender but is palpable. EXTREMITIES: The patient does have cyanosis of the fingers and toes and she has trace edema of the bilateral lower extremities. CENTRAL NERVOUS SYSTEM (DINKER): No focal neurological deficits. Power is 5/5 in all extremities. PSYCHIATRIC: The patient has a depressed mood. LAB REVIEW: CBC showed a WBC of 5.1, hemoglobin 12.3, platelets 136. BMP shows sodium of 135, potassium 3.2, chloride 86, bicarbonate 40, BUN 54, creatinine 1.56 it was 1.92 yesterday. Total bilirubin 1.4, albumin 2.6. MICROBIOLOGY: Blood cultures are negative so far. Urine culture is negative. CURRENT MEDICATIONS: The patient's medications were all reviewed by me. I stopped her ceftriaxone, her dobutamine drip was also stopped by me this morning. She continues to be on Bumex and metolazone. There is no other change in the medications today. ASSESSMENT: 76-year-old female with past medical history of chronic kidney disease stage III to early stage IV admitted this time because of acute renal failure superimposed on chronic kidney disease secondary to acute decompensated congestive heart failure. PLAN: 1. Acute kidney injury superimposed on chronic kidney disease. This is secondary to cardiorenal syndrome. The patient responded very well to intravenous dobutamine and oral diuretics. She continues to be in negative fluid balance. I have stopped the dobutamine today. Continue the diuretics at this time. 2. Acute on chronic congestive systolic heart failure. The patient's ejection fraction (EF) is very low, it is around 10%. Continue the daily dose of Bumex 2 mg daily and metolazone 1.25 mg by mouth daily. Dobutamine has been stopped. The patient is hemodynamically stable at this time. 3. Hypokalemia. Hypokalemia is secondary to aggressive diuresis. Continue the current dose of potassium chloride 20 mEq by mouth twice a day, an additional dose of potassium was given today in the morning. 4. Anemia and chronic kidney disease. The patient's hemoglobin has improved to 12.3. No need for Aranesp at this time. 5. 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 The patient's liver function tests are still elevated. She gets hepatic encephalopathy when she gets decompensated heart failure. Her ammonia levels are improved. Mental status is better. Continue the current dose of Rifaximin. The plan of care was discussed with the patient's at the bedside.
[2017-01-30] MEDS: HumaLOG INSULIN (NovoLOG) PER UNIT SC SCH ×4 (07:15→21:00)
[2017-01-30 07:30] VITALS: BP 108/58
[2017-01-30] MEDS ORDERED: POTASSIUM CHLORIDE 10 MEQ SR TABLET PO ONE (07:30)
[2017-01-30] MEDS: VITAMIN D 1,000 INTERNATIONAL UNITS TABLET PO SCH (08:04)
[2017-01-30] MEDS: ASPIRIN 81 MG ENTERIC TAB PO SCH (08:04)
[2017-01-30] MEDS: rifAXIMin 550 MG TAB (XIFAXAN) PO SCH ×2 (08:04→21:39)
[2017-01-30] MEDS: POTASSIUM CHLORIDE 10 MEQ SR TABLET PO SCH ×3 (08:04→21:39)
[2017-01-30] MEDS: BUMETANIDE 1 MG TAB PO SCH (08:05)
[2017-01-30] MEDS: metOLazone 2.5 MG TAB PO SCH (08:05)
[2017-01-30] MEDS: BRIMONIDINE 0.15% OPHTH SOLN 5 ML OU SCH ×2 (08:05→21:39)
--- NOTE | 2017-01-30 08:53 | IPN ---
DATE: 01/29/2017 SUBJECTIVE: This is a 76-year-old female who is seen and examined at bedside. Overnight slept well and feels better. No chest pain, shortness of breath, palpitations, nausea, vomiting. Had three episodes of urination though documentation is not entirely accurate from last night. REVIEW OF SYSTEMS: Denies any fevers, chills, rigors, headaches, nausea, vomiting, or chest pain. Has a regular bowel movement every day. Still feels tired. The rest of the review of systems is otherwise negative. OBJECTIVE: Vital signs: Blood pressure 106/54, heart rate 70, temperature 96, respiration rate 18, pulse oximetry 95% on room air. Intake and output down from 1592 and 2450, net negative of 855. Weight is 39.5, yesterday it was documented 41.2 kg. Since admission, she is net negative of 4.785 liters. General: Patient is sitting in chair comfortable, in no acute distress. Alert, awake, oriented times three, pleasant, cooperative. HEENT: Normocephalic, atraumatic. Extraocular movement intact. Pupils equal, round, reactive to light. Moist oral mucosa. Upper dentures in place. Lower portion with patient's own teeth. Neck: Supple. Trachea midline. Neck veins approximately 5 cm above the sternal angle. Chest: Symmetric chest rise. No accessory muscle use. Breath sounds were diminished but clear sounding. Heart: Regular sounding, normal S1, S2. Could not appreciate murmur, rub or gallop. Abdomen: Soft, nontender, nondistended. Bowel sounds present. No guarding, no rebound. Extremity: She is less cyanotic to her fingers today compared to previous visits. Still has trace edema bilateral lower extremity. LABORATORY DATA: WBC 5.3, hemoglobin 12.4, hematocrit 36.7, platelets 147, some improvement compared to 136 yesterday in platelet. Sodium 132 decreased from yesterday 135, potassium 3.8, chloride 85, carbon dioxide 38, BUN 50, creatinine 1.5 decreased from yesterday 54 and 1.56. Glucose 249. Calcium 8.1. Total bilirubin 1.6, AST 59, ALT 67, alkaline phosphatase 264. Blood cultures negative after 5 days. Urine culture from 01/23 showed no growth. CURRENT MEDICATIONS: - Bumex 2.5 mg daily started on 01/27 - metolazone 1.5 mg by mouth daily - potassium chloride 20 mEq three times daily - aspirin 81 mg by mouth daily - vitamin D 1000 units by mouth daily - insulin sliding scale - Synthroid 0.137 mg daily - Xifaxan 550 mg by mouth twice daily Has not been on lactulose since 01/25/2017. Dobutamine was discontinued yesterday morning. IMPRESSION AND PLAN: Ms. Yen is a 76-year-old female with history of baseline chronic kidney disease (CKD) stage III admitted again for acute kidney injury (TERESE) on chronic kidney disease, metabolic encephalopathy and decompensation of her systolic/diastolic heart failure. 1. Acute renal kidney injury superimposed on chronic kidney disease secondary to cardiorenal. Tolerated dobutamine well and since yesterday has been off dobutamine. Will continue Bumex and metolazone. Monitor her at least for another day while on this combination. 2. Acute on chronic systolic heart failure. Unfortunately because of her poor ejection fraction (EF), she is somewhat fragile whenever she gets discharged home. She does improve whenever she gets admitted with dobutamine and Lasix IV. Will continue Bumex and metolazone as mentioned above. 3. Hypokalemia. Believed to be secondary to previous diuresis with IV Lasix. Her potassium level is improved. She is currently on potassium supplementation. 4. Anemia of chronic disease. Hemoglobin is improved today compared to 2 days ago. No evidence of bleeding. No need for Aranesp at this time. 5. Chronic congestive hepatopathy secondary to congestive heart failure (CHF). She is no longer encephalopathic. Continue Xifaxan. She has been off lactulose for a few days. She continues to have bowel movements, per patient, though this is not reported in EMR. 6. Metabolic encephalopathy. Secondary to decompensation of liver from her underlying heart failure. Her mentation as mentioned is significantly improved. Case was discussed with Dr. Brannon. If she continues to do well, hopefully she might be able to be discharged within next 24 hours. Apparently offer for nursing was discussed with family but they declined this at this time. My preceptor for this patient encounter was Dr. Wood. The preceptor was physically present in the building during the encounter and was fully available. As needed, all aspects of the patient interview, examination, medical decision making process, and medical care plan development were reviewed and approved by the preceptor. The preceptor is aware and concurs with the plan as stated in the body of this note and will attest to such by his/her cosignature. CONNOR
[2017-01-30 09:13] LABS: MAGNESIUM LEVEL 1.8 MG/DL (1.8-2.4); PHOSPHORUS LEVEL 2.3 MG/DL (2.5-4.9)
[2017-01-30 12:00] VITALS: BP 101/58
[2017-01-30 14:00] VITALS: BP 128/59
--- NOTE | 2017-01-30 14:12 | IPN ---
DATE: 01/30/2017 The patient is seen and examined at the bedside. Chart has been reviewed. The patient this morning states that she is a little bit anxious, worried that she might pick something up from the hospital, "People around me are coughing." "I just want to go home." She denies any shortness of breath, chest pain, pressure or tightness, fevers, chills, nausea, vomiting. Tolerating her diet well. She has not ambulated. Complains of generalized weakness. Confusion has improved. 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 The patient woke up in the hospital unsure of what happened at home that brought her to the hospital. Currently, she is awake, alert, oriented to person, place. Answers questions appropriately. She has no complaints of chest pain, pressure, tightness, nausea , vomiting, abdominal pain, diarrhea, changes in vision, diplopia. PHYSICAL EXAMINATION: VITAL SIGNS: Temperature 96.3, pulse 78, respiratory rate 22, blood pressure 108/58, 98% on room air. GENERAL: The patient is awake, alert, oriented to person and place. Answering questions appropriately. No respiratory distress. Input and output overnight: Input 1160, output 1450, negative 290. Current weight is 26.5 kg from admission weight of 42.1 and peak weight of 43 kg. LUNGS: Diminished breath sounds but clear to auscultation. HEART: S1, S2. Irregularly irregular. ABDOMEN: Soft, nontender, nondistended. Palpable liver. EXTREMITIES: Trace edema in bilateral lower extremities. LABORATORY DATA: White count 5.6, hemoglobin 13, hematocrit 39, platelet count 165. Sodium 132, potassium 3.4, chloride 86, bicarbonate 39, BUN 52, creatinine 1.48, glucose of 255, total bilirubin of 1.5. ASSESSMENT AND PLAN: This is a 76-year-old female with history of sick sinus syndrome, echo [address] Matthews, ejection fraction of 10 to 15% with systolic and diastolic dysfunction, bioprosthetic aortic valve, severe tricuspid regurgitation, moderate pulmonary hypertension, small patent foramen ovale, small to moderate pericardial effusion, no signs of cardiac compression, left pleural effusion, AICD placement, hyperkalemia, diabetes, chronic anemia, hypothyroidism , glaucoma, anxiety, malnutrition, metabolic encephalopathy, acute on chronic renal failure, coronary artery disease, coronary artery bypass graft (CABG), hyperlipidemia was brought in due to significant acute encephalopathy and hyperkalemia. CURRENT ISSUES: 1. Acute kidney injury on chronic kidney disease secondary to cardiorenal syndrome. Responded well to IV dobutamine, oral diuretics, currently Bumex. 2. Acute on chronic congestive heart failure (CHF), systolic and diastolic dysfunction, ejection fraction of 10%. Currently on Bumex 2 daily, metolazone 1.25 daily. Dobutamine has been discontinued. Currently medically stable at this time. 3. Low potassium. Currently on potassium replacement. 4. Anemia secondary to chronic kidney disease. Hemoglobin is stable at 12. No indication for Aranesp. 5. Chronic congestive hepatopathy secondary to congestive heart failure (CHF) with chronic elevated liver profile. Previous ammonia level was 16 on 01/25/2017. 6. Lactic acidosis secondary to fluid overload. Appreciate nephrology's management of current issues. 7. Sick sinus syndrome with pacemaker. Ejection fraction of 10%. Status post AICD. 8. History of moderate pulmonary hypertension, chronic. 9. History of valvular heart disease, status post aortic valve replacement with bioprosthesis. 10. History of decompensated liver cirrhosis on chronic rifaximin for prophylaxis. 11. Hyperlipidemia. 12. Gout. 13. Chronic anemia. No acute indication for red blood cell transfusion. 14. Anxiety, chronic. 15. Chronic deconditioning. Awaiting physical therapy (PT) clearance. The patient states that she has home care. DISPOSITION: May transfer to medical/surgical floor. Await physical therapy (PT) clearance and discharge home if okay with nephrology and stable. MTDD
--- NOTE | 2017-01-30 21:25 | IPN ---
DATE: 01/30/2017 SUBJECTIVE: This is a 76-year-old female who is seen and examined in progressive care unit (PCU) room. There were no reported acute events overnight, though she had problems sleeping due to a loud noises overnight from other patients causing her to be restless and unable to sleep. REVIEW OF SYSTEMS: No chest pain, shortness of breath, nausea, vomiting, diarrhea, fevers, chills. Had three bowel movements yesterday with formed stool. Has not had a bowel movement yet this morning. OBJECTIVE: VITAL SIGNS: Blood pressure 108/58, heart rate 78, temperature 96.3, respiration rate 22, pulse oximetry 98% on room air. Intake and output last 24 hours: 1160 and 1450. One bowel movement documented. Weight this morning documented at 26.5 kg, question accuracy, because yesterday it was 39.5 kg. PHYSICAL EXAMINATION: GENERAL: Patient is sitting in bed comfortable. No acute distress. Alert, awake, oriented times three. Pleasant and cooperative. at bedside. Very cachectic appearing but appears stated age. HEENT: Normocephalic, atraumatic. Moist oral mucosa. NECK: Supple. Trachea midline. Neck veins approximately 5 cm above the sternal angle. CARDIOVASCULAR: Irregular but not tachycardic. Variable S1, S2. Systolic murmur in the right 2nd intercostal border, 2/6, without radiation to carotids. Left chest with palpable defibrillator. PULMONARY: No accessory muscle use. Breath sounds diminished, bilateral lung bases with occasional expiratory rhonchi. ABDOMEN: Soft. Bowel sounds present, thin, nontender, nondistended. EXTREMITIES: Trace pedal edema. NEUROLOGIC: Alert, awake, oriented times three. Mentation is intact. PSYCHIATRIC: Cooperative, normal affect. LABORATORY DATA: WBC 5.6, hemoglobin 13, hematocrit 39, platelets 165. Sodium 132, potassium 3.4, chloride 86, carbon dioxide 39, BUN 52, creatinine 1.48, glucose 255, calcium 8.4, phosphorus 2.3, magnesium 1.8. Total bilirubin 1.5, AST 46, ALT 56, alkaline phosphatase 242, total protein 6.2. MEDICATION LIST: - aspirin - eyedrops - vitamin D daily 1000 - Synthroid - Xifaxan 550 twice a day - insulin sliding scale - potassium chloride 20 three times a day - Bumex 2 mg daily, started on January 27 - metolazone 1.25 IMPRESSION AND PLAN: Ms. Yen is a pleasant 76-year-old female with past history of chronic kidney disease, stage III to early IV, presented with acute renal failure secondary to acute decompensated congestive heart failure (CHF). PLAN: 1. Acute kidney injury superimposed on chronic kidney disease (CKD), stage III-IV, secondary to cardiorenal syndrome. Her ejection fraction (EF) in December of this year was 10%. She responded really well previously with intravenous (IV) dobutamine and Lasix. These were later changed to Bumex and metolazone. She is net negative of 5 liters since admission. Recommend continuing Bumex, metolazone , and potassium supplementation. 2. Acute on chronic systolic heart failure. She has ejection fraction (EF) around 10-15%. Does have an AICD in place. The patient reportedly sees cardiology in [place], but because of distance and also multiple hospitalizations recently, has not been able to follow with them outpatient, and at this time they would like to be seen by a rag grader here in [place] to prevent long distance traveling. We have discussed with primary team to consult with cardiology for further assistance regarding this, as she is at risk for recurrent decompensation due to her very poor EF. 3. Hypokalemia. Potassium was repleted this morning, one-time dose. Continue with potassium maintenance three times a day. 4. Anemia of chronic disease. Hemoglobin is in the normal range. No need for Aranesp at this time. 5. 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 When she does become acutely decompensated, she also becomes hepatic encephalopathic. She is currently on Xifaxan. Responded well to lactulose in the past but has not been on this medication for a few days. She may off lactulose provided that she is able to have one to two bowel movements a day. Case discussed with patient, , and Dr. Abarca. My preceptor for this patient encounter was Rayna Wood. The preceptor was physically present in the building during the encounter and was fully available as needed. All aspects of the patient interview, examination, medical decision making process, and medical care plan development were reviewed and approved by the preceptor. The preceptor is aware and concurs with the plan as stated in the body of this note and will attest to such by his/her co-signature. CONNOR
[2017-01-30] MEDS: SODIUM CHLORIDE 0.9% INJ 10 ML SYR IV PRN (21:40)
[2017-01-30 22:00] VITALS: BP 118/72
[2017-01-30] MEDS ORDERED: ACETAMINOPHEN 325 MG TAB PO ONE (23:30)
[2017-01-31] MEDS: SLF 3 ML SYR IV SCH (05:37)
[2017-01-31] MEDS: LEVOTHYROXINE 0.137 MG TAB (137MCG) PO SCH (05:37)
[2017-01-31] MEDS: SODIUM CHLORIDE 0.9% INJ 10 ML SYR IV SCH (05:37)
[2017-01-31 06:00] VITALS: BP 110/61
[2017-01-31 08:24] LABS: MEAN CORPUSCULAR HEMOGLOBIN 31.4 pg (27.0-33.0); MEAN CORPUSCULAR HGB CONC 33.1 g/dl (32.0-36.5); MEAN CORPUSCULAR VOLUME 94.9 fl (80.0-96.0); RED CELL DISTRIBUTION WIDTH 18.2 % (11.5-14.5); WHITE BLOOD COUNT 4.6 K/mm3 (4.0-10.0)
[2017-01-31 08:42] LABS: ALBUMIN 2.7 GM/DL (3.2-5.2); CALCIUM LEVEL 8.5 MG/DL (8.8-10.2); CREATININE FOR GFR 1.46 MG/DL (0.55-1.02); GLOMERULAR FILTRATION RATE 37.1 (>39); PHOSPHORUS LEVEL 2.5 MG/DL (2.5-4.9); POTASSIUM SERUM 3.5 MEQ/L (3.5-5.1)
[2017-01-31] MEDS: VITAMIN D 1,000 INTERNATIONAL UNITS TABLET PO SCH (09:45)
[2017-01-31] MEDS: ASPIRIN 81 MG ENTERIC TAB PO SCH (09:45)
[2017-01-31] MEDS: rifAXIMin 550 MG TAB (XIFAXAN) PO SCH (09:45)
[2017-01-31] MEDS: HumaLOG INSULIN (NovoLOG) PER UNIT SC SCH ×2 (09:46→12:43)
[2017-01-31] MEDS: BUMETANIDE 1 MG TAB PO SCH (09:46)
[2017-01-31] MEDS: POTASSIUM CHLORIDE 10 MEQ SR TABLET PO SCH (09:46)
[2017-01-31] MEDS: metOLazone 2.5 MG TAB PO SCH (09:47)
[2017-01-31] MEDS: BRIMONIDINE 0.15% OPHTH SOLN 5 ML OU SCH (09:47)
[2017-01-31] MEDS ORDERED: METO25TA PO (10:06)
[2017-01-31] MEDS ORDERED: INSULANT SC (12:33)
--- NOTE | 2017-01-31 12:40 | CR ---
DATE OF CONSULTATION: 01/31/2017 REFERRING PHYSICIAN: Dr. Abarca. INDICATION: Congestive heart failure. BRIEF HISTORY: Mrs. Yen is a rather unfortunate 76-year-old female who has extensive cardiac history. There is a remote history of coronary artery bypass grafting followed by several coronary interventions. Unfortunately, I do not have any details available. 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 She has been coming to [facility] since August 2016 with severe congestive heart failure combined with typically acute on chronic renal failure. She had an echocardiogram on two separate occasions, the latest one was on December 28, 2016 , and it revealed severe left ventricular systolic dysfunction with ejection fraction of 10-15%, moderate insufficiency of mitral bioprosthesis, severe tricuspid insufficiency and probably severe pulmonary hypertension. I was asked to see her principally to establish care. She has been followed by [facility], but because she is progressively more and more ill, it has been difficult to get care in [place] in any meaningful way. Apparently, she has not been seen for several months already. At this point, she was admitted with again acute on chronic congestive heart failure, hyperkalemia and acute on chronic renal failure and she was managed principally by hospitalist team and nephrology and she improved. When I saw her last night she was looking actually good and she says that she feels better than in a long time, but her condition is always very tenuous and both her mental status and respiratory status and level of consciousness can change sometimes in the matter of a few hours. PAST MEDICAL HISTORY: 1. Coronary artery disease and congestive heart failure as above. 2. History of aortic and mitral valve replacement with bioprosthesis in 2006. 3. Known biventricular defibrillator. 4. Chronic renal insufficiency. 5. Type 2 diabetes. 6. Hypothyroidism. 7. Anemia. 8. Glaucoma. 9. Hypercholesterolemia. PAST SURGICAL HISTORY: Positive for coronary artery bypass graft (CABG), AVR and MVR, ICD placement, and hysterectomy. SOCIAL HISTORY: The patient is and lives with her and her disabled daughter. There is another son who is heavily involved in her care. 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 She smoked in remote past for approximately 20 years. There is no significant history of alcohol use. FAMILY HISTORY: No longer relevant but of interest her son has atrial fibrillation. REVIEW OF SYSTEMS: On the review of systems, she denies any recent fever, chills, nausea or vomiting. She denies any chest pain. She does have [place] Heart Association class III dyspnea, even on a so called good day, frequently short of breath at rest. No orthopnea or paroxysmal nocturnal dyspnea lately. She has had intermittent peripheral edema, during her hospitalization in August 2016 she lost approximately 50 pounds of fluid weight. She also noticed progressive weight loss over the last about half a year and has been complaining about anorexia. No diarrhea. No genitourinary symptoms. No skin lesions. The rest of review of system is negative. PHYSICAL EXAMINATION: Blood pressure 128/59, heart rate in 70s and 80s, sinus rhythm, afebrile. Saturation 96% on room air. She was alert and oriented and appropriate. Her jugular venous pressure was about 4 or 5 cm above clavicle in sitting position. Lungs were surprisingly reasonably clear to auscultation. Heart examination revealed very displaced precordial impulse. There is a murmur at the axilla that is about 3/6 intensity blowing, likely of mitral regurgitation, and there is also similar murmur but less loud that is in left parasternal area and likely represents tricuspid insufficiency. Closing pulmonary sound is loud. There is an ICD in the left subclavian pocket. Abdomen is soft, nontender. I do not appreciate any organomegaly. There is only trace edema. Peripheral pulses are palpable. Neurologically, she appears weak and cachectic, but I do not appreciate any focal weakness and her thoughts are certainly intact. LABORATORY DATA As of this morning, hemoglobin 12.6, hematocrit 38, platelet count 156,000, WBC count 4.6. Basic metabolic panel: Potassium is 3.5, sodium 135, BUN 46, creatinine 1.4 for a GFR 37, calcium 8.5 and albumin 2.7. Her urine was negative for glucose and ketones. ECG reveals sinus rhythm with ventricular pacing even though none was obtained in the last few days. Her current medications are: - Bumex 2 mg a day - Zaroxolyn 1.5 mg a day - potassium chloride 20 mEq three times a day - Deep vein thrombosis (DVT) prophylactic dose of sodium - insulin as directed - aspirin 81 mg a day - vitamin D - levothyroxine 0.137 mg a day - Rifaximin 550 mg twice a day ASSESSMENT AND PLAN: Mrs. Yen is certainly a very ill lady. It appears that she has end-stage ischemic cardiomyopathy with concomitant valvular disease. She was told during her last visit with her outside medical sales representative that there was nothing else that could have been interventionally. I am going to obtain the records from [facility] and will bring her to my office for long-term care. Unfortunately, even though I am seeing her for the first time, she has a lot of markers that are harbingers of very poor prognosis. She has frequent exacerbations, she has severe pulmonary hypertension, she has severe LV systolic dysfunction, she has concomitant renal disease and she has cachexia of CHF. Consequently, I am afraid that her prognosis is very poor. We spoke about this with her and her son and especially her son expressed understanding. I am not quite ready to recommend hospice care as yet because this is the first time that I am seeing the patient. From purely medical perspective, I will leave the diuretic dosing to nephrology service that have been handling this for several months. She does not take any JANNA inhibitors and it is probably not realistic to expect that she would tolerate them. She also does not take any beta blockers and the blood pressure seems to be sufficient. I would recommend that she gets discharged on minimal dose of Coreg 3.125 mg twice a day. I will arrange for outpatient followup within 10 days. Thank you for this consultation. CONNOR
--- NOTE | 2017-02-01 07:22 | IPN ---
DATE: 01/31/2017 SUBJECTIVE: This is a 76-year-old female who is seen and examined in medical/surgical floor. Overnight she was transferred from the progressive care unit (PCU) to medicine/surgery. No reported events noted. Had a better night sleeping because she was given a one-time dose of Tylenol. No chest pain, shortness of breath, nausea, vomiting. Had a total of two bowel movements in the last 24 hours. She was ambulating in the hallway yesterday without any complaints. REVIEW OF SYSTEMS: No chest pain, shortness of breath, palpitations, nausea, vomiting, diarrhea, fevers, chills, cough. Less tired this morning because she was able to sleep well last night. Anxious to go home. OBJECTIVE: VITAL SIGNS: Blood pressure 110/61, heart rate 68, temperature 97, respiratory rate 18, pulse oximetry 96% on room air. Weight is 40.7 kg. It appears that her weight fluctuates anywhere from 39.5 to 41, and she does deteriorate whenever there is a change from this. Intake and output in the last 24 hours: 1200 and 950. Since admission, she is net negative of 4.8 liters. Two bowel movements documented last night. GENERAL: The patient was lying in bed comfortable in no acute distress. She is alert, awake and oriented times three. Pleasant and cooperative. at bedside. Continues to appear cachectic looking, but comfortable without respiratory distress. HEENT: Normocephalic, atraumatic. Moist oral mucosa. Dentures in place. NECK: Supple. Trachea midline. Neck veins approximately 3 cm above the sternal angle. CARDIOVASCULAR: Irregular but not tachycardic. Variable S1, S2. Systolic murmur in the second intercostal border 2/6 without radiation. PULMONARY: Diminished breath sounds but clear sounding compared to yesterday. No accessory muscle use. ABDOMEN: Soft, thin, nontender, nondistended. Bowel sounds present. No guarding. No rebound. EXTREMITIES: No pedal edema. Pedal pulses present bilaterally. NEUROLOGIC: She is alert, awake oriented times three. Mentation is intact. PSYCHIATRIC: Pleasant, cooperative, normal affect. LABORATORY DATA: WBC 4.6, hemoglobin 12.6, hematocrit 38, platelets 156. Sodium 135 improved from yesterday 132, potassium 3.5, chloride 91, carbon dioxide 36, BUN 46, creatinine 1.46; yesterday were 52 and 1.48. Glucose 255. Calcium 8.5, phosphorus 2.5, albumin 2.7. IMPRESSION: Ms. Yen is a pleasant 76-year-old female with history of chronic kidney disease (CKD) stage III-IV, systolic/diastolic heart failure with ejection fraction (EF) of 10, who presented for acute decompensation of heart failure. 1. Acute kidney injury superimposed on chronic kidney disease. Her baseline stage is stage III-IV. Her decompensation of kidney failure was secondary to cardiorenal syndrome. Unfortunately, she has a very weak heart with EF of 10% only from echocardiogram in December of this year. Any fluctuation in her weight or fluid status, if 500 mL change, then she will likely become either dehydrated or fluid congestion. She currently is doing well with current dose of Bumex and metolazone. Since admission, has net negative of 4.8 liters. Recommend continue patient's Bumex, metolazone and potassium supplementation at discharge. She also had recurrent admissions for hyperkalemia and we will have to monitor this closely. She will require followup with nephrology office at discharge. 2. Acute on chronic systolic heart failure. Was seen by Dr. Matthews last night who has agreed to continue following her outpatient as well because her previous cardiology was in [place] and it is too far for her to travel considering her fragile health. Case discussed with Dr. Matthews today. Unfortunately, because of her poor cardiac function, her prognosis is guarded. 3. Hypokalemia. Potassium is currently reasonable. She received potassium supplementation 20 mEq three times a day. Monitor her potassium level as she does have recurrent either hyper or hypokalemia. 4. Anemia of chronic disease. Hemoglobin in reasonable range. No need for Aranesp or transfusion at this time. 5. 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 She continues to be on Xifaxan twice a day. Does have lactulose as needed at home, but has not needed it here because she has been having good bowel movements. As long as she is having 1-2 bowel movements a day, we can continue holding the lactulose. Case discussed with Dr. Matthews. My preceptor for this patient encounter was Dr. Wood. The preceptor was physically present in the building during the encounter and was fully available as needed. All aspects of the patient interview, examination, medical decision making process, and medical care plan development were reviewed and approved by the preceptor. The preceptor is aware and concurs with the plan as stated in the body of this note and will attest to such by his/her co-signature. CONNOR
--- NOTE | 2017-02-01 10:28 | DSES ---
DATE OF ADMISSION: 01/23/2017 DATE OF DISCHARGE: 01/31/2017 CONSULTANTS DURING ADMISSION: Nephrology: Dr. Amin and Dr. Wood. Cardiology: Dr. Matthews. PRIMARY DISCHARGE DIAGNOSES: 1. Acute on chronic systolic and diastolic congestive heart failure exacerbation, ejection fraction of 10-15%. 2. Acute kidney injury superimposed on chronic kidney disease, stage III-IV secondary to cardiorenal syndrome. 3. Low potassium secondary to diuresis. 4. Anemia of chronic disease. 5. 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 6. History of hepatic encephalopathy. 7. Lactic acidosis secondary to fluid overload and decreased perfusion. 8. Sick sinus syndrome with pacemaker, ejection fraction of 10% status post automatic implantable cardio converter-defibrillator (AICD). 9. History of moderate pulmonary hypertension. 10. History of valvular disease status post aortic valve replacement with bioprosthesis. 11. History of decompensated liver cirrhosis on chronic Rifaximin for prophylaxis. 12. Hyperlipidemia. 13. Chronic anemia. 14. Chronic anxiety. 15. Chronic deconditioning. DISCHARGE MEDICATIONS: - metolazone 1.25 mg daily - acetaminophen 650 every 4 hours - aspirin 81 mg daily - brimonidine one drop both eyes twice a day - Bumex 2 mg daily - vitamin D 1000 units daily - guaifenesin 400 twice a day - lactulose 30 mg daily - Synthroid 137 mcg daily - Tradjenta 5 mg daily - Milk of Magnesia 30 mL daily - multivitamin 1 tablet daily - potassium chloride 20 mEq by mouth three times a day - Xifaxan 550 twice a day - simvastatin 40 mg nightly Due to renal failure the patient was unable to be given an jean claude inhibitor and angiotensin receptor kelechi. HOSPITAL COURSE: This is a 76-year-old female with history of sick sinus syndrome status post pacemaker, congestive heart failure, systolic/diastolic dysfunction with ejection fraction of 10-15%, follows with Dr. Pike in [place], cardiology. Bioprosthetic aortic valve. Severe tricuspid regurgitation with moderate pulmonary hypertension, small patent foramen ovale, small to moderate pericardial effusion with no signs of cardiac decompensation, left sided pleural effusion, automatic implantable cardio converter-defibrillator (AICD) , diabetes, chronic anemia, chronic kidney disease stage III-IV, hypothyroidism, glaucoma, anxiety, malnutrition, coronary artery bypass grafting (CABG), hepatic encephalopathy secondary to congestive stage, hyperlipidemia presents to the emergency room with worsening confusion, shortness of breath. The patient was found to be severe decompensated with significant metabolic encephalopathy and hyperkalemia. Nephrology was consulted due to low blood pressure 96/55, potassium level of 6.4. The patient was not a good candidate for dialysis due to low blood pressure. In light of the decompensated heart failure the patient was given 80 mg of Lasix and placed on a dobutamine drip for better diuresis. At this time the patient's admission weight was 42.1 kg with a peak weight of 43.2 kg and discharge weight of 40.7 kg. Creatinine peaked at 3.93 and discharge creatinine of 1.46. The patient's hyperkalemia resolved from 6.8 to 3.5. The patient's vital signs remained stable with systolic pressure improving from 82 to 110 with proper diuresis and fluid management. During this admission due to the complicated nature and severe hypotension, a peripherally inserted center catheter (PICC) line was placed on 01/25/2017 and was kept until 01/31/2017. Dobutamine drip was discontinued 48 hours after starting on 01/25/2017, had been stable with her diuresis then. Dr. Matthews was consulted as the patient's family were requesting transferring her care from Dr. Pike in [place] to Dr. Matthews in [place] due to inability to be transported and due to several missed appointment due to increment weather. The patient had symptomatic improvement of her altered mental status, shortness of breath and kidney dysfunction and now at baseline, creatinine of 1.46. OUTPATIENT INSTRUCTIONS AT DISCHARGE: Cardiac rehabilitation. Fluid restriction of 1.8 liters. Strict intake and output, daily weights. Call Dr. Matthews's office if greater than 2 pound weight gain. Have patient followup with Dr. Amin and Dr. Wood regarding the chronic kidney disease. DISCHARGE LAB DATA: White count 4.6, hemoglobin 12, hematocrit 38, platelet count 156. Sodium 135, potassium 3.5, chloride 91, bicarbonate 36, BUN 46, creatinine 1.46, glucose of 255. Microbiology: Two sets of blood culture, one on 01/23 no growth, 01/24 no growth. Urine culture on 01/23 no growth. IMAGING STUDIES: CT of the head on 01/23 no acute hemorrhage or infarct. Mild age related atrophy, chronic small vessel ischemic disease. Chest x-ray on 01/23: Mild chronic findings without evidence for acute infiltrate, moderate cardiomegaly. TIME SPENT ON DISCHARGE: 30 minutes.
== END 2017-01-31 13:10 | disposition home or self-care (01) | DRG 291 ==
LOC: EDBD 18:17 → M ED 20:54 → M ED INP 22:30 → M PCU 01-24 00:24 → M MSPAV 01-30 11:39
PROVIDERS: ADMIT Internal Medicine; ATTEND General Practice
PROC: 02HV33Z Insertion of Infusion Device into Superior Vena Cava, Percutaneous Approach (ICD-10-PCS; principal; 2017-01-25)
DX: I13.0 Hypertensive heart and chronic kidney disease with heart failure and stage 1 through stage 4 chronic kidney disease, or unspecified chronic kidney disease (principal); G93.41 Metabolic encephalopathy; I50.23 Acute on chronic systolic (congestive) heart failure; E72.20 Disorder of urea cycle metabolism, unspecified; E87.2 Acidosis; N17.9 Acute kidney failure, unspecified; N18.4 Chronic kidney disease, stage 4 (severe); E87.0 Hyperosmolality and hypernatremia; N39.0 Urinary tract infection, site not specified; F41.9 Anxiety disorder, unspecified; D63.1 Anemia in chronic kidney disease; E78.5 Hyperlipidemia, unspecified; Z95.810 Presence of automatic (implantable) cardiac defibrillator; K74.60 Unspecified cirrhosis of liver; Z79.82 Long term (current) use of aspirin; Z79.899 Other long term (current) drug therapy; I36.0 Nonrheumatic tricuspid (valve) stenosis; E03.9 Hypothyroidism, unspecified; I49.5 Sick sinus syndrome; I27.2 Other secondary pulmonary hypertension; E87.5 Hyperkalemia; H40.9 Unspecified glaucoma; M10.9 Gout, unspecified; E87.6 Hypokalemia

== ENCOUNTER 2017-02-24 01:51 | Inpatient (IN) | payer MEDICARE, BC, OTHER ==
[~2017-02-24] VITALS: Ht 157.5 cm; Wt 47.7 kg
[2017-02-24] VITALS (13 sets, daily range): BP systolic 93–119; BP diastolic 51–73
[~2017-02-24 01:51] MED LIST changes: +BUME2TAB PO
[2017-02-24] MEDS ORDERED: ONDANSETRON 4MG/2ML VIAL (J2405) IV ONE (02:30)
[2017-02-24 02:55] LABS: VENOUS BASE EXCESS -10.7 (-2.0-2.0); VENOUS O2 SATURATION 52.2 % (60.0-80.0); VENOUS PARTIAL PRESSURE CO2 32.9 mmHg (38.0-50.0); VENOUS PARTIAL PRESSURE O2 36.1 mmHg (30.0-50.0); VENOUS STANDARD HCO3 15.2 MEQ/L; VENOUS TOTAL CO2 15.9 MEQ/L (24.0-28.0)
[2017-02-24 03:02] LABS: BASO % 0.1 % (0.0-1.0); EOS % 0.1 % (0.0-3.0); LARGE UNSTAINED CELL # 0.1 K/mm3 (0.0-0.4); LARGE UNSTAINED CELL % 1.5 % (0.0-4.0); LYMPH # 0.5 K/mm3 (1.5-4.5); LYMPH % 5.8 % (24.0-44.0); MEAN CORPUSCULAR HEMOGLOBIN 30.8 pg (27.0-33.0); MEAN CORPUSCULAR HGB CONC 30.7 g/dl (32.0-36.5); MEAN CORPUSCULAR VOLUME 100.1 fl (80.0-96.0); MONO # 0.5 K/mm3 (0.0-0.8); MONO % 7.8 % (0.0-5.0); NEUTROPHILS # 5.4 K/mm3 (1.8-7.7); NEUTROPHILS % 84.7 % (36.0-66.0); PLATELET COUNT, AUTOMATED 152 k/mm3 (150-450); RED CELL DISTRIBUTION WIDTH 17.3 % (11.5-14.5); WHITE BLOOD COUNT 6.4 K/mm3 (4.0-10.0)
[2017-02-24 03:08] LABS: INR 2.33
[2017-02-24 03:26] LABS: ALBUMIN 3.6 GM/DL (3.2-5.2); BILIRUBIN,TOTAL 3.4 MG/DL (0.2-1.0); CALCIUM LEVEL 9.7 MG/DL (8.8-10.2); CREATININE FOR GFR 2.65 MG/DL (0.55-1.02); GLOMERULAR FILTRATION RATE 18.6 (>39); TOTAL PROTEIN 7.2 GM/DL (6.4-8.2)
--- NOTE | 2017-02-24 03:30 | REPUSA ---
CLINICAL HISTORY: Abdominal pain. TECHNIQUE: Multiple axial, sagittal and coronal CT images were obtained through the abdomen and pelvi s without administration of oral or IV contrast material. COMMENTS: The liver is of uniform attenuation without mass or defect. There is no intra or extrahepatic biliary ductal dilatation. The spleen is normal. The gallbladder contains a gallstone. The pancreas is of no rmal contour and attenuation characteristics. There is no evidence of adrenal mass. The kidneys are normal in size, shape and configuration. No renal or ureteral calculi are identified. There is no hydroureter or hydronephrosis. There is no evidence for appendicitis. There is diffuse thickening of the liver the small bowels. Dif fuse thickening of the wall of the ascending colon. No evidence for small or large bowel obstruction. There is no evidence of intrinsic or extrinsic bladder mass. There is mild ascites. Moderate cardiomegaly. Small right pleural effusion. Passive atelectatic airspace disease in the lowe r lobes. Pacemaker wires are in good position. Images of the lung bases show no evidence of pleural or parenchymal mass. There are no pleural effusi ons. The bony structures are free of lytic or blastic lesions. Multilevel degenerative changes are seen in volving the thoracolumbar spine. Scattered calcifications are seen involving the aorta and major branches compatible with atherosclero sis. IMPRESSION: Congestive heart failure. Small right pleural effusion. Enterocolitis. Mild ascites. Cholelithiasis. Cystitis. Thank you for your kind referral of this patient.
[2017-02-24 03:38] LABS: POTASSIUM SERUM 5.5 MEQ/L (3.5-5.1)
[2017-02-24] MEDS ORDERED: INSULANT SC (03:45)
[2017-02-24] MEDS ORDERED: K-TA10TA2 PO (03:45)
[2017-02-24] MEDS ORDERED: NS 1,000 ML IV SCH ×2 (04:00→07:20)
[2017-02-24] MEDS ORDERED: METO25TA PO (04:39)
[2017-02-24] MEDS ORDERED: BUSP5TA PO (04:40)
[2017-02-24] MEDS ORDERED: CELE10TA PO (04:40)
[2017-02-24 04:54] LABS: MAGNESIUM LEVEL 2.4 MG/DL (1.8-2.4)
[2017-02-24] MEDS ORDERED: ACETAMINOPHEN TAB 650MG DOSE (2X325MG) PO PRN (05:15)
[2017-02-24] MEDS ORDERED: busPIRone 5 MG TAB PO PRN (05:15)
[2017-02-24] MEDS ORDERED: GLUCAGON FOR INJ 1 MG VIAL (J1610) SC PRN (05:15)
[2017-02-24] MEDS ORDERED: ONDANSETRON 4MG/2ML VIAL (J2405) IV PRN (05:15)
[2017-02-24] MEDS ORDERED: DEXTROSE 50% 50 ML SYRINGE IV PRN (05:15)
[2017-02-24] MEDS ORDERED: GLUCOSE 4 GM CHEW TABLET PO PRN (05:15)
[2017-02-24] MEDS ORDERED: HumaLOG INSULIN (NovoLOG) PER UNIT SC SCH ×4 (06:00→21:00)
[2017-02-24] MEDS ORDERED: VANCOMYCIN ORAL SOL 250MG/5ML ORAL SYRINGE PO SCH (06:00)
[2017-02-24] MEDS ORDERED: PANTOPRAZOLE 40MG INJ (PROTONIX) (C9113) IV ONE (06:15)
[2017-02-24] MEDS: LEVOTHYROXINE 0.137 MG TAB (137MCG) PO SCH (06:50)
--- NOTE | 2017-02-24 07:26 | HPE ---
DATE OF ADMISSION: 02/24/2017 Time patient was seen was at 0430 hours. PRIMARY CARE PROVIDER: Sujit Bhagat DO HEEL GOUGER: Ellie Matthews MD CHOP SAW OPERATOR: Shea Amin MD CHIEF COMPLAINT: Nausea and diarrhea, generalized weakness. HISTORY OF PRESENT ILLNESS: 76-year-old female with past medical history of chronic kidney disease stage IV, severe systolic heart failure with an ejection fraction of 10%, sick sinus syndrome status post pacemaker placement, pulmonary hypertension, valvular heart disease with severe tricuspid regurgitation, history of hepatic encephalopathy with elevated ammonia, coronary artery disease with prior myocardial infarction, insulin dependent type 2 diabetes, cardiomyopathy status post bioprosthetic mitral and aortic valve replacement, history of endocarditis in 2006, hyperlipidemia, chronic anemia, hypothyroidism, glaucoma, chronic malnutrition, night terrors and anxiety, oxygen as needed throughout the day, vitamin D deficiency, and chronic constipation, who presented with nausea, unable to tolerate by mouth intake and also diarrhea for the past several days. She stated that today she had diarrhea more than four times which was light brown initially and then turned black later one. She also admits to chills, which started a few days ago as well. Also generalized weakness. She stated that a few days ago she was able to do physical therapy, however over the past two days especially she was having trouble walking and her upper arm also feels weak. However, she denies any vomiting; however, she does feel like she is going to vomit. She also stated over the past few days she angry and anxious. Otherwise , she denies any chest pain, any abdominal pain or any problems with urination. Denies any rash. She states her lower extremity swelling is about the same as before and she also uses oxygen as needed at home. Denies any recent traveling or sick contacts, however she was recently in the hospital on January 23 and was discharged on January 31 for acute on chronic systolic and diastolic congestive heart failure (CHF) exacerbation and also acute kidney injury superimposed on chronic kidney disease. ALLERGIES: No known drug allergies. HOME MEDICATIONS: Include: - acetaminophen 650 mg one tablet by mouth every 4 hours as needed - aspirin 81 mg one tablet by mouth daily - Alphagan one drop in each eye twice a day - bumetanide 2 mg by mouth daily - buspirone 5 mg one tablet by mouth three times a day - vitamin D3 1000 units one tablet by mouth daily - Celexa 10 mg one tablet by mouth at bedtime - Lantus 15 units subcutaneously daily - lactulose 30 mL by mouth daily - Synthroid 137 mcg by mouth every morning - metolazone 1.25 mg one tablet by mouth daily - Milk of Magnesia 30 mL by mouth daily as needed - multivitamin one tablet by mouth daily - potassium chloride 20 mEq by mouth three times a day - rifaximine 550 mg by mouth twice a day PAST MEDICAL HISTORY: 1. Severe systolic and diastolic heart failure with ejection fraction of 10%. Follows with Dr. Matthews. 2. Chronic kidney disease stage IV. Follows with Dr. Amin. 3. Sick sinus syndrome status post pacemaker. 4. Valvular heart disease with severe tricuspid regurgitation. Also mitral and aortic bioprosthetic replacement. 5. History of endocarditis in 2006. 6. Pulmonary hypertension. 7. Coronary artery disease with prior myocardial infarction. 8. History of hepatic encephalopathy with elevated ammonia. 9. Insulin dependent type 2 diabetes. 10. Hyperlipidemia. 11. Chronic anemia. 12. Hypothyroidism. 13. Glaucoma. 14. Chronic malnutrition. 15. Night terrors and anxiety. 16. On as needed oxygen at home, 2 liters. 17. Vitamin D deficiency. 18. Chronic constipation. PAST SURGICAL HISTORY: 1. Pacemaker/defibrillator placement for sick sinus syndrome. 2. Mitral and aortic bioprosthetic valve replacement. 3. Coronary artery bypass grafting (CABG). SOCIAL HISTORY: The patient lives at home with her . She has her son come to visit her regularly. She denies any smoking. Used to smoke more than 20 years ago for 20 years. Denies any drinking or recreational drug use. The patient is able to take care of herself at home at baseline per patient. She is able to cook some meals and wash herself. Sleeps with two pillows at night. FAMILY HISTORY: Noncontributory. REVIEW OF SYSTEMS: GENERAL: Patient denies any recent traveling, any sick contacts. Admits to recent hospitalization back in early January. Denies any weight changes for the past three weeks. Admits to chills. Denies any fevers. HEENT: Denies any changes with her vision, smell, hearing or taste. Denies any sore throat or any cough. CARDIOVASCULAR: Denies any chest pain. Admits to chronic shortness of breath. The patient does have severe diastolic and systolic heart failure with ejection fraction of 10. PULMONARY: Admits to chronic shortness of breath on as needed oxygen 2 liters nasal cannula at home. GASTROINTESTINAL (GI): Admits to nausea. Denies any vomiting. Admits to diarrhea at least four times today. Initially it was light brown and turned dark. GENITOURINARY (): Denies any problems with urination. Denies any dysuria, any blood in the urine. MUSCULOSKELETAL: Denies any pain anywhere. ENDOCRINE: The patient does have insulin dependent type 2 diabetes. Denies any heat intolerance. Admits to feeling chilled. HEMATOLOGY/ONCOLOGY: Denies any ease of bruising, any bleeding anywhere; however , she does have dark looking liquid stool, which started today. SKIN: Denies any rash, ulcerations, lumps or bumps. Admits to swelling in the lower extremities chronically; however, it has not changed over the past few days. NEUROLOGICAL: Denies any weakness on any one side of her body. Admits to generalized weakness compared to a few days ago. PSYCH: Admits to anxiety. Admits to feeling angry for the past few days. PHYSICAL EXAMINATION: VITAL SIGNS: Temperature 97.7, pulse 98, respirations 22, blood pressure 118/73 , oxygen was satting at 93% on room air. GENERAL: Patient is a cachectic looking elderly female who was alert, awake and oriented times three. Appears to be mildly distressed with head elevated at a 45 degree angle. HEENT: Normocephalic, atraumatic. Extraocular motors intact. Mucous moist. NECK: Supple. No neck lymphadenopathy. The patient however does have jugular venous distention (JVD) extending to the earlobes. CARDIOVASCULAR: Paced rhythm with at least a 3/6 systolic heart murmur. LUNGS: Clear to auscultation bilaterally. However there were coarse breath sounds. ABDOMEN: Positive bowel sounds. Soft, nontender, nondistended. No peritoneal signs. EXTREMITIES: 1+ pitting edema in the lower extremities below the knee. SKIN: Warm and dry. NEURO: Cranial nerves II through XII intact. No focal neurologic deficits. LABORATORIES: WBC 6.4, hemoglobin 13.9, hematocrit 45.3 with a platelet count of 152 and MCV of 100.1. Sodium 136, potassium 5.5, chloride 94, bicarb 20, anion gap was 22, BUN 60, creatinine 2.52, GFR 18.6, fasting glucose 197, lactic acid elevated at 11, calcium 9.7, magnesium 2.4, total bilirubin was 3.4, direct bilirubin was 2, AST 45, ALT 33, alkaline phosphatase 250, ammonia level was 15, CRP 3.64, BNP level is 2300. Protein 7.2, albumin 3.6, lipase 73. PT 25.6, INR 2.33, PTT 37.6. The patient's ABG shows a pH of 7.27, pCO2 of 32.9, pO2 of 36.1, oxygen saturation venous was 52.2% with a base excess of -10.7. GI panel shows the patient has C. difficile colitis A/B, consistency known. The patient's blood cultures times two are pending. The patient had a CT of the abdomen and pelvis without contrast in the emergency room this morning at 2:28 which shows congestive heart failure (CHF), small right pleural effusion, enterocolitis, mild ascites, cholelithiasis, cystitis. Urinalysis and urine culture are pending. ASSESSMENT/PLAN: 76-year-old female with multiple comorbidities, most significantly recent hospitalization in early January, also severe systolic heart failure that is both diastolic and systolic, with an ejection fraction of 10%, chronic kidney disease stage IV, sick sinus syndrome status post pacemaker, valvulopathy with mitral and aortic bioprosthetic valve replacement, severe tricuspid regurgitation, coronary artery disease with a prior myocardial infarction and CABG, insulin dependent type 2 diabetes, history of endocarditis, history of hepatic encephalopathy with hyperammonemia who presented with: 1. Nausea and diarrhea, likely secondary to C. difficile colitis. The patient' s CT of the abdomen and pelvis shows enterocolitis. Also, GI panel shows C. difficile colitis A and B. The patient has been started on vancomycin 125 mg one tablet by mouth every 6 hours. The patient did receive gentle fluid hydration in the emergency room with normal saline at a rate of 75 mL per hour. Due to the patient's severe systolic and diastolic heart failure with ejection fraction of only 10, we will adjust the patient's fluid closely. The patient also does have an elevated BNP of 2300. Will continue to monitor the patient's intake and output and keep the patient nothing by mouth for now due to severe nausea and place the patient on aspiration precautions. Upon reviewing her chart, she did receive Rocephin from January 24 [address] 2[address] findings of cystitis. Urinalysis and urine culture are pending. Will followup. 3. Lactic acidosis with a lactic acid of 11. Likely 2ndary to sepsis and hypoperfusion from severe systolic HF. Will followup lactic acid again in 4 hours and continue to monitor the patient. Continue gentle hydration and close monitoring of intake and output. 4. Elevated INR, which was 2.33 today. Back on December 25, 2016 her INR was 1.85. 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 The patient was also on lactulose and rifaximine at home. Will only continue rifaximin for now due to the patient's severe diarrhea and continue to monitor the patient's ammonia level every two days. 5. Elevated alkaline phosphatase, which was 250. The patient also has elevated bilirubin. Total bilirubin was 3.4, direct bilirubin was 2. Will obtain a liver ultrasound to check for possible choledocholithiasis or intrahepatic etiologies. 6. Anion gap metabolic acidosis with anion gap of 22. The Delta Delta ratio was calculated to be 2. The patient likely has a concomitant metabolic acidosis as well. Will continue to monitor. 7. Dark brown diarrhea. Possible GI bleed. Patient is on Protonix IV twice a day. Will check for fecal occult blood and will trend the patient's hemoglobin and hematocrit. Will hold any chemical deep vein thrombosis (DVT) prophylaxis for now, due to both possible GI bleed and elevated INR. 8. Possible acute on chronic kidney disease, stage IV. The patient's GFR baseline is roughly 20-30%. Today GFR is 18.6. Will continue the patient on gentle hydration. Due to the patient's severe systolic heart failure, the patient's fluid management is complicated. Therefore will consult nephrology in the morning and we appreciate their help. 9. Hyperkalemia with potassium of 5.5. Will continue gentle hydration and will continue IV fluid for a few hours and will continue to monitor the patient's fluid status and adjust accordingly. 10. Severe systolic and diastolic congestive heart failure (CHF) with an ejection fraction of 10% on echocardiogram from December 28, 2016. Also shows the patient has aortic valve sclerosis with trace aortic regurg, bioprosthetic mitral valve with moderate mitral regurgitation, dilated left atrium, moderate mitral annular calcification, severe tricuspid regurgitation with moderate severe pulmonary hypertension and dilated right heart chambers. At this point, due to C. difficile colitis and diarrhea, will start the patient on gentle hydration. Due to the complicated case of severe systolic heart failure, will continue the patient's metolazone and Bumex and continue to monitor the patient's intake and output and adjust fluid accordingly. 11. Sick sinus syndrome status post pacemaker. Appears to be stable. Continue to monitor. 12. Pulmonary hypertension. The patient denies any increased trouble breathing at this point, stable. Continue to monitor. 13. Valvular heart disease with severe tricuspid regurgitation and mitral and aortic bioprosthetic replacement, stable. Continue to monitor. 14. History of hepatic encephalopathy and hyperammonemia. Ammonia level is not elevated. Continue to trend ammonia every two days. Continue to monitor. Will continue only rifaximin and hold lactulose due to diarrhea. 15. Coronary artery disease status post prior TX and CABG. Will obtain cardiac enzymes. EKG did not show any new findings. 16. Insulin dependent type 2 diabetes. Will hold home basal insulin for now due to the patient is nothing by mouth and continue the patient on insulin sliding scale and fingerstick. 17. History of endocarditis in 2006. Continue to monitor. Currently stable. 18. Hyperlipidemia. Continue home medications. 19. Chronic anemia. Continue to monitor for possible GI bleed. 20. Hypothyroidism. Stable. Continue to monitor. 21. History of glaucoma. Continue to monitor. 22. Chronic malnutrition. Albumin today is 3.6, stable. Continue to monitor. 23. History of night terrors and anxiety. Will continue to monitor and start the patient on medication as needed. 24. History of oxygen dependence as needed at home. Will place the patient on titrated oxygen, above 90% in the hospital. 25. Vitamin D deficiency. Continue to monitor. 26. History of constipation. Will hold any constipation medications due to severe diarrhea. Deep vein thrombosis (DVT) prophylaxis on sequential compression devices (SCD). No chemical prophylaxis due to elevated INR and also possible gastrointestinal (GI) bleed. DISPOSITION: The patient has multiple comorbidities, most significantly severe diastolic and systolic heart failure with ejection fraction of 10%, which complicates management. The patient does have a C. difficile colitis show on a GI panel and on CT of abdomen and pelvis. Will continue by mouth vancomycin and monitor the patient's intake and output closely. The patient would like DO NOT RESUSCITATE, DO NOT INTUBATE. Medical Order for Life-Sustaining Treatment (MOLST) form filled out. Patient has been discussed with attending doctor, Dr. Brannon. My preceptor for this patient encounter was Dr. Leslie Brannon. The preceptor was physically present in the building during the encounter and was fully available. As needed, all aspects of the patient interview, examination, medical decision making process, and medical care plan development were reviewed and approved by the preceptor. The preceptor is aware and concurs with the plan as stated in the body of this note and will attest to such by his/her cosignature. CONNOR
[2017-02-24 08:01] LABS: BASO % 0.2 % (0.0-1.0); EOS % 0.2 % (0.0-3.0); LARGE UNSTAINED CELL # 0.1 K/mm3 (0.0-0.4); LARGE UNSTAINED CELL % 1.5 % (0.0-4.0); LYMPH # 0.5 K/mm3 (1.5-4.5); LYMPH % 4.8 % (24.0-44.0); MEAN CORPUSCULAR HEMOGLOBIN 30.4 pg (27.0-33.0); MEAN CORPUSCULAR HGB CONC 30.2 g/dl (32.0-36.5); MEAN CORPUSCULAR VOLUME 100.8 fl (80.0-96.0); MONO # 0.6 K/mm3 (0.0-0.8); MONO % 7.6 % (0.0-5.0); NEUTROPHILS % 85.7 % (36.0-66.0); PLATELET COUNT, AUTOMATED 136 k/mm3 (150-450); RED CELL DISTRIBUTION WIDTH 17.4 % (11.5-14.5); WHITE BLOOD COUNT 8.2 K/mm3 (4.0-10.0)
[2017-02-24 08:08] LABS: ALBUMIN 3.4 GM/DL (3.2-5.2); ALBUMIN/GLOBULIN RATIO 0.89 (1.00-1.93); BILIRUBIN,TOTAL 3.3 MG/DL (0.2-1.0); CALCIUM LEVEL 9.5 MG/DL (8.8-10.2); CREATININE FOR GFR 2.72 MG/DL (0.55-1.02); GLOMERULAR FILTRATION RATE 18.1 (>39); TOTAL PROTEIN 7.2 GM/DL (6.4-8.2)
[2017-02-24 08:11] LABS: POTASSIUM SERUM 5.8 MEQ/L (3.5-5.1)
--- NOTE | 2017-02-24 08:35 | ECGEPIP ---
Stationary ECG Study [facility] - ED Test Date: 2017-02-24 Pat Name: EAN MONTEMAYOR Department: Room: [place] [address] Gender: F Ripening Room Hand: alyssa : 1940 Requested By: LAINA Patel Order Number: [id number] Reading MD: Enmanuel Veliz Measurements Intervals Starr Rate: 101 P: -57 DC: 253 QRS: -83 QRSD: 211 T: 86 QT: 472 QTc: 615 Interpretive Statements ELECTRONIC VENTRICULAR PACEMAKER ABNORMAL RHYTHM ECG Electronically Signed On 02-24-2017 8:35:26 EDT by Enmanuel Veliz
--- NOTE | 2017-02-24 09:32 | REP ---
Clinical: Elevated bilirubin and liver function tests. Comparison: 12/25/2016. Findings: The liver demonstrates a diffuse coarsened echotexture without focal hepatic lesion and underlying hepatocellular disease is suggested. The gallbladder demonstrates chronic wall thickening and cholelithiasis without sonographic Alejandro's sign. No biliary ductal dilatation is appreciated and the common bile duct measures 2 mm diameter. The right kidney is normal in reniform shape without hydronephrosis and measures 9.5 x 4.1 x 3.7 cm. Moderate ascites noted. Impression: 1. Findings to suggest hepatocellular disease including moderate ascites suggesting cirrhosis. 2. Chronic gallbladder wall thickening with gallstones. No sonographic Alejandro's sign and no biliary ductal dilatation is appreciated. Signed by Raad Mcmahan MD 02/24/2017 09:24 A
[2017-02-24 10:29] LABS: ABG BASE EXCESS -12.6 (-2.0-2.0); ABG HCO3 11.8 MEQ/L (22.0-26.0); ABG PARTIAL PRESSURE CO2 24.5 mmHg (35.0-45.0); ABG PARTIAL PRESSURE O2 69.7 mmHg (75.0-100.0); ABG STANDARD HCO3 14.7 MEQ/L (22.0-26.0); ABG TOTAL CO2 12.6 MEQ/L (23.0-31.0); ABG pH (ARTERIAL) 7.301 UNITS (7.350-7.450)
[2017-02-24] MEDS: HumaLOG INSULIN (NovoLOG) PER UNIT SC SCH ×3 (10:29→17:25)
[2017-02-24] MEDS: rifAXIMin 550 MG TAB (XIFAXAN) PO SCH ×2 (10:30→21:19)
[2017-02-24] MEDS: BRIMONIDINE 0.15% OPHTH SOLN 5 ML OU SCH ×2 (10:30→21:19)
[2017-02-24] MEDS: ASPIRIN 81 MG ENTERIC TAB PO SCH (10:30)
[2017-02-24] MEDS: BUMETANIDE 1 MG TAB PO SCH (10:30)
[2017-02-24] MEDS: LACTOBACILLUS ACIDOPHILUS CAP (BACID) PO SCH ×3 (10:31→21:19)
[2017-02-24] MEDS: VITAMIN D 1,000 INTERNATIONAL UNITS TABLET PO SCH (10:31)
[2017-02-24] MEDS: metOLazone 2.5 MG TAB PO SCH (10:31)
[2017-02-24] MEDS: MULTIVITAMINS/MINERALS THERAP 1 TAB PO SCH (10:31)
[2017-02-24] MEDS ORDERED: DOBUTamine HCL 500,000 MCG in APPROPRIATE DILUENT 1 EA IV SCH (10:45)
--- NOTE | 2017-02-24 12:14 | REP ---
Clinical: Central line placement. Comparison: 01/23/2017. Findings: Right IJ line with tip in the SVC. Mediastinum and cardiac silhouette are stable with cardiomegaly and evidence for prior sternotomy and CABG. Pacemaker in stable position. The lung hermosillo are clear without acute focal consolidation, effusion, or pneumothorax. Skeletal structures intact. Impression: Chronic stable cardiomegaly. No acute pleuroparenchymal process appreciated. Right IJ line with tip in the SVC. No pneumothorax. Signed by Raad Mcmahan MD 02/24/2017 12:06 P
[2017-02-24] MEDS: VANCOMYCIN ORAL SOL 250MG/5ML ORAL SYRINGE PO SCH ×2 (12:39→17:14)
--- NOTE | 2017-02-24 13:08 | CR ---
DATE OF CONSULTATION: 02/24/2017 REQUESTING PHYSICIAN: Dr. Mili Patel CONSULTING PHYSICIAN: Rayna Wood MD REASON FOR CONSULTATION: Management of acute kidney injury superimposed on chronic kidney disease and hyperkalemia. CHIEF COMPLAINT: The patient presented to emergency room last night because of nausea, diarrhea, and generalized weakness. HISTORY OF PRESENT ILLNESS: Ms. Yamini Yen is a 76-year-old female with past medical history of chronic systolic congestive heart failure with a left ventricular ejection fraction of around 10% to 15%, history of chronic kidney disease late stage III to early stage IV, with a past baseline creatinine of around 1.5 as of 01/29/2017. She also has multiple other comorbidities that are mentioned below. The patient was currently medically optimized with diuretics as outpatient, but she presented to the emergency room last night because of nausea, decreased appetite, diarrhea, generalized weakness; and she had about 3-4 episodes of loose stools that were brown in color. She denies any blood in the stools. She also had associated chills. The patient was found to have positive Clostridium (C) difficile. She was also in acute renal failure with a creatinine of 2.6 and potassium of 5.5 on arrival. The patient was gently hydrated with intravenous (IV) fluids. She is currently getting normal saline at 75 mL an hour. Nephrology service was called for further management of acute kidney injury superimposed on chronic kidney disease and hyperkalemia. PAST MEDICAL HISTORY: The patient has a past medical history of severe systolic congestive heart failure with a left ventricular ejection fraction of 10% to 15%, chronic kidney disease stage IV with a baseline creatinine of around 1.5, sick sinus syndrome status post pacemaker, history of mitral and aortic valve disease status post bioprosthetic replacement, history of endocarditis in 2017, pulmonary hypertension, coronary artery disease, history of myocardial infarction (ME) in the past, history of chronic congestive hepatopathy with associated hepatic encephalopathy and chronic cholecystitis, diabetes mellitus type 2, hypothyroidism, protein-calorie malnutrition, history of anxiety and night terrors. PAST SURGICAL HISTORY: Past surgical history of defibrillator and pacemaker placement for sick sinus syndrome, history of mitral and aortic valve bioprosthetic valve replacements, history of coronary artery bypass grafting. ALLERGIES: No known drug allergies. HOME MEDICATIONS: The patient's home medications include: Home medication: - Tylenol as needed - aspirin 81 mg by mouth daily - Bumex 2 mg by mouth daily - buspirone 5 mg one tablet three times a day - vitamin D 1000 units by mouth daily - Celexa 10 mg at bedtime - Lantus 15 units subcutaneous daily - lactulose 30 mL by mouth daily - levothyroxine 137 mcg daily - metolazone 1.25 mg by mouth daily but the patient was unable to break the pill so she was taking 2.5 mg on alternate days - milk of magnesia as needed - multivitamin daily - potassium chloride 20 mEq three times a day - rifaximin 550 mg by mouth twice a day FAMILY HISTORY: No significant family history of end-stage renal disease requiring hemodialysis. SOCIAL HISTORY: The patient lives at home with her . She denies any smoking, drug abuse, or alcohol abuse. She quit smoking more than 20 years ago. REVIEW OF SYSTEMS: CONSTITUTIONAL: The patient reported weakness, difficulty walking, and some chills. EYES: She denies any blurry vision or double vision. EARS, NOSE, AND THROAT (ENT): She denies any dysphagia or odynophagia or any ear discharge. CARDIOVASCULAR: She reports history of congestive heart failure, multiple admissions to the hospital with congestive heart failure (CHF). PULMONARY: She denies any cough, wheezing, or shortness of breath at this time. GASTROINTESTINAL (GI): The patient reported nausea and diarrhea and was found to have C. Difficile. GENITOURINARY: She denies any dysuria, hematuria, or urinary retention. MUSCULOSKELETAL: She denies any muscles aches and pains. ENDOCRINE: The patient history of hypothyroidism and diabetes. HEMATOLOGICAL AND ONCOLOGICAL: She denies any easy bruising. No history of malignancy in the past. SKIN: She denies any rashes or ulcers. CENTRAL NERVOUS SYSTEM ([employer] FURNISH[employer] SALESPERSON): She denies any history of strokes or seizures, but she does report history of hepatic encephalopathy. PSYCHIATRIC: The patient is anxious and depressed because of her chronic illness. All other review of systems was found to be negative. PHYSICAL EXAMINATION: GENERAL: The patient is fatigued and tired, laying in the bed. Otherwise, oriented times three. No apparent distress at this time. VITAL SIGNS: Temperature is 99 degrees Fahrenheit, blood pressure is 102/62, pulse is 66, respiratory rate of 18, saturating 93% on room air. INTAKE AND OUTPUT: Is not recorded yet. Weight on the bed scale is 40.8 kg. HEAD AND NECK EXAMINATION: Extraocular muscles intact. Pupils equally round and reactive to light. Mucous membranes are moist. Neck is supple. There is significantly elevated jugular venous distention (JVD) with engorged neck veins. CARDIOVASCULAR: S1, S2 with gallop rhythm because of the congestive heart failure (CHF) and bioprosthetic valves. RESPIRATORY: Chest is clear to auscultation bilaterally. Bilateral equal air entry. No rales or rhonchi. ABDOMEN: Is soft. Positive bowel sounds. Nontender. Mild amount of ascites. Liver is palpable. EXTREMITIES: The patient has cyanosis of fingers or both hands. She has cold extremities. There is very trace edema of the bilateral lower extremities. Pulses are 2+. CENTRAL NERVOUS SYSTEM ([employer] SALESPERSON): No focal neurological deficits. Power is 5/5 in all extremities at this time. SKIN: No rashes or ulcers. Positive cyanosis of the extremities, as mentioned above. PSYCHIATRIC: The patient has a depressed mood at this time. LYMPH NODES: No significant cervical, axillary, or inguinal lymphadenopathy. LABORATORY REVIEW: CBC showed a WBC 8.2, hemoglobin is 13.4, platelets of 136. Arterial blood gas (ABG) done today morning showed a pH of 7.3, PCO2 is 24.5, pO2 is 69.7, bicarbonate is 11.8, oxygen (O2) saturation is 91%. INR is 1.35. BMP done today morning showed a sodium 134, potassium 5.8, chloride 96, bicarbonate 16, BUN 61, creatinine is 2.7, lactic acid is 11.3, total bilirubin is 3.3, AST is 47, alkaline phosphatase is 236, BNP is 2300, albumin is 3.4. MICROBIOLOGY: Clostridium (C) difficile is positive. Blood cultures are pending. IMAGING: A CAT scan of the abdomen and pelvis showed congestive heart failure, small right pleural effusion, enterocolitis, mild ascites, cholelithiasis. Ultrasound of the liver done this morning showed moderate ascites, cirrhosis, chronic gallbladder wall thickening with gallstones, no Alejandro sign, and no biliary ductal dilatation. ASSESSMENT: A 76-year-old female with past medical history of severe systolic congestive heart failure with cardiorenal syndrome and chronic kidney disease with best baseline creatinine of 1.5 according to recent laboratories. She was admitted this time with sepsis secondary to C. difficile colitis, acute kidney injury, hyperkalemia, and acute decompensated congestive heart failure. PLAN: 1. Clostridium (C) difficile colitis. The patient has already been started on oral vancomycin 250 mg by mouth every 6 hours. Continue current dose. She reports improvement in the diarrhea. She has not had a bowel movement since yesterday. Continue to hold rifaximin at this time. 2. Acute kidney injury superimposed on chronic kidney disease. The patient's baseline creatinine is 1.5. Her creatinine on admission was 2.6, which has gotten worse to 2.7 now. The patient was getting intravenous (IV) fluid hydration. Clinically, the patient does not look dry. She had engorged neck veins, peripheral cyanosis. To me, it looks like the patient is likely in decompensated congestive heart failure. I have stopped the IV fluids and manage the patient as cardiogenic shock. 3. Acute decompensated congestive heart failure. The patient's left ventricle (LV) ejection fraction is very low. It is around 10% to 15%. I am going to start the patient on dobutamine IV infusion at 3 mL per hour. Continue current oral dose of diuretics, Bumex, and metolazone. If the patient does not start improving by tomorrow, then I will start IV diuretics. Continue to monitor the daily intake and output and daily weights. 4. Lactic acidosis. Lactic acidosis is secondary to cardiogenic shock and hepatic congestion, inability of the patient to metabolize lactic acid because of cirrhosis. The patient does not need any IV fluid hydration at this time. Improvement in the cardiac function would improved lactic acidosis, as well. Continue the management of acute CHF as mentioned above. 5. Hyperkalemia. Hyperkalemia is secondary to acidosis and acute renal failure. I would not give the patient Kayexalate at this time because of acute C. difficile colitis. Potassium level is expected to improve with improvement in the CHF and renal function. 6. Chronic congestive hepatopathy. It is secondary to severe CHF. IV dobutamine and diuretics should help improve the hepatopathy. Avoid rifaximin and lactulose at this time because of C. difficile colitis. Improvement in the cardiac function would also help improve the congestive hepatopathy. 7. Diabetes mellitus type 2. Continue the home dose of insulin at this time. Avoid metformin. The patient's sulfonylureas were held last time because of hypoglycemia. Thank you for involving us in the care of this patient. We shall be happy to follow the patient along with you tomorrow morning. The plan of care was discussed with the hospitalist team, Dr. Mili Patel.
[2017-02-24 14:14] LABS: CALCIUM LEVEL 8.9 MG/DL (8.8-10.2); CREATININE FOR GFR 3.06 MG/DL (0.55-1.02); GLOMERULAR FILTRATION RATE 15.8 (>39)
[2017-02-24 14:19] LABS: POTASSIUM SERUM 5.6 MEQ/L (3.5-5.1)
--- NOTE | 2017-02-24 14:55 | RO ---
DATE OF PROCEDURE: 02/24/2017 PHYSICIAN PERFORMING THE PROCEDURE: Dr. Mili Patel PAN RECLAIM PROCESSOR: PREPROCEDURE DIAGNOSIS: Sepsis with congestive heart failure (CHF) for central venous pressure (CVP) measuring. POSTPROCEDURE DIAGNOSIS: Sepsis with congestive heart failure. PROCEDURE PERFORMED: Right internal jugular (IJ) triple-lumen central line. SEDATION: None. VENTILATION: 50% VentiMask. ANESTHETIC: 1% local lidocaine. ESTIMATED BLOOD LOSS: 10 mL. DESCRIPTION OF PROCEDURE: The patient was placed in supine position. The right side of the patient's neck was cleaned with ChloraPrep, and the patient is covered in the usual manner. Ultrasound probe cover was used to locate right internal jugular. 1% lidocaine was given with ultrasound guidance. Subsequently, the needle was inserted. A flash of blood was obtained. Unfortunately, cannot advance guidewire. Subsequently, a needle with catheter was used, giving that the vein appears tortuous. With ultrasound guidance, the needle was inserted. A flash of blood was obtained, and plastic catheter was advanced over needle though through the vein. Subsequently, the needle was removed. The catheter position was verified with ultrasound. Wire was inserted due to catheter, and catheter was removed. A triple-lumen central line was inserted via Seldinger technique over guidewire, and wire was removed. All three ports were flushed. The site was secured with clamps and stitches. Dressing was placed. X-ray was ordered for confirmation of central line. The patient tolerated the procedure with no complications.
--- NOTE | 2017-02-24 15:21 | IPN ---
DATE OF SERVICE: 02/24/2017 The patient seen and examined. Lethargic with persistent diarrhea. The patient admitted overnight. Borderline blood pressure. Denies any fevers, chills, shortness of breath, chest pain, pressure, discomfort. Denies any abdominal pain. Was nauseous. VITAL SIGNS: Temperature 97.2, pulse 101, respiration 18, blood pressure 119/73, pulse oximetry 97% on 2 liter nasal cannula. LABORATORY: WBC 8.2, hemoglobin and hematocrit 13.4 over 44.4, platelets 136. Chemistry: Sodium 135, potassium 5.6, chloride 97, bicarbonate 19, BUN 64, creatinine 3.06, lactic acid 11.3, cardiac enzyme troponin 0.21. Clostridium (C) difficile positive. PHYSICAL EXAMINATION: GENERAL: The patient comfortable, frail, mildly lethargic. HEENT: Normocephalic, atraumatic. Pale. PULMONARY: Bilaterally clear to auscultation. Diminished breath sounds bilateral bases. CARDIAC: Paced mild tachycardia. 3/6 systolic murmur. ABDOMEN: Soft. Hyperactive bowel sounds. Nontender. Nondistended. EXTREMITIES: 1+ pitting edema bilateral lower extremities. ASSESSMENT AND PLAN: This is a 76-year-old female patient with multiple comorbidities. The patient has been hospitalized multiple times since November with severe systolic congestive heart failure and diastolic congestive heart failure, ejection fraction 10% to 15%, chronic kidney disease stage IV, sick sinus syndrome with pacemaker, automatic implantable cardioverter-defibrillator (AICD), and valvular heart disease with bioprosthetic valve replacement, aortic bioprosthetic mitral and aortic bioprosthetic valve replacement, severe tricuspid regurgitation with a history of myocardial infarction ([place]) and coronary artery bypass graft (CABG), insulin dependent type 2 diabetes, history of endocarditis, history of hepatic encephalopathy with hyperammonia, pulmonary hypertension, dyslipidemia, anemia, hypothyroidism. The patient admitted with nausea and diarrhea. PROBLEMS: 1. Nausea and diarrhea, likely secondary to gastroenteritis secondary to Clostridium (C) difficile colitis. CT scan of the abdomen appreciated. Gastrointestinal (GI) panel shows C. difficile. Vancomycin has been started. Initially, received intravenous (IV) fluids. Later, IV fluid has been discontinued, given the patient's severe congestive heart failure (CHF). Rene catheter plus strict intake and output (I and O). Zofran as needed. Aspiration precautions. Clear-liquid diet for now. Lactic acid elevated. 2. Severe lactic acidosis, multifactorial, possibly secondary to underlying infection versus cardiac in the setting of liver failure. The patient not able to metabolize the lactic acid. Will continue to monitor. 3. Severe systolic and diastolic congestive heart failure. Ejection fraction 10% to 15%. Cardiology, Dr. Bravo, has been consulted with cardiorenal syndrome, as well as hepatic congestion due to CHF. Continue diuretic metolazone and Bumex, dobutamine drip, triple-lumen central line measuring central venous pressure (CVP). Repeat echocardiogram. Followup cardiac enzymes. Followup cardiology recommendation, telemetry. 4. Acute on chronic renal failure with hyperkalemia, likely cardiorenal syndrome. The case discussed with Dr. Wood and Dr. Bravo. The patient started on dobutamine. Continue Bumex and metolazone. Strict I and O. Followup urinalysis (UA). 5. Transaminitis, hepatic failure, likely secondary to hepatic congestion due to congestive heart failure. Ultrasound of the liver appreciated. Followup hepatic workup. Ammonia level negative. Coagulopathy secondary to liver failure. Continue to monitor. Continue rifaximin. Followup ammonia level. Supportive care. 6. Hypothyroidism. Continue Synthroid. 7. Depression. Continue home medication. 8. CT scan showing evidence of ascites, likely congestion and edema secondary to congestive heart failure. UA has been negative. Continue to monitor. 9. History of sick sinus syndrome. The patient has a pacemaker. 10. Pulmonary hypertension. Continue diuresis. Continue supportive care. Oxygen (O2) supplementation. 11. Valvular heart disease with tricuspid regurgitation and mitral and aortic valve bioprosthetic valve. Followup echocardiogram to evaluate valvular function. 12. Insulin dependent type 2 diabetes. Follow fingerstick. Insulin as per protocol. 13. History of endocarditis. Followup cultures. 14. Dyslipidemia. Continue statin. 15. Chronic anemia. Continue to monitor. 16. Protein-calorie malnutrition. Supportive care. Early feeding if the patient tolerates. 17. Deep venous thrombosis (DVT) prophylaxis. Sequential compression device, given the patient with coagulopathy secondary to liver insufficiency. Will continue to monitor.
[2017-02-24 19:24] LABS: CALCIUM LEVEL 8.9 MG/DL (8.8-10.2); CREATININE FOR GFR 3.16 MG/DL (0.55-1.02); GLOMERULAR FILTRATION RATE 15.2 (>39)
[2017-02-24 19:27] LABS: POTASSIUM SERUM 5.6 MEQ/L (3.5-5.1)
[2017-02-24] MEDS ORDERED: CitaloPRAM (CeleXA) 10 MG TABLET PO SCH (21:00)
[2017-02-24] MEDS: PANTOPRAZOLE 40MG INJ (PROTONIX) (C9113) IV SCH (21:19)
[2017-02-25] VITALS (13 sets, daily range): BP systolic 101–130; BP diastolic 57–85
[2017-02-25] MEDS: VANCOMYCIN ORAL SOL 250MG/5ML ORAL SYRINGE PO SCH ×3 (01:20→11:59)
[2017-02-25 05:21] LABS: MEAN CORPUSCULAR HEMOGLOBIN 30.7 pg (27.0-33.0); MEAN CORPUSCULAR HGB CONC 31.7 g/dl (32.0-36.5); MEAN CORPUSCULAR VOLUME 97.1 fl (80.0-96.0); RED CELL DISTRIBUTION WIDTH 17.4 % (11.5-14.5); WHITE BLOOD COUNT 7.1 K/mm3 (4.0-10.0)
[2017-02-25 05:42] LABS: INR 3.59
[2017-02-25] MEDS: LEVOTHYROXINE 0.137 MG TAB (137MCG) PO SCH (05:49)
[2017-02-25 05:52] LABS: ALBUMIN 3.2 GM/DL (3.2-5.2); ALBUMIN/GLOBULIN RATIO 1.03 (1.00-1.93); BILIRUBIN,TOTAL 2.9 MG/DL (0.2-1.0); CALCIUM LEVEL 8.7 MG/DL (8.8-10.2); CREATININE FOR GFR 3.25 MG/DL (0.55-1.02); GLOMERULAR FILTRATION RATE 14.7 (>39); TOTAL PROTEIN 6.3 GM/DL (6.4-8.2)
[2017-02-25 05:56] LABS: POTASSIUM SERUM 5.5 MEQ/L (3.5-5.1)
[2017-02-25] MEDS: PANTOPRAZOLE 40MG INJ (PROTONIX) (C9113) IV SCH (08:32)
[2017-02-25] MEDS: LACTOBACILLUS ACIDOPHILUS CAP (BACID) PO SCH (08:33)
[2017-02-25] MEDS: HumaLOG INSULIN (NovoLOG) PER UNIT SC SCH ×2 (08:33→12:00)
[2017-02-25] MEDS: metOLazone 2.5 MG TAB PO SCH (08:33)
[2017-02-25] MEDS: BUMETANIDE 1 MG TAB PO SCH (08:33)
[2017-02-25] MEDS: rifAXIMin 550 MG TAB (XIFAXAN) PO SCH (08:33)
[2017-02-25] MEDS: ASPIRIN 81 MG ENTERIC TAB PO SCH (08:34)
[2017-02-25] MEDS: MULTIVITAMINS/MINERALS THERAP 1 TAB PO SCH (08:34)
[2017-02-25] MEDS: VITAMIN D 1,000 INTERNATIONAL UNITS TABLET PO SCH (08:34)
[2017-02-25] MEDS: BRIMONIDINE 0.15% OPHTH SOLN 5 ML OU SCH (08:34)
[2017-02-25] MEDS ORDERED: PHYTONADIONE 5 MG TAB PO SCH (09:00)
[2017-02-25] MEDS ORDERED: FUROSEMIDE 40 MG/4 ML VIAL (J1940) IV SCH (11:00)
[2017-02-25] MEDS ORDERED: metOLazone 2.5 MG TAB PO ONE (11:00)
--- NOTE | 2017-02-25 12:27 | IPN ---
DATE: 02/25/2017 SUBJECTIVE: The patient was seen and examined at the bedside today in the morning. The last 24 hour events were noted. The patient was transferred to ICU yesterday. The patient got a central line in the right IJ vein. She was started on dobutamine by me yesterday. Her lactate level is improving, however, her central venous pressure (CVP) is still high. Her renal function continues to get worse and she still has multiple electrolyte abnormalities and the patient is oliguric at this time. REVIEW OF SYSTEMS: The patient denies any fever, chills, rigors, headache, nausea, vomiting. She reports better appetite actually. She denies any shortness of breath. She continues to have loose stools, but she reports that the amount of loose stools is decreasing with oral vancomycin. The rest of the review of systems is negative. OBJECTIVE: VITAL SIGNS: Temperature is 97.4 degrees Fahrenheit. Blood pressure is 130/73, pulse is 92, respiratory rate of 18, saturating 97% on nasal cannula at 2 liters per minute. Her CVP done today morning was 25. Intake and output: Urine output recorded as only 200 ml yesterday and 270 mL so far today since overnight. The patient is more 1 liter positive fluid balance at this time. Weight in the bed scale is 47.7 kg. PHYSICAL EXAMINATION: GENERAL: The patient is awake, alert and oriented times three. Sitting on the sofa. No apparent distress at this time. HEAD/NECK: The patient's face is puffy with periorbital edema. Mucous membranes are moist. Neck is supple with significantly elevated jugular venous distention (JVD). CARDIOVASCULAR: S1, S2. The patient has a gallop rhythm. RESPIRATORY: Chest is clear to auscultation bilaterally. No rales or rhonchi. ABDOMEN: Soft. Positive bowel sounds. Mild amount of ascites. Liver is palpable. No tenderness. EXTREMITIES: Patient has cyanosis of the bilateral hand fingers, pulses are otherwise 2+. There is trace edema of the bilateral lower extremities. CENTRAL NERVOUS SYSTEM: No focal neurological deficit. Power is 5/5 in all extremities. PSYCHIATRIC: The patient has a depressed mood. SKIN: No rashes or ulcers, but positive cyanosis of the extremities as mentioned above. LABORATORY REVIEW: CBC showed a WBC of 7.1, hemoglobin 11.6, platelets of 123, INR is 3.5. BMP showed sodium 129, potassium 5.5, chloride 93, bicarbonate 20, BUN 68, creatinine 3.2. Lactic acid is improved at 3.7. It was more than 11 yesterday in the morning. Calcium 8.7. Total bilirubin 2.9, ammonia 46, albumin 3.2. Microbiology: Urine culture is negative. Blood cultures are negative so far. IMAGING: Chest x-ray done yesterday showed chronic stable cardiomegaly and there was a right IJ line in the superior vena cava (SVC). Lungs were clear. CURRENT MEDICATIONS: The patient's current medications were all reviewed by me. She continues to be on IV dobutamine drip. I have stopped her Bumex. The patient was started on Lasix 40 mg IV every 8 hourly. I have changed her metolazone to 2.5 mg by mouth daily. The patient was restarted on rifaximine which I have stopped again. ASSESSMENT: Mrs. Yamini Yen is a 76-year-old female who is well known to me from multiple previous admissions and she follows up with me in the clinic as well. She has severe systolic congestive heart failure causing cardiorenal syndrome and multiple bouts of acute kidney injury superimposed on chronic kidney disease. Her baseline creatinine is around 1.5. She was admitted this time because of acute kidney injury, decompensated CHF, and C. difficile colitis. PLAN: 1. C. difficile colitis. The patient has been started on oral vancomycin. C. difficile is most likely caused by rifaximine. The patient should not get rifaximine again. 2. Acute kidney injury superimposed on chronic kidney disease. Her acute kidney injury (TERESE) is secondary to decompensated congestive heart failure. Her CVP is very high. I started the patient yesterday on dobutamine, however, renal function continues to get worse. She is probably not absorbing oral diuretics. I have started the patient on Lasix at 40 mg IV every 8 hourly. The patient is oliguric at this time. If renal function does not improve with the current dose, then either the dose will be increased or she will be restarted on Lasix drip. I have increased the metolazone dose to 2.5 mg by mouth daily. 3. Acute decompensated congestive heart failure. The patient's ejection fraction (EF) is around 10%. She has been following up at Dr. Matthews's as outpatient as well. As mentioned above, the patient will be given IV diuretics and oral metolazone. Continue the dobutamine drip at this time. Continue to monitor 24 hour intake and output. Continue to monitor daily weight. 4. Lactic acidosis. Lactic acidosis is secondary to cardiogenic shock and inability of the patient to metabolize lactate because of hepatic congestion as well. The patient should not get any IV fluids. Her CVP is very high. Lactic acidosis would improve with improvement in the cardiac function and it already improving as compared with yesterday. Her lactate is 3.7 which is down from 11.3 yesterday. Continue the diuresis as well. 5. Hyperkalemia. Hyperkalemia is secondary to metabolic acidosis and acute renal failure. I will not give Kayexalate to this patient who is having C. difficile colitis and diarrhea. Potassium is expected to improve with improvement in renal function and further diuresis. Avoid high potassium diet at this time. 6. Chronic congestive hepatopathy. It is secondary to CHF. Continue the dobutamine and IV Lasix. The patient has got coagulopathy as well because of congestive hepatopathy. She has been started on vitamin K by the primary team. 7. Diabetes mellitus type 2. Continue insulin sliding scale. Avoid metformin. The plan of care was discussed with the hospitalist team, Dr. Patel and with patient's RN at the bedside.
--- NOTE | 2017-02-25 14:42 | IPN ---
DATE: 02/25/2017 The patient seen and examined. No acute events overnight. Tolerating oral, reported improvement of diarrhea. Reported stools are more formed now. Have about 6 episodes of bowel movements overnight. Denies any chest pain, pressure or discomfort, shortness of breath. VITAL SIGNS: Temperature 97.4, pulse 90, respirations 18. Blood pressure 120/67, pulse oximetry 97% on 2 liters nasal cannula. LABORATORY: WBC 7.1, hemoglobin and hematocrit 11.6/36.6. Platelets 123. Chemistry: Sodium 129, potassium 4.4, chloride 93, bicarbonate 20, BUN 68, creatinine 3.25. Lactic acid down to 3.7, troponin 0.41. Ammonia level up to 446. PHYSICAL EXAMINATION: GENERAL: The patient is comfortable, frail. In no acute distress. HEENT: Normocephalic, atraumatic. pale. PULMONARY: Bilateral clear to auscultation. Diminished breath sounds bilateral bases. CARDIAC: Paced, regular. 3 out of 6 systolic murmur. ABDOMEN: Soft, hyperactive bowel sounds. Nontender, nondistended. EXTREMITIES: 1+ bilateral lower extremity pitting edema. ASSESSMENT AND PLAN: This is a 76-year-old female patient with multiple comorbidities. 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 Patient admitted with nausea and diarrhea, found to have C. Difficile. 1. Nausea and diarrhea. Likely secondary to gastroenteritis, due to C. Difficile. CT scan of the abdomen appreciated. C. difficile was positive. Vancomycin oral. IV fluids initially received. Currently discontinued given severe CHF. Rene catheter, follow Intake and output (I and O). Zofran as needed. Aspiration precaution. Diet as tolerated. Lactic acid has been appreciated. 2. Severe lactic acidosis, multifactorial, secondary to underlying infection versus congestive heart failure (CHF) in the setting of liver failure. Patient cannot metabolize lactic acid. Continue to monitor. The patient currently on dobutamine for pressor with improvement of lactic acidosis. 3. Severe diastolic congestive heart failure. Ejection fraction (EF) of 10 to 15%. Cardiology, Dr. Bravo has been consulted. Likely cardiorenal syndrome as well as hepatic congestion due to CHF. Continue diuretics, metolazone, Lasix, dobutamine. Triple lumen central line for monitoring CVP. Repeat echocardiogram appreciated. Followup cardiac enzyme with troponin leak. Likely secondary to CHF. Followup cardiology recommendation. 4. Troponin elevation. Cardiac enzyme elevation likely secondary to acute CHF exacerbation with diastolic and systolic dysfunction. Management as per above. 5. Acute on chronic renal failure with hyperkalemia, likely cardiorenal syndrome. Case discussed with Dr. Bravo and Dr. Wood. The patient currently on dobutamine, Lasix, metolazone for diuresis. Strict I and Os, daily weights. UA appreciated. 6. Transaminitis with liver failure. Likely secondary to hepatic congestion due to congestive heart failure. Ultrasound of the liver appreciated. Hepatitis workup, ammonia level elevated. 7. Coagulopathy secondary to liver failure. Continue rifaximin. Followup ammonia level. Will not start lactulose given patient still having persistent diarrhea. Supportive care. Continue to monitor. Treatment per cardiac recommendation as above. 8. Hypothyroidism. Continue Synthroid. 9. Depression. Continue home medications. 10. CT scan showing evidence of cystitis. Likely congestion edema. UA has been negative. Continue to monitor. 11. History of sick sinus syndrome. The patient has a pacemaker. 12. Pulmonary hypertension. Continue diuresis. Supportive care. O2 supplementation. 13. Valvular heart disease with tricuspid regurgitation and aortic mitral bioprosthetic valve. Followup echo. Followup cardiac recommendations. 14. Insulin-dependent type 2 diabetes. Insulin as per protocol. Followup fingersticks. 15. History of endocarditis. Followup cultures. 16. Dyslipidemia. Continue statin. 17. Chronic anemia. Continue to monitor. Transfuse as needed. 18. Protein calorie malnutrition. Supportive care. Feeding as tolerated. 19. DVT prophylaxis. Sequential compression device. The patient with severe coagulopathy secondary to liver insufficiency. Will continue to monitor. Vitamin D has been given. DISPOSITION: Patient with multiple comorbidities and severe cardiac disease, poor overall prognosis and high mortality.
--- NOTE | 2017-02-25 16:37 | DSES ---
DATE OF ADMISSION: 02/24/2017 DATE OF /EXPIRATION: 02/25/2017 at 2:56 p.m. PRIMARY CARE PROVIDER: Dr. Sujit Bhagat BUSINESS SYSTEMS DEVELOPER: Dr. Ellie Matthews, covered by Dr. Migel Bravo. ORTHODONTIC TREATMENT COORDINATOR: Dr. Shea Amin and Dr. Rayna Wood. FINAL DIAGNOSES: 1. Ventricular fibrillation. 2. Severe diastolic and systolic congestive heart failure with ejection fraction (EF) of 10-15%. 3. Coronary artery disease. 4. Acute on chronic renal failure. 5. Liver failure, secondary to hepatic congestion. 6. Coagulopathy. 7. Severe lactic acidosis. 8. Hypothyroidism. 9. Depression. 10. Pulmonary hypertension. 11. Sick sinus syndrome. 12. Valvular heart disease. 13. Diabetes. 14. Dyslipidemia. 15. Severe protein calorie malnutrition. 16. Clostridium (C) difficile colitis. HISTORY OF PRESENT ILLNESS: This is a 76-year-old female patient with underlying medical history of chronic kidney disease (CKD) stage IV, severe systolic and diastolic congestive heart failure with ejection fraction of 10-15%, sick sinus syndrome status post pacemaker placement, pulmonary hypertension, valvular heart disease with severe tricuspid regurgitation and bioprosthetic mitral and aortic valve, history of hepatitic encephalopathy with elevated ammonia, coronary artery disease with myocardial infarction (MN), insulin dependent diabetes, cardiomyopathy, history of endocarditis, dyslipidemia, chronic anemia, hypothyroidism, glaucoma, chronic protein calorie malnutrition, night terrors, anxiety, vitamin D deficiency, chronic constipation, presented with nausea and diarrhea, unable to tolerate much oral for several days. Reported watery bowel movement four times a day, light brown. Admits to chills. Patient has been admitted to the hospital recurrently over the past 3 months. Reported generalized weakness, unable to walk. Denies any vomiting, but reported nausea. Reported anxiety. Denies any chest pain. No sick contacts but was recently given antibiotics during hospital stay, was just discharged 01/31/2017, for acute on chronic systolic and diastolic congestive heart failure and acute kidney injury. HOSPITAL COURSE: Patient was found to have C. difficile colitis, started on vancomycin, diet was advanced. Patient was also found to be in acute on chronic renal failure secondary to cardiorenal with congestive heart failure, hyperkalemia, liver failure secondary to hepatic congestion. Initially given IV fluids, IV fluids later discontinued. Started on dobutamine and Lasix for congestive heart failure (CHF). Rene for strict intake and output. Vancomycin for treatment of C. difficile. Nephrology and cardiology were both consulted. Insulin was provided. Goals of care discussion was held with patient and family. Patient is confirmed that patient is DO NOT RESUSCITATE/DO NOT INTUBATE, but unfortunately patient is not yet ready for hospice or comfort oriented care. Right internal jugular (IJ) triple lumen central line was placed for central venous pressure (CVP) measurements and pressure support. Lactic acid was monitored. Earlier today was called by the nursing staff that patient on telemetry shows ventricular fibrillation. Patient was seen at the bedside. Patient was unconscious, not breathing, pupils are dilated, not arousable, with no respiratory drive, no reflexes. Subsequently, patient flat-lined. Aware that patient is DO NOT RESUSCITATE/DO NOT INTUBATE, therefore would not shock the patient. Patient's family was informed. Patient was pronounced 02/25/2017 at 2:56 p.m. was informed and came to the bedside. Consultants, Dr. Bravo and Dr. Wood, were also informed.
[2017-02-26] MEDS ORDERED: metOLazone 2.5 MG TAB PO SCH (09:00)
== END 2017-02-25 16:30 | disposition expired | DRG 371 ==
LOC: M ED 03:10 → M ED INP 04:44 → M PCU 06:06 → M ICU 11:16
PROVIDERS: ADMIT Internal Medicine; ATTEND Hospitalist
PROC: 02HV33Z Insertion of Infusion Device into Superior Vena Cava, Percutaneous Approach (ICD-10-PCS; principal; 2017-02-24)
DX: A04.7 Enterocolitis due to Clostridium difficile (principal); E43 Unspecified severe protein-calorie malnutrition; I50.43 Acute on chronic combined systolic (congestive) and diastolic (congestive) heart failure; N17.9 Acute kidney failure, unspecified; N18.4 Chronic kidney disease, stage 4 (severe); D68.9 Coagulation defect, unspecified; E87.2 Acidosis; I13.0 Hypertensive heart and chronic kidney disease with heart failure and stage 1 through stage 4 chronic kidney disease, or unspecified chronic kidney disease; Z66 Do not resuscitate; I49.01 Ventricular fibrillation; H40.9 Unspecified glaucoma; E03.9 Hypothyroidism, unspecified; E87.5 Hyperkalemia; R57.0 Cardiogenic shock; N30.90 Cystitis, unspecified without hematuria; K72.90 Hepatic failure, unspecified without coma; I36.8 Other nonrheumatic tricuspid valve disorders; I27.2 Other secondary pulmonary hypertension; F32.9 Major depressive disorder, single episode, unspecified; E78.5 Hyperlipidemia, unspecified; E11.9 Type 2 diabetes mellitus without complications; I25.10 Atherosclerotic heart disease of native coronary artery without angina pectoris; I25.2 Old myocardial infarction; I49.5 Sick sinus syndrome; D64.9 Anemia, unspecified; E55.9 Vitamin D deficiency, unspecified; K59.09 Other constipation; Z79.4 Long term (current) use of insulin; Z95.810 Presence of automatic (implantable) cardiac defibrillator; Z95.2 Presence of prosthetic heart valve; Z79.82 Long term (current) use of aspirin; Z98.61 Coronary angioplasty status; Z87.891 Personal history of nicotine dependence